=== PATIENT | male | born 1940 | race Caucasian/White ===

== ENCOUNTER → 2017-06-21 | Outpatient (CLI) | payer OTHER ==
[~2017-06-21] MED LIST: ACET50TAOT PO; ALBU17IN INH; ALBUTEROL NEB; ALBUTEROL NEBS INH; ALDA25TA2 PO; ASPI1TAB PO; ATOR1TAB21 PO; AZIT500T2 PO; BISO5TAB5 PO; BREO1INH3 INH; CRES10TA32 PO; DELTASONE PO; DEMA20TA6 PO; DIGO0.12 PO; DIPHENHYDRAMINE PO; FURO40TA2 PO; GABA-282 PO; GLIP5TAB8 PO; INVO100T PO; IPRASOL4 INH; JANU100T PO; KLOR1TAB69 PO; LANO250T15 PO; LEVA1TAB2 PO; MAALSUS8 PO; METO5TA PO; OMEP20TA PO; OXYGEN; PERC5TAB12 PO; PRED10TA PO; PRED10TA2 PO; PROT1TAB2 PO; PROVENTIL NEB NEB; RAMI25CA PO; SERT50TA PO; TOPR50TA PO; TORS20TA2 PO; TYLE167L PO; VENTOLIN INHALER INH; XARE10TA PO; XARE20TA PO; ZEBE5TAB PO; ZOLO50TA PO
== END ==
LOC: M LAB 14:18
PROVIDERS: ATTEND Ophthalmology
DX: Z11.2 Encounter for screening for other bacterial diseases (principal)

== ENCOUNTER → 2017-06-24 | Day surgery (SDC) | payer OTHER ==
--- NOTE | 2017-06-23 07:45 | HPE ---
DATE OF ADMISSION: 06/24/2017 HISTORY OF CHIEF COMPLAINT: Mr. Peña is a 77-year-old gentleman who has had a several-year history of progressive drooping of his upper eyelids, which is interfering with his vision and visual field. Mr. Peña is been admitted to the operating room to have a levator aponeurosis resection, advancement and reattachment with a blepharoplasty of both upper eyelids. This will be performed under local anesthetic with monitored sedation. PAST OCULAR HISTORY: Please see history of present illness. Cataract surgery both eyes 2013. PREOPERATIVE MEDICAL EVALUATION DONE AND ASSESSMENT AND PAST MEDICAL HISTORY: Please see the report by Dr. Bernardino Garcia. Diabetes mellitus type 2, coronary artery disease, metabolic syndrome, obstructive sleep apnea, asthma, atrial fibrillation, neuropathy, gastroesophageal reflux disease (GERD), high cholesterol, congestive heart failure, chronic obstructive pulmonary disease (COPD). MEDICATIONS: Please refer to the report by Dr. Bernardino Garcia. Benadryl allergy, dexamethasone, Xarelto, Lanoxin, gabapentin, Breo, prednisone, torsemide, aspirin 81 mg, sertraline, metoprolol, Percocet, glipizide, atorvastatin, omeprazole, MiraLAX, Ventolin, Januvia, Tylenol arthritis. ALLERGIES: BETA-BLOCKERS. FAMILY HISTORY: Please see the report by Dr. Bernardino Garcia. Cataract and glaucoma with respect to eye disease. SOCIAL HISTORY: Nonsmoker. On examination, vision with current glasses: Right eye: 20/25 -1, left eye: 20/20 -1. Intraocular pressure by Goldmann tonometry: Right eye: 17 mmHg, left eye: 17 mmHg. Pupils: Both eyes: Equal, round, regular and reactive to light. Extraocular movements: Both eyes: Full. External examination: Right eye: Involutional dermatochalasis upper eyelid, orbital fat herniation. Margin to brow skin measurement: 30mm. Myogenic ptosis upper eyelid, marginal reflex distance: 1 mm. Levator function: 11 mm. No lid lagophthalmos present. Left eye: Involutional dermatochalasis upper eyelid, orbital fat herniation. Margin to brow skin measurement: Left eye: 30 mm. Myogenic ptosis upper eyelid, marginal reflex distance: 1 mm, levator function: 11 mm. No lid lagophthalmos present. Both eyes: papillary conjunctivitis. Slit lamp examination: Cornea: Both eyes: 1+ superficial punctate keratitis. Anterior chamber: Both eyes: Normal. Iris: Both eyes: Normal. Lens: Both eyes: PCIOL. Fundal examination: Both eyes: Normal for age, no evidence of diabetic retinopathy present. Ptosis Visual aldridge: untaped bilateral shows 40 degrees superior visual field loss. Taped upper eyelid: bilateral shows full superior visual field. IMPRESSION: 1. Myogenic ptosis upper eyelids both eyes, affecting vision and visual field. 2. Involutional dermatochalasis upper eyelid both eyes. PLAN: I discussed the findings with Mr. Peña. I recommended a levator aponeurosis resection, advancement and reattachment with a blepharoplasty of both upper eyelids to reposition the upper eyelid to improve his vision and visual field and remove the excess skin and herniated orbital fat. I discussed the procedure above, benefit, expected outcomes, risks and alternatives to surgery. I mentioned that the risk of surgery includes but is not limited to surgery is not guaranteed, bleeding, infection, inflammation, scarring, recurrence, over correction, under correction, injury to the globe or the orbit causing loss of vision and impaired function. Mr. Peña elected to have the said surgery performed. I obtained an informed consent. I advised him to stop any aspirin type products and nonsteroidal anti-inflammatory medications [address] Garcia and Rosalva James will recommend his other preoperative and postoperative medications. Bharathi the RN from the operating room preoperative division indicated on Saturday that Mr. Peña had positive cultures from his nasal cavity of methicillin resistant Staphylococcus aureus (MRSA) in 2013. The documentation was received. There was no written evidence that cultures were repeated after the infection was treated. My surgical appliances salesperson, Karla Peterson, contacted [facility]vin and the patient. The patient was informed that cultures should be repeated to determine if there are any evidence of MRSA present. If MRSA is present, this would have to be treated prior to the surgery and surgery would be cancelled. The patient went to [facility] and had some swabs for the nostrils taken for culture and sensitivity to determine if MRSA was still present in the nasal cavity. The results will be obtained at 4:30 on SaturdayJune 24. Depending on the results, the decision to proceed with surgery will be determined. JOHN
[~2017-06-24] VITALS: Ht 177.8 cm; Wt 109.3 kg
[~2017-06-24] MED LIST changes: +BUPIVACAINE 0.75% 10 ML VIAL As Ordered ONE; +CIPROFLOXACIN 0.3% OPHTH OINTMENT As Ordered ONE; +HYALURONIDASE 200 UNITS/ML VIAL (J3470) As Ordered ONE; +LIDOCAINE 1% SDV 5 ML VIAL SQ ONE; +LIDOCAINE W/EPINEPHRINE 1% 20ML VIAL As Ordered ONE; +LR 1,000 ML IV ONE; +MIDAZOLAM INJ 2 MG/2 ML VIAL (J2250) As Ordered ONE; +POVIDONE-IODINE 5% OPHTH PREP SOL 30ML As Ordered ONE; +PROPOFOL 200 MG/20 ML VIAL As Ordered ONE; +TETRACAINE 0.5% OPHTH SOLN 4ML As Ordered ONE; +TOBRADEX OPHTH OINT 3.5 GM As Ordered ONE; +dexameTHASONE 4 MG/ML 1ML VIAL (J1100) As Ordered ONE; +dexameTHASONE 4 MG/ML 1ML VIAL (J1100) IV ONE; +fentaNYL 100 MCG/2 ML INJECTION (J3010) As Ordered ONE
--- NOTE | 2017-06-24 11:01 | RO ---
DATE OF SURGERY: 06/24/2017 ROOM: Operating room. SURGEON: Eric Chapman MD SUPERVISOR SOLDERING: PREOPERATIVE DIAGNOSES: 1. Involutional ptosis upper eyelid both eyes, affecting vision and visual field. 2. Involutional dermatochalasis upper eyelid both eyes. POSTOPERATIVE DIAGNOSES: 1. Involutional ptosis upper eyelid both eyes, affecting vision and visual field. 2. Involutional dermatochalasis upper eyelid both eyes 3. Marked fatty infiltration of levator muscle, Herings phenomenon positive, thinning of aponeurosis. ANESTHESIA: Local with monitored sedation. OPERATIVE PROCEDURE: 1. Levator aponeurosis resection, advancement and reattachment of upper eyelid both eyes. 2. Blepharoplasty upper eyelid both eyes. DESCRIPTION OF OPERATION: The patient was brought into the operating room and positioned appropriately. A surgical marking pen was used to charlie the upper lid crease height at 7 mm using a pair of calipers and then the upper incision line was marked leaving 20 mm of skin from the eyebrow to the lash line. After adequate sedation, local anesthetic consisting of Xylocaine 1% mixed 50/50 with Marcaine 0.75% and epinephrine 1:200,000 with 0.5 mL of 8.4% sodium bicarbonate and 200 units of Vitrase per 10 mL of local anesthetic, 1.5 mL was injected subcutaneously along the incision lines and superior border of the tarsus of the both upper eyelids. The full face was prepped with Betadine and draped in the usual sterile manner. Topical tetracaine 0.5% eye drops were instilled into the both eyes. A 6-0 silk traction suture was placed at the lid margin just nasal to the pupil and both upper eyelids were retracted inferiorly. The skin incision was made with a #15 blade for both upper eyelids. Good hemostasis was ensured throughout the procedure using bipolar cautery. The orbicularis muscle was identified and incised at the temporal margin and then dissected down to the suborbicularis plane. The myocutaneous flap was then excised from temporal to medial. The orbital septum was identified and incised just inferior to the superior orbital rim and the incision was extended medially and laterally. The medial and central orbital fat pads were identified and retracted to reveal the levator muscle and aponeurosis which was detached from its normal position on the superior tarsus. The levator muscle had fatty infiltration. The superior surface of the tarsus was exposed. A double-armed 5-0 nylon suture was used to reattach the levator aponeurosis to the tarsus for both upper eyelids. The suture was tied temporarily. The patient was sat up and the lid margin contour and marginal reflex distance was checked for both upper eyelids. The 5-0 nylon suture was adjusted until the marginal reflex distance was 3 mm for both upper eyelids . The patient was then placed supine and the 5-0 nylon suture was tied and cut. Hemostasis was checked. The skin and orbicularis layer was then closed with interrupted and continuous 6-0 plain suture for both upper eyelids. There were no complications during the surgery. At the end of the procedure, a combination of Ciloxan ophthalmic ointment mixed with TobraDex ophthalmic ointment was applied to the incision and the sutures. A cold saline compress was placed over the closed both upper eyelids. The patient left for the recovery room in good condition. Specimens were sent to pathology. JOHN
[2017-06-24 12:00] VITALS: BP 148/67
== END | disposition home or self-care (01) ==
LOC: M SDC 07:11
PROVIDERS: ATTEND Ophthalmology
DX: H02.423 Myogenic ptosis of bilateral eyelids (principal); H02.834 Dermatochalasis of left upper eyelid; H02.831 Dermatochalasis of right upper eyelid; Z86.14 Personal history of Methicillin resistant Staphylococcus aureus infection; H35.039 Hypertensive retinopathy, unspecified eye; E11.22 Type 2 diabetes mellitus with diabetic chronic kidney disease; I25.10 Atherosclerotic heart disease of native coronary artery without angina pectoris; G47.33 Obstructive sleep apnea (adult) (pediatric); E88.81 Metabolic syndrome and other insulin resistance; J45.909 Unspecified asthma, uncomplicated; I48.91 Unspecified atrial fibrillation; E11.40 Type 2 diabetes mellitus with diabetic neuropathy, unspecified; K21.9 Gastro-esophageal reflux disease without esophagitis; E78.00 Pure hypercholesterolemia, unspecified; I50.30 Unspecified diastolic (congestive) heart failure; I13.0 Hypertensive heart and chronic kidney disease with heart failure and stage 1 through stage 4 chronic kidney disease, or unspecified chronic kidney disease; J44.9 Chronic obstructive pulmonary disease, unspecified; M54.9 Dorsalgia, unspecified; M19.90 Unspecified osteoarthritis, unspecified site; N18.4 Chronic kidney disease, stage 4 (severe); E04.9 Nontoxic goiter, unspecified; Z88.8 Allergy status to other drugs, medicaments and biological substances; Z79.899 Other long term (current) drug therapy; Z79.01 Long term (current) use of anticoagulants; Z79.82 Long term (current) use of aspirin; Z79.51 Long term (current) use of inhaled steroids; Z95.1 Presence of aortocoronary bypass graft
CPT/HCPCS: 15823; 67904; 88302; J1100; J2250; J3010; J3470

== ENCOUNTER 2017-11-01 20:59 | Inpatient (IN) | payer OTHER ==
[~2017-11-01] VITALS: Ht 170.2 cm; Wt 103.5 kg
[~2017-11-01 20:59] MED LIST changes: -BUPIVACAINE 0.75% 10 ML VIAL As Ordered ONE; -CIPROFLOXACIN 0.3% OPHTH OINTMENT As Ordered ONE; -HYALURONIDASE 200 UNITS/ML VIAL (J3470) As Ordered ONE; -LIDOCAINE 1% SDV 5 ML VIAL SQ ONE; -LIDOCAINE W/EPINEPHRINE 1% 20ML VIAL As Ordered ONE; -LR 1,000 ML IV ONE; -MIDAZOLAM INJ 2 MG/2 ML VIAL (J2250) As Ordered ONE; -POVIDONE-IODINE 5% OPHTH PREP SOL 30ML As Ordered ONE; -PROPOFOL 200 MG/20 ML VIAL As Ordered ONE; -TETRACAINE 0.5% OPHTH SOLN 4ML As Ordered ONE; -TOBRADEX OPHTH OINT 3.5 GM As Ordered ONE; -dexameTHASONE 4 MG/ML 1ML VIAL (J1100) As Ordered ONE; -dexameTHASONE 4 MG/ML 1ML VIAL (J1100) IV ONE; -fentaNYL 100 MCG/2 ML INJECTION (J3010) As Ordered ONE
[2017-11-01] MEDS ORDERED: METOPROLOL 5 MG/5 ML VIAL IV STA ×4 (21:17→23:12)
[2017-11-01] MEDS ORDERED: TOUJ1.2I SC (21:26)
[2017-11-01] MEDS ORDERED: XARE15TA PO (21:26)
[2017-11-01 21:40] LABS: BASO # 0.1 10^3/uL (0.0-0.2); BASO % 0.4 % (0.0-1.0); EOS # 0.2 10^3/uL (0.0-0.50); EOS % 0.7 % (0.0-3.0); IMMATURE GRANULOCYTE % 0.9 % (0-0); LYMPH # 1.7 10^3/uL (1.5-4.5); LYMPH % 7.4 % (24.0-44.0); MEAN CORPUSCULAR HEMOGLOBIN 28.9 pg (27.0-33.0); MEAN CORPUSCULAR HGB CONC 32.1 g/dl (32.0-36.5); MONO % 8.5 % (0.0-5.0); NEUTROPHILS # 18.9 10^3/uL (1.8-7.7); NEUTROPHILS % 82.1 % (36.0-66.0); PLATELET COUNT, AUTOMATED 226 10^3/uL (150-450); RED CELL DISTRIBUTION WIDTH 14.6 % (11.5-14.5)
[2017-11-01 22:07] LABS: ALBUMIN 3.1 GM/DL (3.2-5.2); ALBUMIN/GLOBULIN RATIO 0.97 (1.00-1.93); BILIRUBIN,DIRECT 0.1 MG/DL (0.0-0.2); BILIRUBIN,TOTAL 0.6 MG/DL (0.2-1.0); CALCIUM LEVEL 8.3 MG/DL (8.8-10.2); CREATININE FOR GFR 1.52 MG/DL (0.70-1.30); GLOMERULAR FILTRATION RATE 47.8 (>42); POTASSIUM SERUM 3.3 MEQ/L (3.5-5.1); TOTAL PROTEIN 6.3 GM/DL (6.4-8.2)
[2017-11-01 22:17] LABS: DIGOXIN LEVEL 0.9 NG/ML (0.5-2.0)
[2017-11-01] MEDS ORDERED: METOPROLOL TART 25 MG TABLET As Ordered ONE (22:23)
[2017-11-01] MEDS ORDERED: METOPROLOL TART 25 MG TABLET PO ONE ×2 (22:30→23:15)
[2017-11-01] MEDS ORDERED: DIGOXIN INJ 0.5 MG/2 ML AMP (J1160) IV STA (22:38)
[2017-11-01] MEDS ORDERED: ESMOLOL INJ 100MG/10ML VIAL IV ONE (23:15)
[2017-11-02] VITALS (34 sets, daily range): BP systolic 90–164; BP diastolic 44–86
[2017-11-02] MEDS ORDERED: SITA50TAB PO (00:27)
[2017-11-02] MEDS ORDERED: SERT50TA PO (00:27)
[2017-11-02] MEDS ORDERED: TORS20TA2 PO (00:28)
[2017-11-02] MEDS ORDERED: ISOVUE-370 76% 100ML VIAL (Q9967) As Ordered ONE (00:41)
[2017-11-02] MEDS ORDERED: DEXTROSE 50% 50 ML SYRINGE IV PRN (01:00)
[2017-11-02] MEDS ORDERED: GLUCAGON FOR INJ 1 MG VIAL (J1610) SC PRN (01:00)
[2017-11-02] MEDS ORDERED: GLUCOSE 4 GM CHEW TABLET PO PRN (01:00)
[2017-11-02] MEDS ORDERED: VANCOMYCIN HCL 1,000 MG, VIAL MATE ADAPTER 1 EACH in D5W 250 ML IV ONE ×2 (01:45→05:00)
--- NOTE | 2017-11-02 01:50 | REPUSA ---
CLINICAL HISTORY: Chest pain. TECHNIQUE: Multiple axial CT images were obtained through the thorax without IV contrast material. COMMENTS: Enlarged main pulmonary artery. Unremarkable median sternotomy wires. Bilateral multifocal groundglass densities of the lungs more prominent in the right middle lobe and b ilateral lower lobes. Bilateral lower lobe subsegmental air space consolidations. There is no evidence of pleural or parenchymal-based mass. There are no pleural effusions. There is n o evidence of hilar or mediastinal lymphadenopathy. The heart and great vessels are within normal penaloza its. The visualized portions of the liver are of uniform attenuation without mass or defect. There is no i ntra or extrahepatic biliary ductal dilatation. The spleen is unremarkable. The visualized pancreas i s of normal contour and attenuation characteristics. There is no evidence of adrenal mass. The visual ized portions of the kidneys present no abnormalities. The bony structures are free of lytic or blastic lesions. Fluid-filled distended stomach suggestive of gastroparesis. IMPRESSION: Bilateral multifocal bronchopneumonia. Mild congestive heart failure. Thank you for your kind referral of this patient.
--- NOTE | 2017-11-02 02:20 | PHACANCOPD ---
PHARMACY VANCOMYCIN DOSING Pt Demographics Demographics Patient Age:77 , Weight:109.090 , Gender: male Adjusted Body Weight Date: 11/02/17, Adjusted Body Weight: [83] Kg Events Past 24 Hours Events Past 24 Hours: NO: Dialysis, Diuretic Therapy, Change in CrCl, Fever, Elevation in WBC, Pending Diagnostics, Pending Procedures, Other Vancomycin Vancomycin Target Ranges: 15-20 mcg/ml Vancomycin Load Y/N: Yes Load Dose Date Time Vancomycin Load Dose: 2000mg Date: 11-02 Time: 0400 Vancomycin Dose Date: 11/02/17. Current Vancomycin Dose: [1000mg q12h] Intermittent Dosing?: No Labs Labs Item Value Date Time White Blood Count 23.0 10^3/uL H 11/01/172123 Creatinine 1.52 MG/DL H 11/01/172123 Blood Urea Nitrogen 24 MG/DL H 11/01/172123 Vital Signs Label Value Date Time Patient Temperature 99.3 degrees F 11/01/172112 Temperature Source Temporal 11/01/172112 Micro Microbiology 11/02/17 Blood Culture, Received Pending 11/02/17 Blood Culture, Received Pending Creatinine Clearance Date:11/02/17. Creatinine Clearance: [39]. Pending Labs Trough 12-10 @1500 Assessment and Plan Maintaining Current Dose?: Yes Reason for dose change: No Dose Change Pharmacist Note Pharmacist Note Date: 11/02/17. Pharmacist note:Dosed at 1000mg q12h with a trough ordered for 12 -10 @1500. Will continue to monitor and make adjustments as needed. [facility] Nov 02, 2017 02:20
[2017-11-02] MEDS: KCL 10MEQ IN 100ML SWI (KRUN) 10 MEQ in APPROPRIATE DILUENT 1 EA IV SCH ×4 (02:41→04:52)
[2017-11-02] MEDS ORDERED: ALBUTEROL SULFATE 2.5 MG/0.5 ML INH NEB SOLN NEB PRN (03:15)
[2017-11-02] MEDS ORDERED: NS 1,000 ML IV SCH (03:15)
[2017-11-02] MEDS ORDERED: METOPROLOL 5 MG/5 ML VIAL IV STA (03:39)
[2017-11-02] MEDS: VANCOMYCIN HCL 1,000 MG, VIAL MATE ADAPTER 1 EACH in D5W 250 ML IV SCH ×2 (03:51→16:26)
[2017-11-02] MEDS ORDERED: DIGOXIN INJ 0.5 MG/2 ML AMP (J1160) IV STA (04:06)
[2017-11-02 05:28] LABS: MEAN CORPUSCULAR HEMOGLOBIN 28.5 pg (27.0-33.0); MEAN CORPUSCULAR VOLUME 89.2 fl (80.0-96.0); PLATELET COUNT, AUTOMATED 198 10^3/uL (150-450); RED CELL DISTRIBUTION WIDTH 14.9 % (11.5-14.5); WHITE BLOOD COUNT 25.1 10^3/uL (4.0-10.0)
[2017-11-02 05:58] LABS: CALCIUM LEVEL 8.4 MG/DL (8.8-10.2); CREATININE FOR GFR 1.72 MG/DL (0.70-1.30); GLOMERULAR FILTRATION RATE 41.5 (>42); POTASSIUM SERUM 3.5 MEQ/L (3.5-5.1)
[2017-11-02] MEDS ORDERED: HEPARIN SOD (PORCINE) 5000 UNITS/ML VIAL SC SCH (06:00)
[2017-11-02] MEDS ORDERED: PIPERACILLIN/TAZOBACTAM SOD 3.375 GM in APPROPRIATE DILUENT 1 EA IV SCH (06:00)
[2017-11-02 06:41] LABS: DIGOXIN LEVEL 3.4 NG/ML (0.5-2.0)
[2017-11-02] MEDS: HumaLOG INSULIN (NovoLOG) PER UNIT SC SCH ×4 (07:30→20:28)
[2017-11-02] MEDS ORDERED: HEPARIN DRIP 25,000 UNITS in APPROPRIATE DILUENT 1 EA IV SCH ×2 (07:33→17:58)
[2017-11-02] MEDS ORDERED: HEPARIN SOD (PORCINE) 5000 UNITS/ML VIAL IV PRN (07:45)
[2017-11-02 08:14] LABS: INR 1.3
[2017-11-02] MEDS ORDERED: FUROSEMIDE 100 MG/10 ML VIAL (J1940) As Ordered ONE (08:15)
[2017-11-02 08:25] LABS: ABG BASE EXCESS 8.2 (-2.0-2.0); ABG HCO3 33.8 MEQ/L (22.0-26.0); ABG PARTIAL PRESSURE CO2 50.6 mmHg (35.0-45.0); ABG PARTIAL PRESSURE O2 69.7 mmHg (75.0-100.0); ABG STANDARD HCO3 31.9 MEQ/L (22.0-26.0); ABG TOTAL CO2 35.4 MEQ/L (23.0-31.0); ABG pH (ARTERIAL) 7.443 UNITS (7.350-7.450)
[2017-11-02] MEDS ORDERED: METOPROLOL SUCC (TopROL XL) 50MG **XL** TAB PO SCH (09:00)
[2017-11-02] MEDS ORDERED: FUROSEMIDE 100 MG/10 ML VIAL (J1940) IV ONE (09:00)
[2017-11-02] MEDS ORDERED: RIVAROXABAN 15 MG TAB (XARELTO) PO SCH (09:00)
[2017-11-02] MEDS ORDERED: TORSEMIDE 20 MG TAB PO SCH ×2 (09:00)
[2017-11-02] MEDS ORDERED: DIGOXIN 0.125 MG TAB PO SCH (09:00)
[2017-11-02 09:33] LABS: MIXED HCO3 35.6 MEQ/L; MIXED O2 SATURATION 64.3 %; MIXED PARTIAL PRESSURE CO2 62.5 mmHg; MIXED PARTIAL PRESSURE O2 34.2 mmHg; MIXED PH 7.373 UNITS; MIXED STANDARD HCO3 30.9 MEQ/L; MIXED TOTAL CO2 37.5 MEQ/L
[2017-11-02] MEDS: MEROPENEM INJ 500 MG in APPROPRIATE DILUENT 1 EA IV SCH ×2 (10:29→20:14)
[2017-11-02] MEDS: ATORVASTATIN 20 MG TAB PO SCH (10:29)
[2017-11-02] MEDS: predniSONE 10 MG TAB PO SCH (10:29)
[2017-11-02] MEDS: NYSTATIN 100,000 UNITS/GM TOPICAL PWD 15 GM TOP SCH ×2 (10:29→21:04)
[2017-11-02] MEDS: GABAPENTIN 300 MG CAP PO SCH ×3 (10:29→20:14)
[2017-11-02] MEDS: SERTRALINE HCL 50 MG TAB PO SCH ×2 (10:29→20:14)
--- NOTE | 2017-11-02 12:05 | REP ---
REASON: Dyspnea. COMPARISON: 09/07/2016. The technique utilized in obtaining the radiograph has magnified the cardiac silhouette and accentuated the interstitial markings. Subtle bibasilar opacities seem to have developed on this limited portable exam compared to the prior exam using PA and lateral technique. There is cardiomegaly accentuated by technique. No significant change is seen in the osseous structures. IMPRESSION: Bibasilar opacities seem to have developed as described above. Basilar pneumonia cannot be ruled out. Signed by Jarrett Crowder DO 11/02/2017 08:54 A
--- NOTE | 2017-11-02 12:06 | REP ---
REASON FOR EXAM: Assess post central line placement. COMPARISON: 11/01/2017. Since the last examination, a left sided subclavian central venous catheter has been placed, the tip of which is in the superior vena cava. There is no pneumothorax. There is no evidence of a significant change from the prior exam. Patchy bibasilar opacities persist. IMPRESSION: Central venous catheter as described above. Signed by Jarrett Crowder DO 11/02/2017 09:46 A
--- NOTE | 2017-11-02 12:06 | HPE ---
DATE OF ADMISSION: 11/02/2017 PRIMARY CARE PROVIDER: Rosalva Thakur. 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 At the time of encounter, patient had a difficult time maintaining alertness and awakeness and limited information was obtained from the patient. Most of the information obtained from the patient's daughter and . Per family member and the patient, patient stated having chest pain in the past week. It does not occur on a daily basis. It occurs intermittently, improved with the aspirin. Two days ago, patient had chest pain occurring twice and this morning, the patient had chest pain in the morning and then be became more incoherent, noncohesive per family member, therefore they brought the patient to the emergency room for evaluation. Later when the patient answered some of the questions, patient stated pain is located epigastric region, "gas type of pain," with no radiation. Patient has a baseline of chronic obstructive pulmonary disease (COPD) with 2.5 liter nasal cannula at night and used during daytime intermittently. In the last few days, patient was noted to have increased cough frequency and sputum is yellowish and green. Patient is also noted to have a chill today 2 hours prior to arriving in the emergency room. Patient was noted to have vomiting. PAST MEDICAL HISTORY: Diastolic heart failure. Cor pulmonale. Atrial fibrillation. Right bundle branch block. Obstructive sleep apnea (REDD) on BiPAP. Chronic obstructive pulmonary disease (COPD). Hypertension. Hypercholesterolemia. Diabetes. Gastroesophageal reflux disease. Diabetic neuropathy. Coronary artery disease status post coronary artery bypass graft (CABG). History of rheumatoid fever. Panic attacks. 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 PAST SURGICAL HISTORY: Coronary artery bypass graft in 2010. Hiatal hernia. Melanoma removal on back. HOME MEDICATIONS: - Tylenol 500 mg by mouth every 4 hours as needed - aspirin 81 mg by mouth daily at bedtime - atorvastatin 20 mg by mouth daily - digoxin 0.125 mg by mouth daily - gabapentin 300 mg by mouth three times daily - glipizide 5 mg by mouth twice daily - metoprolol succinate 50 mg by mouth twice daily - omeprazole 20 mg by mouth daily at bedtime - Percocet one tablet by mouth every 8 hours as needed - prednisone 10 mg by mouth daily - Xarelto 15 mg by mouth daily - sertraline 50 mg by mouth twice daily - Januvia 50 mg by mouth daily - torsemide 60 mg by mouth daily SOCIAL HISTORY: Denies smoking. Denies alcohol use. Denies recreational drug use. Patient is FULL CODE. REVIEW OF SYSTEMS: Limited information obtained from the patient. General: Positive for chills in the last 24 hours. Cardiovascular: Patient complained about chest pain, pressure like and gas like discomfort in the epigastric region without radiation occurring in the last week , it has become more frequent in the last 1-2 days. History of coronary artery disease status post coronary artery bypass graft. Patient also has diastolic congestive heart failure, also history of atrial fibrillation. On chronic anticoagulation. Pulmonary: The patient has COPD, noticed to have increased cough. Patient has sputum color changes. Gastrointestinal: No abdominal pain, no diarrhea. Patient did have one episode of vomiting. No abdominal pain. No diarrhea. Musculoskeletal: Denies any joint pain or muscle pain. Neurological: Chronic neuropathy from diabetes. OBJECTIVE: Vital signs: Temperature 99.3, pulse 55, respiration 22, blood pressure 120/62, pulse oximetry 94% with 3 liter nasal cannula. General: Patient lethargic, unable to maintain prolonged alertness and awakeness but patient is oriented. HEENT: Normocephalic, atraumatic. Extraocular motor grossly intact. Cardiovascular: Irregularly irregular, tachycardic. Abdomen: Soft, nontender, nondistended. Extremities: No edema. No cyanosis. Neurological: Decreased sensation of the right lower extremities from chronic peripheral neuropathy. Otherwise sensation to fine touch grossly intact. Muscle strength 5/5. LABORATORY DATA: WBC 23, hemoglobin 14.3, hematocrit 44.2, platelet count is 226. Sodium 140, potassium 3.3, chloride 96, carbon dioxide 33, BUN 24, creatinine 1.52, glomerular filtration rate is 47.8, fasting glucose 152, calcium 8.3, total bilirubin 0.6, direct bilirubin 0.1, AST 18, ALT 21, alkaline phos 90 , total CK is 42, troponin I is 0.38, total protein 6.3, albumin 3.1, lipase 98. Digoxin level is 0.9. ASSESSMENT AND PLAN: 1. Sepsis. Patient has tachycardia tachypnea and also has a low grade temperature. Patient had elevated white count. Patient admitted to progressive care unit (PCU). Will followup with a CT of the chest. Will followup with blood cultures and sputum cultures and respiratory panels. 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 Will start patient on broad spectrum antibiotics. Currently patient is not hypertensive. 2. Elevated troponin. First set troponin 0.38. EKG showed atrial fibrillation with rapid ventricular rate with heart rate around 150s. Will continue to trend troponin. The emergency physician has contacted [facility]. They believe patient has demand ischemia. Currently will treat patient for his sepsis. 3. Atrial fibrillation with rapid ventricular rate. Patient is taking metoprolol succinate and Xarelto. When patient arrived in the emergency room, heart rate is persisting around 150s. Patient received three dose metoprolol IV times four. and patient on metoprolol tartrate by mouth. Patient also will get IV digoxin. At the time of encounter, patient's heart rate is 119. 4. Atrial fibrillation with rapid ventricular rate on Xarelto, currently heart rate is not controlled due to patient's acute illness_. 5. Acute renal injury. The most recent renal function in [facility] is from 09/19/2016. Patient had a glomerular filtration rate greater than 60 with creatinine 1.09. Clinically, patient looks dry. Will hold the torsemide for now. 6. Diastolic dysfunction. Currently patient has acute kidney injury, torsemide will be on hold. No sign of overload. 7. Coronary artery disease, status post coronary artery bypass graft (CABG) in 2010. Patient is on aspirin and metoprolol. 8. Obstructive sleep apnea (REDD), patient using BiPAP at this moment. While he is in the hospital, patient will be on REDD protocol. 9. Elevated troponin with chest pain, suspect demand ischemia. Continue to trend troponin. 10. Metabolic encephalopathy, suspect due to patient's acute illness. 11. Gastroesophageal reflux disease, on omeprazole. 12. Diabetic neuropathy on gabapentin. 13. 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 14. History of panic attack. Continue home medications. 15. Deep venous thrombosis (DVT) prophylaxis on Xarelto. MTDD
--- NOTE | 2017-11-02 12:07 | CCN ---
DATE OF SERVICE: 11/02/2017 Critical care time was one hour and fifteen minutes. This excludes all procedures. I was called for this 77-year-old gentleman who presented with chest pain and shortness of breath who was found to be in atrial fibrillation with rapid ventricular response (RVR) and with some hypotension. He was treated for possible sepsis overnight. However, this morning, it was felt that he had more of a congestive heart failure (CHF) picture with the rounding hospitalist saw the patient. For better management, he was transferred to the intensive care unit because of tachycardia, hypotension and respiratory distress. The hospitalist had already started CPAP to assist with breathing as the patient was having some difficulty. After some investigation, it does appear the patient has obstructive sleep apnea, followed by Dr. Weiss. Normally, he is on bilevel noninvasive therapy 11/01. As part of his treatment, the hospitalist had already placed a subclavian line. Central venous pressure was measured at 8 and the patient was given Lasix. With the Lasix administration, his heart rate actually decreased and his blood pressure improved. I was consulted to help with differentiation of sepsis due to his lack of lactic acidosis and heart failure. The patient is quite complicated with multiple medical issues. PAST MEDICAL HISTORY (Significant for): 1. Coronary artery disease status post coronary artery bypass graft (CABG). 2. Diastolic dysfunction. 3. Chronic obstructive pulmonary disease (COPD) with chronic hypoxic respiratory failure. 4. Obstructive sleep apnea on bilevel noninvasive therapy 11/01 with 2 liters bled in at baseline. 5. History of atrial fibrillation. 7. Chronic prednisone use thought to be secondary to COPD. At this point in time, this is the only medical information I can obtain. There are no family members with him and he is quite short of breath. Therefore, family history, review of systems and social history cannot be obtained at this point in time because of the severity of his shortness of breath and critical illness. CURRENT MEDICATIONS (Include): - Tylenol - Percocet - Ecotrin - Lipitor - Neurontin - Prilosec - prednisone 10 mg by mouth daily - Zoloft 50 mg by mouth twice a day - sliding scale insulin - vancomycin - meropenem - Nystatin PHYSICAL EXAMINATION: Temperature is 99.1, pulse is 111 now down to 100, respiratory rate is 26, blood pressure has improved from 92/50 with a mean arterial pressure of 64 to 116/51 with a mean arterial pressure of 74. Currently, the patient's oxygen saturation is 91% on 30% FiO2 with a CPAP of 5. General: The patient is dyspneic, but states his breathing is better. Sitting in bed not moving much due to the severity of his dyspnea. HEENT: Sclerae clear and anicteric. Pupils are equal, react to light. Mucous membranes are moist without lesions. Tongue is midline. Neck: Jugular venous pulse (JVP) difficult to assess due to body habitus. No thyromegaly. Lymphs: No cervical, supraclavicular or axillary adenopathy. Cardiac: Irregularly irregular. S1, S2. Without audible murmur or gallop. Difficult to palpate PMI due to body habitus. Pulmonary: Breath sounds are decreased bilaterally, much more so in the bilateral bases. At this point in time, I do not hear any rales, rhonchi or wheezes. However, prior to initiation of CPAP, there was upper airway rhonchi according to the hospitalist. Abdomen is obese, soft, nondistended, nontender. Hypoactive bowel sounds are present. No discernible mass or discernible hepatosplenomegaly. Extremities: Minimal lower extremity edema to the mid calf. No rashes, jaundice or bruising. Some chronic venous stasis changes in the lower extremities. Skin is pale without rash, jaundice or bruising. LABORATORY EVALUATION: Shows a white blood cell count of 21.5, hemoglobin of 14.0 and platelet count of 198. Sodium is 139, potassium 3.5, chloride 96, bicarb is 32, BUN of 28, creatinine 1.72 with a glucose of 200. Arterial blood gas currently is 7.44, pCO2 of 51 and pAO2 of 70. Chest CT shows dependent infiltrates, bilateral small bilateral pleural effusions and vascular engorgement with cardiomegaly and prior surgery. No upper lobe infiltrates. Some motion artifact. Electrocardiogram (EKG) shows a right bundle branch block. Troponin has been elevated and is now up to 0.55. IMPRESSIONS: 1. Hypoxia likely with volume overload. Therefore, fluid should not be administered. Would recommend vasopressor therapy if the patient becomes hypotensive. Recommend checking SvO2 to see that if inotropic agents are needed. Will switch over to bilevel as this is his home setting in order to support his respirations during his acute illness. The patient at high risk for needing intubation. 2. Hypotension. May be secondary to sepsis versus decreased cardiac output. Would check SvO2. There is some convincing evidence after he was diuresed that his blood pressure got better along with his pulse. However, the patient does have an elevated white count and bilateral lower lobe infiltrates. The dependent infiltrates could either be infection versus pulmonary edema. 3. Abnormal chest CT. As mentioned above, infection versus pulmonary edema. Would cover for both. 4. Atrial fibrillation, currently on heparin drip for stroke prophylaxis. Better rate controlled with the recent diuretic administration. 5. Hypercholesterolemia. 6. Hypercholesterolemia, on statin therapy. As this may be cardiac in nature, will continue statin therapy and monitor liver enzymes. If there is any liver enzyme elevation, would recommend discontinuing this medication. 7. GI prophylaxis, on Prilosec. 8. Chronic prednisone use and chronic obstructive pulmonary disease (COPD). No evidence of adrenal insufficiency as his blood pressure has improved. The patient will have a cortisol level checked in the morning. 9. Hyperglycemia. Goal blood sugar to be less than 180. The patient has chronic diabetes. He remains nothing by mouth (n.p.o.) for now as he is full code. 10. Lactic acidosis. Differential includes sepsis versus increased work of breathing. 11. Elevated troponin, likely secondary to congestive heart failure. Will continue to monitor. At this point in time, the patient will be supported to a mean arterial pressure of 65. His volume status will be constantly reassessed. He is in a difficult balance between infection and volume overload. Case and plan of care discussed with primary hospitalist Dr. Caraballo. JOHN
[2017-11-02 13:44] LABS: ABG BASE EXCESS 6.8 (-2.0-2.0); ABG HCO3 33.4 MEQ/L (22.0-26.0); ABG PARTIAL PRESSURE CO2 55.5 mmHg (35.0-45.0); ABG PARTIAL PRESSURE O2 73.2 mmHg (75.0-100.0); ABG STANDARD HCO3 30.6 MEQ/L (22.0-26.0); ABG TOTAL CO2 35.1 MEQ/L (23.0-31.0); ABG pH (ARTERIAL) 7.397 UNITS (7.350-7.450)
[2017-11-02 14:32] LABS: CALCIUM LEVEL 8.3 MG/DL (8.8-10.2); CREATININE FOR GFR 1.92 MG/DL (0.70-1.30); GLOMERULAR FILTRATION RATE 36.5 (>42); MAGNESIUM LEVEL 2.1 MG/DL (1.8-2.4); POTASSIUM SERUM 3.5 MEQ/L (3.5-5.1)
[2017-11-02] MEDS: ACETAMINOPHEN TAB 650MG DOSE (2X325MG) PO PRN ×2 (16:26→20:14)
--- NOTE | 2017-11-02 17:17 | IPNPDOC ---
Text Note Date of Service The patient was seen on 11/02/17. NOTE Patient was admitted overnight. Tachycardiac, tachypnea rr 25+ with hypoxia, hypotension. with gurgle respiratory sound and crackles on exam. reported intermittent chest pain and sob. further history limited 2/2 to severe respiratory distress General severe respiratory distress, dyspnea, tachynea into 25+, aaox3 HEENT: Normocephalic, atraumatic. Extraocular motor grossly intact. Cardiovascular: Irregularly irregular, tachycardic. Pul: tachypnea, coarse respiratory sound, upper airway gurgles Abdomen: Soft, nontender, nondistended. Extremities: No edema. No cyanosis. 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 found to be in a fib with RVR, acute hypoxic respiratory failure, hypotensive with suspected pna. 1. acute on chronic hypoxic respiratory failure and chronic hypercarbia likely 2/2 to acute CHF, with fluid overload. possible 2/2 pna, symptoms improved with bipap and lasix.. Bipap for now. abg, Pulmonary consulted trial off of bipap during the day tomorrow patient use bipap 14/6 at night at home with 2 L o2 at day tte given lasix 60mg IVx1. avoid further diuresis given underlying infection likely I and O, daily weght 2. Hypotension cardiogenic shock vs septic shock bp and tachycardiac improved with bipap and lasix but SV O2 suggestive of septic component f/u lactic acid improved TLC placed emergently f/u CVP maintain 8-12 avoid fluid if CVP in range with pressor support if needed TTE f/u lactic acid improved f/u culture herminio gomez chronic on steroid- am cortisol 3. Possible PNA, CT finding suggestive of PNA vs edema with wbc (but patient on steroid at home) f/u cultures, respiratory panel merro, vanco given patient critically ill with h/o MRSA f/u crp 4. a fib with RVR, given bb and dig dig level elevated f/u dig level tele HR improved after bipap and lasix possible componet of underlying infection consider restart dig if patient's dig level improved hold xarelto given worsening renal function heparin drip Cardiology consult 5 trop elevation with elevated pro BNP serial enzymes Tele cardio consult likely demand ischemia vs 2/2 CHF vs infection vs acute on chronic renal; tte CK MD index neg 6. acute on chronic renal 2/2 hypoperfusion and hypotension f/u urine studies I and O , fay, daily weight f/u urine output consult nephrology in worsen 7. COPD c/w inhaler and neb, no wheeze on examin 8 CAD h/o CABG 2010 tele cardiology consulte enzymes asa, statin GI ppx ppi DVT ppx heparin drip for a fib redd bipap metabolic encephalopathy treat underlying disease Dm insulin via protocol hold basal given acute on chronic venu f/u fingerstic Dispo pending clinical improvement. patient remained critical VS,William, I+O VS, William, I+O Laboratory Tests 11/01/17 21:24 Red Blood Count 4.91, Mean Corpuscular Volume 90.0, Mean Corpuscular Hemoglobin 28.9, Mean Corpuscular Hemoglobin Concent 32.1, Red Cell Distribution Width 14.6 H, Neutrophils (%) (Auto) 82.1 H, Lymphocytes (%) (Auto) 7.4 L, Monocytes ( %) (Auto) 8.5 H, Eosinophils (%) (Auto) 0.7, Basophils (%) (Auto) 0.4, Neutrophils # (Auto) 18.9 H, Lymphocytes # (Auto) 1.7, Monocytes # (Auto) 2.0 H , Eosinophils # (Auto) 0.2, Basophils # (Auto) 0.1 11/02/17 05:12 Red Blood Count 4.91, Mean Corpuscular Volume 89.2, Mean Corpuscular Hemoglobin 28.5, Mean Corpuscular Hemoglobin Concent 32.0, Red Cell Distribution Width 14.9 H, Calcium Level 8.4 L, Total Creatine Kinase 91 # 11/02/17 13:55 Calcium Level 8.3 L Vital Signs Date Time Temp Pulse Resp B/P (MAP) Pulse Ox O2 Delivery O2 Flow Rate FiO2 11/02/17 15:23 35 11/02/17 12:00 BIPAP/CPAP 11/02/17 12:00 98.8 85 8 109/55 (73) 92 11/02/17 07:59 3.0 I&O- Last 24 Hours up to 6 AM 11/03/17 06:00 Intake Total 710 ml Output Total 650 ml Balance 60 ml GERSON GILL MD Nov 02, 2017 17:17
--- NOTE | 2017-11-02 17:48 | CR ---
DATE OF CONSULTATION: 11/02/2017 REFERRING PROVIDER: Dr. Caraballo. PRIMARY RETANNER: Dr. Eric Sutton. PRIMARY PROVIDER: Rosalva Thakur, nurse practitioner. REASON FOR CONSULTATION: Heart failure, atrial fibrillation. HISTORY OF PRESENT ILLNESS: A 77-year-old male with a history of coronary artery disease and paroxysmal atrial fibrillation has been doing well, but in the last two days prior to coming to the hospital, he was having increasing shortness of breath, cough with yellowish sputum. Upon the recommendation of his , he was brought into the emergency room for further evaluation and he was found to have findings consistent with congestive heart failure, and he was in atrial fibrillation with rapid ventricular rate. He also was found to have some deterioration of his mental status. Further workup revealed bilateral pneumonia. He was treated in the emergency room (ER) with both intravenous (IV) and oral metoprolol tartrate, then admitted for further management and monitoring. At one point, he also was hypotensive and serum lactic acid was elevated. At one point, he was in respiratory distress and was placed on continuous positive airway pressure (CPAP). A central venous pressure (CVP) line was inserted, and it revealed a pressure of eight. The patient had received IV Lasix/furosemide. Because of the underlying paroxysmal atrial fibrillation and his congestive heart failure, cardiology consult was called. When I saw Mr. Hla Peña this afternoon in his room, he was sleeping with the CPAP on. He has been resting according to his at bedside. According to the , he appears to be better today since in the hospital and after initial treatment. He is on IV antibiotics for pneumonia and both his AV blocking agents, the Lopressor and the digoxin, he also had received a total of 0.5 mg IV , had been on hold. He has developed some deterioration in his kidney function after the IV diuretics, and this is also on hold. When I saw him, there was no orthopnea and he was in sinus rhythm. According to the , his pedal edema has improved. It seems also he was having some atypical chest pain at home on-and- off at rest. He does not walk much. He uses a motorized wheelchair. He was not having any fever at home, but in the ER, he was found to have low-grade fevers. There is no report of bleeding. There is no vomiting or diarrhea. He has a past medical history positive for coronary artery disease with coronary artery bypass graft, but no history of myocardial infarction. According to the , the patient at that time was having chest pain with activities. He also has a history of hypertension, hyperlipidemia, diabetes mellitus, obesity and sleep apnea for which he has been using a bilevel positive airway pressure (BiPAP) machine, chronic obstructive pulmonary disease (COPD) for which he has been on nightly oxygen and as needed during the day, arthritis with rheumatoid arthritis , paroxysmal atrial fibrillation, diastolic heart failure, gastroesophageal reflux disease (GERD). There is no history of cerebrovascular accident (CVA). He does have underlying degenerative disc disease, severe, from prior trauma at work. PAST SURGICAL HISTORY: Positive for coronary artery bypass graft in 2010, and he had skin melanoma removed in his back in the past. MEDICATIONS AT HOME: - aspirin 81 mg by mouth daily - Xarelto 15 mg by mouth daily - Januvia 50 mg by mouth daily - torsemide 60 mg by mouth daily - prednisone 10 mg by mouth daily for COPD - omeprazole 20 mg by mouth daily for heartburn at bedtime - metoprolol succinate 50 mg by mouth twice a day - glipizide 5 mg by mouth twice a day - gabapentin 300 mg by mouth three times a day - digoxin 0.125 mg by mouth daily - atorvastatin 20 mg by mouth daily - Tylenol 500 mg every four hours as needed CURRENT MEDICATIONS: - aspirin 81 mg by mouth daily - omeprazole 20 mg by mouth at hour of sleep - regular insulin coverage - atorvastatin 20 mg by mouth daily - gabapentin 300 mg by mouth three times a day - prednisone 10 mg by mouth daily - sertraline 50 mg by mouth twice a day - Nystatin powder apply to the groin bilaterally as needed twice a day - meropenem 500 mg every 12 hours IV - heparin IV - vancomycin 1 gram IV every 12 hours - Tylenol 650 mg every four hours as needed for mild pain or fever - glucagon 1 mg subcutaneous as needed for hypoglycemia - glucose tablets 16 grams as needed for hypoglycemia - D50 25 mL as directed for hypoglycemia and as needed FAMILY HISTORY: Noncontributory. SOCIAL HISTORY: The patient lives with his , and there is no report of smoking or ethyl alcohol (EtOH) abuse. He uses a motorized wheelchair at home. According to his chart, he has some adverse reaction in the past to beta suellen, but I see that he has been on beta suellen even at home. ADVANCE DIRECTIVES: The patient is a FULL CODE. PHYSICAL EXAMINATION: The patient currently is sleeping. His last vital signs revealed a blood pressure of 102/59 with a pulse when I was at bedside to be 70, respirations 16-18, and his maximum temperature is 99.6 degrees Fahrenheit with oxygen saturation of 91%-93% on three liters nasal cannula breathing in the CPAP. Examination of the head atraumatic. Jugular venous distention (JVD) could not be well appreciated. No carotid bruits. The heart examination revealed regular heart sounds without gallops. I could not appreciate any murmurs. The lungs did not reveal any wheezing and no crackles heart anteriorly and laterally. Abdomen is soft and nontender. Bowel sounds are active. Extremities reveal trace bilateral ankle edema. Neurological examination was not done. LABORATORY DATA: CBC revealed a WBC of 25.1, hemoglobin 14.0, hematocrit 43.8, and platelets 189,000. ESR is 25. On admission 11/01/2017, CBC revealed a WBC of 23.0, hemoglobin 14.2, hematocrit 42.2, and platelets 226,000. BMP today revealed a sodium of 138, potassium 3.5, chloride 94, CO2 36, BUN 34, creatinine 1.92, GFR 36.5,fasting glucose 183. Serum lactic acid is 3.1 on admission. Serum magnesium is 2.1. Serum troponin is 0.38, 0.48, 0.55, and 0.48, respectively number one up to number four. Pro-BNP is 7037. On admission, BMP revealed a sodium of 140, potassium 3.3, chloride 96, CO2 33, BUN 24, creatinine 1.52, GFR 47.8, and fasting glucose 152 with a calcium if 8.3. Liver enzymes revealed a total bilirubin of 0.6, direct bilirubin 0.1, AST 18, ALT 21, alkaline phosphatase 90. Total protein 6.3, albumin 3.1. Serum TSH is 1.3. Serum digoxin today is 3.4, and on admission serum digoxin was 0.9. MICROBIOLOGY: Urinalysis revealed +2 glucose and +1 blood. Blood cultures are pending, as well as MRSA screening. Respiratory panel is negative. Electrocardiogram on admission 11/01/2017, revealed atrial flutter and a ventricular rate of 154 beats per minute, right bundle branch block, nonspecific ST-T abnormalities. IMPRESSION: 1. Congestive heart failure secondary to left ventricular diastolic dysfunction in the setting of atrial fibrillation. The patient seems to be stable at this present time, of diuretics today because of deterioration of his kidney functions. He can been monitored. He does not seem to be that symptomatic at this present time when I saw him. He was more symptomatic yesterday probably because of his underlying pneumonia. The Lasix can be given as needed, and in the meantime, we will monitor closely his intake and output. We will continue to monitor his underlying kidney function. He is not on any angiotension-converting enzyme (ENRIQUE) inhibitor or angiotensin receptor suellen (ARB), and also at this present time, he is not on beta suellen because he was hypotensive. If his blood pressure remains stable, he should be restarted tomorrow. Based on his intake and output and also on his kidney function, we will decide how much diuretic to give. 2. Atrial fibrillation/flutter, paroxysmal in nature, and currently on IV heparin for prevention of thromboembolic events. He has received IV beta suellen and oral beta suellen yesterday on top of what he was taking at home. His heart rate seems to be currently in normal sinus rhythm and he can be monitored. We will stay away from any AV-blocking agent at this present time, particularly in the setting of elevated serum digoxin. I will repeat the serum digoxin tomorrow, then further recommendation will be given. At this present time, there is no need for Digibind. 3. History of coronary artery disease, and appears to be stable, and we will continue the aspirin for now and the statin. He does have elevated troponin, but this seems to be related to his underlying congestive heart failure versus demand ischemia. He was having chest pain at home, but it seems to be atypical, not related to angina. 4. Bilateral pneumonia, and this is being addressed. 5. Acute on chronic kidney disease, and he will be monitored. There is some deterioration in his kidney function due to the history of diuretics he has received. 6. Hyperlipidemia, on statin. 7. Hypertension, and his blood pressure is under control and he can be monitored. 8. History of chronic obstructive pulmonary disease (COPD). 9. History of obstructive sleep apnea, on BiPAP and nightly oxygen. 10. History of arthritis with degenerative joint disease and degenerative disc disease. Rheumatoid arthritis according to his chart. 11. Status post impending respiratory failure, on CPAP. It was a pleasure to participate in the care of . Hal Peña for his underlying cardiac condition. I will continue to monitor him along with you over the weekend. Dr. Eric Sutton will be seeing him on Saturday. Case was discussed with the patient's and also will be discussed with hospitalist coveringIvette LOPEZ
[2017-11-02 18:23] LABS: OSMOLALITY URINE 419 MOSM/KG (500-800)
[2017-11-02] MEDS: OMEPRAZOLE 20 MG CAP PO SCH (20:14)
[2017-11-02] MEDS: ASPIRIN 81 MG ENTERIC TAB PO SCH (20:14)
[2017-11-03] VITALS (17 sets, daily range): BP systolic 89–157; BP diastolic 37–79; O2SAT 97
[2017-11-03] MEDS: VANCOMYCIN HCL 1,000 MG, VIAL MATE ADAPTER 1 EACH in D5W 250 ML IV SCH ×2 (03:27→16:47)
[2017-11-03 05:38] LABS: MEAN CORPUSCULAR HEMOGLOBIN 28.8 pg (27.0-33.0); MEAN CORPUSCULAR HGB CONC 31.8 g/dl (32.0-36.5); MEAN CORPUSCULAR VOLUME 90.5 fl (80.0-96.0); PLATELET COUNT, AUTOMATED 158 10^3/uL (150-450); RED CELL DISTRIBUTION WIDTH 14.9 % (11.5-14.5); WHITE BLOOD COUNT 16.9 10^3/uL (4.0-10.0)
[2017-11-03 05:48] LABS: INR 1.77
[2017-11-03] MEDS ORDERED: ISOSORBIDE DIN. (ISORDIL) 5 MG TAB PO SCH ×2 (07:00→17:00)
--- NOTE | 2017-11-03 07:07 | ECHO ---
DATE OF PROCEDURE: 11/02/2017 DATE OF : 1940 AGE: 77 REFERRING PROVIDER: Dr. Hiro Cotton PATIENT LOCATION: Room 3203 REASON FOR THE ECHOCARDIOGRAM: Chest pain, shortness of breath. 2D MEASUREMENTS: IVS: 1.4 cm LV: 5.0 cm LVPW: 1.2 cm LA: 5.8 cm Aorta: 3.6 cm RV: 4.1 IVC: 2.3 cm DOPPLER MEASUREMENTS: Peak velocity across the aortic valve: 1.9 m/s Peak velocity across the LVOT: 0.84 m/s Mitral E: 1.3 Mitral A: 0.65 Ratio: Greater than 1.0 Maximum tricuspid valve velocity: 2.8 m/s 2D COMMENTS: 1. Mildly increased left ventricular wall thickness with normal left ventricular size and a normal global left ventricular systolic function. Left ventricular systolic ejection fraction is estimated at 60-65%. 2. Mildly enlarged left atrium. The right atrium appeared to be mildly enlarged. The right ventricle seems to be normal in limited views. 3. The atrial septum appeared to be normal without evidence of defect or shunt. 4. Normal aortic root. 5. Trace pericardial effusion noted. No evidence of cardiac tamponade. 6. Mildly calcified aortic valve with minimally restricted leaflet motion. Mildly calcified mitral annulus with normal mitral valve leaflet motion. Normal tricuspid valve. The pulmonic valve was not well visualized as well as the proximal pulmonary artery branches. 7. The inferior vena cava was mildly enlarged, central venous pressure might be elevated. DOPPLER: Only mild tricuspid regurgitation detected. The calculated pulmonary artery systolic pressure varied between 30-40 mmHg. Assessment of the left ventricular diastolic function seems to be normal. IMPRESSION: 1. Normal global left ventricular systolic function with mild concentric left ventricular hypertrophy. 2. Aortic valve sclerosis with trivial aortic stenosis, but no aortic regurgitation. 3. Mitral annulus calcification. Moderately enlarged left atrium at 5.8 cm. 4. Mild tricuspid regurgitation with mild pulmonary hypertension. The right atrium was noted to be mildly enlarged. 5. Trace pericardial effusion noted, no evidence of cardiac tamponade. 6. There were findings of elevated central venous pressure. MTDD
[2017-11-03 07:18] LABS: CALCIUM LEVEL 8.2 MG/DL (8.8-10.2); CREATININE FOR GFR 1.39 MG/DL (0.70-1.30); DIGOXIN LEVEL 1.5 NG/ML (0.5-2.0); MAGNESIUM LEVEL 2.3 MG/DL (1.8-2.4); POTASSIUM SERUM 3.1 MEQ/L (3.5-5.1)
--- NOTE | 2017-11-03 07:59 | ECGEPIP ---
Stationary ECG Study [facility] - ED Test Date: 2017-11-01 Pat Name: LUANA RYDER Department: Room: [place] [address] Gender: M End Lathe Operator: YingB: 1940 Requested By: DESMOND GOVEA Order Number: [id number] Reading MD: Darrel Carrera Measurements Intervals [place] Rate: 154 P: MT: 0 QRS: 15 QRSD: 148 T: -4 QT: 309 QTc: 496 Interpretive Statements SINUS TACHYCARDIA RIGHT BUNDLE BRANCH BLOCK Electronically Signed On 11-03-2017 7:59:37 EST by Darrel Carrera
--- NOTE | 2017-11-03 07:59 | RO ---
DATE OF PROCEDURE: 11/02/2017 PHYSICIAN PERFORMING THE PROCEDURE: Dr. Mackenzie Caraballo PHYSICIAN ASSISTING THE PROCEDURE: Lennox Damon DO PREPROCEDURE DIAGNOSIS: Tachycardia hypotension. POSTPROCEDURE DIAGNOSES: Tachycardia hypotension. PROCEDURE PERFORMED: Left subclavian triple-lumen central line. SEDATION: None. VENTILATION: The patient on continuous positive airway pressure (CPAP) with pressure support of 4. ANESTHETIC: 1% local lidocaine. ESTIMATED BLOOD LOSS: 10 mL. Consent was obtained from the patient. Risk and benefit explained. Given the patient is having significant respiratory distress, tachypneic into 28s with suspicion of congestive heart failure, given the patient's respiration seems rhonchorous, the patient was placed on CPAP. Risk and benefit was evaluated. The patient was made to make lie flat. Most likely, the patient will go into respiratory failure. Subsequently, decision was made to do subclavian with the patient at about 10 degrees and to do the procedure on CPAP. Risk and benefit has been explained to the patient, including the increased risk of a pneumothorax. DESCRIPTION OF PROCEDURE: The patient's left shoulder was cleaned with ChloraPrep and covered in the sterile fashion. V[place], the patient's clavicular angle was located. Subcutaneous lidocaine 1% was injected. Subsequently, 18 gauge needle was inserted at the patient's clavicular angle horizontal to the patient's chest, aiming for the sternal notch with negative pressure. Subsequently, a flash of blood was obtained. Wire was inserted through the needle. The needle was removed. The blood is dark red, and site is dilated. A triple-lumen central line was inserted over guidewire via Seldinger technique. The guidewire was removed. All three ports of the central line were capped and flushed and clamped. The triple-lumen central line was secured with clamps and stitches, and dressing was placed. X-ray was ordered for confirmation. The patient tolerated the procedure with no complications. X-ray shows no evidence of pneumothorax. Furthermore, x-ray has confirmed the position of the triple-lumen central line.
[2017-11-03] MEDS ORDERED: POTASSIUM CHLORIDE 10 MEQ SR TABLET PO ONE (08:00)
[2017-11-03] MEDS: GABAPENTIN 300 MG CAP PO SCH ×3 (08:02→20:03)
[2017-11-03] MEDS: ATORVASTATIN 20 MG TAB PO SCH (08:02)
[2017-11-03] MEDS: NYSTATIN 100,000 UNITS/GM TOPICAL PWD 15 GM TOP SCH ×2 (08:03→20:04)
[2017-11-03] MEDS: predniSONE 10 MG TAB PO SCH (08:03)
[2017-11-03] MEDS: MEROPENEM INJ 500 MG in APPROPRIATE DILUENT 1 EA IV SCH ×2 (08:03→20:03)
[2017-11-03] MEDS: SERTRALINE HCL 50 MG TAB PO SCH ×2 (08:03→20:03)
[2017-11-03] MEDS: HumaLOG INSULIN (NovoLOG) PER UNIT SC SCH ×4 (08:20→21:00)
[2017-11-03 10:25] LABS: ABG BASE EXCESS 8.9 (-2.0-2.0); ABG HCO3 34.3 MEQ/L (22.0-26.0); ABG PARTIAL PRESSURE O2 79.8 mmHg (75.0-100.0); ABG STANDARD HCO3 32.7 MEQ/L (22.0-26.0); ABG TOTAL CO2 35.8 MEQ/L (23.0-31.0); ABG pH (ARTERIAL) 7.454 UNITS (7.350-7.450)
--- NOTE | 2017-11-03 10:26 | IPNPDOC ---
Text Note Date of Service The patient was seen on 11/03/17. NOTE No bipap overnight. patient bp improved. making good urine, pink urine. Denied cp, abd pain, n,v. General aaox3, more comfortable than yesterday HEENT: Normocephalic, atraumatic. Extraocular motor grossly intact. Cardiovascular: regular s1s2 Pul: tachypnea, coarse respiratory soundb/l with mild expiratory wheeze Abdomen: Soft, nontender, nondistended. Extremities: No edema. No cyanosis. 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 found to be in a fib with RVR, acute hypoxic respiratory failure, hypotensive with suspected pna. 1. acute on chronic hypoxic respiratory failure and chronic hypercarbia likely 2/2 to acute CHF, with fluid overload. possible 2/2 pna, symptoms improved with bipap and lasix.. Bipap for now. abg, Pulmonary consulted trial off bipap patient use bipap 14/6 at night at home with 2 L o2 at day tte given lasix 60mg IVx1. avoid further diuresis given underlying infection likely I and O, daily weght 2. Hypotension-resolved cardiogenic shock vs septic shock bp and tachycardiac improved with bipap and lasix but SV O2 suggestive of septic component f/u lactic acid improved TLC placed emergently f/u CVP maintain 8-12 avoid fluid if CVP in range with pressor support if needed TTE f/u lactic acid improved f/u culture herminio gomez chronic on steroid- am cortisol 3. Possible PNA, CT finding suggestive of PNA vs edema with wbc (but patient on steroid at home) f/u cultures, respiratory panel jason durham given patient critically ill with h/o MRSA f/u crp 4. a fib with RVR, in sinus given bb and dig dig level elevated f/u dig level tele HR improved after bipap and lasix possible componet of underlying infection hold xarelto given worsening renal function heparin drip Cardiology consult lopressor restarted at lower dose consider starting xarelto if kidney function continues to improve 5 trop elevation with elevated pro BNP serial enzymes Tele cardio consult likely demand ischemia vs 2/2 CHF vs infection vs acute on chronic renal; tte CK MD index neg 6. acute on chronic renal 2/2 hypoperfusion and hypotension f/u urine studies I and O , fay, daily weight f/u urine output improved 7. COPD c/w inhaler and neb, no wheeze on examin 8 CAD h/o CABG 2010 tele cardiology consulted enzymes asa, statin redd bipap metabolic encephalopathy treat underlying disease Dm insulin via protocol hold basal given acute on chronic venu f/u fingerstic GI ppx ppi DVT ppx heparin drip for a fib Dispo pending clinical improvement. patient remained critical, possible transfer to PCU if patient continues to improve VS,Natalyae, I+O VS, Natalyae, I+O Laboratory Tests 11/02/17 13:55 Calcium Level 8.3 L 11/03/17 05:21 Calcium Level 8.2 L, Red Blood Count 4.20 L, Mean Corpuscular Volume 90.5, Mean Corpuscular Hemoglobin 28.8, Mean Corpuscular Hemoglobin Concent 31.8 L, Red Cell Distribution Width 14.9 H Vital Signs Date Time Temp Pulse Resp B/P (MAP) Pulse Ox O2 Delivery O2 Flow Rate FiO2 11/03/17 08:42 139/60 11/03/17 08:31 35 11/03/17 08:00 98.1 70 24 96 Nasal Cannula 2.0 I&O- Last 24 Hours up to 6 AM 11/04/17 06:00 Intake Total 50 ml Output Total 250 ml Balance -200 ml GERSON GILL MD Nov 03, 2017 10:26
[2017-11-03] MEDS: METOPROLOL TART 25 MG TABLET PO SCH ×2 (11:06→20:04)
[2017-11-03] MEDS: IPRATROPIUM 0.5MG/ALBUTEROL 2.5MG INH SOL UD 3ML (DUONEB)(J7620) NEB SCH ×3 (11:20→20:36)
[2017-11-03] MEDS ORDERED: FUROSEMIDE 20 MG/2 ML VIAL (J1940) IV ONE ×2 (13:00→23:00)
--- NOTE | 2017-11-03 14:11 | IPN ---
DATE OF SERVICE: 11/03/2017 Mr. Hal Peña was seen earlier today. He was supine in bed, in no acute distress, now on nasal cannula. Yesterday, when he was seen, he was on the bilateral positive airway pressure (BiPAP) machine. He was initially admitted with congestive heart failure and paroxysmal atrial fibrillation. He also was found to have pneumonia. Today, he is doing much better. He was alert and awake, in no acute distress at rest, in supine in bed. Earlier today, he was in normal sinus rhythm, but at this present time when I was at bedside, he was in atrial fibrillation. He denies any chest pain, dizziness. There is no report of bleeding. There is no nausea or vomiting or diarrhea. On physical examination, the patient is alert and oriented, in no acute distress at rest with a blood pressure of 119/79, pulse 109, respiration 18-20, and his maximum temperature is 99.1 degrees Fahrenheit earlier this morning around 5 a.m. His oxygen saturation is 97% on 2 liters nasal cannula. He has a positive 186 mL fluid balance for 11/02/2017. His diuretics were on hold because of the deterioration in his kidney function. So far today, he is fluid balanced. He is about negative 633 mL. Examination of the head, ears, eyes, nose and throat: Atraumatic. Neck is supple, no bruits appreciated, and no jugular venous distention (JVD) appreciated. The lungs reveal minimal crackles at the bases but no wheezing. The heart examination reveals irregularly irregular heart sounds without gallops. The point of maximal impulse (PMI) is slightly displaced inferiorly. There is no rub. I could not appreciate any murmurs. Abdomen is soft and nontender. Extremities only revealed trace ankle edema. Neurological examination was limited, but the patient was able to move his upper extremities. LABORATORIES: CBC done today revealed a WBC of 16.9, hemoglobin 12.1, hematocrit 38.0, and platelets 158,000. BMP done today revealed a sodium of 138, potassium 3.1, chloride 96, CO2 31, BUN 29, creatinine 1.39, GFR 53.0, fasting glucose 190, calcium 8.2, serum magnesium is 2.3. Serum digoxin today is 1.5. PTT today is 68.3. A 77-year-old male with paroxysmal atrial fibrillation, congestive heart failure in the setting of pneumonia, admitted on 11/02/2017. He has underlying coronary artery disease with coronary artery bypass graft (CABG) done in the past, but left ventricular function (LVF) is normal. He does have a history of paroxysmal atrial fibrillation. When he came, he was initially hypotensive, but blood pressure has been stable. After intravenous (IV) diuretics, he had developed some deterioration in his kidney function, but this has improved. Regarding his atrial fibrillation, I will recommend to restart today his beta suellen but at the lower dose and short-acting. The digoxin can be restarted tomorrow. I will continue to monitor him along with you today for his atrial fibrillation. In the past, he was on the higher dose of beta suellen, but because of recent episode where he dropped his blood pressure, we have started at the lower dose. As outpatient, he was on Xarelto for prevention of thromboembolic events, currently on IV heparin. Congestive heart failure, diastolic in nature, and stable. IV D6 can be given as needed, and I will give him a small dose of furosemide today, 20 mg. I do not see any indication for the long-acting nitrate at this present time, and instead of three times a day, I will decrease it to twice a day, and Dr. Sutton will decide about continuing it when he sees him tomorrow, 11/04/2017. Bilateral pneumonia, stable, and being addressed, on IV antibiotics. Status post impending respiratory failure, currently tolerating nasal cannula very well. History of coronary artery disease, and this has been stable. He did have some abnormal serum troponin, and that was thought to be related to demand ischemia versus his underlying heart failure. Hypertension. Currently under control. Hyperlipidemia. On a statin. History of diabetes mellitus, and this is being addressed. History of arthritis with degenerative disc disease and degenerative joint disease, using a motorized wheelchair at home. It was a pleasure to participate in the care of Mr. Hal Peña for his underlying cardiac condition. I will continue to monitor him along with you over the weekend; and tomorrow, he will be seen by Dr. Sutton. Please do not hesitate to call if any questions. The case was discussed earlier today with his hospitalist. JOHN
[2017-11-03] MEDS: ACETAMINOPHEN TAB 650MG DOSE (2X325MG) PO PRN (16:47)
[2017-11-03] MEDS ORDERED: AMIODARONE HCL 150 MG in APPROPRIATE DILUENT 1 EA IV STA (17:07)
[2017-11-03] MEDS ORDERED: SODIUM CHLORIDE 0.9% 1000 ML IV ONE (17:15)
[2017-11-03 18:05] LABS: ANION GAP 6 MEQ/L (8-16); BLOOD UREA NITROGEN 25 MG/DL (7-18); CALCIUM LEVEL 8.6 MG/DL (8.8-10.2); CARBON DIOXIDE LEVEL 35 MEQ/L (21-32); CHLORIDE LEVEL 97 MEQ/L (98-107); CREATININE FOR GFR 1.19 MG/DL (0.70-1.30); GLOMERULAR FILTRATION RATE > 60.0 (>42); GLUCOSE, FASTING 215 MG/DL (83-110); MAGNESIUM LEVEL 2.1 MG/DL (1.8-2.4); POTASSIUM SERUM 3.6 MEQ/L (3.5-5.1); SODIUM LEVEL 138 MEQ/L (136-145)
[2017-11-03] MEDS: OMEPRAZOLE 20 MG CAP PO SCH (20:03)
[2017-11-03] MEDS: ASPIRIN 81 MG ENTERIC TAB PO SCH (20:03)
[2017-11-03] MEDS ORDERED: AMIODARONE 150MG/3ML INJ (J0282) IVP STA ×2 (22:50→22:56)
[2017-11-03] MEDS ORDERED: AMIODARONE HCL 150 MG/100 ML PREMIXED BAG (NEXTERONE) IV STA (22:59)
[2017-11-04] VITALS (14 sets, daily range): BP systolic 107–167; BP diastolic 51–92; O2SAT 94–98
[2017-11-04] MEDS: IPRATROPIUM 0.5MG/ALBUTEROL 2.5MG INH SOL UD 3ML (DUONEB)(J7620) NEB SCH ×7 (00:12→23:54)
[2017-11-04] MEDS ORDERED: METOPROLOL 5 MG/5 ML VIAL IV STA ×2 (02:02→08:44)
[2017-11-04] MEDS: VANCOMYCIN HCL 1,000 MG, VIAL MATE ADAPTER 1 EACH in D5W 250 ML IV SCH ×2 (04:24→16:07)
[2017-11-04 05:26] LABS: MEAN CORPUSCULAR HEMOGLOBIN 28.9 pg (27.0-33.0); MEAN CORPUSCULAR HGB CONC 31.7 g/dl (32.0-36.5); MEAN CORPUSCULAR VOLUME 91.1 fl (80.0-96.0); PLATELET COUNT, AUTOMATED 133 10^3/uL (150-450); WHITE BLOOD COUNT 13.1 10^3/uL (4.0-10.0)
[2017-11-04 05:47] LABS: INR 1.05
[2017-11-04 05:52] LABS: ANION GAP 10 MEQ/L (8-16); BLOOD UREA NITROGEN 21 MG/DL (7-18); CALCIUM LEVEL 8.1 MG/DL (8.8-10.2); CARBON DIOXIDE LEVEL 31 MEQ/L (21-32); CHLORIDE LEVEL 99 MEQ/L (98-107); CREATININE FOR GFR 1.19 MG/DL (0.70-1.30); GLOMERULAR FILTRATION RATE > 60.0 (>42); GLUCOSE, FASTING 219 MG/DL (83-110); MAGNESIUM LEVEL 2.2 MG/DL (1.8-2.4); POTASSIUM SERUM 3.7 MEQ/L (3.5-5.1); SODIUM LEVEL 140 MEQ/L (136-145)
[2017-11-04] MEDS: ATORVASTATIN 20 MG TAB PO SCH (08:17)
[2017-11-04] MEDS: SERTRALINE HCL 50 MG TAB PO SCH ×2 (08:17→20:12)
[2017-11-04] MEDS: HumaLOG INSULIN (NovoLOG) PER UNIT SC SCH ×4 (08:17→20:28)
[2017-11-04] MEDS: GABAPENTIN 300 MG CAP PO SCH ×3 (08:17→20:11)
[2017-11-04] MEDS: MEROPENEM INJ 500 MG in APPROPRIATE DILUENT 1 EA IV SCH ×2 (08:18→20:13)
[2017-11-04] MEDS: NYSTATIN 100,000 UNITS/GM TOPICAL PWD 15 GM TOP SCH ×2 (08:18→20:13)
[2017-11-04] MEDS: predniSONE 10 MG TAB PO SCH (08:18)
[2017-11-04] MEDS: METOPROLOL TART 25 MG TABLET PO SCH (08:18)
[2017-11-04 08:32] LABS: CORTISOL AM 20.2 UG/DL (4.3-22.4)
[2017-11-04] MEDS ORDERED: METOPROLOL TART 25 MG TABLET PO ONE ×2 (08:45→09:00)
--- NOTE | 2017-11-04 14:15 | IPNPDOC ---
Text Note Date of Service The patient was seen on 11/04/17. NOTE on bipap overnight. with episodes of A fib with RVR overnight given lopressor IV and Amiodarone. intermittent hematuria and blood tinged sputum. Denied cp, abd pain, n,v. General aaox3, more comfortable than yesterday HEENT: Normocephalic, atraumatic. Extraocular motor grossly intact. Cardiovascular: regular s1s2 Pul: tachypnea, coarse respiratory soundb/l with mild expiratory wheeze Abdomen: Soft, nontender, nondistended. Extremities: No edema. No cyanosis. 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 found to be in a fib with RVR, acute hypoxic respiratory failure, hypotensive with suspected pna. 1. acute on chronic hypoxic respiratory failure and chronic hypercarbia likely 2/2 to acute CHF, with fluid overload. possible 2/2 pna, symptoms improved with bipap and lasix.. Bipap at night with home setting. abg, Pulmonary consulted patient use bipap 14/6 at night at home with 2 L o2 at day tte diuresis as per cardiology. I and O, daily weght 2. Hypotension-resolved cardiogenic shock vs septic shock bp and tachycardiac improved with bipap and lasix but SV O2 suggestive of septic component f/u lactic acid TLC placed emergently switched to picc today f/u CVP maintain 8-12 Euvolemic currently TTE f/u culture herminio gomez chronic on steroid- am cortisol 3. Possible PNA, CT finding suggestive of PNA vs edema with wbc (but patient on steroid at home) f/u cultures, respiratory panel jason durham given patient critically ill with h/o MRSA f/u crp 4. a fib with RVR, given bb and dig in ER dig level elevated f/u dig level tele possible componet of underlying infection initally Xarelto on hold 2/2 to ARF, on heparin drip, now Heparin drip on hold 2 /2 to intermittent hematuria and blood tinged sputum, restart xarelto tomorrow if bleeding resolved Cardiology consult lopressor 50mg PO BID amiodarone given 5 trop elevation with elevated pro BNP serial enzymes Tele cardio consult likely demand ischemia vs 2/2 CHF vs infection vs acute on chronic renal; tte CK MD index neg 6. acute on chronic renal 2/2 hypoperfusion and hypotension f/u urine studies I and O , fay, daily weight f/u urine output improved 7. COPD c/w inhaler and neb, no wheeze on exam 8 CAD h/o CABG 2010 tele cardiology consulted enzymes asa, statin redd bipap metabolic encephalopathy treat underlying disease, resolved Dm basal bolus insulin f/u fingerstick GI ppx ppi DVT ppx hold AC given intermittent hematuria and blood tinged sputum , restart Xarelto for A fib if bleeding resolved, TEDS SCD Dispo pending clinical improvement. patient remained critical, possible transfer to PCU if patient continues to improve VSWilliam, I+O VSWilliam I+O Laboratory Tests 11/03/17 17:29 Calcium Level 8.6 L 11/04/17 05:05 Calcium Level 8.1 L, Red Blood Count 3.81 L, Mean Corpuscular Volume 91.1, Mean Corpuscular Hemoglobin 28.9, Mean Corpuscular Hemoglobin Concent 31.7 L, Red Cell Distribution Width 15.0 H Vital Signs Date Time Temp Pulse Resp B/P (MAP) Pulse Ox O2 Delivery O2 Flow Rate FiO2 11/04/17 12:16 98.3 128 20 122/90 (101) 95 Nasal Cannula 2.0 11/04/17 04:05 35 I&O- Last 24 Hours up to 6 AM 11/05/17 06:00 Intake Total 770 ml Output Total 635 ml Balance 135 ml GERSON GILL MD Nov 04, 2017 14:15
[2017-11-04] MEDS: METOPROLOL 5 MG/5 ML VIAL IV SCH ×3 (17:05→17:26)
[2017-11-04] MEDS: SODIUM CHLORIDE 0.9% INJ 10 ML SYR IV SCH (17:14)
[2017-11-04] MEDS ORDERED: RIVAROXABAN 15 MG TAB (XARELTO) PO SCH (18:00)
[2017-11-04] MEDS: ASPIRIN 81 MG ENTERIC TAB PO SCH (20:11)
[2017-11-04] MEDS: OMEPRAZOLE 20 MG CAP PO SCH (20:11)
[2017-11-04] MEDS: METOPROLOL TART 50 MG TAB PO SCH (20:12)
[2017-11-04] MEDS: LEVEMIR (INSULIN DETEMIR) 1 UNITS/0.01ML SC SCH (20:34)
[2017-11-05] VITALS (11 sets, daily range): BP systolic 98–152; BP diastolic 56–86; O2SAT 94–95
[2017-11-05] MEDS: IPRATROPIUM 0.5MG/ALBUTEROL 2.5MG INH SOL UD 3ML (DUONEB)(J7620) NEB SCH ×6 (02:57→23:30)
[2017-11-05] MEDS: VANCOMYCIN HCL 1,000 MG, VIAL MATE ADAPTER 1 EACH in D5W 250 ML IV SCH ×2 (04:14→04:28)
[2017-11-05] MEDS: PERCOCET 5MG/325MG TAB PO PRN ×2 (04:52→20:17)
[2017-11-05 06:18] LABS: MEAN CORPUSCULAR HEMOGLOBIN 28.8 pg (27.0-33.0); MEAN CORPUSCULAR HGB CONC 31.6 g/dl (32.0-36.5); PLATELET COUNT, AUTOMATED 138 10^3/uL (150-450); RED CELL DISTRIBUTION WIDTH 15.2 % (11.5-14.5); WHITE BLOOD COUNT 12.2 10^3/uL (4.0-10.0)
[2017-11-05] MEDS: SODIUM CHLORIDE 0.9% INJ 10 ML SYR IV SCH ×2 (06:24→17:05)
[2017-11-05 06:29] LABS: INR 0.98
[2017-11-05 06:32] LABS: ANION GAP 8 MEQ/L (8-16); BLOOD UREA NITROGEN 19 MG/DL (7-18); CALCIUM LEVEL 8.6 MG/DL (8.8-10.2); CARBON DIOXIDE LEVEL 31 MEQ/L (21-32); CHLORIDE LEVEL 102 MEQ/L (98-107); CREATININE FOR GFR 0.91 MG/DL (0.70-1.30); GLOMERULAR FILTRATION RATE > 60.0 (>42); GLUCOSE, FASTING 187 MG/DL (83-110); MAGNESIUM LEVEL 2.2 MG/DL (1.8-2.4); POTASSIUM SERUM 3.4 MEQ/L (3.5-5.1); SODIUM LEVEL 141 MEQ/L (136-145)
[2017-11-05] MEDS: HumaLOG INSULIN (NovoLOG) PER UNIT SC SCH ×4 (07:55→21:00)
[2017-11-05] MEDS: GABAPENTIN 300 MG CAP PO SCH ×3 (08:05→20:14)
[2017-11-05] MEDS: ATORVASTATIN 20 MG TAB PO SCH (08:05)
[2017-11-05] MEDS: SERTRALINE HCL 50 MG TAB PO SCH ×2 (08:05→20:15)
[2017-11-05] MEDS: predniSONE 10 MG TAB PO SCH (08:05)
[2017-11-05] MEDS: NYSTATIN 100,000 UNITS/GM TOPICAL PWD 15 GM TOP SCH ×2 (08:06→20:17)
[2017-11-05] MEDS: METOPROLOL TART 50 MG TAB PO SCH (08:06)
[2017-11-05] MEDS: MEROPENEM INJ 500 MG in APPROPRIATE DILUENT 1 EA IV SCH (08:06)
[2017-11-05] MEDS ORDERED: DIGOXIN 0.125 MG TAB PO SCH (09:00)
[2017-11-05] MEDS ORDERED: DIGOXIN 0.25 MG TAB PO ONE (13:00)
--- NOTE | 2017-11-05 13:23 | IPN ---
DATE: 11/05/2017 TIME: 1:04 p.m. SUBJECTIVE: The patient is not having any dyspnea at rest in the intensive care unit (ICU) room with low levels of activity. No orthopnea or paroxysmal nocturnal dyspnea (PND). He is not aware of any leg or ankle swelling. No pain, pressure, tightness, or squeezing in the chest, neck, jowl, or upper extremities. No palpitations. No lightheadedness or dizziness. Overall, he is feeling well and has no voiced complaints. He is not aware of any leg edema. PHYSICAL EXAMINATION: Pleasant, obese man not in any respiratory or psychologic distress. Weight 104 kg, body mass index (BMI) 35.9, temperature 97.9, pulse 121 (irregularly irregular), respiratory rate 18, blood pressure 98/68, oxygen saturation 94% on oxygen two liters by nasal cannula. Jugular venous pulsations were at 3 cm. First heart sound variable intensity. Second heart sound normal. No S3 or S4 or murmurs appreciated. Respiratory expansion effort was fair. No crackles or wheezes. No lower extremity edema. Abdomen was obese, soft, and nontender with normal bowel sounds. Mood and affect was normal. Speech was normal. LABORATORY INVESTIGATION: 11/05/2017 was reviewed: Sodium 141, potassium 3.4, chloride 102, CO2 31, estimated GFR greater than 60, glucose 187, magnesium 2.2. ASSESSMENT AND PLAN: 1. Chronic atrial fibrillation. The patient has a mild to moderately rapid rate occurring intermittently at rest. For reasons that are not clear to me, the digoxin that he was on prior to admission was not continued. I will place him back on digoxin 125 mcg daily and he will receive 250 mcg by mouth today. I will switch him back from metoprolol tartrate to metoprolol succinate 50 mg twice a day which is what he was taking at home. Continue Xarelto which is dose adjusted for chronic kidney disease and continue aspirin 81 mg daily. 2. Chronic diastolic heart failure. Compensated on examination. Associated right heart failure. Compensated. To improve heart rate control, I have added digoxin. He has been switched back from metoprolol tartrate to metoprolol succinate as noted above. His current blood pressure will not withstand angiotensin-converting enzyme (ENRIQUE) inhibitor or angiotensin-receptor suellen (ARB) at this time. He appears to be at his functional dry weight. At present, he is not on any diuretic. Prior to admission, he was taking torsemide 40 mg twice a day. We will need to observe carefully for development of peripheral edema. At some point, he will likely require going back on some diuretic. 3. Chronic bilateral lower extremity edema. No lower extremity edema on examination today. Jugular venous pulsations not elevated. Diuretics on hold. At some point, he will need to be restarted back on torsemide but agree with holding torsemide for now. 4. Coronary artery disease (CAD), [place] vessel. No angina. Continue aspirin. Restart metoprolol succinate to replace metoprolol tartrate. Blood pressure too low for ENRIQUE inhibitor or ARB. 5. Status post coronary artery bypass graft (CABG). Stable. 6. Chronic right bundle branch block. Stable. No presyncope or syncope.
[2017-11-05] MEDS ORDERED: POTASSIUM CHLORIDE 10 MEQ SR TABLET PO ONE (14:15)
--- NOTE | 2017-11-05 14:43 | IPN ---
DATE: 11/05/2017 SUBJECTIVE: The patient tells me that he is actually feeling much better today. He tells me that his shortness of breath has much improved. He has no specific complaints at this time. He denies palpitations, lightheadedness, dizziness, shortness of breath, nausea, vomiting, or diarrhea. OBJECTIVE: VITAL SIGNS: Temperature 98.4, pulse 147, respiratory rate 18, blood pressure 115/86, oxygen saturation 95% on two liters. GENERAL: He is a pleasant, elderly, man sitting up in bed. He does not appear to be in any acute distress. NEUROLOGIC: Cranial nerves II-XII are grossly intact. HEENT: No elevation in central venous pressure (CVP). CARDIOVASCULAR EXAMINATION: S1, S2, irregularly irregular and tachycardic. RESPIRATORY EXAMINATION: Actually quite clear. ABDOMINAL EXAMINATION: Benign, obese. EXTREMITIES: No clubbing, cyanosis, or appreciable edema. LABORATORY STUDIES: WBC 12.2 down from 13.1, hemoglobin 10.9, platelet count 138. Chemistry panel: Sodium 141, potassium 3.4 repleted, chloride 102, bicarbonate 31, BUN 19, creatinine 0.9, CRP is 12.2 down from 27 yesterday, and INR is 0.9. MICROBIOLOGY: Respiratory PCR panel is negative from 11/02/2017. MRSA screen from 11/02/2017 is negative. Blood cultures from 11/02/2017 are also negative. IMAGING STUDIES: The patient had a chest x-ray on 11/02/2017 that did reveal placed central venous catheter. He also had a chest CT scan on 11/02/2017 that revealed bilateral multifocal bronchopneumonia, mild congestive heart failure. ASSESSMENT AND PLAN: This is a 77-year-old man who presented with shortness of breath. PROBLEM LIST: 1. Shortness of breath/acute on chronic hypoxic respiratory failure. Pulmonary and cardiology's help has been greatly appreciated. This is felt to be related to decompensated congestive heart failure and possible pneumonia. At this time, in regards to his heart failure, he appears to be euvolemic. Dr. Sutton's help and Dr. Otto's help has been appreciated. He does not have any appreciable edema and he does not feel that the patient is ready for an angiotensin-converting enzyme (ENRIQUE) inhibitor with his current blood pressure. He will likely require some diuretics. For the time being, we will monitor his daily weights, intake and output, and he is not on any diuretic. 2. Pneumonia. The patient's cultures have been negative and a methicillin-resistant Staphylococcus aureus (MRSA) screen has been negative. As such, I will discontinue his vancomycin and meropenem and switch him to levofloxacin by mouth to complete five more days for a total of a nine-day course of antibiotics. 3. Hypotension, cardiogenic versus septic shock, resolved. He is hemodynamically stable. He is a peripherally inserted central catheter (PICC) line in place. He did improve with diuresis and antibiotics. 4. Elevated lactic acid, likely from increased work of breathing. He is hemodynamically stable. 5. Chronic hypoxic respiratory failure. At the present time, he is requiring two liters of oxygen. He tells me that he usually uses 2.5 liters at night and does not use continuous positive airway pressure (CPAP) or bilevel positive airway pressure (BiPAP) at home very often. I suspect that he is approaching his baseline respiratory status. 6. Obstructive sleep apnea. As outlined above, not compliant with BiPAP or CPAP and he uses 2.5 liters of oxygen at night only. 7. Atrial fibrillation. His rate is uncontrolled. Dr. Sutton's help is appreciated. He started the patient on digoxin today. We will continue to check levels as his levels did become quite elevated quickly when this was last initiated. He is on aspirin 81 and no further anticoagulation. 8. Elevated troponin, likely related to demand ischemia in the setting of coronary artery disease. Cardiology's help is appreciated. He is continued on aspirin and beta suellen. He is on a statin. He is also status post coronary artery bypass graft (CABG). 9. Acute kidney injury. Appears to have resolved. His creatinine is 0.9 down from a peak of 1.9 earlier during his stay. 10. Chronic obstructive pulmonary disease (COPD). He does not appear to be in acute decompensation. He is on low-dose prednisone and continue with his nebulizers and inhalers. He continues to improve. 11. Metabolic encephalopathy, resolving. He is completely oriented at this time. 12. Diabetes. He is on sliding scale insulin and his fingersticks are controlled. 13. Gastrointestinal (GI) prophylaxis. He is on omeprazole. 14. Mood disorder. He is on Zoloft. 15. Chronic pain. He is on gabapentin and Percocet. 16. Deep vein thrombosis (DVT) prophylaxis. He has been restarted on Xarelto today. This was held due to recent hematuria. We can probably discontinue his Patricio catheter tomorrow should he have no further hematuria. DISPOSITION: Provided he is able to tolerate his home bilevel positive airway pressure (BiPAP)/continuous positive airway pressure (CPAP) setting with his home machine, I suspect he could be transitioned out of the medical intensive care unit and down to the progressive care unit while we are still attempting to rate control him.
[2017-11-05] MEDS: LevoFLOXacin 500 MG TABLET PO SCH (15:20)
[2017-11-05] MEDS: RIVAROXABAN 15 MG TAB (XARELTO) PO SCH (17:05)
[2017-11-05] MEDS: SODIUM CHLORIDE 0.9% INJ 10 ML SYR IV PRN (17:05)
[2017-11-05] MEDS: ASPIRIN 81 MG ENTERIC TAB PO SCH (20:14)
[2017-11-05] MEDS: OMEPRAZOLE 20 MG CAP PO SCH (20:14)
[2017-11-05] MEDS: METOPROLOL SUCC (TopROL XL) 50MG **XL** TAB PO SCH (20:15)
[2017-11-05] MEDS: LEVEMIR (INSULIN DETEMIR) 1 UNITS/0.01ML SC SCH (22:38)
[2017-11-06] VITALS (9 sets, daily range): BP systolic 110–145; BP diastolic 55–93; O2SAT 94
[2017-11-06] MEDS: IPRATROPIUM 0.5MG/ALBUTEROL 2.5MG INH SOL UD 3ML (DUONEB)(J7620) NEB SCH ×5 (03:50→19:42)
[2017-11-06] MEDS: SODIUM CHLORIDE 0.9% INJ 10 ML SYR IV SCH ×2 (05:02→17:15)
[2017-11-06] MEDS: LevoFLOXacin 500 MG TABLET PO SCH (05:02)
[2017-11-06 05:30] LABS: MEAN CORPUSCULAR HEMOGLOBIN 28.1 pg (27.0-33.0); MEAN CORPUSCULAR HGB CONC 31.1 g/dl (32.0-36.5); MEAN CORPUSCULAR VOLUME 90.1 fl (80.0-96.0); PLATELET COUNT, AUTOMATED 152 10^3/uL (150-450); WHITE BLOOD COUNT 11.2 10^3/uL (4.0-10.0)
[2017-11-06 05:48] LABS: INR 1.36
[2017-11-06 05:50] LABS: ANION GAP 7 MEQ/L (8-16); BLOOD UREA NITROGEN 18 MG/DL (7-18); CALCIUM LEVEL 8.1 MG/DL (8.8-10.2); CARBON DIOXIDE LEVEL 30 MEQ/L (21-32); CHLORIDE LEVEL 104 MEQ/L (98-107); CREATININE FOR GFR 0.83 MG/DL (0.70-1.30); GLOMERULAR FILTRATION RATE > 60.0 (>42); GLUCOSE, FASTING 152 MG/DL (83-110); MAGNESIUM LEVEL 2.2 MG/DL (1.8-2.4); SODIUM LEVEL 141 MEQ/L (136-145)
[2017-11-06] MEDS: HumaLOG INSULIN (NovoLOG) PER UNIT SC SCH ×4 (07:30→20:53)
[2017-11-06] MEDS: DIGOXIN 0.125 MG TAB PO SCH (08:08)
[2017-11-06] MEDS: SERTRALINE HCL 50 MG TAB PO SCH ×2 (08:08→20:51)
[2017-11-06] MEDS: METOPROLOL SUCC (TopROL XL) 50MG **XL** TAB PO SCH (08:09)
[2017-11-06] MEDS: GABAPENTIN 300 MG CAP PO SCH ×3 (08:09→20:51)
[2017-11-06] MEDS: predniSONE 10 MG TAB PO SCH (08:09)
[2017-11-06] MEDS: ATORVASTATIN 20 MG TAB PO SCH (08:09)
--- NOTE | 2017-11-06 08:58 | REP ---
Procedure: PICC line insertion with Gagan-Aarti The procedure was performed under the direct supervision of Dr. Mccabe. The risks and benefits of the procedure were explained to the patient and informed consent was obtained. The right basilic vein was localized using ultrasound guidance. The skin was prepped and draped in a sterile fashion. 2% lidocaine was used as a local anesthetic. Using ultrasound guidance the basilic vein was cannulated and a 0.018 guidewire was inserted and advanced to the SVC using fluoroscopic guidance. The needle was removed and a 5.5 [place] dilator and peel-away sheath was inserted over the guide wire. A 5.5 [place] dual lumen catheter was cut to length of 43 cm. The dilator was removed and the catheter was inserted over the guide wire with the tip ending in the SVC. The peel-away sheath was removed and the catheter was flushed with heparinized saline as per Hospital protocol. The catheter was affixed to the skin and a sterile dressing was applied. The the patient tolerated the procedure well and there were no immediate complications. 0.3 minutes of fluoro time was utilized for this procedure. Reviewed by ALVIN Phillips 11/04/2017 03:59 PSigned by Travis Mccabe MD 11/06/2017 08:50 A
[2017-11-06] MEDS: NYSTATIN 100,000 UNITS/GM TOPICAL PWD 15 GM TOP SCH ×2 (09:00→20:53)
[2017-11-06] MEDS: PERCOCET 5MG/325MG TAB PO PRN ×2 (09:01→14:38)
[2017-11-06] MEDS ORDERED: DIGOXIN INJ 0.5 MG/2 ML AMP (J1160) IV STA (09:36)
[2017-11-06] MEDS ORDERED: METOPROLOL SUCC (TopROL XL) 50MG **XL** TAB PO ONE (10:00)
--- NOTE | 2017-11-06 14:25 | IPNPDOC ---
Subjective Date Seen The patient was seen on 11/06/17. Subjective Chief Complaint/HPI The patient is a 77-year-old male admitted with a reason for visit of Chest Pain. Events since last encounter Hal Peña had just moved from his bed to his chair and was experiencing chest pain which did not radiate anywhere and resolved within a few minutes after sitting down. He experienced something similar 2 days previously when he worked with PT. Other than that, he has not been experiencing any other chest pain. He also had experienced some nausea but did not vomit. He says that he has felt nauseas about once every other day. Overall, he claims he is feeling much better, with his breathing improved. He denies fever, chills, sweats, or dizziness. General: Reports: Normal Appetite, Denies: Chills, Fatigue, Malaise Constitutional: Denies: Chills, Fever, Malaise, Night Sweats Pulmonary: Reports: Dyspnea Cardiovascular: Reports: Chest Pain, Denies: Lt Headedness Gastrointestinal: Reports: Nausea, Denies: Vomiting, Abdominal Pain Musculoskeletal: Denies: Neck Pain, Back Pain, Shoulder Pain, Arm Pain, Hand Pain Objective Physical Examination General Exam: Positive: Alert, Cooperative ENT Exam: Positive: Atraumatic, Mucous membr. moist/pink Chest Exam: Positive: Diminished Heart Exam: Positive: Tachycardic, Regular Rhythm Extremity Exam: Positive: Normal pulses Psych Exam: Positive: Mental status NL, Mood NL, Oriented x 3 Assessment /Plan Problems (1) Atrial fibrillation with RVR Status: Chronic Problem Text: -Per cardiology patient has been started on digoxin, and his beta suellen has been switched over to metoprolol succinate, and they have also adjusted the dose of this as well earlier today. Cardiology's input and the matters greatly appreciated. -will continue to monitor digoxin levels -will continue ASA 81 mg qd po for anticoagulation (2) Acute and chronic respiratory failure with hypoxia Status: Chronic Response to Treatment: Improving Problem Text: -possibly due to decompensated CHF and pneumonia. -Cardiology has been consulted, their input is greatly appreciated. -continue to monitor daily weights, I/O (3) Pneumonia Status: Acute Response to Treatment: Improving Problem Text: -WBC currently at 11.2 and continuing to trend downward. There have not been any fevers for the past 2 days. -patient had negative respiratory panel, MRSA screen, and blood cultures. -continue 4 more days of levaquin 500mg po q6hr for total of 9 days of antibiotics (4) Shortness of breath Status: Chronic Response to Treatment: Improving Problem Text: -Due to combination of CHF and pneumonia -will continue levaquin 500mg q6hr po for possible pneumonia -continue to monitor daily weights, I/O (5) Hypotension Status: Resolved Problem Text: -latest BP is 110/93, has been hemodynamically stable (6) REDD (obstructive sleep apnea) Status: Chronic Problem Text: -patient is noncompliant with CPAP machine at home -continue with CPAP machine while in hospital -discuss importance of using CPAP machine while at home (7) COPD (chronic obstructive pulmonary disease) Status: Chronic Problem Text: -lungs are diminished but are improving -continue albuterol/ipratropium nebulizer treatments rq4hrs -continue prednisone 10 mg qd po (8) Elevated troponin Problem Text: -patient likely has demand ischemia due to CAD -troponin peaked at 0.51 on 11/02/17, -continue ASA 81 mg qd po, metoprolol 50mg bid po, and atorvastatin 20mg qd po -pmh of coronary artery bypass graft (9) SIMONE (acute kidney injury) Status: Resolved Problem Text: -latest creatinine is 0.83, creatinine peaked at 1.92 on 11/02/17 (10) Metabolic encephalopathy Status: Resolved Problem Text: -Alert and oriented (11) Diabetes Problem Text: -continue humalog insulin on sliding scale -continue levemir insulin 10 units qhs -continue to monitor glucose levels, patient has glucose, dextrose, and glucagon ordered. (12) Mood disorder Problem Text: -continue zoloft 50mg bid po (13) Chronic pain Problem Text: -continue percocet 5mg/325mg q4hr prn po -continue gabepentin 300mg tid po -patient has acetaminophen 650mg prn po (14) Elevated lactic acid level Status: Resolved Plan/VTE VTE Prophylaxis Ordered?: Yes (Xarelto) VS, I&O, 24H, Fishbone Vital Signs/I&O Vital Signs Date Time Temp Pulse Resp B/P (MAP) Pulse Ox O2 Delivery O2 Flow Rate FiO2 11/06/17 08:09 156 110/93 11/06/17 04:00 Nasal Cannula 2.0 11/06/17 04:00 98.4 16 93 11/04/17 04:05 35 Laboratory Data 24H LABS Laboratory Tests 2 11/05/17 11:53: Bedside Glucose (Misc Panel) 202H 11/05/17 16:58: Bedside Glucose (Misc Panel) 190H 11/05/17 20:20: Bedside Glucose (Misc Panel) 156H 11/06/17 04:57: Nucleated Red Blood Cells % (auto) 0.0, Prothrombin Time 17.1H, Prothromb Time International Ratio 1.36, Anion Gap 7L, Glomerular Filtration Rate > 60.0, Blood Urea Nitrogen 18, Creatinine 0.83, Sodium Level 141, Potassium Level 4.0, Chloride Level 104, Carbon Dioxide Level 30, Calcium Level 8.1L, Magnesium Level 2.2, C-Reactive Protein, Quantitative 7.09H, Digoxin Level 1.0 CBC/BMP Laboratory Tests 11/06/17 04:57 Red Blood Count 3.85 L, Mean Corpuscular Volume 90.1, Mean Corpuscular Hemoglobin 28.1, Mean Corpuscular Hemoglobin Concent 31.1 L, Red Cell Distribution Width 15.0 H, Calcium Level 8.1 L Microbiology Microbiology 11/02/17 Blood Culture - Preliminary, Resulted No Growth after 72 hours. All specime... 11/02/17 Blood Culture - Preliminary, Resulted No Growth after 72 hours. All specime... 11/02/17 Respiratory Virus Panel (PCR) ([facility]) - Final, Complete 11/02/17 MRSA Screen - Final, Complete CECILIO BABCOCK DO Nov 06, 2017 09:06
[2017-11-06] MEDS: RIVAROXABAN 15 MG TAB (XARELTO) PO SCH (17:14)
[2017-11-06] MEDS: SODIUM CHLORIDE 0.9% INJ 10 ML SYR IV PRN (17:16)
[2017-11-06] MEDS: ASPIRIN 81 MG ENTERIC TAB PO SCH (20:51)
[2017-11-06] MEDS: OMEPRAZOLE 20 MG CAP PO SCH (20:51)
[2017-11-06] MEDS: LEVEMIR (INSULIN DETEMIR) 1 UNITS/0.01ML SC SCH (20:53)
[2017-11-07] VITALS (7 sets, daily range): BP systolic 118–148; BP diastolic 56–81
[2017-11-07] MEDS: IPRATROPIUM 0.5MG/ALBUTEROL 2.5MG INH SOL UD 3ML (DUONEB)(J7620) NEB SCH ×7 (00:11→23:42)
[2017-11-07] MEDS: LevoFLOXacin 500 MG TABLET PO SCH (05:12)
[2017-11-07] MEDS: SODIUM CHLORIDE 0.9% INJ 10 ML SYR IV SCH ×2 (05:12→17:13)
[2017-11-07 05:36] LABS: MEAN CORPUSCULAR HEMOGLOBIN 29.3 pg (27.0-33.0); MEAN CORPUSCULAR HGB CONC 32.3 g/dl (32.0-36.5); MEAN CORPUSCULAR VOLUME 90.7 fl (80.0-96.0); PLATELET COUNT, AUTOMATED 186 10^3/uL (150-450); RED CELL DISTRIBUTION WIDTH 15.1 % (11.5-14.5); WHITE BLOOD COUNT 13.5 10^3/uL (4.0-10.0)
[2017-11-07 06:00] LABS: INR 1.34
[2017-11-07 07:09] LABS: ANION GAP 9 MEQ/L (8-16); BLOOD UREA NITROGEN 19 MG/DL (7-18); CALCIUM LEVEL 8.4 MG/DL (8.8-10.2); CARBON DIOXIDE LEVEL 29 MEQ/L (21-32); CHLORIDE LEVEL 102 MEQ/L (98-107); CREATININE FOR GFR 0.89 MG/DL (0.70-1.30); DIGOXIN LEVEL 1.1 NG/ML (0.5-2.0); GLOMERULAR FILTRATION RATE > 60.0 (>42); GLUCOSE, FASTING 123 MG/DL (83-110); MAGNESIUM LEVEL 1.9 MG/DL (1.8-2.4); POTASSIUM SERUM 4.2 MEQ/L (3.5-5.1); SODIUM LEVEL 140 MEQ/L (136-145)
[2017-11-07] MEDS: GABAPENTIN 300 MG CAP PO SCH ×3 (07:47→21:04)
[2017-11-07] MEDS: DIGOXIN 0.125 MG TAB PO SCH (07:47)
[2017-11-07] MEDS: predniSONE 10 MG TAB PO SCH (07:47)
[2017-11-07] MEDS: ATORVASTATIN 20 MG TAB PO SCH (07:47)
[2017-11-07] MEDS: SERTRALINE HCL 50 MG TAB PO SCH ×2 (07:47→21:00)
[2017-11-07] MEDS: HumaLOG INSULIN (NovoLOG) PER UNIT SC SCH ×4 (07:48→21:00)
[2017-11-07] MEDS: METOPROLOL 5 MG/5 ML VIAL IV SCH ×3 (07:59→08:12)
[2017-11-07] MEDS ORDERED: METOPROLOL SUCC (TopROL XL) 100MG *XL* TAB PO SCH (09:00)
[2017-11-07] MEDS: NYSTATIN 100,000 UNITS/GM TOPICAL PWD 15 GM TOP SCH ×2 (09:00→21:00)
[2017-11-07] MEDS: PERCOCET 5MG/325MG TAB PO PRN (12:00)
[2017-11-07] MEDS: RIVAROXABAN 15 MG TAB (XARELTO) PO SCH (17:13)
--- NOTE | 2017-11-07 20:58 | IPNPDOC ---
Subjective Date Seen The patient was seen on 11/07/17. Subjective Chief Complaint/HPI The patient is a 77-year-old male admitted with a reason for visit of Chest Pain. Events since last encounter Hal Peña continues to improve. He denies any more episodes of chest pain. His SOB is improving and he is able to do more activity. He says he will probably get short of breath if he walks to his bathroom with his walker. His most recent concern is a perioral numbness that started yesterday. He denies numbness anywhere else. He denies change in vision, change in speech, weakness, paralysis, fevers, nausea, vomiting, or headaches. General: Denies: Chills, Fatigue Constitutional: Denies: Chills, Fever, Weakness, Fatigue Eyes: Denies: Vision change ENT: Denies: Head Aches Pulmonary: Reports: Dyspnea Cardiovascular: Denies: Chest Pain, Palpitations Gastrointestinal: Denies: Nausea, Vomiting, Abdominal Pain Neurological: Reports: Numbness (perioral), Denies: Weakness, Incoordination, Change in speech, Confusion Objective Physical Examination General Exam: Positive: Alert, Cooperative Eye Exam: Positive: PERRLA, EOMI ENT Exam: Positive: Atraumatic, Mucous membr. moist/pink, Pharynx Normal, Tongue Midline Chest Exam: Positive: Diminished Heart Exam: Positive: Rate Normal, Regular Rhythm, Negative: Gallops, Murmurs, Rubs Abdomen Exam: Positive: Normal bowel sounds, Soft, Negative: Tenderness Neuro Exam: Positive: Normal Speech, Strength at 5/5 X4 ext, Cranial Nerves 3- 12 NL Psych Exam: Positive: Mood NL, Oriented x 3 Assessment /Plan Problems (1) Atrial fibrillation with RVR Status: Chronic Problem Text: -Started on digoxin and his beta suellen has been switched over to metoprolol succinate. He did have an episode of atrial fibrillation with RVR this morning into the 150-160s requiring 3 doses of 5 mg of Lopressor. Cardiology was informed and they will continue to adjust his medications as they see fit. Their input in the matter is greatly appreciated. -continue to monitor digoxin levels -continue ASA 81 mg qd po for anticoagulation (2) Acute and chronic respiratory failure with hypoxia Status: Chronic Response to Treatment: Improving Problem Text: -possibly due to decompensated CHF and pneumonia. -Cardiology has been consulted, their input is greatly appreciated. -monitor daily weights, I/O (3) Pneumonia Status: Acute Response to Treatment: Improving Problem Text: -WBC currently at 13.5 up from 11.2 yesterday. There have not been any fevers for the past 3 days. -patient had negative respiratory panel, MRSA screen, and blood cultures. -continue 4 more days of levaquin 500mg po q6hr for total of 9 days of antibiotics (4) Shortness of breath Status: Chronic Response to Treatment: Improving Problem Text: -Due to combination of CHF and pneumonia -will continue levaquin 500mg q6hr po for possible pneumonia -continue to monitor daily weights, I/O (5) Hypotension Status: Resolved Problem Text: -latest BP is 138/74, has been hemodynamically stable (6) REDD (obstructive sleep apnea) Status: Chronic Problem Text: -patient is noncompliant with CPAP machine at home -continue with CPAP machine while in hospital -discuss importance of using CPAP machine while at home (7) COPD (chronic obstructive pulmonary disease) Status: Chronic Problem Text: -auscultation of lungs is diminished but improving -continue albuterol/ipratropium nebulizer treatments rq4hrs -continue prednisone 10 mg qd po (8) Elevated troponin Status: Resolved Problem Text: -patient likely has demand ischemia due to CAD -troponin peaked at 0.51 on 11/02/17, -continue ASA 81 mg qd po, metoprolol 50mg bid po, and atorvastatin 20mg qd po -pmh of coronary artery bypass graft (9) SIMONE (acute kidney injury) Status: Resolved Problem Text: -latest creatinine is 0.89, creatinine peaked at 1.92 on 11/02/17 (10) Metabolic encephalopathy Status: Resolved Problem Text: -Alert and oriented (11) Diabetes Problem Text: -continue humalog insulin on sliding scale -continue levemir insulin 10 units qhs -continue to monitor glucose levels, patient has glucose, dextrose, and glucagon ordered. (12) Mood disorder Problem Text: -continue zoloft 50mg bid po (13) Chronic pain Problem Text: -continue percocet 5mg/325mg q4hr prn po -continue gabepentin 300mg tid po -patient has acetaminophen 650mg prn po (14) Elevated lactic acid level Status: Resolved Plan/VTE VTE Prophylaxis Ordered?: Yes (Xarelto) Plan He continues to have episodes of atrial fibrillation with rapid ventricular response or supraventricular tachycardia and is therefore unable to participate with physical therapy. Therefore he has not been cleared by physical therapy at this time, and he does require additional changes in his medications which is being pursued by cardiology. Their input is greatly appreciated. VS, I&O, 24H, Fishbone Vital Signs/I&O Vital Signs Date Time Temp Pulse Resp B/P (MAP) Pulse Ox O2 Delivery O2 Flow Rate FiO2 11/07/17 08:18 120/60 (80) 11/07/17 08:12 107 11/07/17 07:30 Room Air 11/07/17 07:08 16 11/07/17 04:45 99.9 91 11/06/17 12:14 11/04/17 04:05 35 Laboratory Data 24H LABS Laboratory Tests 2 11/06/17 12:12: Bedside Glucose (Misc Panel) 197H 11/06/17 16:18: Bedside Glucose (Misc Panel) 187H 11/06/17 20:52: Bedside Glucose (Misc Panel) 180H 11/07/17 05:18: Nucleated Red Blood Cells % (auto) 0.0, Prothrombin Time 16.9H, Prothromb Time International Ratio 1.34, Anion Gap 9, Glomerular Filtration Rate > 60.0, Blood Urea Nitrogen 19H, Creatinine 0.89, Sodium Level 140, Potassium Level 4.2, Chloride Level 102, Carbon Dioxide Level 29, Calcium Level 8.4L, Magnesium Level 1.9, C-Reactive Protein, Quantitative 8.31H, Digoxin Level 1.1 CBC/BMP Laboratory Tests 11/07/17 05:18 Red Blood Count 3.76 L, Mean Corpuscular Volume 90.7, Mean Corpuscular Hemoglobin 29.3, Mean Corpuscular Hemoglobin Concent 32.3, Red Cell Distribution Width 15.1 H, Calcium Level 8.4 L Microbiology Microbiology 11/02/17 Blood Culture - Final, Complete NO GROWTH AFTER 5 DAYS 11/02/17 Blood Culture - Final, Complete NO GROWTH AFTER 5 DAYS 11/02/17 Respiratory Virus Panel (PCR) (JOSE RAFAEL) - Final, Complete 11/02/17 MRSA Screen - Final, Complete CECILIO BABCOCK DO Nov 07, 2017 09:03
[2017-11-07] MEDS: LEVEMIR (INSULIN DETEMIR) 1 UNITS/0.01ML SC SCH (21:03)
[2017-11-07] MEDS: ASPIRIN 81 MG ENTERIC TAB PO SCH (21:04)
[2017-11-07] MEDS: OMEPRAZOLE 20 MG CAP PO SCH (21:04)
[2017-11-08] MEDS: IPRATROPIUM 0.5MG/ALBUTEROL 2.5MG INH SOL UD 3ML (DUONEB)(J7620) NEB SCH ×5 (03:58→19:28)
[2017-11-08 04:45] VITALS: BP 136/64
[2017-11-08] MEDS: LevoFLOXacin 500 MG TABLET PO SCH (05:26)
[2017-11-08] MEDS: SODIUM CHLORIDE 0.9% INJ 10 ML SYR IV SCH ×2 (05:27→16:56)
[2017-11-08 05:48] LABS: MEAN CORPUSCULAR HGB CONC 31.9 g/dl (32.0-36.5); MEAN CORPUSCULAR VOLUME 90.9 fl (80.0-96.0); PLATELET COUNT, AUTOMATED 237 10^3/uL (150-450); RED CELL DISTRIBUTION WIDTH 15.3 % (11.5-14.5); WHITE BLOOD COUNT 13.2 10^3/uL (4.0-10.0)
[2017-11-08 06:08] LABS: INR 1.45
[2017-11-08 06:20] LABS: ANION GAP 7 MEQ/L (8-16); BLOOD UREA NITROGEN 19 MG/DL (7-18); CALCIUM LEVEL 8.3 MG/DL (8.8-10.2); CARBON DIOXIDE LEVEL 28 MEQ/L (21-32); CHLORIDE LEVEL 107 MEQ/L (98-107); CREATININE FOR GFR 0.81 MG/DL (0.70-1.30); GLOMERULAR FILTRATION RATE > 60.0 (>42); GLUCOSE, FASTING 128 MG/DL (83-110); MAGNESIUM LEVEL 2.1 MG/DL (1.8-2.4); POTASSIUM SERUM 4.3 MEQ/L (3.5-5.1); SODIUM LEVEL 142 MEQ/L (136-145)
[2017-11-08 08:00] VITALS: BP 117/70
[2017-11-08] MEDS: SERTRALINE HCL 50 MG TAB PO SCH ×2 (08:37→21:25)
[2017-11-08] MEDS: HumaLOG INSULIN (NovoLOG) PER UNIT SC SCH ×4 (08:37→21:00)
[2017-11-08] MEDS: ATORVASTATIN 20 MG TAB PO SCH (08:37)
[2017-11-08] MEDS: GABAPENTIN 300 MG CAP PO SCH ×3 (08:37→21:25)
[2017-11-08] MEDS: METOPROLOL SUCC (TopROL XL) 100MG *XL* TAB PO SCH (08:39)
[2017-11-08] MEDS: DIGOXIN 0.125 MG TAB PO SCH (08:39)
[2017-11-08] MEDS: NYSTATIN 100,000 UNITS/GM TOPICAL PWD 15 GM TOP SCH ×2 (08:39→23:06)
[2017-11-08] MEDS: predniSONE 10 MG TAB PO SCH (08:39)
[2017-11-08] MEDS: METOPROLOL 5 MG/5 ML VIAL IV SCH ×3 (10:05→10:24)
[2017-11-08 12:00] VITALS: BP 131/60
[2017-11-08 16:00] VITALS: BP 153/69
[2017-11-08] MEDS: RIVAROXABAN 15 MG TAB (XARELTO) PO SCH (16:55)
--- NOTE | 2017-11-08 19:23 | IPNPDOC ---
Subjective Date Seen The patient was seen on 11/08/17. Subjective Chief Complaint/HPI The patient is a 77-year-old male admitted with a reason for visit of Chest Pain. Events since last encounter Mr. Peña continues to be his usual pleasant self. He did have another episode of atrial fibrillation with rapid ventricular response this morning, and he remained completely asymptomatic during the episode. Otherwise, he keeps asking when he will be able to go home. I explained to him that we are still trying to get his heart rate under control and that he will continue to need to work with physical therapy until he is sufficiently strong enough to take care of himself at home. Otherwise, he has no additional complaints and the remainder of his review of systems is negative. Objective Physical Examination General Exam: Positive: Alert, Cooperative, No Acute Distress Eye Exam: Positive: PERRLA, EOMI Neck Exam: Negative: JVD Chest Exam: Positive: Clear to auscultation, Diminished, Negative: Rales, Rhonchi, Wheezing Heart Exam: Positive: Tachycardic, Irregular Rhythm, Negative: Gallops, Murmurs, Rubs Telemetry: Positive: Atrial fibrillation, Tachycardia Abdomen Exam: Positive: Normal bowel sounds, Soft, Negative: Tenderness Neuro Exam: Positive: Normal Speech, Strength at 5/5 X4 ext, Cranial Nerves 3- 12 NL Psych Exam: Positive: Mood NL, Oriented x 3 Assessment /Plan Problems (1) Atrial fibrillation with RVR Status: Chronic Problem Text: -Cardiology continues to massage his rate controlling drugs, he is now maxed out on beta suellen, their input and the matters greatly appreciated. -I have requested that he have a digoxin level drawn tomorrow morning just prior to the administration of his morning dose, such that we can have an accurate trough level -continue ASA 81 mg qd po for anticoagulation (2) Acute and chronic respiratory failure with hypoxia Status: Chronic Response to Treatment: Improving Problem Text: -Now resolved, he does appear to be euvolemic. -possibly due to decompensated CHF and pneumonia. -Cardiology has been consulted, their input is greatly appreciated. -monitor daily weights, I/O (3) Pneumonia Status: Acute Response to Treatment: Improving Problem Text: -He continues to have persistent leukocytosis, although he also continues to be afebrile -patient had negative respiratory panel, MRSA screen, and blood cultures. -Levaquin was started on 11/05/2017, our plan is to continue for a total of 7 days (4) Shortness of breath Status: Chronic Response to Treatment: Improving Problem Text: -Due to combination of CHF and pneumonia -will continue levaquin 500mg q6hr po for possible pneumonia -continue to monitor daily weights, I/O (5) Hypotension Status: Resolved (6) REDD (obstructive sleep apnea) Status: Chronic Problem Text: -patient is noncompliant with CPAP machine at home -continue with CPAP machine while in hospital -discuss importance of using CPAP machine while at home (7) COPD (chronic obstructive pulmonary disease) Status: Chronic Problem Text: -continue albuterol/ipratropium nebulizer treatments rq4hrs -continue prednisone 10 mg qd po (8) Elevated troponin Status: Resolved Problem Text: -patient likely has demand ischemia due to CAD -troponin peaked at 0.51 on 11/02/17, -continue ASA 81 mg qd po, metoprolol 50mg bid po, and atorvastatin 20mg qd po -pmh of coronary artery bypass graft (9) SIMONE (acute kidney injury) Status: Resolved Problem Text: -latest creatinine is 0.89, creatinine peaked at 1.92 on 11/02/17 (10) Metabolic encephalopathy Status: Resolved Problem Text: -Alert and oriented (11) Diabetes Problem Text: -continue humalog insulin on sliding scale -continue levemir insulin 10 units qhs -continue to monitor glucose levels, patient has glucose, dextrose, and glucagon ordered. (12) Mood disorder Problem Text: -continue zoloft 50mg bid po (13) Chronic pain Problem Text: -continue percocet 5mg/325mg q4hr prn po -continue gabepentin 300mg tid po -patient has acetaminophen 650mg prn po (14) Elevated lactic acid level Status: Resolved Plan/VTE VTE Prophylaxis Ordered?: Yes (Xarelto) Plan Our goal prior to discharge is to get his heart rate under control and he needs to be cleared by physical therapy. VS, I&O, 24H, Fishbone Vital Signs/I&O Vital Signs Date Time Temp Pulse Resp B/P (MAP) Pulse Ox O2 Delivery O2 Flow Rate FiO2 11/08/17 16:00 97.9 79 17 153/69 (97) 95 Room Air 11/06/17 12:14 11/04/17 04:05 35 I&O- Last 24 Hours up to 6 AM 11/09/17 06:00 Intake Total 580 ml Output Total 0 ml Balance 580 ml Laboratory Data 24H LABS Laboratory Tests 2 11/07/17 20:55: Bedside Glucose (Misc Panel) 177H 11/08/17 05:28: Nucleated Red Blood Cells % (auto) 0.0, Prothrombin Time 17.9H, Prothromb Time International Ratio 1.45, Anion Gap 7L, Glomerular Filtration Rate > 60.0, Blood Urea Nitrogen 19H, Creatinine 0.81, Sodium Level 142, Potassium Level 4.3 , Chloride Level 107, Carbon Dioxide Level 28, Calcium Level 8.3L, Magnesium Level 2.1, C-Reactive Protein, Quantitative 9.29H, Digoxin Level 1.0 11/08/17 11:52: Bedside Glucose (Misc Panel) 194H 11/08/17 16:51: Bedside Glucose (Misc Panel) 220H CBC/BMP Laboratory Tests 11/08/17 05:28 Red Blood Count 3.86 L, Mean Corpuscular Volume 90.9, Mean Corpuscular Hemoglobin 29.0, Mean Corpuscular Hemoglobin Concent 31.9 L, Red Cell Distribution Width 15.3 H, Calcium Level 8.3 L Microbiology Microbiology 11/02/17 Blood Culture - Final, Complete NO GROWTH AFTER 5 DAYS 11/02/17 Blood Culture - Final, Complete NO GROWTH AFTER 5 DAYS 11/02/17 Respiratory Virus Panel (PCR) ([facility]) - Final, Complete 11/02/17 MRSA Screen - Final, Complete CECILIO BABCOCK DO Nov 08, 2017 19:23
[2017-11-08 20:00] VITALS: BP 131/85
[2017-11-08] MEDS: ASPIRIN 81 MG ENTERIC TAB PO SCH (21:25)
[2017-11-08] MEDS: OMEPRAZOLE 20 MG CAP PO SCH (21:25)
[2017-11-08] MEDS: LEVEMIR (INSULIN DETEMIR) 1 UNITS/0.01ML SC SCH (21:26)
[2017-11-08 23:59] VITALS: BP 159/72
[2017-11-09 04:00] VITALS: BP 127/60
[2017-11-09] MEDS: IPRATROPIUM 0.5MG/ALBUTEROL 2.5MG INH SOL UD 3ML (DUONEB)(J7620) NEB SCH ×7 (04:47→23:31)
[2017-11-09] MEDS: LevoFLOXacin 500 MG TABLET PO SCH (05:34)
[2017-11-09] MEDS: SODIUM CHLORIDE 0.9% INJ 10 ML SYR IV SCH ×2 (05:35→17:29)
[2017-11-09] MEDS: HumaLOG INSULIN (NovoLOG) PER UNIT SC SCH ×4 (07:30→20:41)
[2017-11-09] MEDS: ATORVASTATIN 20 MG TAB PO SCH (08:15)
[2017-11-09] MEDS: GABAPENTIN 300 MG CAP PO SCH ×3 (08:15→20:46)
[2017-11-09] MEDS: SERTRALINE HCL 50 MG TAB PO SCH ×2 (08:15→20:46)
[2017-11-09 08:20] VITALS: BP 147/78
[2017-11-09] MEDS: METOPROLOL SUCC (TopROL XL) 100MG *XL* TAB PO SCH (08:20)
[2017-11-09] MEDS: predniSONE 10 MG TAB PO SCH (08:21)
[2017-11-09] MEDS: NYSTATIN 100,000 UNITS/GM TOPICAL PWD 15 GM TOP SCH ×2 (08:21→20:47)
[2017-11-09 09:05] LABS: INR 1.15
[2017-11-09] MEDS: DIGOXIN 0.125 MG TAB PO SCH (10:35)
[2017-11-09] MEDS: PERCOCET 5MG/325MG TAB PO PRN ×2 (10:37→20:46)
[2017-11-09 12:39] VITALS: BP 125/60
--- NOTE | 2017-11-09 13:39 | IPNPDOC ---
Subjective Date Seen The patient was seen on 11/09/17. Subjective Chief Complaint/HPI The patient is a 77-year-old male admitted with a reason for visit of Chest Pain. Events since last encounter He does complain of shortness of breath with movement, however he is unaware of his fast heart rate. He does say that he feels palpitations every once in a while, but this seems to be intermittent, and I cannot confirm whether it is related to his tachycardic events are not. Otherwise, he is anxious to go home. He does not have any additional complaints, and the remainder of his review of systems is negative. Objective Physical Examination General Exam: Positive: Alert, No Acute Distress Neck Exam: Negative: JVD Chest Exam: Positive: Clear to auscultation, Diminished, Negative: Rales, Rhonchi, Wheezing Heart Exam: Positive: Tachycardic, Irregular Rhythm Telemetry: Positive: Atrial fibrillation, Tachycardia Abdomen Exam: Positive: Normal bowel sounds, Soft, Negative: Tenderness Psych Exam: Positive: Mood NL, Oriented x 3 Assessment /Plan Problems (1) Atrial fibrillation with RVR Status: Chronic Problem Text: -Cardiology adjusting rate controlling drugs, their input is greatly appreciated. -Is in digoxin level was drawn this morning at 0830, just prior to the administration of his daily dose, and was found to be within therapeutic limits. (2) Pneumonia Status: Acute Response to Treatment: Improving Problem Text: -He continues to have persistent leukocytosis, although he also continues to be afebrile, I suspect that this is from the administration of steroids -patient had negative respiratory panel, MRSA screen, and blood cultures. -Levaquin was started on 11/05/2017, our plan is to continue for a total of 7 days (3) Acute and chronic respiratory failure with hypoxia Status: Resolved Problem Text: -Resolved. -possibly due to decompensated CHF and pneumonia. -monitor daily weights, I/O (4) Hypotension Status: Resolved (5) REDD (obstructive sleep apnea) Status: Chronic Problem Text: -patient is noncompliant with CPAP machine at home -continue with CPAP machine while in hospital -discuss importance of using CPAP machine while at home (6) COPD (chronic obstructive pulmonary disease) Status: Chronic Problem Text: -continue albuterol/ipratropium nebulizer treatments rq4hrs -continue prednisone 10 mg qd po (7) Elevated troponin Status: Resolved Problem Text: -patient likely has demand ischemia due to CAD -troponin peaked at 0.51 on 11/02/17, -continue ASA 81 mg qd po, metoprolol 50mg bid po, and atorvastatin 20mg qd po -pmh of coronary artery bypass graft (8) SIMONE (acute kidney injury) Status: Resolved Problem Text: -latest creatinine is 0.89, creatinine peaked at 1.92 on 11/02/17 (9) Metabolic encephalopathy Status: Resolved Problem Text: -Alert and oriented (10) Diabetes Status: Chronic Problem Text: -continue humalog insulin on sliding scale -continue levemir insulin 10 units qhs -continue to monitor glucose levels, patient has glucose, dextrose, and glucagon ordered. (11) Mood disorder Status: Chronic Problem Text: -continue zoloft 50mg bid po (12) Chronic pain Status: Chronic Problem Text: -continue percocet 5mg/325mg q4hr prn po -continue gabepentin 300mg tid po -patient has acetaminophen 650mg prn po (13) Elevated lactic acid level Status: Resolved Plan/VTE VTE Prophylaxis Ordered?: Yes (Xarelto) Plan He continues to work with physical therapy, however he is still having issues with his heart rate was spiking in the 150s and 160s. Cardiology's input regarding options for heart rate control is greatly appreciated. He is not safe for discharge at this time VS, I&O, 24H, [facility] Vital Signs/I&O Vital Signs Date Time Temp Pulse Resp B/P (MAP) Pulse Ox O2 Delivery O2 Flow Rate FiO2 11/09/17 12:39 98.2 80 18 125/60 (81) 95 Room Air 11/06/17 12:14 11/04/17 04:05 35 I&O- Last 24 Hours up to 6 AM 11/10/17 06:00 Intake Total 360 ml Output Total 1025 ml Balance -665 ml Laboratory Data 24H LABS Laboratory Tests 2 11/08/17 16:51: Bedside Glucose (Misc Panel) 220H 11/08/17 20:49: Bedside Glucose (Misc Panel) 178H 11/09/17 07:39: Bedside Glucose (Misc Panel) 122H 11/09/17 08:26: Prothrombin Time 14.9H, Prothromb Time International Ratio 1.15, Digoxin Level 1.0 11/09/17 11:40: Bedside Glucose (Misc Panel) 177H Microbiology Microbiology 11/02/17 Blood Culture - Final, Complete NO GROWTH AFTER 5 DAYS 11/02/17 Blood Culture - Final, Complete NO GROWTH AFTER 5 DAYS 11/02/17 Respiratory Virus Panel (PCR) ([facility]FA[facility]) - Final, Complete 11/02/17 MRSA Screen - Final, Complete CECILIO BABCOCK DO Nov 09, 2017 13:32
[2017-11-09 16:00] VITALS: BP 151/65
[2017-11-09 16:57] LABS: MEAN CORPUSCULAR HEMOGLOBIN 29.2 pg (27.0-33.0); MEAN CORPUSCULAR VOLUME 94.3 fl (80.0-96.0); PLATELET COUNT, AUTOMATED 359 10^3/uL (150-450); RED CELL DISTRIBUTION WIDTH 15.4 % (11.5-14.5); WHITE BLOOD COUNT 12.5 10^3/uL (4.0-10.0)
[2017-11-09 17:08] LABS: ANION GAP 6 MEQ/L (8-16); BLOOD UREA NITROGEN 19 MG/DL (7-18); CALCIUM LEVEL 8.6 MG/DL (8.8-10.2); CARBON DIOXIDE LEVEL 30 MEQ/L (21-32); CHLORIDE LEVEL 104 MEQ/L (98-107); CREATININE FOR GFR 0.96 MG/DL (0.70-1.30); GLOMERULAR FILTRATION RATE > 60.0 (>42); GLUCOSE, FASTING 146 MG/DL (83-110); POTASSIUM SERUM 4.4 MEQ/L (3.5-5.1); SODIUM LEVEL 140 MEQ/L (136-145)
[2017-11-09] MEDS: RIVAROXABAN 15 MG TAB (XARELTO) PO SCH (17:29)
[2017-11-09 20:00] VITALS: BP 141/65
[2017-11-09] MEDS: OMEPRAZOLE 20 MG CAP PO SCH (20:46)
[2017-11-09] MEDS: ASPIRIN 81 MG ENTERIC TAB PO SCH (20:46)
[2017-11-09] MEDS: LEVEMIR (INSULIN DETEMIR) 1 UNITS/0.01ML SC SCH (20:47)
[2017-11-09 23:59] VITALS: BP 159/73
[2017-11-10 04:00] VITALS: BP 129/84
[2017-11-10] MEDS: IPRATROPIUM 0.5MG/ALBUTEROL 2.5MG INH SOL UD 3ML (DUONEB)(J7620) NEB SCH ×6 (04:50→23:47)
[2017-11-10] MEDS: LevoFLOXacin 500 MG TABLET PO SCH (05:11)
[2017-11-10] MEDS: SODIUM CHLORIDE 0.9% INJ 10 ML SYR IV SCH ×2 (05:12→17:37)
[2017-11-10] MEDS: PERCOCET 5MG/325MG TAB PO PRN ×3 (05:12→20:45)
[2017-11-10 05:36] LABS: MEAN CORPUSCULAR HEMOGLOBIN 27.8 pg (27.0-33.0); MEAN CORPUSCULAR HGB CONC 31.2 g/dl (32.0-36.5); MEAN CORPUSCULAR VOLUME 88.9 fl (80.0-96.0); PLATELET COUNT, AUTOMATED 323 10^3/uL (150-450); RED CELL DISTRIBUTION WIDTH 15.1 % (11.5-14.5); WHITE BLOOD COUNT 10.9 10^3/uL (4.0-10.0)
[2017-11-10 05:57] LABS: ANION GAP 8 MEQ/L (8-16); BLOOD UREA NITROGEN 16 MG/DL (7-18); CALCIUM LEVEL 8.1 MG/DL (8.8-10.2); CARBON DIOXIDE LEVEL 29 MEQ/L (21-32); CHLORIDE LEVEL 104 MEQ/L (98-107); CREATININE FOR GFR 0.88 MG/DL (0.70-1.30); GLOMERULAR FILTRATION RATE > 60.0 (>42); GLUCOSE, FASTING 102 MG/DL (83-110); POTASSIUM SERUM 4.2 MEQ/L (3.5-5.1); SODIUM LEVEL 141 MEQ/L (136-145)
[2017-11-10 08:00] VITALS: BP 151/64
[2017-11-10] MEDS: SERTRALINE HCL 50 MG TAB PO SCH ×2 (09:33→20:44)
[2017-11-10] MEDS: ATORVASTATIN 20 MG TAB PO SCH (09:33)
[2017-11-10] MEDS: GABAPENTIN 300 MG CAP PO SCH ×3 (09:34→20:45)
[2017-11-10] MEDS: predniSONE 10 MG TAB PO SCH (09:34)
[2017-11-10] MEDS: NYSTATIN 100,000 UNITS/GM TOPICAL PWD 15 GM TOP SCH ×2 (09:35→20:46)
[2017-11-10] MEDS: HumaLOG INSULIN (NovoLOG) PER UNIT SC SCH ×4 (09:35→20:46)
[2017-11-10] MEDS: METOPROLOL SUCC (TopROL XL) 100MG *XL* TAB PO SCH (09:35)
[2017-11-10] MEDS: DIGOXIN 0.125 MG TAB PO SCH (09:35)
[2017-11-10 12:00] VITALS: BP 154/60
--- NOTE | 2017-11-10 14:46 | IPN ---
DATE: 11/10/2017 SUBJECTIVE: The patient tells me he is feeling well. He denies any palpitations or shortness of breath, fevers, chills, nausea, vomiting or diarrhea. OBJECTIVE: VITAL SIGNS: Temperature 98.1, pulse 80. Review of telemetry reveals no significant tachycardic periods. Respiratory rate 19, blood pressure 151/64, oxygen saturations 91% on room air. GENERAL: He is a pleasant elderly male laying in a recliner. He does not appear to be in any acute distress. He is mildly tremulous. HEENT: Cranial nerves II through XII are grossly intact. He has moist mucous membranes. No elevation of his jugular venous pulse. CARDIOVASCULAR: S1, S2, irregularly irregular. No distant heart sounds are appreciated. RESPIRATORY: Exam is actually quite clear. ABDOMEN: Exam is obese. EXTREMITIES: No clubbing, cyanosis or edema. LABORATORY STUDIES: WBC count 10.9 down from 12.5 yesterday. Hemoglobin 10.8, platelet [id number]. Chemistry panel: Sodium 141, potassium 4.2, chloride 104, bicarbonate 29, BUN 16, creatinine 0.8. No new microbiology or imaging. ASSESSMENT/PLAN: This is a 77-year-old man who presented with shortness of breath. PROBLEMS: 1. Shortness of breath: [place] to be related to pneumonia versus decompensated congestive heart failure. Pulmonary and cardiology's help is greatly appreciated. At the present time, the patient's respiratory status has returned to his baseline. He is comfortable on room air. He appears to be euvolemic. He is completing a course of antibiotics. 2. Hypotension: He initially presented in cardiogenic versus septic shock. He did improve with diuresis and antibiotics. 3. Lactic acidosis related to increased work of breathing. His work of breathing has decreased now. 4. Chronic hypoxic respiratory failure: He tells me that he uses 2.5 liters at night. He appears to be back at his baseline and his not requiring any oxygen during the day. 5. Obstructive sleep apnea: He is noncompliant with BiPAP, CPAP and uses nasal cannula at night only. The risks and benefits have been discussed at length. He understands the implications of this. 6. Atrial fibrillation: Dr. Sutton's help has been appreciated. His rate is improved control with a titrated dose of metoprolol and digoxin. It appears to be the first 24 hour period without significant rapid ventricular response. 7. Elevated troponin likely related to demand ischemia in the setting of known coronary artery disease and atrial fibrillation with rapid ventricular response. His rate is improved. Will defer to cardiology for further outpatient stress testing or ischemic evaluation. 8. Acute kidney injury: Resolved. 9. Chronic obstructive pulmonary disease (COPD): He is steroid dependent and he is at his baseline respiratory status with10 mg of prednisone daily which is his outpatient regimen. 10. Metabolic encephalopathy: Resolved. 12. Diabetes on sliding scale insulin. 13. Gastroesophageal reflux disease: He is on omeprazole. 14. Mood disorder: He is on Zoloft. 15. Chronic pain: He is on gabapentin and Percocet. 16. Deep venous thrombosis prophylaxis: He is on Xarelto. DISPOSITION: Pending physical therapy (PT) clearance. I suspect within the next 24-48 hours, he will be transitioned off telemetry and potentially even to alternate level of care (ALC) status should he fail or progress with his physical therapy. However, at the present time, he does appear to be improving. Will continue to monitor him closely.
[2017-11-10 16:00] VITALS: BP 144/64
[2017-11-10] MEDS: RIVAROXABAN 15 MG TAB (XARELTO) PO SCH (17:37)
[2017-11-10 20:00] VITALS: BP 113/56
[2017-11-10] MEDS: OMEPRAZOLE 20 MG CAP PO SCH (20:44)
[2017-11-10] MEDS: ASPIRIN 81 MG ENTERIC TAB PO SCH (20:45)
[2017-11-10] MEDS: LEVEMIR (INSULIN DETEMIR) 1 UNITS/0.01ML SC SCH (20:46)
[2017-11-10 23:59] VITALS: BP 154/68
[2017-11-11] VITALS (7 sets, daily range): BP systolic 123–146; BP diastolic 56–67
[2017-11-11] MEDS: IPRATROPIUM 0.5MG/ALBUTEROL 2.5MG INH SOL UD 3ML (DUONEB)(J7620) NEB SCH ×6 (04:37→23:38)
[2017-11-11] MEDS: LevoFLOXacin 500 MG TABLET PO SCH (05:34)
[2017-11-11] MEDS: SODIUM CHLORIDE 0.9% INJ 10 ML SYR IV SCH ×2 (05:34→18:37)
[2017-11-11 05:51] LABS: MEAN CORPUSCULAR HEMOGLOBIN 28.9 pg (27.0-33.0); MEAN CORPUSCULAR HGB CONC 32.2 g/dl (32.0-36.5); MEAN CORPUSCULAR VOLUME 89.7 fl (80.0-96.0); PLATELET COUNT, AUTOMATED 322 10^3/uL (150-450); RED CELL DISTRIBUTION WIDTH 14.6 % (11.5-14.5); WHITE BLOOD COUNT 10.1 10^3/uL (4.0-10.0)
[2017-11-11 06:16] LABS: ANION GAP 8 MEQ/L (8-16); BLOOD UREA NITROGEN 17 MG/DL (7-18); CARBON DIOXIDE LEVEL 29 MEQ/L (21-32); CHLORIDE LEVEL 103 MEQ/L (98-107); CREATININE FOR GFR 0.93 MG/DL (0.70-1.30); GLOMERULAR FILTRATION RATE > 60.0 (>42); GLUCOSE, FASTING 124 MG/DL (83-110); POTASSIUM SERUM 4.2 MEQ/L (3.5-5.1); SODIUM LEVEL 140 MEQ/L (136-145)
[2017-11-11] MEDS: HumaLOG INSULIN (NovoLOG) PER UNIT SC SCH ×4 (08:52→21:00)
[2017-11-11] MEDS: predniSONE 10 MG TAB PO SCH (08:53)
[2017-11-11] MEDS: GABAPENTIN 300 MG CAP PO SCH ×3 (08:53→21:31)
[2017-11-11] MEDS: METOPROLOL SUCC (TopROL XL) 100MG *XL* TAB PO SCH (08:53)
[2017-11-11] MEDS: SERTRALINE HCL 50 MG TAB PO SCH ×2 (08:53→21:31)
[2017-11-11] MEDS: ATORVASTATIN 20 MG TAB PO SCH (08:53)
[2017-11-11] MEDS: DIGOXIN 0.125 MG TAB PO SCH (08:54)
[2017-11-11] MEDS: NYSTATIN 100,000 UNITS/GM TOPICAL PWD 15 GM TOP SCH ×2 (08:54→21:31)
[2017-11-11] MEDS ORDERED: METOPROLOL TARTRATE 100 MG TAB PO ONE (11:30)
--- NOTE | 2017-11-11 16:55 | IPNPDOC ---
Subjective Date Seen The patient was seen on 11/11/17. Subjective Chief Complaint/HPI The patient is a 77-year-old male admitted with a reason for visit of Chest Pain. Events since last encounter The patient continues to be asymptomatic during events of tachycardia. He does become dyspneic upon exertion, and is continuing to work with physical therapy. Otherwise, he has no acute complaints today and the remainder of his review of systems is negative. Objective Physical Examination General Exam: Positive: Alert, No Acute Distress Neck Exam: Negative: JVD Chest Exam: Positive: Clear to auscultation, Diminished, Negative: Rales, Rhonchi, Wheezing Heart Exam: Positive: Tachycardic, Irregular Rhythm Telemetry: Positive: Atrial fibrillation, Tachycardia Abdomen Exam: Positive: Normal bowel sounds, Soft, Negative: Tenderness Psych Exam: Positive: Mood NL, Oriented x 3 Assessment /Plan Problems (1) Atrial fibrillation with RVR Status: Chronic Problem Text: Per recommendations from cardiology we have switched his metoprolol succinate to metoprolol tartrate 100 mg twice a day and we have increased his dose of digoxin to 0.25 daily. He does continue to go into the 150s with exertion, and he will calm down to anywhere from 90-110 at rest. (2) Pneumonia Status: Acute Response to Treatment: Improving Problem Text: Leukocytosis continues to trend down, it is almost within normal limits today. -Levaquin was started on 11/05/2017, our plan is to continue for a total of 7 days. Today will be his final dose. (3) Acute and chronic respiratory failure with hypoxia Status: Resolved Problem Text: -Resolved. -possibly due to decompensated CHF and pneumonia. -monitor daily weights, I/O (4) Hypotension Status: Resolved (5) REDD (obstructive sleep apnea) Status: Chronic Problem Text: -patient is noncompliant with CPAP machine at home, he does wear 2.5 L nasal cannula at night. He does appear to be at baseline -continue with CPAP machine while in hospital (6) COPD (chronic obstructive pulmonary disease) Status: Chronic Problem Text: -continue albuterol/ipratropium nebulizer treatments [id number] -continue prednisone 10 mg qd po (7) Elevated troponin Status: Resolved Problem Text: -patient likely has demand ischemia due to CAD -Now resolved -continue ASA 81 mg qd po, metoprolol 50mg bid po, and atorvastatin 20mg qd po -pmh of coronary artery bypass graft (8) SIMONE (acute kidney injury) Status: Resolved (9) Metabolic encephalopathy Status: Resolved (10) Diabetes Status: Chronic Problem Text: Continue with insulin long-acting and before meals and at bedtime sliding scale while inpatient (11) Mood disorder Status: Chronic Problem Text: -continue zoloft 50mg bid po (12) Chronic pain Status: Chronic Problem Text: -continue percocet 5mg/325mg q4hr prn po -continue gabepentin 300mg tid po -patient has acetaminophen 650mg prn po (13) Elevated lactic acid level Status: Resolved Plan/VTE VTE Prophylaxis Ordered?: Yes (Xarelto) Disposition Cardiology's input regarding his rate controlling drugs is greatly appreciated. He still is not safe for discharge per recommendations from physical therapy. These 2 things need to be improved prior to discharge. VS, I&O, 24H, Fishbone Vital Signs/I&O Vital Signs Date Time Temp Pulse Resp B/P (MAP) Pulse Ox O2 Delivery O2 Flow Rate FiO2 11/11/17 15:40 Room Air 11/11/17 12:00 98.4 80 18 123/57 (79) 94 11/10/17 23:40 3.0 I&O- Last 24 Hours up to 6 AM 11/12/17 06:00 Intake Total 720 ml Output Total 550 ml Balance 170 ml Laboratory Data 24H LABS Laboratory Tests 2 11/10/17 16:52: Bedside Glucose (Misc Panel) 228H 11/10/17 20:39: Bedside Glucose (Misc Panel) 119H 11/11/17 05:36: Nucleated Red Blood Cells % (auto) 0.0, Anion Gap 8, Glomerular Filtration Rate > 60.0, Blood Urea Nitrogen 17, Creatinine 0.93, Sodium Level 140, Potassium Level 4.2, Chloride Level 103, Carbon Dioxide Level 29, Calcium Level 8.0L 11/11/17 12:04: 11/11/17 16:14: Bedside Glucose (Misc Panel) 180H CBC/BMP Laboratory Tests 11/11/17 05:36 Red Blood Count 3.88 L, Mean Corpuscular Volume 89.7, Mean Corpuscular Hemoglobin 28.9, Mean Corpuscular Hemoglobin Concent 32.2, Red Cell Distribution Width 14.6 H, Calcium Level 8.0 L Microbiology Microbiology 12/9/17 Blood Culture - Final, Complete NO GROWTH AFTER 5 DAYS 11/02/17 Blood Culture - Final, Complete NO GROWTH AFTER 5 DAYS 11/02/17 Respiratory Virus Panel (PCR) (JOSE RAFAEL) - Final, Complete 11/02/17 MRSA Screen - Final, Complete CECILIO BABCOCK DO Nov 11, 2017 16:55
[2017-11-11] MEDS: RIVAROXABAN 15 MG TAB (XARELTO) PO SCH (18:36)
[2017-11-11] MEDS: LEVEMIR (INSULIN DETEMIR) 1 UNITS/0.01ML SC SCH (21:30)
[2017-11-11] MEDS: ASPIRIN 81 MG ENTERIC TAB PO SCH (21:31)
[2017-11-11] MEDS: OMEPRAZOLE 20 MG CAP PO SCH (21:31)
[2017-11-11] MEDS: METOPROLOL TARTRATE 100 MG TAB PO SCH (21:32)
[2017-11-12 04:00] VITALS: BP 130/63
[2017-11-12] MEDS: IPRATROPIUM 0.5MG/ALBUTEROL 2.5MG INH SOL UD 3ML (DUONEB)(J7620) NEB SCH ×3 (04:03→11:28)
[2017-11-12] MEDS: SODIUM CHLORIDE 0.9% INJ 10 ML SYR IV SCH (05:42)
[2017-11-12 05:55] LABS: MEAN CORPUSCULAR HEMOGLOBIN 28.6 pg (27.0-33.0); MEAN CORPUSCULAR HGB CONC 31.8 g/dl (32.0-36.5); PLATELET COUNT, AUTOMATED 345 10^3/uL (150-450); RED CELL DISTRIBUTION WIDTH 14.6 % (11.5-14.5); WHITE BLOOD COUNT 10.7 10^3/uL (4.0-10.0)
[2017-11-12 06:35] LABS: ANION GAP 7 MEQ/L (8-16); BLOOD UREA NITROGEN 16 MG/DL (7-18); CALCIUM LEVEL 8.1 MG/DL (8.8-10.2); CARBON DIOXIDE LEVEL 29 MEQ/L (21-32); CHLORIDE LEVEL 105 MEQ/L (98-107); CREATININE FOR GFR 0.84 MG/DL (0.70-1.30); GLOMERULAR FILTRATION RATE > 60.0 (>42); GLUCOSE, FASTING 123 MG/DL (83-110); POTASSIUM SERUM 4.3 MEQ/L (3.5-5.1); SODIUM LEVEL 141 MEQ/L (136-145)
[2017-11-12 08:00] VITALS: BP 129/65
[2017-11-12] MEDS ORDERED: DIGOXIN 0.25 MG TAB PO SCH (09:00)
[2017-11-12] MEDS ORDERED: DIGO0.25 PO (09:38)
[2017-11-12] MEDS ORDERED: METO100T5 PO (09:38)
--- NOTE | 2017-11-12 09:57 | DS.PDOC ---
Discharge Summary General Date of Admission 11/02/2017 Date of Discharge 11/12/2017 Discharge Summary PRIMARY CARE PHYSICIAN: Rosalva Thakur ATTENDING AT TIME OF DISCHARGE: Dr. Fraser DISCHARGE DIAGNOS(E)S: 1. Acute on chronic respiratory failure with hypoxia 2. Pneumonia 3. Atrial fibrillation with rapid ventricular response 4. Hypertension 5. Obstructive sleep apnea 6. Chronic obstructive pulmonary disease 7. Elevated troponins 8. Acute kidney injury 9. Metabolic encephalopathy 10. Diabetes mellitus type 2, on insulin 11. Mood disorder 12. Chronic pain 13. Sepsis 14. Lactic acidosis HPI & HOSPITAL COURSE: Mr. Peña is a 77-year-old male who presented to the hospital with recurrent chest pains, cough, sputum production, and upon arrival he was found to be in atrial fibrillation with rapid ventricular response, sepsis, and volume overloaded. A central line was placed, critical care was consulted, he was gently diuresed even in the setting of low blood pressures. He was also on BiPAP for only a few nights. He is aware that he has obstructive sleep apnea however he only wears oxygen at night, the risks of this were discussed with him multiple times during his hospitalization. CT findings were suggestive of pneumonia and he was initially treated with vancomycin and Zosyn, however he was switched over to Levaquin and completed a 7 day course. He does continue to be on 10 mg of prednisone daily which is his home dose, despite this his leukocytosis has essentially resolved. A few different variations of rate controlling drugs were attempted, finally we have been able to achieve rate control with metoprolol titrate 100 mg twice a day and digoxin 0.25 mg daily. He did participate well with physical therapy this morning and is felt to be safe for discharge at this time. PHYSICAL EXAMINATION ON DISCHARGE: GENERAL: Awake, alert, oriented. He is in no acute distress at this time. CARDIOVASCULAR EXAMINATION: Regular rate and rhythm, with no rubs, gallops, he does have a soft 2/6 systolic murmur. RESPIRATORY EXAMINATION: Clear to auscultation bilaterally with no wheezes, rales, or rhonchi. ABDOMINAL EXAMINATION: Soft, nontender, nondistended. Bowel sounds present. EXTREMITIES: No clubbing or edema noted. 2+ pulses in the radial bilaterally. DISPOSITION: Home with physical therapy services DISCHARGE INSTRUCTIONS: Recommend following up with primary care provider Rosalva Thakur within 7-10 days, and he should also be seen by his glove printer Stephan/Herman within the next 2 weeks. If symptoms return, or if you experience worsening of your symptoms, please call your doctor or return to the emergency department. DISCHARGE MEDICATIONS: Continue taking from home: Acetaminophen 500 mg by mouth every 4 hours when necessary pain or discomfort Aspirin 81 mg by mouth daily at bedtime Atorvastatin 20 mg by mouth daily Interval, 100 mg by mouth daily Pre-Op elliptic one inhalation daily Gabapentin 300 mg by mouth 3 times a day Glipizide 5 mg by mouth twice a day Omeprazole 20 mg by mouth daily at bedtime Percocet 1 tablet by mouth every 8 hours when necessary severe pain Prednisone 10 mg daily Xarelto 15 mg by mouth daily Sertraline 50 mg by mouth twice a day Januvia 50 mg by mouth daily Torsemide 40 mg by mouth daily Toujeo 14 units subcutaneously daily New Medications: Digoxin 0.25 mg by mouth daily Metoprolol tartrate 100 mg by mouth twice a day Stop Taking: We will hold his 20 mg torsemide by mouth daily at noon, and only continue with the 40 mg daily at this time (as listed above) Digoxin 0.125 mg by mouth daily Metoprolol succinate 50 mg by mouth twice a day ITEMS THAT NEED OUTPATIENT FOLLOWUP: Early on in his hospitalization he was aggressively diuresed, therefore his torsemide was held. His blood pressure and fluid status has been fine in the past few days, however we will reinitiate him on 40 mg of torsemide daily upon discharge. Close follow-up and reevaluation of his fluid status is recommended, and adjustment of his diuretics if necessary. My preceptor for this patient encounter was physically present in the building during the encounter and was fully available. As needed, all aspects of the patient interview, examination, medical decision making process, and medical care plan development were reviewed and approved by the preceptor. Preceptor is aware and concurs with the plan as stated in the body of this note and will attest to such by his/her cosignature. Attending Note: I have independently examined this patient and all aspects of the exam and treatment decisions have been discussed with the resident. A member of the hospitalist staff will continue to follow this patient through discharge. Vital Signs/I&Os Vital Signs Date Time Temp Pulse Resp B/P (MAP) Pulse Ox O2 Delivery O2 Flow Rate FiO2 11/12/17 08:26 Room Air 11/12/17 08:00 97.8 80 20 129/65 (86) 92 11/10/17 23:40 3.0 I&O- Last 24 Hours up to 6 AM 11/13/17 06:00 Output Total 1100 ml Balance -1100 ml Laboratory Data Labs 24H Laboratory Tests 2 11/11/17 12:04: 11/11/17 16:14: Bedside Glucose (Misc Panel) 180H 11/11/17 21:25: Bedside Glucose (Misc Panel) 153H 11/12/17 05:40: Nucleated Red Blood Cells % (auto) 0.0, Anion Gap 7L, Glomerular Filtration Rate > 60.0, Blood Urea Nitrogen 16, Creatinine 0.84, Sodium Level 141, Potassium Level 4.3, Chloride Level 105, Carbon Dioxide Level 29, Calcium Level 8.1L CBC/BMP Laboratory Tests 11/12/17 05:40 Red Blood Count 3.81 L, Mean Corpuscular Volume 90.0, Mean Corpuscular Hemoglobin 28.6, Mean Corpuscular Hemoglobin Concent 31.8 L, Red Cell Distribution Width 14.6 H, Calcium Level 8.1 L FSBS Laboratory Tests Test 11/11/17 12:04 11/11/17 16:14 11/11/17 21:25 Range/Units Bedside Glucose (Misc Panel) 180 153 83-110 MG/DL Microbiology Microbiology 11/02/17 Blood Culture - Final, Complete NO GROWTH AFTER 5 DAYS 11/02/17 Blood Culture - Final, Complete NO GROWTH AFTER 5 DAYS 11/02/17 Respiratory Virus Panel (PCR) (JOSE RAFAEL) - Final, Complete 11/02/17 MRSA Screen - Final, Complete Discharge Medications Scheduled (Nuria Jimenez) 300 Unit/Ml Inj, 14 UNITS SC DAILY, (Reported) Aspirin (Aspirin 81) 81 Mg Tab, 81 MG PO QHS, (Reported) Atorvastatin Calcium (Atorvastatin Calcium) 20 Mg Tab, 20 MG PO DAILY, (Reported ) Canagliflozin (Invokana) 100 Mg Tab, 100 MG PO DAILY, (Reported) Digoxin (Digoxin) 250 Mcg Tab, 0.25 MG PO DAILY Fluticasone/Vilanterol (Breo Ellipta 200-25 Mcg/INH) 1 Inh Inh, 1 INH INH DAILY, (Reported) Gabapentin (Gabapentin) 300 Mg Cap, 300 MG PO TID, (Reported) Glipizide (Glipizide) 5 Mg Tab, 5 MG PO BID, (Reported) Metoprolol Tartrate (Metoprolol Tartrate) 100 Mg Tab, 100 MG PO BID Omeprazole (Omeprazole) 20 Mg Tab, 20 MG PO QHS, (Reported) Prednisone (Prednisone) 10 Mg Tab, 10 MG PO DAILY, (Reported) Rivaroxaban (Xarelto) 15 Mg Tab, 15 MG PO DAILY, (Reported) Sertraline Hcl (Sertraline HCl) 50 Mg Tab, 50 MG PO BID, (Reported) Sitagliptin (Januvia) 50 Mg Tab, 50 MG PO DAILY, (Reported) Torsemide (Torsemide) 20 Mg Tab, 40 MG PO DAILY, (Reported) Scheduled PRN Acetaminophen (Acetaminophen) 500 Mg Tab, 500 MG PO Q4H PRN for PAIN OR DISCOMFORT, (Reported) Oxycodone/Acetaminophen (Percocet 5-325 mg) 1 Tab Tab, 1 TAB PO Q8H PRN for SEVERE PAIN (PS 8-10), (Reported) Allergies Coded Allergies: Beta Adrenergic Blockers (Verified Adverse Reaction, Intermediate, SEVERE ASTHMA ATTACKS (Not all beta blockers), 11/03/17) CECILIO BABCOCK DO Nov 12, 2017 09:57 GLORIA FRASER DO Nov 12, 2017 18:01
[2017-11-12] MEDS: HumaLOG INSULIN (NovoLOG) PER UNIT SC SCH (10:34)
[2017-11-12] MEDS: SERTRALINE HCL 50 MG TAB PO SCH (10:35)
[2017-11-12] MEDS: predniSONE 10 MG TAB PO SCH (10:35)
[2017-11-12] MEDS: METOPROLOL TARTRATE 100 MG TAB PO SCH (10:35)
[2017-11-12] MEDS: ATORVASTATIN 20 MG TAB PO SCH (10:35)
[2017-11-12] MEDS: GABAPENTIN 300 MG CAP PO SCH (10:36)
[2017-11-12] MEDS: NYSTATIN 100,000 UNITS/GM TOPICAL PWD 15 GM TOP SCH (10:38)
[2017-11-16] MEDS ORDERED: DIGO0.12 PO (14:20)
[2017-11-16] MEDS ORDERED: DIGO0.25 PO (14:20)
[2017-11-16] MEDS ORDERED: OMEP20TA PO (14:23)
[2017-11-16] MEDS ORDERED: OMEP20CA3 PO (14:23)
[2017-11-16] MEDS ORDERED: METO100T5 PO (14:23)
[2017-11-16] MEDS ORDERED: SILV1CRE60 TOP (14:30)
== END 2017-11-12 11:36 | disposition home health service (06) | DRG 871 ==
LOC: M ED 20:59 → EDBD 20:59 → M ED INP 11-02 00:38 → M PCU 11-02 01:53 → M ICU 11-02 07:55 → M PCU 11-06 20:11
PROVIDERS: ADMIT Internal Medicine; ATTEND Internal Medicine
PROC: 02HV33Z Insertion of Infusion Device into Superior Vena Cava, Percutaneous Approach (ICD-10-PCS; principal; 2017-11-02)
PROC: 02HV33Z Insertion of Infusion Device into Superior Vena Cava, Percutaneous Approach (ICD-10-PCS; 2017-11-04)
DX: A41.9 Sepsis, unspecified organism (principal); J18.9 Pneumonia, unspecified organism; J96.21 Acute and chronic respiratory failure with hypoxia; R57.0 Cardiogenic shock; I50.33 Acute on chronic diastolic (congestive) heart failure; G93.41 Metabolic encephalopathy; E87.2 Acidosis; N17.9 Acute kidney failure, unspecified; J96.12 Chronic respiratory failure with hypercapnia; I48.0 Paroxysmal atrial fibrillation; G47.33 Obstructive sleep apnea (adult) (pediatric); J44.9 Chronic obstructive pulmonary disease, unspecified; E11.65 Type 2 diabetes mellitus with hyperglycemia; I11.0 Hypertensive heart disease with heart failure; E78.00 Pure hypercholesterolemia, unspecified; K21.9 Gastro-esophageal reflux disease without esophagitis; E11.40 Type 2 diabetes mellitus with diabetic neuropathy, unspecified; I25.10 Atherosclerotic heart disease of native coronary artery without angina pectoris; Z95.5 Presence of coronary angioplasty implant and graft; Z99.81 Dependence on supplemental oxygen; Z79.82 Long term (current) use of aspirin; Z79.84 Long term (current) use of oral hypoglycemic drugs; Z79.52 Long term (current) use of systemic steroids; Z79.01 Long term (current) use of anticoagulants; Z79.899 Other long term (current) drug therapy; Z99.89 Dependence on other enabling machines and devices; Z88.8 Allergy status to other drugs, medicaments and biological substances

== ENCOUNTER 2017-11-16 10:49 | Inpatient (IN) | payer OTHER ==
[2017-11-16 11:46] LABS: BASO # 0.1 10^3/uL (0.0-0.2); EOS # 0.3 10^3/uL (0.0-0.50); EOS % 2.6 % (0.0-3.0); IMMATURE GRANULOCYTE # 0.1 10^3/uL (0-0); LYMPH # 0.8 10^3/uL (1.5-4.5); LYMPH % 7.5 % (24.0-44.0); MEAN CORPUSCULAR HEMOGLOBIN 28.5 pg (27.0-33.0); MEAN CORPUSCULAR HGB CONC 31.4 g/dl (32.0-36.5); MEAN CORPUSCULAR VOLUME 90.7 fl (80.0-96.0); MONO # 1.4 10^3/uL (0.0-0.8); MONO % 13.1 % (0.0-5.0); NEUTROPHILS # 7.7 10^3/uL (1.8-7.7); NEUTROPHILS % 74.8 % (36.0-66.0); PLATELET COUNT, AUTOMATED 337 10^3/uL (150-450); RED CELL DISTRIBUTION WIDTH 14.6 % (11.5-14.5); WHITE BLOOD COUNT 10.3 10^3/uL (4.0-10.0)
[2017-11-16 11:57] LABS: ALBUMIN 2.8 GM/DL (3.2-5.2); ALKALINE PHOSPHATASE 97 U/L (45-117); ALT/SGPT 19 U/L (12-78); AST/SGOT 18 U/L (7-37); BILIRUBIN,DIRECT 0.1 MG/DL (0.0-0.2); BILIRUBIN,TOTAL 0.3 MG/DL (0.2-1.0); TOTAL PROTEIN 5.9 GM/DL (6.4-8.2)
[2017-11-16 11:58] LABS: ANION GAP 6 MEQ/L (8-16); BLOOD UREA NITROGEN 15 MG/DL (7-18); CALCIUM LEVEL 8.5 MG/DL (8.8-10.2); CARBON DIOXIDE LEVEL 35 MEQ/L (21-32); CHLORIDE LEVEL 100 MEQ/L (98-107); GLOMERULAR FILTRATION RATE > 60.0 (>42); GLUCOSE, FASTING 121 MG/DL (83-110); POTASSIUM SERUM 4.1 MEQ/L (3.5-5.1); SODIUM LEVEL 141 MEQ/L (136-145)
[2017-11-16] MEDS: NS 500 ML IV (12:00)
[2017-11-16] MEDS: IPRATROPIUM 0.5MG/ALBUTEROL 2.5MG INH SOL UD 3ML (DUONEB)(J7620) NEB ×4 (12:23→20:00)
[2017-11-16 12:26] LABS: ABG HCO3 32.3 MEQ/L (22.0-26.0); ABG PARTIAL PRESSURE CO2 54.5 mmHg (35.0-45.0); ABG PARTIAL PRESSURE O2 92.9 mmHg (75.0-100.0); ABG STANDARD HCO3 29.9 MEQ/L (22.0-26.0); ABG pH (ARTERIAL) 7.391 UNITS (7.350-7.450)
[2017-11-16] MEDS ORDERED: ONDANSETRON 4MG/2ML VIAL (J2405) IV (14:00)
[2017-11-16] MEDS ORDERED: BISACODYL 5 MG TAB PO (14:00)
[2017-11-16] MEDS ORDERED: GLUCAGON FOR INJ 1 MG VIAL (J1610) SC (15:45)
[2017-11-16] MEDS ORDERED: SILVER SULFADIAZINE 1% CR 50 GM JAR TOP (15:45)
[2017-11-16] MEDS ORDERED: PERCOCET 5MG/325MG TAB PO (15:45)
[2017-11-16] MEDS ORDERED: DEXTROSE 50% 50 ML SYRINGE IV (15:45)
[2017-11-16] MEDS ORDERED: GLUCOSE 4 GM CHEW TABLET PO (15:45)
[2017-11-16] MEDS: GABAPENTIN 300 MG CAP PO ×2 (16:58→21:45)
[2017-11-16] MEDS: LEVEMIR (INSULIN DETEMIR) 1 UNITS/0.01ML SC (17:23)
[2017-11-16] MEDS: RIVAROXABAN 15 MG TAB (XARELTO) PO (17:23)
[2017-11-16] MEDS: glipiZIDE (GLUCOTROL) 5 MG TAB PO (17:23)
[2017-11-16] MEDS: HumaLOG INSULIN (NovoLOG) PER UNIT SC ×2 (17:24→21:00)
[2017-11-16] MEDS: BUDESONIDE 0.5 MG/2 ML INHALATION SUSPENSION INH (20:55)
[2017-11-16] MEDS: FORMOTEROL FUMARATE 20 MCG/2 ML INHALATION SOLUTION (PERFOROMIST) INH (20:55)
[2017-11-16] MEDS ORDERED: ADVAIR HFA 230/21MCG INHALER INH (21:00)
[2017-11-16] MEDS: OMEPRAZOLE 20 MG CAP PO (21:45)
[2017-11-16] MEDS: ASPIRIN 81 MG ENTERIC TAB PO (21:46)
[2017-11-16] MEDS: SENOKOT S TAB PO (21:46)
[2017-11-16] MEDS: SERTRALINE HCL 50 MG TAB PO (21:46)
[2017-11-16] MEDS: METOPROLOL TARTRATE 100 MG TAB PO (21:46)
[2017-11-17] MEDS: IPRATROPIUM 0.5MG/ALBUTEROL 2.5MG INH SOL UD 3ML (DUONEB)(J7620) NEB ×4 (02:00→20:00)
[2017-11-17] MEDS: ALBUTEROL SULFATE 2.5 MG/0.5 ML INH NEB SOLN NEB (04:49)
[2017-11-17 06:05] LABS: MEAN CORPUSCULAR HEMOGLOBIN 27.9 pg (27.0-33.0); MEAN CORPUSCULAR HGB CONC 31.4 g/dl (32.0-36.5); MEAN CORPUSCULAR VOLUME 88.8 fl (80.0-96.0); PLATELET COUNT, AUTOMATED 326 10^3/uL (150-450); RED CELL DISTRIBUTION WIDTH 14.6 % (11.5-14.5); WHITE BLOOD COUNT 10.1 10^3/uL (4.0-10.0)
[2017-11-17 06:18] LABS: ANION GAP 7 MEQ/L (8-16); BLOOD UREA NITROGEN 18 MG/DL (7-18); CALCIUM LEVEL 8.8 MG/DL (8.8-10.2); CARBON DIOXIDE LEVEL 32 MEQ/L (21-32); CHLORIDE LEVEL 103 MEQ/L (98-107); CREATININE FOR GFR 0.81 MG/DL (0.70-1.30); GLOMERULAR FILTRATION RATE > 60.0 (>42); GLUCOSE, FASTING 96 MG/DL (83-110); POTASSIUM SERUM 4.2 MEQ/L (3.5-5.1); SODIUM LEVEL 142 MEQ/L (136-145)
[2017-11-17] MEDS: HumaLOG INSULIN (NovoLOG) PER UNIT SC ×4 (07:30→21:00)
[2017-11-17] MEDS: BUDESONIDE 0.5 MG/2 ML INHALATION SUSPENSION INH ×2 (08:02→19:36)
[2017-11-17] MEDS: FORMOTEROL FUMARATE 20 MCG/2 ML INHALATION SOLUTION (PERFOROMIST) INH ×2 (08:02→19:36)
[2017-11-17] MEDS ORDERED: TORSEMIDE 20 MG TAB PO (09:00)
[2017-11-17] MEDS: SENOKOT S TAB PO ×2 (09:20→21:18)
[2017-11-17] MEDS: GABAPENTIN 300 MG CAP PO ×3 (09:20→21:18)
[2017-11-17] MEDS: predniSONE 10 MG TAB PO ×2 (09:20→10:13)
[2017-11-17] MEDS: ATORVASTATIN 20 MG TAB PO (09:20)
[2017-11-17] MEDS: LEVEMIR (INSULIN DETEMIR) 1 UNITS/0.01ML SC (09:20)
[2017-11-17] MEDS: SERTRALINE HCL 50 MG TAB PO ×2 (09:20→21:18)
[2017-11-17] MEDS: TORSEMIDE 20 MG TAB PO (09:21)
[2017-11-17] MEDS: METOPROLOL TARTRATE 100 MG TAB PO ×2 (09:21→21:19)
[2017-11-17] MEDS: glipiZIDE (GLUCOTROL) 5 MG TAB PO ×2 (09:21→18:08)
[2017-11-17] MEDS: DIGOXIN 0.25 MG TAB PO (09:21)
[2017-11-17] MEDS: RIVAROXABAN 15 MG TAB (XARELTO) PO (18:08)
[2017-11-17] MEDS: OMEPRAZOLE 20 MG CAP PO (21:18)
[2017-11-18] MEDS: IPRATROPIUM 0.5MG/ALBUTEROL 2.5MG INH SOL UD 3ML (DUONEB)(J7620) NEB ×4 (01:06→20:00)
[2017-11-18 06:07] LABS: MEAN CORPUSCULAR HEMOGLOBIN 28.4 pg (27.0-33.0); MEAN CORPUSCULAR VOLUME 88.9 fl (80.0-96.0); PLATELET COUNT, AUTOMATED 314 10^3/uL (150-450); RED CELL DISTRIBUTION WIDTH 14.6 % (11.5-14.5); WHITE BLOOD COUNT 11.3 10^3/uL (4.0-10.0)
[2017-11-18 06:31] LABS: ANION GAP 6 MEQ/L (8-16); BLOOD UREA NITROGEN 22 MG/DL (7-18); CALCIUM LEVEL 8.3 MG/DL (8.8-10.2); CARBON DIOXIDE LEVEL 36 MEQ/L (21-32); CHLORIDE LEVEL 100 MEQ/L (98-107); CREATININE FOR GFR 0.94 MG/DL (0.70-1.30); GLOMERULAR FILTRATION RATE > 60.0 (>42); GLUCOSE, FASTING 92 MG/DL (83-110); POTASSIUM SERUM 3.9 MEQ/L (3.5-5.1); SODIUM LEVEL 142 MEQ/L (136-145)
[2017-11-18] MEDS: BUDESONIDE 0.5 MG/2 ML INHALATION SUSPENSION INH ×2 (07:26→19:51)
[2017-11-18] MEDS: FORMOTEROL FUMARATE 20 MCG/2 ML INHALATION SOLUTION (PERFOROMIST) INH ×2 (07:26→19:51)
[2017-11-18] MEDS: HumaLOG INSULIN (NovoLOG) PER UNIT SC ×4 (07:30→21:00)
[2017-11-18] MEDS: LEVEMIR (INSULIN DETEMIR) 1 UNITS/0.01ML SC (07:51)
[2017-11-18] MEDS: DIGOXIN 0.25 MG TAB PO (07:52)
[2017-11-18] MEDS: TORSEMIDE 20 MG TAB PO (07:52)
[2017-11-18] MEDS: ATORVASTATIN 20 MG TAB PO (07:52)
[2017-11-18] MEDS: GABAPENTIN 300 MG CAP PO ×3 (07:52→21:21)
[2017-11-18] MEDS: predniSONE 20 MG TAB PO (07:53)
[2017-11-18] MEDS: glipiZIDE (GLUCOTROL) 5 MG TAB PO ×2 (07:53→16:56)
[2017-11-18] MEDS: SENOKOT S TAB PO ×2 (07:53→21:21)
[2017-11-18] MEDS: SERTRALINE HCL 50 MG TAB PO ×2 (07:53→21:22)
[2017-11-18] MEDS: METOPROLOL TARTRATE 100 MG TAB PO ×2 (07:54→21:22)
[2017-11-18] MEDS: RIVAROXABAN 15 MG TAB (XARELTO) PO (16:57)
[2017-11-18] MEDS: OMEPRAZOLE 20 MG CAP PO (21:21)
[2017-11-19] MEDS: IPRATROPIUM 0.5MG/ALBUTEROL 2.5MG INH SOL UD 3ML (DUONEB)(J7620) NEB ×5 (00:07→20:00)
[2017-11-19 05:44] LABS: MEAN CORPUSCULAR HEMOGLOBIN 27.9 pg (27.0-33.0); MEAN CORPUSCULAR HGB CONC 32.1 g/dl (32.0-36.5); PLATELET COUNT, AUTOMATED 262 10^3/uL (150-450); RED CELL DISTRIBUTION WIDTH 14.4 % (11.5-14.5); WHITE BLOOD COUNT 10.9 10^3/uL (4.0-10.0)
[2017-11-19 06:14] LABS: ANION GAP 5 MEQ/L (8-16); BLOOD UREA NITROGEN 23 MG/DL (7-18); CALCIUM LEVEL 8.6 MG/DL (8.8-10.2); CARBON DIOXIDE LEVEL 36 MEQ/L (21-32); CHLORIDE LEVEL 101 MEQ/L (98-107); CREATININE FOR GFR 0.82 MG/DL (0.70-1.30); GLOMERULAR FILTRATION RATE > 60.0 (>42); GLUCOSE, FASTING 86 MG/DL (83-110); POTASSIUM SERUM 3.5 MEQ/L (3.5-5.1); SODIUM LEVEL 142 MEQ/L (136-145)
[2017-11-19] MEDS: FORMOTEROL FUMARATE 20 MCG/2 ML INHALATION SOLUTION (PERFOROMIST) INH ×2 (07:08→20:06)
[2017-11-19] MEDS: BUDESONIDE 0.5 MG/2 ML INHALATION SUSPENSION INH ×2 (07:08→20:06)
[2017-11-19] MEDS: HumaLOG INSULIN (NovoLOG) PER UNIT SC ×4 (07:17→20:49)
[2017-11-19] MEDS: GABAPENTIN 300 MG CAP PO ×3 (08:33→20:58)
[2017-11-19] MEDS: TORSEMIDE 20 MG TAB PO (08:33)
[2017-11-19] MEDS: METOPROLOL TARTRATE 100 MG TAB PO ×2 (08:33→20:59)
[2017-11-19] MEDS: ATORVASTATIN 20 MG TAB PO (08:33)
[2017-11-19] MEDS: predniSONE 20 MG TAB PO (08:33)
[2017-11-19] MEDS: DIGOXIN 0.25 MG TAB PO (08:34)
[2017-11-19] MEDS: glipiZIDE (GLUCOTROL) 5 MG TAB PO ×2 (08:34→17:19)
[2017-11-19] MEDS: SERTRALINE HCL 50 MG TAB PO ×2 (08:34→20:58)
[2017-11-19] MEDS: LEVEMIR (INSULIN DETEMIR) 1 UNITS/0.01ML SC (08:35)
[2017-11-19] MEDS: SENOKOT S TAB PO ×2 (08:42→20:58)
[2017-11-19] MEDS: RIVAROXABAN 15 MG TAB (XARELTO) PO (17:20)
[2017-11-19] MEDS: OMEPRAZOLE 20 MG CAP PO (20:58)
[2017-11-20] MEDS: IPRATROPIUM 0.5MG/ALBUTEROL 2.5MG INH SOL UD 3ML (DUONEB)(J7620) NEB ×4 (02:00→19:24)
[2017-11-20 06:25] LABS: MEAN CORPUSCULAR HEMOGLOBIN 27.6 pg (27.0-33.0); MEAN CORPUSCULAR HGB CONC 31.4 g/dl (32.0-36.5); MEAN CORPUSCULAR VOLUME 87.7 fl (80.0-96.0); PLATELET COUNT, AUTOMATED 272 10^3/uL (150-450); RED CELL DISTRIBUTION WIDTH 14.2 % (11.5-14.5); WHITE BLOOD COUNT 10.8 10^3/uL (4.0-10.0)
[2017-11-20 06:37] LABS: ANION GAP 6 MEQ/L (8-16); BLOOD UREA NITROGEN 27 MG/DL (7-18); CALCIUM LEVEL 8.4 MG/DL (8.8-10.2); CARBON DIOXIDE LEVEL 34 MEQ/L (21-32); CHLORIDE LEVEL 101 MEQ/L (98-107); CREATININE FOR GFR 0.98 MG/DL (0.70-1.30); GLOMERULAR FILTRATION RATE > 60.0 (>42); GLUCOSE, FASTING 97 MG/DL (83-110); POTASSIUM SERUM 3.7 MEQ/L (3.5-5.1); SODIUM LEVEL 141 MEQ/L (136-145)
[2017-11-20] MEDS: HumaLOG INSULIN (NovoLOG) PER UNIT SC ×4 (07:30→21:06)
[2017-11-20] MEDS: BUDESONIDE 0.5 MG/2 ML INHALATION SUSPENSION INH ×2 (07:54→19:24)
[2017-11-20] MEDS: FORMOTEROL FUMARATE 20 MCG/2 ML INHALATION SOLUTION (PERFOROMIST) INH ×2 (07:55→19:24)
[2017-11-20] MEDS: GABAPENTIN 300 MG CAP PO ×3 (08:08→21:05)
[2017-11-20] MEDS: glipiZIDE (GLUCOTROL) 5 MG TAB PO ×2 (08:08→16:36)
[2017-11-20] MEDS: METOPROLOL TARTRATE 100 MG TAB PO ×2 (08:08→21:05)
[2017-11-20] MEDS: ATORVASTATIN 20 MG TAB PO (08:08)
[2017-11-20] MEDS: predniSONE 20 MG TAB PO (08:10)
[2017-11-20] MEDS: SERTRALINE HCL 50 MG TAB PO ×2 (08:10→21:05)
[2017-11-20] MEDS: TORSEMIDE 20 MG TAB PO (08:10)
[2017-11-20] MEDS: DIGOXIN 0.25 MG TAB PO (08:10)
[2017-11-20] MEDS: LEVEMIR (INSULIN DETEMIR) 1 UNITS/0.01ML SC (08:10)
[2017-11-20] MEDS: SENOKOT S TAB PO ×2 (08:14→21:06)
[2017-11-20] MEDS: RIVAROXABAN 15 MG TAB (XARELTO) PO (17:32)
[2017-11-20] MEDS: ACETAMINOPHEN 500 MG TAB PO (21:05)
[2017-11-20] MEDS: OMEPRAZOLE 20 MG CAP PO (21:06)
[2017-11-21] MEDS: IPRATROPIUM 0.5MG/ALBUTEROL 2.5MG INH SOL UD 3ML (DUONEB)(J7620) NEB ×3 (01:27→13:47)
[2017-11-21 07:25] LABS: MEAN CORPUSCULAR HEMOGLOBIN 27.8 pg (27.0-33.0); PLATELET COUNT, AUTOMATED 268 10^3/uL (150-450); RED CELL DISTRIBUTION WIDTH 14.1 % (11.5-14.5); WHITE BLOOD COUNT 11.4 10^3/uL (4.0-10.0)
[2017-11-21] MEDS: HumaLOG INSULIN (NovoLOG) PER UNIT SC ×2 (07:30→12:32)
[2017-11-21] MEDS: FORMOTEROL FUMARATE 20 MCG/2 ML INHALATION SOLUTION (PERFOROMIST) INH (07:40)
[2017-11-21] MEDS: BUDESONIDE 0.5 MG/2 ML INHALATION SUSPENSION INH (07:40)
[2017-11-21 07:43] LABS: ANION GAP 7 MEQ/L (8-16); BLOOD UREA NITROGEN 28 MG/DL (7-18); CALCIUM LEVEL 8.6 MG/DL (8.8-10.2); CARBON DIOXIDE LEVEL 34 MEQ/L (21-32); CHLORIDE LEVEL 100 MEQ/L (98-107); CREATININE FOR GFR 0.88 MG/DL (0.70-1.30); GLOMERULAR FILTRATION RATE > 60.0 (>42); GLUCOSE, FASTING 92 MG/DL (83-110); POTASSIUM SERUM 3.2 MEQ/L (3.5-5.1); SODIUM LEVEL 141 MEQ/L (136-145)
[2017-11-21] MEDS: TORSEMIDE 20 MG TAB PO (08:43)
[2017-11-21] MEDS: SERTRALINE HCL 50 MG TAB PO (08:43)
[2017-11-21] MEDS: SENOKOT S TAB PO (08:43)
[2017-11-21] MEDS: ATORVASTATIN 20 MG TAB PO (08:43)
[2017-11-21] MEDS: DIGOXIN 0.25 MG TAB PO (08:43)
[2017-11-21] MEDS: glipiZIDE (GLUCOTROL) 5 MG TAB PO (08:43)
[2017-11-21] MEDS: METOPROLOL TARTRATE 100 MG TAB PO (08:44)
[2017-11-21] MEDS: GABAPENTIN 300 MG CAP PO (08:44)
[2017-11-21] MEDS: predniSONE 20 MG TAB PO (08:44)
[2017-11-21] MEDS: POTASSIUM CHLORIDE 10 MEQ SR TABLET PO (08:44)
[2017-11-21] MEDS: LEVEMIR (INSULIN DETEMIR) 1 UNITS/0.01ML SC (08:45)
== END 2017-11-21 15:56 | disposition home health service (06) | DRG 191 ==
LOC: M ED 10:49 → M ED INP 13:58 → M MSPAV 15:08
DX: J44.1 Chronic obstructive pulmonary disease with (acute) exacerbation (principal); I50.32 Chronic diastolic (congestive) heart failure; I48.91 Unspecified atrial fibrillation; I11.0 Hypertensive heart disease with heart failure; G47.33 Obstructive sleep apnea (adult) (pediatric); E11.40 Type 2 diabetes mellitus with diabetic neuropathy, unspecified; E78.00 Pure hypercholesterolemia, unspecified; K21.9 Gastro-esophageal reflux disease without esophagitis; I25.10 Atherosclerotic heart disease of native coronary artery without angina pectoris; I27.81 Cor pulmonale (chronic); I45.10 Unspecified right bundle-branch block; E66.9 Obesity, unspecified; F41.0 Panic disorder [episodic paroxysmal anxiety]; Z95.1 Presence of aortocoronary bypass graft; Z85.820 Personal history of malignant melanoma of skin; Z79.82 Long term (current) use of aspirin; Z79.52 Long term (current) use of systemic steroids; Z79.4 Long term (current) use of insulin; Z79.899 Other long term (current) drug therapy; Z88.8 Allergy status to other drugs, medicaments and biological substances; Z91.19 Patient's noncompliance with other medical treatment and regimen; Z79.01 Long term (current) use of anticoagulants

== ENCOUNTER 2017-11-27 11:04 | Inpatient (IN) | payer MEDICARE, OTHER ==
[2017-11-27 11:26] LABS: ABG BASE EXCESS 7.2 (-2.0-2.0); ABG HCO3 32.4 MEQ/L (22.0-26.0); ABG O2 SATURATION 98.8 % (95.0-99.0); ABG PARTIAL PRESSURE CO2 47.3 mmHg (35.0-45.0); ABG PARTIAL PRESSURE O2 130.1 mmHg (75.0-100.0); ABG TOTAL CO2 33.8 MEQ/L (23.0-31.0); ABG pH (ARTERIAL) 7.453 UNITS (7.350-7.450)
[2017-11-27 11:44] LABS: HEMATOCRIT 49.2 % (42.0-52.0); HEMOGLOBIN 15.4 g/dl (14.0-18.0); MEAN CORPUSCULAR HEMOGLOBIN 27.9 pg (27.0-33.0); MEAN CORPUSCULAR HGB CONC 31.3 g/dl (32.0-36.5); MEAN CORPUSCULAR VOLUME 89.3 fl (80.0-96.0); PLATELET COUNT, AUTOMATED 241 10^3/uL (150-450); RED BLOOD COUNT 5.51 10^6/uL (4.30-6.10); RED CELL DISTRIBUTION WIDTH 14.7 % (11.5-14.5)
[2017-11-27 11:47] LABS: POS COUNT POS FLAG; POSITIVE DIFF POS FLAG; POSITIVE MORPH POS FLAG
[2017-11-27 11:49] LABS: WHITE BLOOD COUNT 30.9 10^3/uL (4.0-10.0)
[2017-11-27 11:50] LABS: ADD MANUAL DIFFER YES; DIFF SLIDE NUMBER 206
[2017-11-27 11:52] LABS: ALBUMIN/GLOBULIN RATIO 0.68 (1.00-1.93); ALKALINE PHOSPHATASE 94 U/L (45-117); ALT/SGPT 36 U/L (12-78); ANION GAP 6 MEQ/L (8-16); AST/SGOT 26 U/L (7-37); BILIRUBIN,DIRECT 0.1 MG/DL (0.0-0.2); BILIRUBIN,TOTAL 0.7 MG/DL (0.2-1.0); BLOOD UREA NITROGEN 30 MG/DL (7-18); CALCIUM LEVEL 8.7 MG/DL (8.8-10.2); CARBON DIOXIDE LEVEL 38 MEQ/L (21-32); CHLORIDE LEVEL 96 MEQ/L (98-107); CPK CREATINE PHOSPHOKINASE 26 U/L (39-308); CREATININE FOR GFR 1.36 MG/DL (0.70-1.30); GLOMERULAR FILTRATION RATE 54.4 (>42); GLUCOSE, FASTING 160 MG/DL (83-110); POTASSIUM SERUM 3.7 MEQ/L (3.5-5.1); SODIUM LEVEL 140 MEQ/L (136-145); TOTAL PROTEIN 7.4 GM/DL (6.4-8.2); TROPONIN I 0.08 NG/ML (< 0.10)
[2017-11-27 11:58] LABS: LACTIC ACID SEPSIS PROTOCOL 3.4 MMOL/L (0.4-2.0)
[2017-11-27 12:04] LABS: DIGOXIN LEVEL 1.5 NG/ML (0.5-2.0); MB/CK RELATIVE INDEX 3.84 (< OR =4); NT-PRO BNP 2902 PG/ML (<450); THYROID STIMULATING HORMONE 0.652 uIU/ML (0.358-3.740)
[2017-11-27] MEDS: METOPROLOL 5 MG/5 ML VIAL IV ×3 (12:05→12:55)
[2017-11-27 12:24] LABS: BANDS 1 % (< 11); BASOPHILS 1 % (0-4); LYMPHOCYTES 7 % (16-52); METAMYELOCYTES 1 % (0-0); MONOCYTES 9 % (0-8); NEUTROPHILS 81 % (35-75)
[2017-11-27 12:25] LABS: ANISOCYTOSIS 1+; PLATELET ESTIMATE NORMAL (NORMAL)
[2017-11-27] MEDS: FUROSEMIDE 40 MG/4 ML VIAL (J1940) IV ×2 (12:25→21:18)
[2017-11-27] MEDS: METOPROLOL TART 50 MG TAB PO (12:36)
[2017-11-27] MEDS: IPRATROPIUM 0.5MG/ALBUTEROL 2.5MG INH SOL UD 3ML (DUONEB)(J7620) NEB ×2 (13:27→20:34)
[2017-11-27 14:04] LABS: C REACTIVE PROTEIN QUANTITATIV 8.49 MG/DL (0.00-0.30)
[2017-11-27] MEDS: LevoFLOXacin IV 750 MG in APPROPRIATE DILUENT 1 EA IV (14:24)
[2017-11-27] MEDS ORDERED: PERCOCET 5MG/325MG TAB PO (14:30)
[2017-11-27 14:43] LABS: SLIDE REVIEW Report; SOURCE PERIPHERAL SMEAR
[2017-11-27 14:44] LABS: REASON FOR REVIEW COMPREHENSIVE REVIEW
[2017-11-27] MEDS ORDERED: GLUCAGON FOR INJ 1 MG VIAL (J1610) SC (14:45)
[2017-11-27] MEDS ORDERED: DEXTROSE 50% 50 ML SYRINGE IV (14:45)
[2017-11-27] MEDS ORDERED: GLUCOSE 4 GM CHEW TABLET PO (14:45)
[2017-11-27] MEDS ORDERED: ACETAMINOPHEN TAB 650MG DOSE (2X325MG) PO (15:00)
[2017-11-27] MEDS ORDERED: ONDANSETRON 4MG/2ML VIAL (J2405) IV (15:00)
[2017-11-27] MEDS: CEFTRIAXONE SOD 2 GM in APPROPRIATE DILUENT 1 EA IV (15:56)
[2017-11-27 17:46] LABS: BEDSIDE GLUCOSE 218 MG/DL (83-110)
[2017-11-27] MEDS: GABAPENTIN 300 MG CAP PO ×2 (18:05→21:15)
[2017-11-27] MEDS: LACTOBACILLUS ACIDOPHILUS CAP (BACID) PO ×2 (18:05→21:16)
[2017-11-27] MEDS: LEVEMIR (INSULIN DETEMIR) 1 UNITS/0.01ML SC (18:05)
[2017-11-27] MEDS: predniSONE 20 MG TAB PO (18:05)
[2017-11-27] MEDS: HumaLOG INSULIN (NovoLOG) PER UNIT SC ×2 (18:06→21:00)
[2017-11-27] MEDS: SILVER SULFADIAZINE 1% CR 50 GM JAR TOP ×2 (18:07→21:17)
[2017-11-27] MEDS ORDERED: SLF 3 ML SYR IV (18:15)
[2017-11-27 18:29] LABS: CK-MB VALUE MASS 2.4 NG/ML (0.0-3.6); CPK CREATINE PHOSPHOKINASE 30 U/L (39-308)
[2017-11-27] MEDS: VANCOMYCIN ORAL SOL 250MG/5ML ORAL SYRINGE PO (19:56)
[2017-11-27 20:47] LABS: BEDSIDE GLUCOSE 151 MG/DL (83-110)
[2017-11-27] MEDS: ATORVASTATIN 20 MG TAB PO (21:15)
[2017-11-27] MEDS: OMEPRAZOLE 20 MG CAP PO (21:15)
[2017-11-27] MEDS: ASPIRIN 81 MG ENTERIC TAB PO (21:16)
[2017-11-27] MEDS: SERTRALINE HCL 50 MG TAB PO (21:16)
[2017-11-27] MEDS: METOPROLOL TARTRATE 100 MG TAB PO (21:16)
[2017-11-27] MEDS: RIVAROXABAN 15 MG TAB (XARELTO) PO (21:16)
[2017-11-27] MEDS: SLF 3 ML SYR IV (21:18)
[2017-11-28] MEDS: VANCOMYCIN ORAL SOL 250MG/5ML ORAL SYRINGE PO (00:06)
[2017-11-28 00:22] LABS: CK-MB VALUE MASS 2.7 NG/ML (0.0-3.6); CPK CREATINE PHOSPHOKINASE 31 U/L (39-308)
[2017-11-28 00:57] LABS: ABG BASE EXCESS 4.8 (-2.0-2.0); ABG HCO3 28.5 MEQ/L (22.0-26.0); ABG O2 SATURATION 91.3 % (95.0-99.0); ABG PARTIAL PRESSURE CO2 38.9 mmHg (35.0-45.0); ABG PARTIAL PRESSURE O2 59.2 mmHg (75.0-100.0); ABG STANDARD HCO3 28.6 MEQ/L (22.0-26.0); ABG TOTAL CO2 29.6 MEQ/L (23.0-31.0); ABG pH (ARTERIAL) 7.482 UNITS (7.350-7.450)
[2017-11-28] MEDS: FUROSEMIDE 40 MG/4 ML VIAL (J1940) IV (01:14)
[2017-11-28] MEDS: methylPREDNISolone INJ 125 MG/2 ML VIAL (J2930) IV ×4 (01:53→20:08)
[2017-11-28] MEDS: IPRATROPIUM 0.5MG/ALBUTEROL 2.5MG INH SOL UD 3ML (DUONEB)(J7620) NEB ×5 (01:58→19:43)
[2017-11-28] MEDS: NS 1,000 ML IV ×2 (03:45→10:00)
[2017-11-28] MEDS ORDERED: ETOMIDATE INJ 20MG/10ML VIAL As Ordered (04:09)
[2017-11-28] MEDS ORDERED: SUCCINYLCHOLINE INJ 200 MG/10 ML VIAL (J0330) As Ordered (04:10)
[2017-11-28] MEDS ORDERED: MIDAZOLAM INJ 2 MG/2 ML VIAL (J2250) As Ordered ×3 (04:40→04:49)
[2017-11-28] MEDS: MIDAZOLAM HCL 100 MG in D5W 80 ML IV ×2 (05:00→21:06)
[2017-11-28] MEDS ORDERED: REFRIGERATOR IV KEYS XX ×2 (05:00)
[2017-11-28 06:38] LABS: ABG BASE EXCESS 6.2 (-2.0-2.0); ABG HCO3 30.5 MEQ/L (22.0-26.0); ABG O2 SATURATION 94.5 % (95.0-99.0); ABG PARTIAL PRESSURE CO2 42.8 mmHg (35.0-45.0); ABG PARTIAL PRESSURE O2 71.8 mmHg (75.0-100.0); ABG TOTAL CO2 31.8 MEQ/L (23.0-31.0); ABG pH (ARTERIAL) 7.471 UNITS (7.350-7.450)
[2017-11-28] MEDS: ETOMIDATE INJ 20MG/10ML VIAL IV (06:44)
[2017-11-28] MEDS: SUCCINYLCHOLINE INJ 200 MG/10 ML VIAL (J0330) IV (06:44)
[2017-11-28] MEDS: MIDAZOLAM INJ 2 MG/2 ML VIAL (J2250) IV (06:44)
[2017-11-28] MEDS: MORPHINE 2 MG/ML 1ML SYRINGE IV ×2 (06:45→12:30)
[2017-11-28] MEDS: metroNIDAZOLE 500 MG in APPROPRIATE DILUENT 1 EA IV ×3 (06:46→22:28)
[2017-11-28] MEDS: HumaLOG INSULIN (NovoLOG) PER UNIT SC ×4 (06:46→23:58)
[2017-11-28] MEDS: SLF 3 ML SYR IV ×3 (06:47→22:00)
[2017-11-28 07:14] LABS: BEDSIDE GLUCOSE 188 MG/DL (83-110)
[2017-11-28 07:54] LABS: HEMATOCRIT 38.1 % (42.0-52.0); MEAN CORPUSCULAR HEMOGLOBIN 27.9 pg (27.0-33.0); PLATELET COUNT, AUTOMATED 183 10^3/uL (150-450); RED BLOOD COUNT 4.38 10^6/uL (4.30-6.10); RED CELL DISTRIBUTION WIDTH 14.8 % (11.5-14.5); WHITE BLOOD COUNT 19.6 10^3/uL (4.0-10.0)
[2017-11-28] MEDS: CHLORHEXIDINE ORAL RINSE 0.12%/15ML 120ML BOTTLE MT ×2 (07:56→20:09)
[2017-11-28] MEDS: DIGOXIN INJ 0.5 MG/2 ML AMP (J1160) IV ×2 (07:56→20:59)
[2017-11-28 07:58] LABS: HEMOGLOBIN 12.2 g/dl (14.0-18.0)
[2017-11-28] MEDS: ENOXAPARIN 40 MG/0.4 ML SYRINGE (J1650) SC (08:05)
[2017-11-28] MEDS: PANTOPRAZOLE 40MG INJ (PROTONIX) (C9113) IV (08:05)
[2017-11-28] MEDS: LEVEMIR (INSULIN DETEMIR) 1 UNITS/0.01ML SC (08:05)
[2017-11-28] MEDS: METOPROLOL TART 50 MG TAB PO ×2 (08:06→20:09)
[2017-11-28] MEDS: LACTOBACILLUS ACIDOPHILUS CAP (BACID) PO ×3 (08:06→20:08)
[2017-11-28 08:39] LABS: ALBUMIN 2.5 GM/DL (3.2-5.2); ALBUMIN/GLOBULIN RATIO 0.89 (1.00-1.93); ALKALINE PHOSPHATASE 68 U/L (45-117); ALT/SGPT 24 U/L (12-78); ANION GAP 9 MEQ/L (8-16); AST/SGOT 22 U/L (7-37); BILIRUBIN,TOTAL 0.8 MG/DL (0.2-1.0); BLOOD UREA NITROGEN 40 MG/DL (7-18); CALCIUM LEVEL 7.5 MG/DL (8.8-10.2); CARBON DIOXIDE LEVEL 33 MEQ/L (21-32); CHLORIDE LEVEL 99 MEQ/L (98-107); CREATININE FOR GFR 1.27 MG/DL (0.70-1.30); GLOMERULAR FILTRATION RATE 58.9 (>42); GLUCOSE, FASTING 214 MG/DL (83-110); MAGNESIUM LEVEL 2.3 MG/DL (1.8-2.4); POTASSIUM SERUM 3.4 MEQ/L (3.5-5.1); SODIUM LEVEL 141 MEQ/L (136-145); TOTAL PROTEIN 5.3 GM/DL (6.4-8.2)
[2017-11-28] MEDS ORDERED: DIGOXIN 0.125 MG TAB PO (09:00)
[2017-11-28] MEDS: AMIODARONE HCL 150 MG in APPROPRIATE DILUENT 1 EA IV ×2 (09:24→14:36)
[2017-11-28] MEDS: SILVER SULFADIAZINE 1% CR 50 GM JAR TOP ×4 (09:42→20:09)
[2017-11-28] MEDS ORDERED: KCL 10MEQ IN 100ML SWI (KRUN) 10 MEQ in APPROPRIATE DILUENT 1 EA IV (11:00)
[2017-11-28 12:37] LABS: BEDSIDE GLUCOSE 188 MG/DL (83-110)
[2017-11-28] MEDS: AZITHROMYCIN INJ 500 MG, VIAL MATE ADAPTER 1 EACH in D5W 250 ML IV (14:37)
[2017-11-28] MEDS: SODIUM CHLORIDE 0.9% 1000 ML IV (14:37)
[2017-11-28] MEDS: CEFTRIAXONE SOD 2 GM in APPROPRIATE DILUENT 1 EA IV (16:11)
[2017-11-28 18:24] LABS: BEDSIDE GLUCOSE 248 MG/DL (83-110)
[2017-11-28] MEDS: ASPIRIN 81 MG ENTERIC TAB PO ×2 (20:08→20:10)
[2017-11-28] MEDS ORDERED: DIGOXIN INJ 0.5 MG/2 ML AMP (J1160) As Ordered (20:52)
[2017-11-28] MEDS: KCL 20MEQ IN 100ML SWI (KRUN) 20 MEQ in APPROPRIATE DILUENT 1 EA IV (21:07)
[2017-11-28] MEDS: SODIUM CHLORIDE 0.9% INJ 10 ML SYR IV (22:28)
[2017-11-28 23:00] LABS: ALBUMIN 2.4 GM/DL (3.2-5.2); ANION GAP 7 MEQ/L (8-16); BLOOD UREA NITROGEN 40 MG/DL (7-18); CARBON DIOXIDE LEVEL 31 MEQ/L (21-32); CHLORIDE LEVEL 101 MEQ/L (98-107); CREATININE FOR GFR 1.38 MG/DL (0.70-1.30); GLOMERULAR FILTRATION RATE 53.5 (>42); GLUCOSE, FASTING 275 MG/DL (83-110); MAGNESIUM LEVEL 2.3 MG/DL (1.8-2.4); PHOSPHORUS LEVEL 2.4 MG/DL (2.5-4.9); POTASSIUM SERUM 4.1 MEQ/L (3.5-5.1); SODIUM LEVEL 139 MEQ/L (136-145)
[2017-11-29 00:09] LABS: BEDSIDE GLUCOSE 240 MG/DL (83-110)
[2017-11-29 00:42] LABS: DIGOXIN LEVEL 2.4 NG/ML (0.5-2.0)
[2017-11-29] MEDS: IPRATROPIUM 0.5MG/ALBUTEROL 2.5MG INH SOL UD 3ML (DUONEB)(J7620) NEB ×5 (01:39→20:30)
[2017-11-29] MEDS: methylPREDNISolone INJ 125 MG/2 ML VIAL (J2930) IV ×4 (02:12→20:27)
[2017-11-29] MEDS: DIGOXIN INJ 0.5 MG/2 ML AMP (J1160) IV ×2 (02:33→08:39)
[2017-11-29 05:56] LABS: ABG BASE EXCESS 2.9 (-2.0-2.0); ABG HCO3 26.3 MEQ/L (22.0-26.0); ABG O2 SATURATION 97.9 % (95.0-99.0); ABG PARTIAL PRESSURE CO2 36.5 mmHg (35.0-45.0); ABG PARTIAL PRESSURE O2 103.6 mmHg (75.0-100.0); ABG TOTAL CO2 27.4 MEQ/L (23.0-31.0); ABG pH (ARTERIAL) 7.476 UNITS (7.350-7.450)
[2017-11-29 06:17] LABS: HEMATOCRIT 36.1 % (42.0-52.0); HEMOGLOBIN 11.6 g/dl (14.0-18.0); MEAN CORPUSCULAR HEMOGLOBIN 27.8 pg (27.0-33.0); MEAN CORPUSCULAR HGB CONC 32.1 g/dl (32.0-36.5); MEAN CORPUSCULAR VOLUME 86.4 fl (80.0-96.0); PLATELET COUNT, AUTOMATED 175 10^3/uL (150-450); RED BLOOD COUNT 4.18 10^6/uL (4.30-6.10); RED CELL DISTRIBUTION WIDTH 15.3 % (11.5-14.5); WHITE BLOOD COUNT 19.1 10^3/uL (4.0-10.0)
[2017-11-29] MEDS: metroNIDAZOLE 500 MG in APPROPRIATE DILUENT 1 EA IV ×3 (06:19→21:36)
[2017-11-29] MEDS: HumaLOG INSULIN (NovoLOG) PER UNIT SC ×3 (06:19→17:12)
[2017-11-29] MEDS: SLF 3 ML SYR IV ×3 (06:21→21:37)
[2017-11-29] MEDS: SODIUM CHLORIDE 0.9% INJ 10 ML SYR IV ×3 (06:21→21:37)
[2017-11-29 06:23] LABS: BEDSIDE GLUCOSE 258 MG/DL (83-110)
[2017-11-29 06:48] LABS: ALBUMIN 2.5 GM/DL (3.2-5.2); ALBUMIN/GLOBULIN RATIO 0.83 (1.00-1.93); ALKALINE PHOSPHATASE 71 U/L (45-117); ALT/SGPT 27 U/L (12-78); ANION GAP 7 MEQ/L (8-16); AST/SGOT 20 U/L (7-37); BILIRUBIN,TOTAL 0.4 MG/DL (0.2-1.0); BLOOD UREA NITROGEN 39 MG/DL (7-18); CALCIUM LEVEL 7.1 MG/DL (8.8-10.2); CARBON DIOXIDE LEVEL 30 MEQ/L (21-32); CHLORIDE LEVEL 103 MEQ/L (98-107); CREATININE FOR GFR 1.31 MG/DL (0.70-1.30); GLOMERULAR FILTRATION RATE 56.8 (>42); GLUCOSE, FASTING 316 MG/DL (83-110); MAGNESIUM LEVEL 2.5 MG/DL (1.8-2.4); POTASSIUM SERUM 3.8 MEQ/L (3.5-5.1); SODIUM LEVEL 140 MEQ/L (136-145); TOTAL PROTEIN 5.5 GM/DL (6.4-8.2)
[2017-11-29] MEDS: MORPHINE 2 MG/ML 1ML SYRINGE IV (07:12)
[2017-11-29] MEDS: LEVEMIR (INSULIN DETEMIR) 1 UNITS/0.01ML SC (08:37)
[2017-11-29] MEDS: ENOXAPARIN 40 MG/0.4 ML SYRINGE (J1650) SC (08:38)
[2017-11-29] MEDS: METOPROLOL TART 50 MG TAB PO ×2 (08:38→21:36)
[2017-11-29] MEDS: CHLORHEXIDINE ORAL RINSE 0.12%/15ML 120ML BOTTLE MT ×2 (08:39→21:00)
[2017-11-29] MEDS: LACTOBACILLUS ACIDOPHILUS CAP (BACID) PO ×3 (08:39→21:37)
[2017-11-29] MEDS: PANTOPRAZOLE 40MG INJ (PROTONIX) (C9113) IV (08:39)
[2017-11-29] MEDS: SILVER SULFADIAZINE 1% CR 50 GM JAR TOP ×4 (08:40→21:37)
[2017-11-29 12:34] LABS: BEDSIDE GLUCOSE 234 MG/DL (83-110)
[2017-11-29] MEDS: AZITHROMYCIN INJ 500 MG, VIAL MATE ADAPTER 1 EACH in D5W 250 ML IV (13:52)
[2017-11-29] MEDS: CEFTRIAXONE SOD 2 GM in APPROPRIATE DILUENT 1 EA IV (16:25)
[2017-11-29 17:06] LABS: BEDSIDE GLUCOSE 242 MG/DL (83-110)
[2017-11-29] MEDS: ASPIRIN 81 MG ENTERIC TAB PO (21:37)
[2017-11-30] MEDS: HumaLOG INSULIN (NovoLOG) PER UNIT SC ×4 (00:07→17:03)
[2017-11-30 00:11] LABS: BEDSIDE GLUCOSE 209 MG/DL (83-110)
[2017-11-30] MEDS: methylPREDNISolone INJ 125 MG/2 ML VIAL (J2930) IV (02:27)
[2017-11-30] MEDS: IPRATROPIUM 0.5MG/ALBUTEROL 2.5MG INH SOL UD 3ML (DUONEB)(J7620) NEB ×5 (02:58→20:59)
[2017-11-30] MEDS: SLF 3 ML SYR IV ×3 (06:00→20:28)
[2017-11-30] MEDS: SODIUM CHLORIDE 0.9% INJ 10 ML SYR IV ×5 (06:00→20:28)
[2017-11-30] MEDS: metroNIDAZOLE 500 MG in APPROPRIATE DILUENT 1 EA IV (06:27)
[2017-11-30 06:29] LABS: BEDSIDE GLUCOSE 189 MG/DL (83-110)
[2017-11-30 06:31] LABS: HEMATOCRIT 35.7 % (42.0-52.0); HEMOGLOBIN 11.5 g/dl (14.0-18.0); MEAN CORPUSCULAR HGB CONC 32.2 g/dl (32.0-36.5); MEAN CORPUSCULAR VOLUME 86.9 fl (80.0-96.0); PLATELET COUNT, AUTOMATED 179 10^3/uL (150-450); RED BLOOD COUNT 4.11 10^6/uL (4.30-6.10); RED CELL DISTRIBUTION WIDTH 15.1 % (11.5-14.5)
[2017-11-30 06:37] LABS: ABG HCO3 27.7 MEQ/L (22.0-26.0); ABG O2 SATURATION 96.2 % (95.0-99.0); ABG PARTIAL PRESSURE CO2 38.4 mmHg (35.0-45.0); ABG PARTIAL PRESSURE O2 78.5 mmHg (75.0-100.0); ABG TOTAL CO2 28.9 MEQ/L (23.0-31.0); ABG pH (ARTERIAL) 7.476 UNITS (7.350-7.450)
[2017-11-30 07:01] LABS: ALBUMIN 2.4 GM/DL (3.2-5.2); ALKALINE PHOSPHATASE 69 U/L (45-117); ALT/SGPT 23 U/L (12-78); ANION GAP 5 MEQ/L (8-16); AST/SGOT 18 U/L (7-37); BILIRUBIN,TOTAL 0.5 MG/DL (0.2-1.0); BLOOD UREA NITROGEN 31 MG/DL (7-18); C REACTIVE PROTEIN QUANTITATIV 6.53 MG/DL (0.00-0.30); CALCIUM LEVEL 7.7 MG/DL (8.8-10.2); CARBON DIOXIDE LEVEL 34 MEQ/L (21-32); CHLORIDE LEVEL 104 MEQ/L (98-107); CREATININE FOR GFR 0.83 MG/DL (0.70-1.30); GLOMERULAR FILTRATION RATE > 60.0 (>42); GLUCOSE, FASTING 195 MG/DL (83-110); MAGNESIUM LEVEL 2.8 MG/DL (1.8-2.4); POTASSIUM SERUM 3.7 MEQ/L (3.5-5.1); SODIUM LEVEL 143 MEQ/L (136-145); TOTAL PROTEIN 5.4 GM/DL (6.4-8.2)
[2017-11-30] MEDS ORDERED: BREO ELLIPTA 200/25 (PATIENT'S OWN MED) INH (09:00)
[2017-11-30] MEDS: LACTOBACILLUS ACIDOPHILUS CAP (BACID) PO ×3 (09:29→20:27)
[2017-11-30] MEDS: METOPROLOL TART 50 MG TAB PO ×2 (09:30→20:27)
[2017-11-30] MEDS: PANTOPRAZOLE 40MG TAB (PROTONIX) PO (09:31)
[2017-11-30] MEDS: ATORVASTATIN 20 MG TAB PO (09:31)
[2017-11-30] MEDS: LEVEMIR (INSULIN DETEMIR) 1 UNITS/0.01ML SC (09:32)
[2017-11-30] MEDS: ENOXAPARIN 40 MG/0.4 ML SYRINGE (J1650) SC (09:32)
[2017-11-30] MEDS: DIGOXIN INJ 0.5 MG/2 ML AMP (J1160) IV (09:33)
[2017-11-30] MEDS: SILVER SULFADIAZINE 1% CR 50 GM JAR TOP ×4 (09:34→20:28)
[2017-11-30] MEDS: methylPREDNISolone INJ 40 MG/1 ML VIAL (J2920) IV ×2 (09:34→17:03)
[2017-11-30] MEDS: VANCOMYCIN ORAL SOL 250MG/5ML ORAL SYRINGE PO ×3 (11:51→23:43)
[2017-11-30 11:53] LABS: BEDSIDE GLUCOSE 244 MG/DL (83-110)
[2017-11-30] MEDS: CEFTAROLINE FOSAMIL 600 MG in APPROPRIATE DILUENT 1 EA IV ×2 (12:29→23:43)
[2017-11-30 16:58] LABS: BEDSIDE GLUCOSE 149 MG/DL (83-110)
[2017-11-30] MEDS: ASPIRIN 81 MG ENTERIC TAB PO (20:27)
[2017-11-30 20:46] LABS: BEDSIDE GLUCOSE 195 MG/DL (83-110)
[2017-12-01] MEDS: IPRATROPIUM 0.5MG/ALBUTEROL 2.5MG INH SOL UD 3ML (DUONEB)(J7620) NEB ×4 (01:25→21:10)
[2017-12-01] MEDS: methylPREDNISolone INJ 40 MG/1 ML VIAL (J2920) IV ×2 (01:58→10:00)
[2017-12-01] MEDS: SLF 3 ML SYR IV ×3 (05:17→20:57)
[2017-12-01] MEDS: VANCOMYCIN ORAL SOL 250MG/5ML ORAL SYRINGE PO ×3 (05:17→17:13)
[2017-12-01] MEDS: SODIUM CHLORIDE 0.9% INJ 10 ML SYR IV ×3 (05:17→21:00)
[2017-12-01 05:38] LABS: HEMATOCRIT 36.8 % (42.0-52.0); HEMOGLOBIN 11.8 g/dl (14.0-18.0); MEAN CORPUSCULAR HEMOGLOBIN 27.6 pg (27.0-33.0); MEAN CORPUSCULAR HGB CONC 32.1 g/dl (32.0-36.5); MEAN CORPUSCULAR VOLUME 86.2 fl (80.0-96.0); PLATELET COUNT, AUTOMATED 175 10^3/uL (150-450); RED BLOOD COUNT 4.27 10^6/uL (4.30-6.10); RED CELL DISTRIBUTION WIDTH 14.9 % (11.5-14.5); WHITE BLOOD COUNT 15.7 10^3/uL (4.0-10.0)
[2017-12-01 05:57] LABS: ALBUMIN 2.5 GM/DL (3.2-5.2); ALBUMIN/GLOBULIN RATIO 0.93 (1.00-1.93); ALKALINE PHOSPHATASE 71 U/L (45-117); ALT/SGPT 30 U/L (12-78); ANION GAP 8 MEQ/L (8-16); AST/SGOT 22 U/L (7-37); BILIRUBIN,TOTAL 0.6 MG/DL (0.2-1.0); BLOOD UREA NITROGEN 31 MG/DL (7-18); CALCIUM LEVEL 7.6 MG/DL (8.8-10.2); CARBON DIOXIDE LEVEL 32 MEQ/L (21-32); CHLORIDE LEVEL 104 MEQ/L (98-107); CREATININE FOR GFR 0.83 MG/DL (0.70-1.30); GLOMERULAR FILTRATION RATE > 60.0 (>42); GLUCOSE, FASTING 218 MG/DL (83-110); MAGNESIUM LEVEL 3.2 MG/DL (1.8-2.4); SODIUM LEVEL 144 MEQ/L (136-145); TOTAL PROTEIN 5.2 GM/DL (6.4-8.2)
[2017-12-01] MEDS: HumaLOG INSULIN (NovoLOG) PER UNIT SC ×4 (08:02→20:56)
[2017-12-01] MEDS: DIGOXIN INJ 0.5 MG/2 ML AMP (J1160) IV (08:56)
[2017-12-01] MEDS: METOPROLOL TART 50 MG TAB PO (08:58)
[2017-12-01] MEDS: LEVEMIR (INSULIN DETEMIR) 1 UNITS/0.01ML SC (08:59)
[2017-12-01] MEDS: LACTOBACILLUS ACIDOPHILUS CAP (BACID) PO ×3 (08:59→20:55)
[2017-12-01] MEDS: ENOXAPARIN 40 MG/0.4 ML SYRINGE (J1650) SC (08:59)
[2017-12-01] MEDS: PANTOPRAZOLE 40MG TAB (PROTONIX) PO (08:59)
[2017-12-01] MEDS: ATORVASTATIN 20 MG TAB PO (08:59)
[2017-12-01] MEDS: SILVER SULFADIAZINE 1% CR 50 GM JAR TOP ×4 (09:00→20:59)
[2017-12-01 11:42] LABS: BEDSIDE GLUCOSE 190 MG/DL (83-110)
[2017-12-01] MEDS: predniSONE 20 MG TAB PO (12:12)
[2017-12-01] MEDS: CEFTAROLINE FOSAMIL 600 MG in APPROPRIATE DILUENT 1 EA IV (12:13)
[2017-12-01 17:16] LABS: BEDSIDE GLUCOSE 216 MG/DL (83-110)
[2017-12-01] MEDS: METOPROLOL TARTRATE 100 MG TAB PO (20:56)
[2017-12-01] MEDS: ASPIRIN 81 MG ENTERIC TAB PO (20:56)
[2017-12-01 20:57] LABS: BEDSIDE GLUCOSE 169 MG/DL (83-110)
[2017-12-02] MEDS: VANCOMYCIN ORAL SOL 250MG/5ML ORAL SYRINGE PO ×5 (00:04→23:57)
[2017-12-02] MEDS: CEFTAROLINE FOSAMIL 600 MG in APPROPRIATE DILUENT 1 EA IV ×3 (00:04→23:57)
[2017-12-02] MEDS: IPRATROPIUM 0.5MG/ALBUTEROL 2.5MG INH SOL UD 3ML (DUONEB)(J7620) NEB ×4 (01:46→20:13)
[2017-12-02] MEDS: SLF 3 ML SYR IV ×3 (02:58→20:53)
[2017-12-02 05:01] LABS: HEMATOCRIT 35.3 % (42.0-52.0); HEMOGLOBIN 11.4 g/dl (14.0-18.0); MEAN CORPUSCULAR HEMOGLOBIN 27.9 pg (27.0-33.0); MEAN CORPUSCULAR HGB CONC 32.3 g/dl (32.0-36.5); MEAN CORPUSCULAR VOLUME 86.5 fl (80.0-96.0); PLATELET COUNT, AUTOMATED 152 10^3/uL (150-450); RED BLOOD COUNT 4.08 10^6/uL (4.30-6.10); RED CELL DISTRIBUTION WIDTH 14.6 % (11.5-14.5); WHITE BLOOD COUNT 14.7 10^3/uL (4.0-10.0)
[2017-12-02 05:31] LABS: ALBUMIN 2.3 GM/DL (3.2-5.2); ALBUMIN/GLOBULIN RATIO 0.88 (1.00-1.93); ALKALINE PHOSPHATASE 64 U/L (45-117); ALT/SGPT 29 U/L (12-78); ANION GAP 5 MEQ/L (8-16); AST/SGOT 22 U/L (7-37); BILIRUBIN,TOTAL 0.7 MG/DL (0.2-1.0); BLOOD UREA NITROGEN 26 MG/DL (7-18); CALCIUM LEVEL 7.4 MG/DL (8.8-10.2); CARBON DIOXIDE LEVEL 34 MEQ/L (21-32); CHLORIDE LEVEL 104 MEQ/L (98-107); CREATININE FOR GFR 0.67 MG/DL (0.70-1.30); DIGOXIN LEVEL 1.7 NG/ML (0.5-2.0); GLOMERULAR FILTRATION RATE > 60.0 (>42); GLUCOSE, FASTING 147 MG/DL (83-110); MAGNESIUM LEVEL 2.8 MG/DL (1.8-2.4); POTASSIUM SERUM 4.1 MEQ/L (3.5-5.1); SODIUM LEVEL 143 MEQ/L (136-145); TOTAL PROTEIN 4.9 GM/DL (6.4-8.2)
[2017-12-02] MEDS: SODIUM CHLORIDE 0.9% INJ 10 ML SYR IV ×3 (05:32→20:53)
[2017-12-02] MEDS: LEVEMIR (INSULIN DETEMIR) 1 UNITS/0.01ML SC (08:42)
[2017-12-02] MEDS: DIGOXIN 0.25 MG TAB PO (08:43)
[2017-12-02] MEDS: HumaLOG INSULIN (NovoLOG) PER UNIT SC ×4 (08:43→20:52)
[2017-12-02] MEDS: ATORVASTATIN 20 MG TAB PO (08:44)
[2017-12-02] MEDS: predniSONE 20 MG TAB PO (08:44)
[2017-12-02] MEDS: PANTOPRAZOLE 40MG TAB (PROTONIX) PO (08:44)
[2017-12-02] MEDS: LACTOBACILLUS ACIDOPHILUS CAP (BACID) PO ×3 (08:44→20:51)
[2017-12-02] MEDS: ENOXAPARIN 40 MG/0.4 ML SYRINGE (J1650) SC (08:44)
[2017-12-02] MEDS: METOPROLOL TARTRATE 100 MG TAB PO ×2 (08:44→20:52)
[2017-12-02 12:01] LABS: BEDSIDE GLUCOSE 210 MG/DL (83-110)
[2017-12-02] MEDS: SILVER SULFADIAZINE 1% CR 50 GM JAR TOP ×4 (13:12→23:57)
[2017-12-02 17:03] LABS: BEDSIDE GLUCOSE 124 MG/DL (83-110)
[2017-12-02 20:49] LABS: BEDSIDE GLUCOSE 232 MG/DL (83-110)
[2017-12-02] MEDS: ASPIRIN 81 MG ENTERIC TAB PO (20:51)
[2017-12-03] MEDS: IPRATROPIUM 0.5MG/ALBUTEROL 2.5MG INH SOL UD 3ML (DUONEB)(J7620) NEB ×4 (01:33→20:36)
[2017-12-03 05:29] LABS: HEMATOCRIT 36.3 % (42.0-52.0); HEMOGLOBIN 11.7 g/dl (14.0-18.0); MEAN CORPUSCULAR HEMOGLOBIN 28.1 pg (27.0-33.0); MEAN CORPUSCULAR HGB CONC 32.2 g/dl (32.0-36.5); MEAN CORPUSCULAR VOLUME 87.3 fl (80.0-96.0); PLATELET COUNT, AUTOMATED 147 10^3/uL (150-450); RED BLOOD COUNT 4.16 10^6/uL (4.30-6.10); RED CELL DISTRIBUTION WIDTH 14.7 % (11.5-14.5); WHITE BLOOD COUNT 15.7 10^3/uL (4.0-10.0)
[2017-12-03 05:51] LABS: ALBUMIN 2.2 GM/DL (3.2-5.2); ALBUMIN/GLOBULIN RATIO 0.81 (1.00-1.93); ALKALINE PHOSPHATASE 72 U/L (45-117); ALT/SGPT 30 U/L (12-78); ANION GAP 5 MEQ/L (8-16); AST/SGOT 20 U/L (7-37); BILIRUBIN,TOTAL 0.6 MG/DL (0.2-1.0); BLOOD UREA NITROGEN 22 MG/DL (7-18); CALCIUM LEVEL 7.7 MG/DL (8.8-10.2); CARBON DIOXIDE LEVEL 33 MEQ/L (21-32); CHLORIDE LEVEL 104 MEQ/L (98-107); CREATININE FOR GFR 0.67 MG/DL (0.70-1.30); GLOMERULAR FILTRATION RATE > 60.0 (>42); GLUCOSE, FASTING 114 MG/DL (83-110); MAGNESIUM LEVEL 2.3 MG/DL (1.8-2.4); POTASSIUM SERUM 4.1 MEQ/L (3.5-5.1); SODIUM LEVEL 142 MEQ/L (136-145); TOTAL PROTEIN 4.9 GM/DL (6.4-8.2)
[2017-12-03] MEDS: SLF 3 ML SYR IV ×3 (06:00→21:20)
[2017-12-03] MEDS: VANCOMYCIN ORAL SOL 250MG/5ML ORAL SYRINGE PO ×4 (06:00→23:59)
[2017-12-03] MEDS: SODIUM CHLORIDE 0.9% INJ 10 ML SYR IV ×3 (06:00→21:27)
[2017-12-03] MEDS: LACTOBACILLUS ACIDOPHILUS CAP (BACID) PO ×3 (08:17→21:26)
[2017-12-03] MEDS: PANTOPRAZOLE 40MG TAB (PROTONIX) PO (08:17)
[2017-12-03] MEDS: predniSONE 20 MG TAB PO (08:17)
[2017-12-03] MEDS: ATORVASTATIN 20 MG TAB PO (08:17)
[2017-12-03] MEDS: METOPROLOL TARTRATE 100 MG TAB PO ×2 (08:17→21:26)
[2017-12-03] MEDS: HumaLOG INSULIN (NovoLOG) PER UNIT SC ×4 (08:19→21:00)
[2017-12-03] MEDS: DIGOXIN 0.25 MG TAB PO (08:19)
[2017-12-03] MEDS: LEVEMIR (INSULIN DETEMIR) 1 UNITS/0.01ML SC (08:20)
[2017-12-03] MEDS: SILVER SULFADIAZINE 1% CR 50 GM JAR TOP ×4 (08:20→21:27)
[2017-12-03] MEDS: ADVAIR HFA 230/21MCG INHALER INH ×2 (09:00→21:00)
[2017-12-03] MEDS: CEFTAROLINE FOSAMIL 600 MG in APPROPRIATE DILUENT 1 EA IV ×2 (12:50→23:59)
[2017-12-03 13:08] LABS: BEDSIDE GLUCOSE 137 MG/DL (83-110)
[2017-12-03] MEDS: RIVAROXABAN 20 MG TAB (XARELTO) PO (17:04)
[2017-12-03 17:05] LABS: BEDSIDE GLUCOSE 138 MG/DL (83-110)
[2017-12-03] MEDS ORDERED: RIVAROXABAN 15 MG TAB (XARELTO) PO (18:00)
[2017-12-03 21:24] LABS: BEDSIDE GLUCOSE 130 MG/DL (83-110)
[2017-12-03] MEDS: ASPIRIN 81 MG ENTERIC TAB PO (21:26)
[2017-12-04] MEDS: IPRATROPIUM 0.5MG/ALBUTEROL 2.5MG INH SOL UD 3ML (DUONEB)(J7620) NEB ×4 (00:41→20:47)
[2017-12-04] MEDS: SLF 3 ML SYR IV ×4 (05:44→22:00)
[2017-12-04] MEDS: SODIUM CHLORIDE 0.9% INJ 10 ML SYR IV ×4 (05:51→22:00)
[2017-12-04] MEDS: VANCOMYCIN ORAL SOL 250MG/5ML ORAL SYRINGE PO ×4 (05:51→23:06)
[2017-12-04 06:10] LABS: HEMATOCRIT 38.1 % (42.0-52.0); HEMOGLOBIN 12.2 g/dl (14.0-18.0); MEAN CORPUSCULAR HEMOGLOBIN 27.9 pg (27.0-33.0); PLATELET COUNT, AUTOMATED 153 10^3/uL (150-450); RED BLOOD COUNT 4.38 10^6/uL (4.30-6.10); RED CELL DISTRIBUTION WIDTH 14.8 % (11.5-14.5); WHITE BLOOD COUNT 13.9 10^3/uL (4.0-10.0)
[2017-12-04 06:30] LABS: ALBUMIN 2.3 GM/DL (3.2-5.2); ALBUMIN/GLOBULIN RATIO 0.85 (1.00-1.93); ALKALINE PHOSPHATASE 68 U/L (45-117); ALT/SGPT 29 U/L (12-78); ANION GAP 4 MEQ/L (8-16); AST/SGOT 15 U/L (7-37); BILIRUBIN,TOTAL 0.7 MG/DL (0.2-1.0); BLOOD UREA NITROGEN 16 MG/DL (7-18); CALCIUM LEVEL 8.1 MG/DL (8.8-10.2); CARBON DIOXIDE LEVEL 35 MEQ/L (21-32); CHLORIDE LEVEL 104 MEQ/L (98-107); CREATININE FOR GFR 0.66 MG/DL (0.70-1.30); GLOMERULAR FILTRATION RATE > 60.0 (>42); GLUCOSE, FASTING 114 MG/DL (83-110); MAGNESIUM LEVEL 2.2 MG/DL (1.8-2.4); POTASSIUM SERUM 4.3 MEQ/L (3.5-5.1); SODIUM LEVEL 143 MEQ/L (136-145)
[2017-12-04] MEDS: ADVAIR HFA 230/21MCG INHALER INH ×2 (07:09→20:47)
[2017-12-04] MEDS: HumaLOG INSULIN (NovoLOG) PER UNIT SC ×4 (08:21→20:39)
[2017-12-04] MEDS: LEVEMIR (INSULIN DETEMIR) 1 UNITS/0.01ML SC (08:21)
[2017-12-04] MEDS: METOPROLOL TARTRATE 100 MG TAB PO ×2 (08:22→21:38)
[2017-12-04] MEDS: DIGOXIN 0.25 MG TAB PO (08:22)
[2017-12-04] MEDS: ATORVASTATIN 20 MG TAB PO (08:22)
[2017-12-04] MEDS: predniSONE 10 MG TAB PO (08:22)
[2017-12-04] MEDS: PANTOPRAZOLE 40MG TAB (PROTONIX) PO (08:22)
[2017-12-04] MEDS: LACTOBACILLUS ACIDOPHILUS CAP (BACID) PO ×3 (08:22→21:38)
[2017-12-04] MEDS: SILVER SULFADIAZINE 1% CR 50 GM JAR TOP ×4 (09:38→21:38)
[2017-12-04] MEDS: CEFTAROLINE FOSAMIL 600 MG in APPROPRIATE DILUENT 1 EA IV ×2 (12:03→23:06)
[2017-12-04 12:27] LABS: BEDSIDE GLUCOSE 168 MG/DL (83-110)
[2017-12-04] MEDS: PERCOCET 5MG/325MG TAB PO ×2 (15:15→21:39)
[2017-12-04] MEDS ORDERED: SODIUM CHLORIDE 0.9% INJ 10 ML SYR IV (16:15)
[2017-12-04 17:10] LABS: BEDSIDE GLUCOSE 183 MG/DL (83-110)
[2017-12-04] MEDS: RIVAROXABAN 20 MG TAB (XARELTO) PO (17:10)
[2017-12-04 20:46] LABS: BEDSIDE GLUCOSE 163 MG/DL (83-110)
[2017-12-04] MEDS: ASPIRIN 81 MG ENTERIC TAB PO (21:38)
[2017-12-05] MEDS: IPRATROPIUM 0.5MG/ALBUTEROL 2.5MG INH SOL UD 3ML (DUONEB)(J7620) NEB ×4 (01:25→20:33)
[2017-12-05] MEDS: SLF 3 ML SYR IV (06:00)
[2017-12-05] MEDS: VANCOMYCIN ORAL SOL 250MG/5ML ORAL SYRINGE PO ×3 (06:06→17:07)
[2017-12-05] MEDS: SODIUM CHLORIDE 0.9% INJ 10 ML SYR IV ×5 (06:06→21:24)
[2017-12-05 06:26] LABS: BASO % 0.2 % (0.0-1.0); EOS # 0.4 10^3/uL (0.0-0.50); EOS % 2.7 % (0.0-3.0); HEMATOCRIT 37.2 % (42.0-52.0); IMMATURE GRANULOCYTE # 0.4 10^3/uL (0-0); LYMPH # 1.7 10^3/uL (1.5-4.5); LYMPH % 12.3 % (24.0-44.0); MEAN CORPUSCULAR HEMOGLOBIN 27.8 pg (27.0-33.0); MEAN CORPUSCULAR HGB CONC 32.3 g/dl (32.0-36.5); MEAN CORPUSCULAR VOLUME 86.3 fl (80.0-96.0); MONO # 1.4 10^3/uL (0.0-0.8); MONO % 10.1 % (0.0-5.0); NEUTROPHILS # 10.2 10^3/uL (1.8-7.7); NEUTROPHILS % 71.7 % (36.0-66.0); PLATELET COUNT, AUTOMATED 165 10^3/uL (150-450); RED BLOOD COUNT 4.31 10^6/uL (4.30-6.10); WHITE BLOOD COUNT 14.2 10^3/uL (4.0-10.0)
[2017-12-05 06:44] LABS: ANION GAP 5 MEQ/L (8-16); BLOOD UREA NITROGEN 16 MG/DL (7-18); CALCIUM LEVEL 8.3 MG/DL (8.8-10.2); CARBON DIOXIDE LEVEL 34 MEQ/L (21-32); CHLORIDE LEVEL 103 MEQ/L (98-107); CREATININE FOR GFR 0.76 MG/DL (0.70-1.30); GLOMERULAR FILTRATION RATE > 60.0 (>42); GLUCOSE, FASTING 119 MG/DL (83-110); MAGNESIUM LEVEL 2.1 MG/DL (1.8-2.4); POTASSIUM SERUM 4.3 MEQ/L (3.5-5.1); SODIUM LEVEL 142 MEQ/L (136-145)
[2017-12-05] MEDS: ADVAIR HFA 230/21MCG INHALER INH ×2 (07:21→20:33)
[2017-12-05] MEDS: LEVEMIR (INSULIN DETEMIR) 1 UNITS/0.01ML SC (08:57)
[2017-12-05] MEDS: HumaLOG INSULIN (NovoLOG) PER UNIT SC ×4 (08:57→21:00)
[2017-12-05] MEDS: ATORVASTATIN 20 MG TAB PO (08:58)
[2017-12-05] MEDS: DIGOXIN 0.25 MG TAB PO (08:58)
[2017-12-05] MEDS: LACTOBACILLUS ACIDOPHILUS CAP (BACID) PO ×3 (08:58→21:22)
[2017-12-05] MEDS: predniSONE 10 MG TAB PO (08:58)
[2017-12-05] MEDS: METOPROLOL TARTRATE 100 MG TAB PO ×2 (08:59→21:22)
[2017-12-05] MEDS: SILVER SULFADIAZINE 1% CR 50 GM JAR TOP ×4 (09:00→21:23)
[2017-12-05 11:41] LABS: BEDSIDE GLUCOSE 240 MG/DL (83-110)
[2017-12-05] MEDS: CEFTAROLINE FOSAMIL 600 MG in APPROPRIATE DILUENT 1 EA IV (12:02)
[2017-12-05 16:38] LABS: BEDSIDE GLUCOSE 106 MG/DL (83-110)
[2017-12-05] MEDS: RIVAROXABAN 20 MG TAB (XARELTO) PO (17:07)
[2017-12-05 21:16] LABS: BEDSIDE GLUCOSE 181 MG/DL (83-110)
[2017-12-05] MEDS: DOXYCYCLINE HYCLATE 100 MG TAB PO (21:21)
[2017-12-05] MEDS: ASPIRIN 81 MG ENTERIC TAB PO (21:22)
[2017-12-06] MEDS: VANCOMYCIN ORAL SOL 250MG/5ML ORAL SYRINGE PO ×5 (01:23→23:16)
[2017-12-06] MEDS: IPRATROPIUM 0.5MG/ALBUTEROL 2.5MG INH SOL UD 3ML (DUONEB)(J7620) NEB ×4 (01:44→21:44)
[2017-12-06] MEDS: SODIUM CHLORIDE 0.9% INJ 10 ML SYR IV (05:03)
[2017-12-06 05:21] LABS: HEMOGLOBIN 11.9 g/dl (14.0-18.0); MEAN CORPUSCULAR HEMOGLOBIN 27.6 pg (27.0-33.0); MEAN CORPUSCULAR HGB CONC 32.2 g/dl (32.0-36.5); MEAN CORPUSCULAR VOLUME 85.8 fl (80.0-96.0); PLATELET COUNT, AUTOMATED 183 10^3/uL (150-450); RED BLOOD COUNT 4.31 10^6/uL (4.30-6.10); RED CELL DISTRIBUTION WIDTH 14.9 % (11.5-14.5); WHITE BLOOD COUNT 11.8 10^3/uL (4.0-10.0)
[2017-12-06 05:42] LABS: ANION GAP 5 MEQ/L (8-16); BLOOD UREA NITROGEN 16 MG/DL (7-18); CALCIUM LEVEL 8.1 MG/DL (8.8-10.2); CARBON DIOXIDE LEVEL 34 MEQ/L (21-32); CHLORIDE LEVEL 103 MEQ/L (98-107); GLOMERULAR FILTRATION RATE > 60.0 (>42); GLUCOSE, FASTING 125 MG/DL (83-110); POTASSIUM SERUM 4.1 MEQ/L (3.5-5.1); SODIUM LEVEL 142 MEQ/L (136-145)
[2017-12-06] MEDS: ADVAIR HFA 230/21MCG INHALER INH ×2 (07:23→21:44)
[2017-12-06] MEDS: HumaLOG INSULIN (NovoLOG) PER UNIT SC ×4 (07:30→21:00)
[2017-12-06] MEDS: predniSONE 10 MG TAB PO (08:19)
[2017-12-06] MEDS: DIGOXIN 0.25 MG TAB PO (08:19)
[2017-12-06] MEDS: ATORVASTATIN 20 MG TAB PO (08:20)
[2017-12-06] MEDS: METOPROLOL TARTRATE 100 MG TAB PO ×2 (08:20→21:35)
[2017-12-06] MEDS: LACTOBACILLUS ACIDOPHILUS CAP (BACID) PO ×3 (08:20→21:35)
[2017-12-06] MEDS: LEVEMIR (INSULIN DETEMIR) 1 UNITS/0.01ML SC (08:21)
[2017-12-06] MEDS: PERCOCET 5MG/325MG TAB PO ×3 (08:21→21:36)
[2017-12-06] MEDS: SILVER SULFADIAZINE 1% CR 50 GM JAR TOP ×4 (08:23→21:00)
[2017-12-06] MEDS: DOXYCYCLINE HYCLATE 100 MG TAB PO ×2 (10:00→21:35)
[2017-12-06 16:02] LABS: BEDSIDE GLUCOSE 127 MG/DL (83-110)
[2017-12-06] MEDS: RIVAROXABAN 20 MG TAB (XARELTO) PO (17:23)
[2017-12-06 20:55] LABS: BEDSIDE GLUCOSE 178 MG/DL (83-110)
[2017-12-06 21:26] LABS: BEDSIDE GLUCOSE 199 MG/DL (83-110)
[2017-12-06] MEDS: ASPIRIN 81 MG ENTERIC TAB PO (21:35)
[2017-12-07] MEDS: IPRATROPIUM 0.5MG/ALBUTEROL 2.5MG INH SOL UD 3ML (DUONEB)(J7620) NEB ×4 (01:37→19:39)
[2017-12-07] MEDS: VANCOMYCIN ORAL SOL 250MG/5ML ORAL SYRINGE PO (05:18)
[2017-12-07] MEDS: PERCOCET 5MG/325MG TAB PO ×3 (05:18→17:27)
[2017-12-07 05:58] LABS: HEMATOCRIT 38.5 % (42.0-52.0); HEMOGLOBIN 12.2 g/dl (14.0-18.0); MEAN CORPUSCULAR HEMOGLOBIN 27.4 pg (27.0-33.0); MEAN CORPUSCULAR HGB CONC 31.7 g/dl (32.0-36.5); MEAN CORPUSCULAR VOLUME 86.3 fl (80.0-96.0); PLATELET COUNT, AUTOMATED 193 10^3/uL (150-450); RED BLOOD COUNT 4.46 10^6/uL (4.30-6.10); WHITE BLOOD COUNT 14.8 10^3/uL (4.0-10.0)
[2017-12-07 06:11] LABS: ANION GAP 4 MEQ/L (8-16); BLOOD UREA NITROGEN 14 MG/DL (7-18); CALCIUM LEVEL 8.3 MG/DL (8.8-10.2); CARBON DIOXIDE LEVEL 35 MEQ/L (21-32); CHLORIDE LEVEL 102 MEQ/L (98-107); CREATININE FOR GFR 0.72 MG/DL (0.70-1.30); GLOMERULAR FILTRATION RATE > 60.0 (>42); GLUCOSE, FASTING 129 MG/DL (83-110); POTASSIUM SERUM 4.4 MEQ/L (3.5-5.1); SODIUM LEVEL 141 MEQ/L (136-145)
[2017-12-07] MEDS: ADVAIR HFA 230/21MCG INHALER INH ×2 (08:16→19:39)
[2017-12-07] MEDS: LEVEMIR (INSULIN DETEMIR) 1 UNITS/0.01ML SC (08:44)
[2017-12-07] MEDS: HumaLOG INSULIN (NovoLOG) PER UNIT SC ×4 (08:44→20:43)
[2017-12-07] MEDS: predniSONE 10 MG TAB PO (08:45)
[2017-12-07] MEDS: DIGOXIN 0.25 MG TAB PO (08:45)
[2017-12-07] MEDS: LACTOBACILLUS ACIDOPHILUS CAP (BACID) PO ×3 (08:45→20:27)
[2017-12-07] MEDS: ATORVASTATIN 20 MG TAB PO (08:45)
[2017-12-07] MEDS: METOPROLOL TARTRATE 100 MG TAB PO ×2 (08:45→20:27)
[2017-12-07] MEDS: SILVER SULFADIAZINE 1% CR 50 GM JAR TOP ×4 (08:46→20:28)
[2017-12-07] MEDS: guaiFENesin SYRUP 200 MG/10 ML UDC PO ×2 (08:54→17:24)
[2017-12-07] MEDS: RIVAROXABAN 20 MG TAB (XARELTO) PO (17:24)
[2017-12-07] MEDS: ASPIRIN 81 MG ENTERIC TAB PO (20:27)
[2017-12-07 20:49] LABS: BEDSIDE GLUCOSE 162 MG/DL (83-110)
[2017-12-08] MEDS: IPRATROPIUM 0.5MG/ALBUTEROL 2.5MG INH SOL UD 3ML (DUONEB)(J7620) NEB ×4 (00:09→21:57)
[2017-12-08] MEDS: PERCOCET 5MG/325MG TAB PO (06:08)
[2017-12-08 06:14] LABS: HEMATOCRIT 36.1 % (42.0-52.0); HEMOGLOBIN 11.6 g/dl (14.0-18.0); MEAN CORPUSCULAR HEMOGLOBIN 27.8 pg (27.0-33.0); MEAN CORPUSCULAR HGB CONC 32.1 g/dl (32.0-36.5); MEAN CORPUSCULAR VOLUME 86.4 fl (80.0-96.0); PLATELET COUNT, AUTOMATED 174 10^3/uL (150-450); RED BLOOD COUNT 4.18 10^6/uL (4.30-6.10); RED CELL DISTRIBUTION WIDTH 15.3 % (11.5-14.5); WHITE BLOOD COUNT 15.3 10^3/uL (4.0-10.0)
[2017-12-08 06:37] LABS: ANION GAP 4 MEQ/L (8-16); BLOOD UREA NITROGEN 14 MG/DL (7-18); CALCIUM LEVEL 8.6 MG/DL (8.8-10.2); CARBON DIOXIDE LEVEL 35 MEQ/L (21-32); CHLORIDE LEVEL 100 MEQ/L (98-107); CREATININE FOR GFR 0.75 MG/DL (0.70-1.30); GLOMERULAR FILTRATION RATE > 60.0 (>42); GLUCOSE, FASTING 135 MG/DL (83-110); POTASSIUM SERUM 4.3 MEQ/L (3.5-5.1); SODIUM LEVEL 139 MEQ/L (136-145)
[2017-12-08] MEDS: DIGOXIN 0.25 MG TAB PO (08:10)
[2017-12-08] MEDS: LACTOBACILLUS ACIDOPHILUS CAP (BACID) PO ×3 (08:10→21:08)
[2017-12-08] MEDS: METOPROLOL TARTRATE 100 MG TAB PO ×2 (08:10→21:08)
[2017-12-08] MEDS: ATORVASTATIN 20 MG TAB PO (08:11)
[2017-12-08] MEDS: HumaLOG INSULIN (NovoLOG) PER UNIT SC ×4 (08:11→20:38)
[2017-12-08] MEDS: predniSONE 10 MG TAB PO (08:11)
[2017-12-08] MEDS: LEVEMIR (INSULIN DETEMIR) 1 UNITS/0.01ML SC (08:12)
[2017-12-08] MEDS: SILVER SULFADIAZINE 1% CR 50 GM JAR TOP ×4 (08:12→21:09)
[2017-12-08] MEDS: ADVAIR HFA 230/21MCG INHALER INH ×2 (08:23→21:57)
[2017-12-08] MEDS: LIDOCAINE 5% (LIDODERM) PATCH TD (10:47)
[2017-12-08] MEDS: RIVAROXABAN 20 MG TAB (XARELTO) PO (17:08)
[2017-12-08 20:36] LABS: BEDSIDE GLUCOSE 165 MG/DL (83-110)
[2017-12-08] MEDS: **NOTE PATIENT COMMENT** MISC XX (21:00)
[2017-12-08] MEDS: ASPIRIN 81 MG ENTERIC TAB PO (21:08)
[2017-12-09] MEDS: IPRATROPIUM 0.5MG/ALBUTEROL 2.5MG INH SOL UD 3ML (DUONEB)(J7620) NEB ×4 (01:59→21:38)
[2017-12-09 06:54] LABS: HEMATOCRIT 37.7 % (42.0-52.0); HEMOGLOBIN 11.9 g/dl (14.0-18.0); MEAN CORPUSCULAR HEMOGLOBIN 27.7 pg (27.0-33.0); MEAN CORPUSCULAR HGB CONC 31.6 g/dl (32.0-36.5); MEAN CORPUSCULAR VOLUME 87.9 fl (80.0-96.0); PLATELET COUNT, AUTOMATED 187 10^3/uL (150-450); RED BLOOD COUNT 4.29 10^6/uL (4.30-6.10); RED CELL DISTRIBUTION WIDTH 15.4 % (11.5-14.5); WHITE BLOOD COUNT 15.1 10^3/uL (4.0-10.0)
[2017-12-09 07:10] LABS: ANION GAP 5 MEQ/L (8-16); BLOOD UREA NITROGEN 13 MG/DL (7-18); CALCIUM LEVEL 8.5 MG/DL (8.8-10.2); CARBON DIOXIDE LEVEL 33 MEQ/L (21-32); CHLORIDE LEVEL 102 MEQ/L (98-107); CREATININE FOR GFR 0.79 MG/DL (0.70-1.30); GLOMERULAR FILTRATION RATE > 60.0 (>42); GLUCOSE, FASTING 118 MG/DL (83-110); SODIUM LEVEL 140 MEQ/L (136-145)
[2017-12-09] MEDS: ADVAIR HFA 230/21MCG INHALER INH ×2 (07:30→21:37)
[2017-12-09] MEDS: LACTOBACILLUS ACIDOPHILUS CAP (BACID) PO ×3 (08:35→21:26)
[2017-12-09] MEDS: predniSONE 10 MG TAB PO (08:35)
[2017-12-09] MEDS: ATORVASTATIN 20 MG TAB PO (08:36)
[2017-12-09] MEDS: METOPROLOL TARTRATE 100 MG TAB PO ×2 (08:36→21:27)
[2017-12-09] MEDS: DIGOXIN 0.25 MG TAB PO (08:36)
[2017-12-09] MEDS: LIDOCAINE 5% (LIDODERM) PATCH TD (08:37)
[2017-12-09] MEDS: LEVEMIR (INSULIN DETEMIR) 1 UNITS/0.01ML SC (08:38)
[2017-12-09] MEDS: HumaLOG INSULIN (NovoLOG) PER UNIT SC ×4 (08:38→20:50)
[2017-12-09] MEDS: SILVER SULFADIAZINE 1% CR 50 GM JAR TOP ×4 (08:39→21:28)
[2017-12-09 09:15] LABS: BEDSIDE GLUCOSE 171 MG/DL (83-110)
[2017-12-09 09:15] LABS: BEDSIDE GLUCOSE 156 MG/DL (83-110)
[2017-12-09 09:15] LABS: BEDSIDE GLUCOSE 234 MG/DL (83-110)
[2017-12-09 09:15] LABS: BEDSIDE GLUCOSE 133 MG/DL (83-110)
[2017-12-09 09:15] LABS: BEDSIDE GLUCOSE 207 MG/DL (83-110)
[2017-12-09 11:26] LABS: BEDSIDE GLUCOSE 148 MG/DL (83-110)
[2017-12-09 11:47] LABS: BEDSIDE GLUCOSE 250 MG/DL (83-110)
[2017-12-09] MEDS: RIVAROXABAN 20 MG TAB (XARELTO) PO (17:09)
[2017-12-09 17:12] LABS: BEDSIDE GLUCOSE 177 MG/DL (83-110)
[2017-12-09] MEDS: **NOTE PATIENT COMMENT** MISC XX (21:00)
[2017-12-09 21:21] LABS: BEDSIDE GLUCOSE 207 MG/DL (83-110)
[2017-12-09] MEDS: ASPIRIN 81 MG ENTERIC TAB PO (21:27)
[2017-12-10] MEDS: IPRATROPIUM 0.5MG/ALBUTEROL 2.5MG INH SOL UD 3ML (DUONEB)(J7620) NEB ×4 (03:09→19:24)
[2017-12-10] MEDS: ADVAIR HFA 230/21MCG INHALER INH ×2 (07:00→20:42)
[2017-12-10 08:05] LABS: BEDSIDE GLUCOSE 125 MG/DL (83-110)
[2017-12-10] MEDS: LACTOBACILLUS ACIDOPHILUS CAP (BACID) PO ×3 (08:08→21:28)
[2017-12-10] MEDS: SILVER SULFADIAZINE 1% CR 50 GM JAR TOP ×4 (08:08→21:29)
[2017-12-10] MEDS: ATORVASTATIN 20 MG TAB PO (08:09)
[2017-12-10] MEDS: HumaLOG INSULIN (NovoLOG) PER UNIT SC ×4 (08:09→20:44)
[2017-12-10] MEDS: predniSONE 10 MG TAB PO (08:09)
[2017-12-10] MEDS: LEVEMIR (INSULIN DETEMIR) 1 UNITS/0.01ML SC (08:10)
[2017-12-10] MEDS: DIGOXIN 0.25 MG TAB PO (08:11)
[2017-12-10] MEDS: METOPROLOL TARTRATE 100 MG TAB PO ×2 (08:11→21:28)
[2017-12-10 08:12] LABS: HEMATOCRIT 35.8 % (42.0-52.0); HEMOGLOBIN 11.4 g/dl (14.0-18.0); MEAN CORPUSCULAR HEMOGLOBIN 27.9 pg (27.0-33.0); MEAN CORPUSCULAR HGB CONC 31.8 g/dl (32.0-36.5); MEAN CORPUSCULAR VOLUME 87.7 fl (80.0-96.0); PLATELET COUNT, AUTOMATED 194 10^3/uL (150-450); RED BLOOD COUNT 4.08 10^6/uL (4.30-6.10); RED CELL DISTRIBUTION WIDTH 15.4 % (11.5-14.5); WHITE BLOOD COUNT 15.7 10^3/uL (4.0-10.0)
[2017-12-10] MEDS: PERCOCET 5MG/325MG TAB PO ×3 (08:13→21:29)
[2017-12-10] MEDS: LIDOCAINE 5% (LIDODERM) PATCH TD (08:14)
[2017-12-10 08:43] LABS: ANION GAP 5 MEQ/L (8-16); BLOOD UREA NITROGEN 12 MG/DL (7-18); CALCIUM LEVEL 8.8 MG/DL (8.8-10.2); CARBON DIOXIDE LEVEL 33 MEQ/L (21-32); CHLORIDE LEVEL 103 MEQ/L (98-107); CREATININE FOR GFR 0.67 MG/DL (0.70-1.30); GLOMERULAR FILTRATION RATE > 60.0 (>42); GLUCOSE, FASTING 142 MG/DL (83-110); POTASSIUM SERUM 4.5 MEQ/L (3.5-5.1); SODIUM LEVEL 141 MEQ/L (136-145)
[2017-12-10 12:04] LABS: BEDSIDE GLUCOSE 160 MG/DL (83-110)
[2017-12-10 16:43] LABS: BEDSIDE GLUCOSE 220 MG/DL (83-110)
[2017-12-10] MEDS: RIVAROXABAN 20 MG TAB (XARELTO) PO (17:09)
[2017-12-10] MEDS: **NOTE PATIENT COMMENT** MISC XX (21:00)
[2017-12-10] MEDS: ASPIRIN 81 MG ENTERIC TAB PO (21:28)
[2017-12-11] MEDS: IPRATROPIUM 0.5MG/ALBUTEROL 2.5MG INH SOL UD 3ML (DUONEB)(J7620) NEB ×5 (01:01→21:24)
[2017-12-11] MEDS: PERCOCET 5MG/325MG TAB PO ×3 (05:09→21:24)
[2017-12-11 06:49] LABS: HEMATOCRIT 33.6 % (42.0-52.0); HEMOGLOBIN 10.5 g/dl (14.0-18.0); MEAN CORPUSCULAR HEMOGLOBIN 27.4 pg (27.0-33.0); MEAN CORPUSCULAR HGB CONC 31.3 g/dl (32.0-36.5); MEAN CORPUSCULAR VOLUME 87.7 fl (80.0-96.0); PLATELET COUNT, AUTOMATED 189 10^3/uL (150-450); RED BLOOD COUNT 3.83 10^6/uL (4.30-6.10); RED CELL DISTRIBUTION WIDTH 15.3 % (11.5-14.5); WHITE BLOOD COUNT 11.2 10^3/uL (4.0-10.0)
[2017-12-11] MEDS: ADVAIR HFA 230/21MCG INHALER INH ×2 (07:02→21:00)
[2017-12-11 07:07] LABS: ANION GAP 5 MEQ/L (8-16); BLOOD UREA NITROGEN 16 MG/DL (7-18); CALCIUM LEVEL 8.6 MG/DL (8.8-10.2); CARBON DIOXIDE LEVEL 32 MEQ/L (21-32); CHLORIDE LEVEL 103 MEQ/L (98-107); CREATININE FOR GFR 0.69 MG/DL (0.70-1.30); GLOMERULAR FILTRATION RATE > 60.0 (>42); GLUCOSE, FASTING 136 MG/DL (83-110); POTASSIUM SERUM 4.3 MEQ/L (3.5-5.1); SODIUM LEVEL 140 MEQ/L (136-145)
[2017-12-11 08:34] LABS: BEDSIDE GLUCOSE 243 MG/DL (83-110)
[2017-12-11] MEDS: predniSONE 10 MG TAB PO (08:43)
[2017-12-11] MEDS: LACTOBACILLUS ACIDOPHILUS CAP (BACID) PO ×3 (08:43→21:22)
[2017-12-11] MEDS: DIGOXIN 0.25 MG TAB PO (08:43)
[2017-12-11] MEDS: METOPROLOL TARTRATE 100 MG TAB PO ×2 (08:44→21:22)
[2017-12-11] MEDS: OMEPRAZOLE 20 MG CAP PO (08:45)
[2017-12-11] MEDS: HumaLOG INSULIN (NovoLOG) PER UNIT SC ×4 (08:45→21:00)
[2017-12-11] MEDS: LEVEMIR (INSULIN DETEMIR) 1 UNITS/0.01ML SC (08:45)
[2017-12-11] MEDS: ATORVASTATIN 20 MG TAB PO (08:46)
[2017-12-11] MEDS: LIDOCAINE 5% (LIDODERM) PATCH TD (08:47)
[2017-12-11] MEDS: SILVER SULFADIAZINE 1% CR 50 GM JAR TOP ×4 (08:47→21:00)
[2017-12-11 11:50] LABS: BEDSIDE GLUCOSE 175 MG/DL (83-110)
[2017-12-11 17:06] LABS: BEDSIDE GLUCOSE 164 MG/DL (83-110)
[2017-12-11] MEDS: RIVAROXABAN 20 MG TAB (XARELTO) PO (17:47)
[2017-12-11] MEDS: **NOTE PATIENT COMMENT** MISC XX (21:00)
[2017-12-11 21:10] LABS: BEDSIDE GLUCOSE 172 MG/DL (83-110)
[2017-12-11] MEDS: ASPIRIN 81 MG ENTERIC TAB PO (21:22)
[2017-12-12] MEDS: PERCOCET 5MG/325MG TAB PO (05:21)
[2017-12-12] MEDS: IPRATROPIUM 0.5MG/ALBUTEROL 2.5MG INH SOL UD 3ML (DUONEB)(J7620) NEB ×2 (06:05→08:00)
[2017-12-12 06:47] LABS: HEMATOCRIT 35.2 % (42.0-52.0); MEAN CORPUSCULAR HGB CONC 31.3 g/dl (32.0-36.5); MEAN CORPUSCULAR VOLUME 86.5 fl (80.0-96.0); PLATELET COUNT, AUTOMATED 201 10^3/uL (150-450); RED BLOOD COUNT 4.07 10^6/uL (4.30-6.10); RED CELL DISTRIBUTION WIDTH 15.3 % (11.5-14.5)
[2017-12-12 07:06] LABS: ANION GAP 4 MEQ/L (8-16); BLOOD UREA NITROGEN 13 MG/DL (7-18); CALCIUM LEVEL 8.2 MG/DL (8.8-10.2); CARBON DIOXIDE LEVEL 32 MEQ/L (21-32); CHLORIDE LEVEL 104 MEQ/L (98-107); CREATININE FOR GFR 0.72 MG/DL (0.70-1.30); GLOMERULAR FILTRATION RATE > 60.0 (>42); GLUCOSE, FASTING 114 MG/DL (83-110); POTASSIUM SERUM 4.2 MEQ/L (3.5-5.1); SODIUM LEVEL 140 MEQ/L (136-145)
[2017-12-12] MEDS: predniSONE 10 MG TAB PO (08:14)
[2017-12-12] MEDS: LACTOBACILLUS ACIDOPHILUS CAP (BACID) PO (08:14)
[2017-12-12] MEDS: ATORVASTATIN 20 MG TAB PO (08:14)
[2017-12-12] MEDS: OMEPRAZOLE 20 MG CAP PO (08:14)
[2017-12-12] MEDS: METOPROLOL TARTRATE 100 MG TAB PO (08:16)
[2017-12-12] MEDS: DIGOXIN 0.25 MG TAB PO (08:16)
[2017-12-12] MEDS: LEVEMIR (INSULIN DETEMIR) 1 UNITS/0.01ML SC (08:17)
[2017-12-12] MEDS: HumaLOG INSULIN (NovoLOG) PER UNIT SC (08:17)
[2017-12-12] MEDS: SILVER SULFADIAZINE 1% CR 50 GM JAR TOP (08:18)
[2017-12-12] MEDS: LIDOCAINE 5% (LIDODERM) PATCH TD (08:18)
[2017-12-12] MEDS: ADVAIR HFA 230/21MCG INHALER INH (08:35)
[2017-12-12 13:36] LABS: BEDSIDE GLUCOSE 216 MG/DL (83-110)
== END 2017-12-12 12:00 | DRG 871 ==
LOC: M ICU 11-28 03:00 → M PCU 12-01 17:21 → M MSPAV 12-06 16:13 → M ED 11:04 → M ED INP 14:49 → M PCU 16:45
PROC: 0BH17EZ Insertion of Endotracheal Airway into Trachea, Via Natural or Artificial Opening (ICD-10-PCS; principal; 2017-11-28)
PROC: 0BC58ZZ Extirpation of Matter from Right Middle Lobe Bronchus, Via Natural or Artificial Opening Endoscopic (ICD-10-PCS; 2017-11-28)
PROC: 0BC78ZZ Extirpation of Matter from Left Main Bronchus, Via Natural or Artificial Opening Endoscopic (ICD-10-PCS; 2017-11-28)
PROC: 02HV33Z Insertion of Infusion Device into Superior Vena Cava, Percutaneous Approach (ICD-10-PCS; 2017-11-28)
PROC: 5A1945Z Respiratory Ventilation, 24-96 Consecutive Hours (ICD-10-PCS; 2017-11-28)
DX: A41.9 Sepsis, unspecified organism (principal); J15.212 Pneumonia due to Methicillin resistant Staphylococcus aureus; I50.33 Acute on chronic diastolic (congestive) heart failure; J96.21 Acute and chronic respiratory failure with hypoxia; A04.72 Enterocolitis due to Clostridium difficile, not specified as recurrent; N17.9 Acute kidney failure, unspecified; R11.2 Nausea with vomiting, unspecified; I27.29 Other secondary pulmonary hypertension; I48.91 Unspecified atrial fibrillation; G47.33 Obstructive sleep apnea (adult) (pediatric); I45.10 Unspecified right bundle-branch block; J44.9 Chronic obstructive pulmonary disease, unspecified; I11.0 Hypertensive heart disease with heart failure; E78.5 Hyperlipidemia, unspecified; K21.9 Gastro-esophageal reflux disease without esophagitis; F41.0 Panic disorder [episodic paroxysmal anxiety]; J45.40 Moderate persistent asthma, uncomplicated; E11.40 Type 2 diabetes mellitus with diabetic neuropathy, unspecified; I25.10 Atherosclerotic heart disease of native coronary artery without angina pectoris; Z95.1 Presence of aortocoronary bypass graft; Z86.14 Personal history of Methicillin resistant Staphylococcus aureus infection; Z99.81 Dependence on supplemental oxygen; Z85.820 Personal history of malignant melanoma of skin; Z79.82 Long term (current) use of aspirin; Z79.4 Long term (current) use of insulin; Z79.899 Other long term (current) drug therapy; Z79.52 Long term (current) use of systemic steroids; Z88.8 Allergy status to other drugs, medicaments and biological substances; Z79.01 Long term (current) use of anticoagulants

== ENCOUNTER → 2017-12-16 | Outpatient (REF) | DX: Z86.14 Personal history of Methicillin resistant Staphylococcus aureus infection (principal) ==

== ENCOUNTER → 2017-12-20 | Outpatient (REF) ==
[2017-12-17 09:12] LABS: HEMATOCRIT 37.6 % (42.0-52.0); HEMOGLOBIN 11.8 g/dl (14.0-18.0); MEAN CORPUSCULAR HEMOGLOBIN 27.1 pg (27.0-33.0); MEAN CORPUSCULAR HGB CONC 31.4 g/dl (32.0-36.5); MEAN CORPUSCULAR VOLUME 86.4 fl (80.0-96.0); PLATELET COUNT, AUTOMATED 312 10^3/uL (150-450); RED BLOOD COUNT 4.35 10^6/uL (4.30-6.10); WHITE BLOOD COUNT 12.1 10^3/uL (4.0-10.0)
[2017-12-17 09:32] LABS: ANION GAP 8 MEQ/L (8-16); BLOOD UREA NITROGEN 32 MG/DL (7-18); CALCIUM LEVEL 8.9 MG/DL (8.8-10.2); CARBON DIOXIDE LEVEL 41 MEQ/L (21-32); CHLORIDE LEVEL 90 MEQ/L (98-107); CREATININE FOR GFR 1.28 MG/DL (0.70-1.30); GLOMERULAR FILTRATION RATE 58.3 (>42); GLUCOSE, FASTING 125 MG/DL (70-100); POTASSIUM SERUM 3.8 MEQ/L (3.5-5.1); SODIUM LEVEL 139 MEQ/L (136-145)
== END ==
DX: I48.91 Unspecified atrial fibrillation (principal)

== ENCOUNTER → 2017-12-23 | Outpatient (REF) | payer MEDICARE, OTHER | DX: Z22.322 Carrier or suspected carrier of Methicillin resistant Staphylococcus aureus (principal) | CPT/HCPCS: 87081 ==

== ENCOUNTER → 2017-12-24 | Outpatient (REF) | payer MEDICARE, OTHER ==
[2017-12-24 12:22] LABS: HEMATOCRIT 42.1 % (42.0-52.0); HEMOGLOBIN 12.9 g/dl (14.0-18.0); MEAN CORPUSCULAR HEMOGLOBIN 27.1 pg (27.0-33.0); MEAN CORPUSCULAR HGB CONC 30.6 g/dl (32.0-36.5); MEAN CORPUSCULAR VOLUME 88.4 fl (80.0-96.0); PLATELET COUNT, AUTOMATED 299 10^3/uL (150-450); RED BLOOD COUNT 4.76 10^6/uL (4.30-6.10); RED CELL DISTRIBUTION WIDTH 16.1 % (11.5-14.5); WHITE BLOOD COUNT 21.4 10^3/uL (4.0-10.0)
[2017-12-24 13:13] LABS: ANION GAP 8 MEQ/L (8-16); BLOOD UREA NITROGEN 19 MG/DL (7-18); CALCIUM LEVEL 8.3 MG/DL (8.8-10.2); CARBON DIOXIDE LEVEL 41 MEQ/L (21-32); CHLORIDE LEVEL 89 MEQ/L (98-107); CREATININE FOR GFR 1.04 MG/DL (0.70-1.30); GLOMERULAR FILTRATION RATE > 60.0 (>42); GLUCOSE, FASTING 57 MG/DL (70-100); NT-PRO BNP 2833 PG/ML (<450); POTASSIUM SERUM 3.4 MEQ/L (3.5-5.1); SODIUM LEVEL 138 MEQ/L (136-145)
[2017-12-24 14:24] LABS: INFLUENZA A AMPLIFICATION NEGATIVE (NEGATIVE); INFLUENZA B AMPLIFICATION NEGATIVE (NEGATIVE)
== END ==
DX: J44.9 Chronic obstructive pulmonary disease, unspecified (principal); I50.9 Heart failure, unspecified
CPT/HCPCS: 80048

== ENCOUNTER → 2017-12-25 | Outpatient (REF) | payer MEDICARE, OTHER ==
[2017-12-25 08:55] LABS: HEMATOCRIT 38.8 % (42.0-52.0); HEMOGLOBIN 12.1 g/dl (14.0-18.0); MEAN CORPUSCULAR HEMOGLOBIN 27.4 pg (27.0-33.0); MEAN CORPUSCULAR HGB CONC 31.2 g/dl (32.0-36.5); PLATELET COUNT, AUTOMATED 239 10^3/uL (150-450); RED BLOOD COUNT 4.41 10^6/uL (4.30-6.10); RED CELL DISTRIBUTION WIDTH 16.4 % (11.5-14.5); WHITE BLOOD COUNT 21.3 10^3/uL (4.0-10.0)
[2017-12-25 09:16] LABS: ANION GAP 8 MEQ/L (8-16); BLOOD UREA NITROGEN 24 MG/DL (7-18); CALCIUM LEVEL 8.2 MG/DL (8.8-10.2); CARBON DIOXIDE LEVEL 41 MEQ/L (21-32); CHLORIDE LEVEL 90 MEQ/L (98-107); CREATININE FOR GFR 1.37 MG/DL (0.70-1.30); GLOMERULAR FILTRATION RATE 53.9 (>42); GLUCOSE, FASTING 136 MG/DL (70-100); POTASSIUM SERUM 3.7 MEQ/L (3.5-5.1); SODIUM LEVEL 139 MEQ/L (136-145)
== END ==
DX: D72.829 Elevated white blood cell count, unspecified (principal)
CPT/HCPCS: 80048

== ENCOUNTER → 2017-12-30 | Outpatient (REF) | DX: Z00.00 Encounter for general adult medical examination without abnormal findings (principal) ==

== ENCOUNTER → 2018-01-08 | Outpatient (REF) ==
[2018-01-08 18:47] LABS: ANION GAP 12 MEQ/L (8-16); BLOOD UREA NITROGEN 19 MG/DL (7-18); CALCIUM LEVEL 7.9 MG/DL (8.8-10.2); CARBON DIOXIDE LEVEL 37 MEQ/L (21-32); CHLORIDE LEVEL 92 MEQ/L (98-107); CREATININE FOR GFR 1.12 MG/DL (0.70-1.30); GLOMERULAR FILTRATION RATE > 60.0 (>42); GLUCOSE, FASTING 224 MG/DL (70-100); POTASSIUM SERUM 3.7 MEQ/L (3.5-5.1); SODIUM LEVEL 141 MEQ/L (136-145)
[2018-01-08 18:49] LABS: HEMATOCRIT 39.3 % (42.0-52.0); HEMOGLOBIN 12.3 g/dl (14.0-18.0); MEAN CORPUSCULAR HEMOGLOBIN 27.1 pg (27.0-33.0); MEAN CORPUSCULAR HGB CONC 31.3 g/dl (32.0-36.5); MEAN CORPUSCULAR VOLUME 86.6 fl (80.0-96.0); PLATELET COUNT, AUTOMATED 247 10^3/uL (150-450); RED BLOOD COUNT 4.54 10^6/uL (4.30-6.10); RED CELL DISTRIBUTION WIDTH 17.2 % (11.5-14.5); WHITE BLOOD COUNT 13.3 10^3/uL (4.0-10.0)
== END ==
DX: R42 Dizziness and giddiness (principal)

== ENCOUNTER 2018-03-08 10:04 | Inpatient (IN) | payer MEDICARE, MEDICAID, OTHER ==
[2018-03-08 10:36] LABS: BASO # 0.1 10^3/uL (0.0-0.2); BASO % 0.4 % (0.0-1.0); EOS # 0.3 10^3/uL (0.0-0.50); EOS % 2.2 % (0.0-3.0); HEMATOCRIT 36.3 % (42.0-52.0); HEMOGLOBIN 10.8 g/dl (13.5-17.5); IMMATURE GRANULOCYTE % 0.9 % (0-3.0); LYMPH # 0.8 10^3/uL (1.5-4.5); LYMPH % 5.6 % (24.0-44.0); MEAN CORPUSCULAR HEMOGLOBIN 25.5 pg (27.0-33.0); MEAN CORPUSCULAR HGB CONC 29.8 g/dl (32.0-36.5); MEAN CORPUSCULAR VOLUME 85.8 fl (80.0-96.0); MONO # 1.6 10^3/uL (0.0-0.8); MONO % 11.5 % (0.0-5.0); NEUTROPHILS % 79.4 % (36.0-66.0); PLATELET COUNT, AUTOMATED 191 10^3/uL (150-450); RED BLOOD COUNT 4.23 10^6/uL (4.30-6.10); RED CELL DISTRIBUTION WIDTH 18.1 % (11.5-14.5); WHITE BLOOD COUNT 13.8 10^3/uL (4.0-10.0)
[2018-03-08] MEDS: METOPROLOL 5 MG/5 ML VIAL IV ×3 (10:39→10:52)
[2018-03-08 10:52] LABS: LACTIC ACID SEPSIS PROTOCOL 1.9 MMOL/L (0.4-2.0)
[2018-03-08 11:03] LABS: ALBUMIN 2.8 GM/DL (3.2-5.2); ALBUMIN/GLOBULIN RATIO 0.76 (1.00-1.93); ALKALINE PHOSPHATASE 179 U/L (45-117); ALT/SGPT 40 U/L (12-78); ANION GAP 4 MEQ/L (8-16); AST/SGOT 42 U/L (7-37); BILIRUBIN,DIRECT 0.2 MG/DL (0.0-0.2); BILIRUBIN,TOTAL 0.7 MG/DL (0.2-1.0); BLOOD UREA NITROGEN 22 MG/DL (7-18); CALCIUM LEVEL 8.7 MG/DL (8.8-10.2); CARBON DIOXIDE LEVEL 36 MEQ/L (21-32); CHLORIDE LEVEL 101 MEQ/L (98-107); CREATININE FOR GFR 1.22 MG/DL (0.70-1.30); DIGOXIN LEVEL 0.1 NG/ML (0.5-2.0); GLOMERULAR FILTRATION RATE > 60.0 (>42); GLUCOSE, FASTING 136 MG/DL (70-100); NT-PRO BNP 7320 PG/ML (<450); POTASSIUM SERUM 4.3 MEQ/L (3.5-5.1); SODIUM LEVEL 141 MEQ/L (136-145); TOTAL PROTEIN 6.5 GM/DL (6.4-8.2)
[2018-03-08] MEDS: FUROSEMIDE 40 MG/4 ML VIAL (J1940) IV (11:20)
[2018-03-08] MEDS ORDERED: ACETAMINOPHEN TAB 650MG DOSE (2X325MG) As Ordered (11:46)
[2018-03-08 11:51] LABS: INFLUENZA A AMPLIFICATION NEGATIVE (NEGATIVE); INFLUENZA B AMPLIFICATION NEGATIVE (NEGATIVE)
[2018-03-08] MEDS: DIGOXIN 0.25 MG TAB PO (11:51)
[2018-03-08] MEDS: ACETAMINOPHEN TAB 650MG DOSE (2X325MG) PO (11:51)
[2018-03-08] MEDS: METOPROLOL SUCC (TopROL XL) 100MG *XL* TAB PO (11:51)
[2018-03-08] MEDS: PIPERACILLIN/TAZOBACTAM SOD 3.375 GM in APPROPRIATE DILUENT 1 EA IV ×2 (12:04→19:51)
[2018-03-08 12:40] LABS: CPK CREATINE PHOSPHOKINASE 18 U/L (39-308); TROPONIN I 0.03 NG/ML (< 0.10)
[2018-03-08] MEDS: DIGOXIN INJ 0.5 MG/2 ML AMP (J1160) IV (12:41)
[2018-03-08] MEDS ORDERED: DEXTROSE 50% 50 ML SYRINGE IV (12:45)
[2018-03-08] MEDS ORDERED: GLUCOSE 4 GM CHEW TABLET PO (12:45)
[2018-03-08] MEDS ORDERED: GLUCAGON FOR INJ 1 MG VIAL (J1610) SC (12:45)
[2018-03-08 12:55] LABS: CK-MB VALUE MASS < 1.0 NG/ML (<3.6); MB/CK RELATIVE INDEX 5.55 (< OR =4)
[2018-03-08 14:08] LABS: APPEARANCE, URINE CLEAR (CLEAR); BACTERIA, URINE AUTO NEGATIVE (NEGATIVE); BILIRUBIN, URINE AUTO NEGATIVE (NEGATIVE); BLOOD, URINE BLOOD NEGATIVE (NEGATIVE); COLOR, URINE YELLOW (YELLOW); GLUCOSE, URINE (UA) AUTO NEGATIVE (NEGATIVE); KETONE, URINE AUTO NEGATIVE (NEGATIVE); LEUKOCYTE ESTERASE, URINE AUTO NEGATIVE (NEGATIVE); NITRITE, URINE AUTO NEGATIVE (NEGATIVE); PROTEIN, URINE AUTO NEGATIVE (NEGATIVE); RBC, URINE AUTO 2 /HPF (0-3); SQUAMOUS EPITHELIAL CELL UR AU 0 /HPF (0-6); UROBILINOGEN, URINE AUTO 0.2 mg/dL (0.0-2.0); WBC, URINE AUTO 1 /HPF (0-3)
[2018-03-08 15:49] LABS: FREE T4 1.07 NG/DL (0.76-1.46); THYROID STIMULATING HORMONE 0.853 uIU/ML (0.358-3.740)
[2018-03-08] MEDS: ATORVASTATIN 20 MG TAB PO (16:32)
[2018-03-08] MEDS: GABAPENTIN 100 MG CAP PO ×2 (16:32→21:34)
[2018-03-08] MEDS: VANCOMYCIN HCL 1,000 MG, VIAL MATE ADAPTER 1 EACH in D5W 250 ML IV (16:32)
[2018-03-08] MEDS: predniSONE 10 MG TAB PO (16:32)
[2018-03-08 17:54] LABS: CK-MB VALUE MASS < 1.0 NG/ML (<3.6); CPK CREATINE PHOSPHOKINASE 18 U/L (39-308); MB/CK RELATIVE INDEX 5.55 (< OR =4); TROPONIN I 0.06 NG/ML (< 0.10)
[2018-03-08] MEDS: FUROSEMIDE 100 MG/10 ML VIAL (J1940) IV (18:23)
[2018-03-08] MEDS: METOPROLOL TART 50 MG TAB PO (18:23)
[2018-03-08] MEDS: HumaLOG INSULIN (NovoLOG) PER UNIT SC ×2 (18:24→21:00)
[2018-03-08] MEDS: ADVAIR HFA 230/21MCG INHALER INH (19:59)
[2018-03-08] MEDS: LEVEMIR (INSULIN DETEMIR) 1 UNITS/0.01ML SC (21:00)
[2018-03-08 21:29] LABS: BEDSIDE GLUCOSE 111 MG/DL (83-110)
[2018-03-08 21:29] LABS: BEDSIDE GLUCOSE 139 MG/DL (83-110)
[2018-03-08] MEDS: SERTRALINE HCL 50 MG TAB PO (21:34)
[2018-03-08] MEDS: ASPIRIN 81 MG ENTERIC TAB PO (21:34)
[2018-03-08] MEDS: RIVAROXABAN 15 MG TAB (XARELTO) PO (21:34)
[2018-03-09] MEDS: FUROSEMIDE 100 MG/10 ML VIAL (J1940) IV ×5 (00:06→23:22)
[2018-03-09] MEDS: METOPROLOL TART 50 MG TAB PO ×5 (00:07→23:23)
[2018-03-09 00:17] LABS: CPK CREATINE PHOSPHOKINASE 19 U/L (39-308); TROPONIN I 0.08 NG/ML (< 0.10)
[2018-03-09 00:18] LABS: CK-MB VALUE MASS < 1.0 NG/ML (<3.6); MB/CK RELATIVE INDEX 5.26 (< OR =4)
[2018-03-09 04:16] LABS: BASO % 0.4 % (0.0-1.0); EOS # 0.1 10^3/uL (0.0-0.50); EOS % 0.9 % (0.0-3.0); HEMATOCRIT 33.4 % (42.0-52.0); IMMATURE GRANULOCYTE % 0.7 % (0-3.0); LYMPH # 0.6 10^3/uL (1.5-4.5); LYMPH % 6.3 % (24.0-44.0); MEAN CORPUSCULAR HEMOGLOBIN 24.8 pg (27.0-33.0); MEAN CORPUSCULAR HGB CONC 29.9 g/dl (32.0-36.5); MEAN CORPUSCULAR VOLUME 82.7 fl (80.0-96.0); MONO # 1.2 10^3/uL (0.0-0.8); MONO % 11.4 % (0.0-5.0); NEUTROPHILS # 8.1 10^3/uL (1.8-7.7); NEUTROPHILS % 80.3 % (36.0-66.0); PLATELET COUNT, AUTOMATED 188 10^3/uL (150-450); RED BLOOD COUNT 4.04 10^6/uL (4.30-6.10); RED CELL DISTRIBUTION WIDTH 17.4 % (11.5-14.5); WHITE BLOOD COUNT 10.1 10^3/uL (4.0-10.0)
[2018-03-09] MEDS: PIPERACILLIN/TAZOBACTAM SOD 3.375 GM in APPROPRIATE DILUENT 1 EA IV ×3 (04:24→20:03)
[2018-03-09] MEDS: VANCOMYCIN HCL 1,000 MG, VIAL MATE ADAPTER 1 EACH in D5W 250 ML IV ×3 (04:24→23:22)
[2018-03-09 04:51] LABS: ALBUMIN 2.6 GM/DL (3.2-5.2); ALBUMIN/GLOBULIN RATIO 0.72 (1.00-1.93); ALKALINE PHOSPHATASE 143 U/L (45-117); ALT/SGPT 36 U/L (12-78); ANION GAP 5 MEQ/L (8-16); AST/SGOT 25 U/L (7-37); BILIRUBIN,TOTAL 1.1 MG/DL (0.2-1.0); BLOOD UREA NITROGEN 21 MG/DL (7-18); CALCIUM LEVEL 8.3 MG/DL (8.8-10.2); CARBON DIOXIDE LEVEL 37 MEQ/L (21-32); CHLORIDE LEVEL 98 MEQ/L (98-107); CREATININE FOR GFR 1.12 MG/DL (0.70-1.30); DIGOXIN LEVEL 1.2 NG/ML (0.5-2.0); GLOMERULAR FILTRATION RATE > 60.0 (>42); GLUCOSE, FASTING 111 MG/DL (70-100); MAGNESIUM LEVEL 2.4 MG/DL (1.8-2.4); POTASSIUM SERUM 3.4 MEQ/L (3.5-5.1); SODIUM LEVEL 140 MEQ/L (136-145); TOTAL PROTEIN 6.2 GM/DL (6.4-8.2)
[2018-03-09] MEDS: HumaLOG INSULIN (NovoLOG) PER UNIT SC ×4 (07:30→20:58)
[2018-03-09] MEDS: ADVAIR HFA 230/21MCG INHALER INH ×2 (07:36→19:23)
[2018-03-09] MEDS: POTASSIUM CHLORIDE 10 MEQ SR TABLET PO (07:41)
[2018-03-09 07:43] LABS: BEDSIDE GLUCOSE 109 MG/DL (83-110)
[2018-03-09] MEDS: PANTOPRAZOLE 40MG INJ (PROTONIX) (C9113) IV (09:07)
[2018-03-09] MEDS: GABAPENTIN 100 MG CAP PO ×3 (09:08→20:58)
[2018-03-09] MEDS: DIGOXIN 0.25 MG TAB PO (09:08)
[2018-03-09] MEDS: SERTRALINE HCL 50 MG TAB PO ×2 (09:09→20:58)
[2018-03-09] MEDS: predniSONE 10 MG TAB PO (09:09)
[2018-03-09] MEDS: ATORVASTATIN 20 MG TAB PO (09:09)
[2018-03-09 12:57] LABS: BEDSIDE GLUCOSE 132 MG/DL (83-110)
[2018-03-09 17:51] LABS: BEDSIDE GLUCOSE 129 MG/DL (83-110)
[2018-03-09] MEDS: LEVEMIR (INSULIN DETEMIR) 1 UNITS/0.01ML SC (20:58)
[2018-03-09] MEDS: RIVAROXABAN 15 MG TAB (XARELTO) PO (20:58)
[2018-03-09] MEDS: ASPIRIN 81 MG ENTERIC TAB PO (20:58)
[2018-03-09 20:59] LABS: BEDSIDE GLUCOSE 130 MG/DL (83-110)
[2018-03-10] MEDS: PIPERACILLIN/TAZOBACTAM SOD 3.375 GM in APPROPRIATE DILUENT 1 EA IV ×3 (04:05→19:58)
[2018-03-10 04:28] LABS: BASO % 0.4 % (0.0-1.0); EOS # 0.3 10^3/uL (0.0-0.50); EOS % 3.4 % (0.0-3.0); HEMATOCRIT 35.3 % (42.0-52.0); HEMOGLOBIN 10.7 g/dl (13.5-17.5); IMMATURE GRANULOCYTE % 0.5 % (0-3.0); LYMPH # 0.9 10^3/uL (1.5-4.5); MEAN CORPUSCULAR HEMOGLOBIN 25.1 pg (27.0-33.0); MEAN CORPUSCULAR HGB CONC 30.3 g/dl (32.0-36.5); MEAN CORPUSCULAR VOLUME 82.7 fl (80.0-96.0); MONO # 1.3 10^3/uL (0.0-0.8); MONO % 13.2 % (0.0-5.0); NEUTROPHILS # 7.4 10^3/uL (1.8-7.7); NEUTROPHILS % 73.5 % (36.0-66.0); PLATELET COUNT, AUTOMATED 219 10^3/uL (150-450); RED BLOOD COUNT 4.27 10^6/uL (4.30-6.10); RED CELL DISTRIBUTION WIDTH 17.1 % (11.5-14.5); WHITE BLOOD COUNT 10.1 10^3/uL (4.0-10.0)
[2018-03-10 04:47] LABS: ALBUMIN 2.5 GM/DL (3.2-5.2); ALBUMIN/GLOBULIN RATIO 0.69 (1.00-1.93); ALKALINE PHOSPHATASE 122 U/L (45-117); ALT/SGPT 31 U/L (12-78); ANION GAP 7 MEQ/L (8-16); AST/SGOT 26 U/L (7-37); BILIRUBIN,TOTAL 0.8 MG/DL (0.2-1.0); BLOOD UREA NITROGEN 20 MG/DL (7-18); CALCIUM LEVEL 8.3 MG/DL (8.8-10.2); CARBON DIOXIDE LEVEL 36 MEQ/L (21-32); CHLORIDE LEVEL 97 MEQ/L (98-107); CREATININE FOR GFR 1.09 MG/DL (0.70-1.30); GLOMERULAR FILTRATION RATE > 60.0 (>42); GLUCOSE, FASTING 93 MG/DL (70-100); MAGNESIUM LEVEL 2.5 MG/DL (1.8-2.4); POTASSIUM SERUM 3.5 MEQ/L (3.5-5.1); SODIUM LEVEL 140 MEQ/L (136-145); TOTAL PROTEIN 6.1 GM/DL (6.4-8.2)
[2018-03-10] MEDS: FUROSEMIDE 100 MG/10 ML VIAL (J1940) IV ×2 (05:53→12:00)
[2018-03-10] MEDS: METOPROLOL TART 50 MG TAB PO ×3 (05:54→18:00)
[2018-03-10] MEDS: ADVAIR HFA 230/21MCG INHALER INH ×2 (06:59→20:29)
[2018-03-10] MEDS: HumaLOG INSULIN (NovoLOG) PER UNIT SC ×4 (07:12→20:00)
[2018-03-10] MEDS: NS 1,000 ML IV (08:45)
[2018-03-10] MEDS: PANTOPRAZOLE 40MG INJ (PROTONIX) (C9113) IV (09:18)
[2018-03-10] MEDS: DIGOXIN 0.25 MG TAB PO (09:18)
[2018-03-10] MEDS: ATORVASTATIN 20 MG TAB PO (09:18)
[2018-03-10] MEDS: predniSONE 10 MG TAB PO (09:18)
[2018-03-10] MEDS: SERTRALINE HCL 50 MG TAB PO ×2 (09:18→19:59)
[2018-03-10] MEDS: GABAPENTIN 100 MG CAP PO ×3 (09:18→20:00)
[2018-03-10 10:22] LABS: VANCOMYCIN LEVEL TROUGH 18.9 UG/ML (10.0-20.0)
[2018-03-10 10:50] LABS: TOTAL T3 83.2 NG/DL (60.0-181.0)
[2018-03-10] MEDS: VANCOMYCIN HCL 1,000 MG, VIAL MATE ADAPTER 1 EACH in D5W 250 ML IV (11:07)
[2018-03-10 11:55] LABS: APPEARANCE, URINE CLEAR (CLEAR); BACTERIA, URINE AUTO NEGATIVE (NEGATIVE); BILIRUBIN, URINE AUTO NEGATIVE (NEGATIVE); BLOOD, URINE BLOOD 2+ (NEGATIVE); COLOR, URINE YELLOW (YELLOW); GLUCOSE, URINE (UA) AUTO NEGATIVE (NEGATIVE); KETONE, URINE AUTO NEGATIVE (NEGATIVE); LEUKOCYTE ESTERASE, URINE AUTO TRACE (NEGATIVE); MUCUS, URINE SMALL (NEGATIVE); NITRITE, URINE AUTO NEGATIVE (NEGATIVE); PROTEIN, URINE AUTO NEGATIVE (NEGATIVE); RBC, URINE AUTO 73 /HPF (0-3); SPECIFIC GRAVITY URINE AUTO 1.012 (1.002-1.035); SQUAMOUS EPITHELIAL CELL UR AU 0 /HPF (0-6); WBC, URINE AUTO 12 /HPF (0-3)
[2018-03-10 11:59] LABS: BEDSIDE GLUCOSE 239 MG/DL (83-110)
[2018-03-10 16:56] LABS: BEDSIDE GLUCOSE 137 MG/DL (83-110)
[2018-03-10 19:45] LABS: BEDSIDE GLUCOSE 210 MG/DL (83-110)
[2018-03-10] MEDS: LEVEMIR (INSULIN DETEMIR) 1 UNITS/0.01ML SC (19:58)
[2018-03-10] MEDS: RIVAROXABAN 15 MG TAB (XARELTO) PO (19:59)
[2018-03-10] MEDS: OMEPRAZOLE 20 MG CAP PO (19:59)
[2018-03-10] MEDS: ASPIRIN 81 MG ENTERIC TAB PO (20:00)
[2018-03-10] MEDS: ALBUTEROL SULFATE 2.5 MG/0.5 ML INH NEB SOLN NEB (20:00)
[2018-03-11] MEDS: FUROSEMIDE 100 MG/10 ML VIAL (J1940) IV (00:10)
[2018-03-11] MEDS: METOPROLOL TART 50 MG TAB PO ×4 (01:28→17:51)
[2018-03-11] MEDS: PIPERACILLIN/TAZOBACTAM SOD 3.375 GM in APPROPRIATE DILUENT 1 EA IV ×3 (04:32→20:44)
[2018-03-11 05:06] LABS: BASO % 0.4 % (0.0-1.0); EOS # 0.4 10^3/uL (0.0-0.50); EOS % 3.6 % (0.0-3.0); HEMATOCRIT 36.6 % (42.0-52.0); HEMOGLOBIN 11.1 g/dl (13.5-17.5); IMMATURE GRANULOCYTE % 0.6 % (0-3.0); LYMPH # 1.1 10^3/uL (1.5-4.5); LYMPH % 10.1 % (24.0-44.0); MEAN CORPUSCULAR HEMOGLOBIN 24.8 pg (27.0-33.0); MEAN CORPUSCULAR HGB CONC 30.3 g/dl (32.0-36.5); MEAN CORPUSCULAR VOLUME 81.9 fl (80.0-96.0); MONO # 1.6 10^3/uL (0.0-0.8); MONO % 15.1 % (0.0-5.0); NEUTROPHILS # 7.5 10^3/uL (1.8-7.7); NEUTROPHILS % 70.2 % (36.0-66.0); PLATELET COUNT, AUTOMATED 244 10^3/uL (150-450); RED BLOOD COUNT 4.47 10^6/uL (4.30-6.10); RED CELL DISTRIBUTION WIDTH 17.1 % (11.5-14.5); WHITE BLOOD COUNT 10.6 10^3/uL (4.0-10.0)
[2018-03-11 05:25] LABS: ANION GAP 5 MEQ/L (8-16); AST/SGOT 28 U/L (7-37); BLOOD UREA NITROGEN 20 MG/DL (7-18); CALCIUM LEVEL 8.5 MG/DL (8.8-10.2); CARBON DIOXIDE LEVEL 39 MEQ/L (21-32); CHLORIDE LEVEL 97 MEQ/L (98-107); CREATININE FOR GFR 1.07 MG/DL (0.70-1.30); GLOMERULAR FILTRATION RATE > 60.0 (>42); GLUCOSE, FASTING 113 MG/DL (70-100); POTASSIUM SERUM 3.4 MEQ/L (3.5-5.1); SODIUM LEVEL 141 MEQ/L (136-145)
[2018-03-11 05:26] LABS: ALBUMIN 2.6 GM/DL (3.2-5.2); ALBUMIN/GLOBULIN RATIO 0.67 (1.00-1.93); ALKALINE PHOSPHATASE 135 U/L (45-117); ALT/SGPT 33 U/L (12-78); BILIRUBIN,TOTAL 0.7 MG/DL (0.2-1.0); C REACTIVE PROTEIN QUANTITATIV 7.97 MG/DL (0.00-0.30); MAGNESIUM LEVEL 2.4 MG/DL (1.8-2.4); TOTAL PROTEIN 6.5 GM/DL (6.4-8.2)
[2018-03-11] MEDS: ADVAIR HFA 230/21MCG INHALER INH (07:23)
[2018-03-11] MEDS: ALBUTEROL SULFATE 2.5 MG/0.5 ML INH NEB SOLN NEB ×4 (07:25→22:11)
[2018-03-11] MEDS: DIGOXIN 0.25 MG TAB PO (08:41)
[2018-03-11] MEDS: HumaLOG INSULIN (NovoLOG) PER UNIT SC ×4 (08:41→20:56)
[2018-03-11] MEDS: GABAPENTIN 100 MG CAP PO ×3 (08:42→20:45)
[2018-03-11] MEDS: SERTRALINE HCL 50 MG TAB PO ×2 (08:42→20:45)
[2018-03-11] MEDS: predniSONE 10 MG TAB PO (08:42)
[2018-03-11] MEDS: ATORVASTATIN 20 MG TAB PO (08:42)
[2018-03-11] MEDS: POTASSIUM CHLORIDE 10 MEQ SR TABLET PO (08:42)
[2018-03-11 11:49] LABS: BEDSIDE GLUCOSE 164 MG/DL (83-110)
[2018-03-11] MEDS: TORSEMIDE 20 MG TAB PO (12:51)
[2018-03-11] MEDS: ACETAMINOPHEN TAB 650MG DOSE (2X325MG) PO (12:53)
[2018-03-11 17:12] LABS: BEDSIDE GLUCOSE 228 MG/DL (83-110)
[2018-03-11] MEDS: OMEPRAZOLE 20 MG CAP PO (20:45)
[2018-03-11] MEDS: ASPIRIN 81 MG ENTERIC TAB PO (20:45)
[2018-03-11] MEDS: RIVAROXABAN 15 MG TAB (XARELTO) PO (20:45)
[2018-03-11] MEDS: LEVEMIR (INSULIN DETEMIR) 1 UNITS/0.01ML SC (20:46)
[2018-03-11 20:53] LABS: BEDSIDE GLUCOSE 212 MG/DL (83-110)
[2018-03-12] MEDS: METOPROLOL TART 50 MG TAB PO ×4 (00:59→18:51)
[2018-03-12] MEDS: ADVAIR HFA 230/21MCG INHALER INH ×3 (03:26→20:47)
[2018-03-12] MEDS: PIPERACILLIN/TAZOBACTAM SOD 3.375 GM in APPROPRIATE DILUENT 1 EA IV ×3 (04:54→21:13)
[2018-03-12 06:27] LABS: BASO # 0.1 10^3/uL (0.0-0.2); BASO % 0.7 % (0.0-1.0); EOS # 0.4 10^3/uL (0.0-0.50); EOS % 3.8 % (0.0-3.0); HEMATOCRIT 38.4 % (42.0-52.0); HEMOGLOBIN 11.4 g/dl (13.5-17.5); IMMATURE GRANULOCYTE % 0.7 % (0-3.0); LYMPH # 1.3 10^3/uL (1.5-4.5); LYMPH % 11.6 % (24.0-44.0); MEAN CORPUSCULAR HEMOGLOBIN 24.8 pg (27.0-33.0); MEAN CORPUSCULAR HGB CONC 29.7 g/dl (32.0-36.5); MEAN CORPUSCULAR VOLUME 83.5 fl (80.0-96.0); MONO # 1.8 10^3/uL (0.0-0.8); MONO % 16.1 % (0.0-5.0); NEUTROPHILS # 7.7 10^3/uL (1.8-7.7); NEUTROPHILS % 67.1 % (36.0-66.0); PLATELET COUNT, AUTOMATED 264 10^3/uL (150-450); WHITE BLOOD COUNT 11.4 10^3/uL (4.0-10.0)
[2018-03-12 06:43] LABS: ALBUMIN 2.8 GM/DL (3.2-5.2); ALBUMIN/GLOBULIN RATIO 0.68 (1.00-1.93); ALKALINE PHOSPHATASE 137 U/L (45-117); ALT/SGPT 34 U/L (12-78); ANION GAP 4 MEQ/L (8-16); AST/SGOT 25 U/L (7-37); BILIRUBIN,TOTAL 0.7 MG/DL (0.2-1.0); BLOOD UREA NITROGEN 20 MG/DL (7-18); C REACTIVE PROTEIN QUANTITATIV 6.72 MG/DL (0.00-0.30); CARBON DIOXIDE LEVEL 39 MEQ/L (21-32); CHLORIDE LEVEL 98 MEQ/L (98-107); CREATININE FOR GFR 1.18 MG/DL (0.70-1.30); GLOMERULAR FILTRATION RATE > 60.0 (>42); GLUCOSE, FASTING 116 MG/DL (70-100); MAGNESIUM LEVEL 2.4 MG/DL (1.8-2.4); POTASSIUM SERUM 3.9 MEQ/L (3.5-5.1); SODIUM LEVEL 141 MEQ/L (136-145); TOTAL PROTEIN 6.9 GM/DL (6.4-8.2)
[2018-03-12] MEDS: ALBUTEROL SULFATE 2.5 MG/0.5 ML INH NEB SOLN NEB ×4 (07:08→20:00)
[2018-03-12] MEDS: HumaLOG INSULIN (NovoLOG) PER UNIT SC ×4 (09:39→20:29)
[2018-03-12] MEDS: TORSEMIDE 20 MG TAB PO (09:39)
[2018-03-12] MEDS: ATORVASTATIN 20 MG TAB PO (09:40)
[2018-03-12] MEDS: SERTRALINE HCL 50 MG TAB PO ×2 (09:40→20:28)
[2018-03-12] MEDS: GABAPENTIN 100 MG CAP PO ×3 (09:40→20:28)
[2018-03-12] MEDS: predniSONE 10 MG TAB PO (09:40)
[2018-03-12] MEDS: DIGOXIN 0.25 MG TAB PO (09:41)
[2018-03-12 12:03] LABS: BEDSIDE GLUCOSE 142 MG/DL (83-110)
[2018-03-12 17:22] LABS: BEDSIDE GLUCOSE 173 MG/DL (83-110)
[2018-03-12] MEDS: ASPIRIN 81 MG ENTERIC TAB PO (20:28)
[2018-03-12] MEDS: RIVAROXABAN 15 MG TAB (XARELTO) PO (20:28)
[2018-03-12] MEDS: OMEPRAZOLE 20 MG CAP PO (20:28)
[2018-03-12] MEDS: LEVEMIR (INSULIN DETEMIR) 1 UNITS/0.01ML SC (20:29)
[2018-03-12 21:03] LABS: BEDSIDE GLUCOSE 244 MG/DL (83-110)
[2018-03-13] MEDS: METOPROLOL TART 50 MG TAB PO ×4 (00:08→17:19)
[2018-03-13] MEDS: PIPERACILLIN/TAZOBACTAM SOD 3.375 GM in APPROPRIATE DILUENT 1 EA IV ×3 (03:58→20:06)
[2018-03-13 06:42] LABS: BASO # 0.1 10^3/uL (0.0-0.2); BASO % 0.6 % (0.0-1.0); EOS # 0.6 10^3/uL (0.0-0.50); EOS % 5.6 % (0.0-3.0); HEMATOCRIT 37.5 % (42.0-52.0); HEMOGLOBIN 11.3 g/dl (13.5-17.5); IMMATURE GRANULOCYTE % 0.8 % (0-3.0); LYMPH # 1.4 10^3/uL (1.5-4.5); LYMPH % 12.8 % (24.0-44.0); MEAN CORPUSCULAR HEMOGLOBIN 24.6 pg (27.0-33.0); MEAN CORPUSCULAR HGB CONC 30.1 g/dl (32.0-36.5); MEAN CORPUSCULAR VOLUME 81.5 fl (80.0-96.0); MONO # 1.6 10^3/uL (0.0-0.8); NEUTROPHILS # 6.9 10^3/uL (1.8-7.7); NEUTROPHILS % 65.2 % (36.0-66.0); PLATELET COUNT, AUTOMATED 253 10^3/uL (150-450); RED CELL DISTRIBUTION WIDTH 16.6 % (11.5-14.5); WHITE BLOOD COUNT 10.6 10^3/uL (4.0-10.0)
[2018-03-13 07:12] LABS: ALBUMIN 2.6 GM/DL (3.2-5.2); ALBUMIN/GLOBULIN RATIO 0.68 (1.00-1.93); ALKALINE PHOSPHATASE 112 U/L (45-117); ALT/SGPT 32 U/L (12-78); ANION GAP 5 MEQ/L (8-16); AST/SGOT 24 U/L (7-37); BILIRUBIN,TOTAL 0.7 MG/DL (0.2-1.0); BLOOD UREA NITROGEN 19 MG/DL (7-18); C REACTIVE PROTEIN QUANTITATIV 3.91 MG/DL (0.00-0.30); CALCIUM LEVEL 8.7 MG/DL (8.8-10.2); CARBON DIOXIDE LEVEL 36 MEQ/L (21-32); CHLORIDE LEVEL 99 MEQ/L (98-107); CREATININE FOR GFR 1.08 MG/DL (0.70-1.30); GLOMERULAR FILTRATION RATE > 60.0 (>42); GLUCOSE, FASTING 89 MG/DL (70-100); MAGNESIUM LEVEL 2.3 MG/DL (1.8-2.4); POTASSIUM SERUM 3.1 MEQ/L (3.5-5.1); SODIUM LEVEL 140 MEQ/L (136-145); TOTAL PROTEIN 6.4 GM/DL (6.4-8.2)
[2018-03-13] MEDS: ADVAIR HFA 230/21MCG INHALER INH ×2 (07:23→20:40)
[2018-03-13] MEDS: ALBUTEROL SULFATE 2.5 MG/0.5 ML INH NEB SOLN NEB ×4 (07:24→20:00)
[2018-03-13] MEDS: HumaLOG INSULIN (NovoLOG) PER UNIT SC ×4 (07:30→21:00)
[2018-03-13] MEDS: POTASSIUM CHLORIDE 10 MEQ SR TABLET PO (08:47)
[2018-03-13] MEDS: GABAPENTIN 100 MG CAP PO ×3 (08:52→20:06)
[2018-03-13] MEDS: SERTRALINE HCL 50 MG TAB PO ×2 (08:52→20:06)
[2018-03-13] MEDS: TORSEMIDE 20 MG TAB PO (08:52)
[2018-03-13] MEDS: ATORVASTATIN 20 MG TAB PO (08:52)
[2018-03-13] MEDS: predniSONE 10 MG TAB PO (08:53)
[2018-03-13] MEDS: DIGOXIN 0.25 MG TAB PO (08:53)
[2018-03-13 11:35] LABS: BEDSIDE GLUCOSE 126 MG/DL (83-110)
[2018-03-13 16:55] LABS: BEDSIDE GLUCOSE 166 MG/DL (83-110)
[2018-03-13] MEDS: RIVAROXABAN 15 MG TAB (XARELTO) PO (20:06)
[2018-03-13] MEDS: OMEPRAZOLE 20 MG CAP PO (20:06)
[2018-03-13] MEDS: ASPIRIN 81 MG ENTERIC TAB PO (20:06)
[2018-03-13] MEDS: LEVEMIR (INSULIN DETEMIR) 1 UNITS/0.01ML SC (20:09)
[2018-03-13 20:59] LABS: BEDSIDE GLUCOSE 174 MG/DL (83-110)
[2018-03-14] MEDS: PIPERACILLIN/TAZOBACTAM SOD 3.375 GM in APPROPRIATE DILUENT 1 EA IV (03:33)
[2018-03-14] MEDS: METOPROLOL TART 50 MG TAB PO ×4 (05:35→18:06)
[2018-03-14 05:46] LABS: BASO # 0.1 10^3/uL (0.0-0.2); BASO % 0.7 % (0.0-1.0); EOS # 0.6 10^3/uL (0.0-0.50); EOS % 6.1 % (0.0-3.0); HEMATOCRIT 38.5 % (42.0-52.0); HEMOGLOBIN 11.7 g/dl (13.5-17.5); IMMATURE GRANULOCYTE % 1.1 % (0-3.0); LYMPH # 1.3 10^3/uL (1.5-4.5); LYMPH % 12.6 % (24.0-44.0); MEAN CORPUSCULAR HEMOGLOBIN 24.8 pg (27.0-33.0); MEAN CORPUSCULAR HGB CONC 30.4 g/dl (32.0-36.5); MEAN CORPUSCULAR VOLUME 81.7 fl (80.0-96.0); MONO # 1.5 10^3/uL (0.0-0.8); MONO % 14.3 % (0.0-5.0); NEUTROPHILS # 6.8 10^3/uL (1.8-7.7); NEUTROPHILS % 65.2 % (36.0-66.0); PLATELET COUNT, AUTOMATED 278 10^3/uL (150-450); RED BLOOD COUNT 4.71 10^6/uL (4.30-6.10); RED CELL DISTRIBUTION WIDTH 16.4 % (11.5-14.5); WHITE BLOOD COUNT 10.5 10^3/uL (4.0-10.0)
[2018-03-14 06:04] LABS: ALBUMIN 2.6 GM/DL (3.2-5.2); ALBUMIN/GLOBULIN RATIO 0.68 (1.00-1.93); ALKALINE PHOSPHATASE 114 U/L (45-117); ALT/SGPT 33 U/L (12-78); ANION GAP 4 MEQ/L (8-16); AST/SGOT 28 U/L (7-37); BILIRUBIN,TOTAL 0.6 MG/DL (0.2-1.0); BLOOD UREA NITROGEN 18 MG/DL (7-18); C REACTIVE PROTEIN QUANTITATIV 2.89 MG/DL (0.00-0.30); CALCIUM LEVEL 8.8 MG/DL (8.8-10.2); CARBON DIOXIDE LEVEL 37 MEQ/L (21-32); CHLORIDE LEVEL 102 MEQ/L (98-107); CREATININE FOR GFR 1.08 MG/DL (0.70-1.30); GLOMERULAR FILTRATION RATE > 60.0 (>42); GLUCOSE, FASTING 77 MG/DL (70-100); MAGNESIUM LEVEL 2.4 MG/DL (1.8-2.4); POTASSIUM SERUM 3.5 MEQ/L (3.5-5.1); SODIUM LEVEL 143 MEQ/L (136-145); TOTAL PROTEIN 6.4 GM/DL (6.4-8.2)
[2018-03-14 06:32] LABS: BEDSIDE GLUCOSE 81 MG/DL (83-110)
[2018-03-14] MEDS: ALBUTEROL SULFATE 2.5 MG/0.5 ML INH NEB SOLN NEB ×4 (07:34→20:00)
[2018-03-14] MEDS: ADVAIR HFA 230/21MCG INHALER INH ×2 (07:34→19:33)
[2018-03-14] MEDS: HumaLOG INSULIN (NovoLOG) PER UNIT SC ×4 (08:10→20:25)
[2018-03-14] MEDS: predniSONE 10 MG TAB PO (08:11)
[2018-03-14] MEDS: GABAPENTIN 100 MG CAP PO ×3 (08:12→20:25)
[2018-03-14] MEDS: DIGOXIN 0.25 MG TAB PO (08:12)
[2018-03-14] MEDS: SERTRALINE HCL 50 MG TAB PO ×2 (08:12→20:25)
[2018-03-14] MEDS: ATORVASTATIN 20 MG TAB PO (08:12)
[2018-03-14] MEDS: TORSEMIDE 20 MG TAB PO (09:19)
[2018-03-14 11:54] LABS: BEDSIDE GLUCOSE 168 MG/DL (83-110)
[2018-03-14] MEDS: ACETAMINOPHEN TAB 650MG DOSE (2X325MG) PO (12:09)
[2018-03-14 17:04] LABS: BEDSIDE GLUCOSE 205 MG/DL (83-110)
[2018-03-14] MEDS: RIVAROXABAN 15 MG TAB (XARELTO) PO (20:25)
[2018-03-14] MEDS: LEVEMIR (INSULIN DETEMIR) 1 UNITS/0.01ML SC (20:25)
[2018-03-14] MEDS: OMEPRAZOLE 20 MG CAP PO (20:25)
[2018-03-14] MEDS: ASPIRIN 81 MG ENTERIC TAB PO (20:25)
[2018-03-14 20:29] LABS: BEDSIDE GLUCOSE 132 MG/DL (83-110)
[2018-03-15] MEDS: METOPROLOL TART 50 MG TAB PO ×5 (00:48→23:28)
[2018-03-15 05:31] LABS: BASO # 0.1 10^3/uL (0.0-0.2); BASO % 0.8 % (0.0-1.0); EOS # 0.5 10^3/uL (0.0-0.50); EOS % 4.2 % (0.0-3.0); HEMOGLOBIN 11.7 g/dl (13.5-17.5); LYMPH # 1.4 10^3/uL (1.5-4.5); LYMPH % 12.5 % (24.0-44.0); MEAN CORPUSCULAR HEMOGLOBIN 24.7 pg (27.0-33.0); MEAN CORPUSCULAR VOLUME 82.5 fl (80.0-96.0); MONO # 1.5 10^3/uL (0.0-0.8); MONO % 12.8 % (0.0-5.0); NEUTROPHILS # 7.9 10^3/uL (1.8-7.7); NEUTROPHILS % 68.7 % (36.0-66.0); PLATELET COUNT, AUTOMATED 267 10^3/uL (150-450); RED BLOOD COUNT 4.73 10^6/uL (4.30-6.10); RED CELL DISTRIBUTION WIDTH 16.7 % (11.5-14.5); WHITE BLOOD COUNT 11.5 10^3/uL (4.0-10.0)
[2018-03-15 05:56] LABS: ALBUMIN 2.6 GM/DL (3.2-5.2); ALKALINE PHOSPHATASE 109 U/L (45-117); ALT/SGPT 35 U/L (12-78); ANION GAP 6 MEQ/L (8-16); AST/SGOT 28 U/L (7-37); BILIRUBIN,TOTAL 0.6 MG/DL (0.2-1.0); BLOOD UREA NITROGEN 17 MG/DL (7-18); CALCIUM LEVEL 8.8 MG/DL (8.8-10.2); CARBON DIOXIDE LEVEL 36 MEQ/L (21-32); CHLORIDE LEVEL 100 MEQ/L (98-107); CREATININE FOR GFR 0.96 MG/DL (0.70-1.30); GLOMERULAR FILTRATION RATE > 60.0 (>42); GLUCOSE, FASTING 89 MG/DL (70-100); MAGNESIUM LEVEL 2.1 MG/DL (1.8-2.4); POTASSIUM SERUM 3.2 MEQ/L (3.5-5.1); SODIUM LEVEL 142 MEQ/L (136-145); TOTAL PROTEIN 6.3 GM/DL (6.4-8.2)
[2018-03-15] MEDS: ALBUTEROL SULFATE 2.5 MG/0.5 ML INH NEB SOLN NEB ×4 (07:13→19:29)
[2018-03-15] MEDS: ADVAIR HFA 230/21MCG INHALER INH ×2 (07:13→19:29)
[2018-03-15] MEDS: HumaLOG INSULIN (NovoLOG) PER UNIT SC ×4 (07:30→20:29)
[2018-03-15] MEDS: TORSEMIDE 20 MG TAB PO (08:09)
[2018-03-15] MEDS: predniSONE 10 MG TAB PO (08:09)
[2018-03-15] MEDS: SERTRALINE HCL 50 MG TAB PO ×2 (08:09→20:14)
[2018-03-15] MEDS: ATORVASTATIN 20 MG TAB PO (08:09)
[2018-03-15] MEDS: GABAPENTIN 100 MG CAP PO ×3 (08:09→20:15)
[2018-03-15] MEDS: POTASSIUM CHLORIDE 10 MEQ SR TABLET PO (08:10)
[2018-03-15] MEDS: DIGOXIN 0.25 MG TAB PO (08:11)
[2018-03-15 11:48] LABS: BEDSIDE GLUCOSE 139 MG/DL (83-110)
[2018-03-15 16:44] LABS: BEDSIDE GLUCOSE 182 MG/DL (83-110)
[2018-03-15] MEDS: ASPIRIN 81 MG ENTERIC TAB PO (20:14)
[2018-03-15] MEDS: OMEPRAZOLE 20 MG CAP PO (20:14)
[2018-03-15] MEDS: RIVAROXABAN 15 MG TAB (XARELTO) PO (20:15)
[2018-03-15] MEDS: LEVEMIR (INSULIN DETEMIR) 1 UNITS/0.01ML SC (20:16)
[2018-03-15 20:32] LABS: BEDSIDE GLUCOSE 160 MG/DL (83-110)
[2018-03-16] MEDS: METOPROLOL TART 50 MG TAB PO ×4 (05:36→23:58)
[2018-03-16 06:41] LABS: BEDSIDE GLUCOSE 111 MG/DL (83-110)
[2018-03-16] MEDS: ADVAIR HFA 230/21MCG INHALER INH ×2 (07:15→21:27)
[2018-03-16] MEDS: ALBUTEROL SULFATE 2.5 MG/0.5 ML INH NEB SOLN NEB ×4 (07:15→20:00)
[2018-03-16] MEDS: SERTRALINE HCL 50 MG TAB PO ×2 (08:22→20:43)
[2018-03-16] MEDS: TORSEMIDE 20 MG TAB PO (08:22)
[2018-03-16] MEDS: DIGOXIN 0.25 MG TAB PO (08:22)
[2018-03-16] MEDS: ATORVASTATIN 20 MG TAB PO (08:22)
[2018-03-16] MEDS: predniSONE 10 MG TAB PO (08:22)
[2018-03-16] MEDS: GABAPENTIN 100 MG CAP PO ×3 (08:22→20:43)
[2018-03-16] MEDS: HumaLOG INSULIN (NovoLOG) PER UNIT SC ×4 (08:23→20:44)
[2018-03-16 11:57] LABS: BEDSIDE GLUCOSE 154 MG/DL (83-110)
[2018-03-16 16:58] LABS: BEDSIDE GLUCOSE 149 MG/DL (83-110)
[2018-03-16] MEDS: RIVAROXABAN 15 MG TAB (XARELTO) PO (20:43)
[2018-03-16] MEDS: ASPIRIN 81 MG ENTERIC TAB PO (20:43)
[2018-03-16] MEDS: OMEPRAZOLE 20 MG CAP PO (20:43)
[2018-03-16] MEDS: LEVEMIR (INSULIN DETEMIR) 1 UNITS/0.01ML SC (20:43)
[2018-03-17] MEDS: METOPROLOL TART 50 MG TAB PO ×3 (06:00→17:02)
[2018-03-17 06:35] LABS: ANION GAP 7 MEQ/L (8-16); BLOOD UREA NITROGEN 22 MG/DL (7-18); CALCIUM LEVEL 9.3 MG/DL (8.8-10.2); CARBON DIOXIDE LEVEL 36 MEQ/L (21-32); CHLORIDE LEVEL 99 MEQ/L (98-107); CREATININE FOR GFR 1.02 MG/DL (0.70-1.30); GLOMERULAR FILTRATION RATE > 60.0 (>42); GLUCOSE, FASTING 87 MG/DL (70-100); POTASSIUM SERUM 3.5 MEQ/L (3.5-5.1); SODIUM LEVEL 142 MEQ/L (136-145)
[2018-03-17] MEDS: HumaLOG INSULIN (NovoLOG) PER UNIT SC ×4 (07:24→21:00)
[2018-03-17] MEDS: ALBUTEROL SULFATE 2.5 MG/0.5 ML INH NEB SOLN NEB ×3 (08:00→20:00)
[2018-03-17] MEDS: TORSEMIDE 20 MG TAB PO (08:17)
[2018-03-17] MEDS: SERTRALINE HCL 50 MG TAB PO ×2 (08:17→21:14)
[2018-03-17] MEDS: GABAPENTIN 100 MG CAP PO ×3 (08:18→21:14)
[2018-03-17] MEDS: ATORVASTATIN 20 MG TAB PO (08:18)
[2018-03-17] MEDS: predniSONE 10 MG TAB PO (08:18)
[2018-03-17] MEDS: DIGOXIN 0.25 MG TAB PO (08:18)
[2018-03-17] MEDS: ADVAIR HFA 230/21MCG INHALER INH ×2 (09:11→20:55)
[2018-03-17] MEDS: PERCOCET 5MG/325MG TAB PO ×2 (11:29→21:16)
[2018-03-17] MEDS: IPRATROPIUM 0.5MG/ALBUTEROL 2.5MG INH SOL UD 3ML (DUONEB)(J7620) NEB ×2 (16:28→23:01)
[2018-03-17 17:02] LABS: BEDSIDE GLUCOSE 156 MG/DL (83-110)
[2018-03-17 21:09] LABS: BEDSIDE GLUCOSE 161 MG/DL (83-110)
[2018-03-17] MEDS: LEVEMIR (INSULIN DETEMIR) 1 UNITS/0.01ML SC (21:14)
[2018-03-17] MEDS: ASPIRIN 81 MG ENTERIC TAB PO (21:14)
[2018-03-17] MEDS: RIVAROXABAN 15 MG TAB (XARELTO) PO (21:14)
[2018-03-17] MEDS: OMEPRAZOLE 20 MG CAP PO (21:14)
[2018-03-18] MEDS: METOPROLOL TART 50 MG TAB PO ×5 (00:52→23:20)
[2018-03-18 06:15] LABS: ANION GAP 7 MEQ/L (8-16); BLOOD UREA NITROGEN 26 MG/DL (7-18); CARBON DIOXIDE LEVEL 36 MEQ/L (21-32); CHLORIDE LEVEL 97 MEQ/L (98-107); CREATININE FOR GFR 1.17 MG/DL (0.70-1.30); GLOMERULAR FILTRATION RATE > 60.0 (>42); GLUCOSE, FASTING 135 MG/DL (70-100); POTASSIUM SERUM 3.5 MEQ/L (3.5-5.1); SODIUM LEVEL 140 MEQ/L (136-145)
[2018-03-18] MEDS: ALBUTEROL SULFATE 2.5 MG/0.5 ML INH NEB SOLN NEB ×4 (08:00→21:07)
[2018-03-18 08:10] LABS: BASO # 0.1 10^3/uL (0.0-0.2); BASO % 0.8 % (0.0-1.0); EOS # 0.4 10^3/uL (0.0-0.50); EOS % 3.9 % (0.0-3.0); HEMATOCRIT 40.1 % (42.0-52.0); HEMOGLOBIN 12.2 g/dl (13.5-17.5); IMMATURE GRANULOCYTE % 1.5 % (0-3.0); LYMPH # 1.5 10^3/uL (1.5-4.5); LYMPH % 13.9 % (24.0-44.0); MEAN CORPUSCULAR HGB CONC 30.4 g/dl (32.0-36.5); MEAN CORPUSCULAR VOLUME 82.2 fl (80.0-96.0); MONO # 1.6 10^3/uL (0.0-0.8); MONO % 14.9 % (0.0-5.0); NEUTROPHILS # 7.1 10^3/uL (1.8-7.7); PLATELET COUNT, AUTOMATED 304 10^3/uL (150-450); RED BLOOD COUNT 4.88 10^6/uL (4.30-6.10); RED CELL DISTRIBUTION WIDTH 16.4 % (11.5-14.5)
[2018-03-18] MEDS: GABAPENTIN 100 MG CAP PO ×3 (08:14→20:35)
[2018-03-18] MEDS: DIGOXIN 0.25 MG TAB PO (08:14)
[2018-03-18] MEDS: predniSONE 10 MG TAB PO (08:14)
[2018-03-18] MEDS: HumaLOG INSULIN (NovoLOG) PER UNIT SC ×4 (08:14→21:00)
[2018-03-18] MEDS: ATORVASTATIN 20 MG TAB PO (08:15)
[2018-03-18] MEDS: PERCOCET 5MG/325MG TAB PO ×2 (08:15→20:37)
[2018-03-18] MEDS: SERTRALINE HCL 50 MG TAB PO ×2 (08:15→20:35)
[2018-03-18] MEDS: TORSEMIDE 20 MG TAB PO (08:15)
[2018-03-18] MEDS: ADVAIR HFA 230/21MCG INHALER INH ×2 (08:52→21:00)
[2018-03-18 08:56] LABS: ALBUMIN 2.8 GM/DL (3.2-5.2); ALBUMIN/GLOBULIN RATIO 0.74 (1.00-1.93); ALKALINE PHOSPHATASE 106 U/L (45-117); ALT/SGPT 34 U/L (12-78); AST/SGOT 26 U/L (7-37); BILIRUBIN,TOTAL 0.4 MG/DL (0.2-1.0); TOTAL PROTEIN 6.6 GM/DL (6.4-8.2)
[2018-03-18 08:57] LABS: MAGNESIUM LEVEL 2.1 MG/DL (1.8-2.4)
[2018-03-18 15:04] LABS: BEDSIDE GLUCOSE 182 MG/DL (83-110)
[2018-03-18] MEDS: OMEPRAZOLE 20 MG CAP PO (20:35)
[2018-03-18] MEDS: RIVAROXABAN 15 MG TAB (XARELTO) PO (20:35)
[2018-03-18] MEDS: ASPIRIN 81 MG ENTERIC TAB PO (20:35)
[2018-03-18] MEDS: LEVEMIR (INSULIN DETEMIR) 1 UNITS/0.01ML SC (20:37)
[2018-03-18 21:13] LABS: BEDSIDE GLUCOSE 167 MG/DL (83-110)
[2018-03-19] MEDS: METOPROLOL TART 50 MG TAB PO ×3 (06:00→17:39)
[2018-03-19] MEDS: IPRATROPIUM 0.5MG/ALBUTEROL 2.5MG INH SOL UD 3ML (DUONEB)(J7620) NEB (06:05)
[2018-03-19 07:29] LABS: BASO # 0.1 10^3/uL (0.0-0.2); BASO % 0.7 % (0.0-1.0); EOS # 0.4 10^3/uL (0.0-0.50); EOS % 3.5 % (0.0-3.0); HEMATOCRIT 40.6 % (42.0-52.0); HEMOGLOBIN 12.2 g/dl (13.5-17.5); IMMATURE GRANULOCYTE % 1.2 % (0-3.0); LYMPH # 1.5 10^3/uL (1.5-4.5); LYMPH % 13.2 % (24.0-44.0); MEAN CORPUSCULAR HEMOGLOBIN 24.8 pg (27.0-33.0); MEAN CORPUSCULAR VOLUME 82.5 fl (80.0-96.0); MONO # 1.6 10^3/uL (0.0-0.8); MONO % 14.9 % (0.0-5.0); NEUTROPHILS # 7.3 10^3/uL (1.8-7.7); NEUTROPHILS % 66.5 % (36.0-66.0); PLATELET COUNT, AUTOMATED 300 10^3/uL (150-450); RED BLOOD COUNT 4.92 10^6/uL (4.30-6.10); RED CELL DISTRIBUTION WIDTH 16.1 % (11.5-14.5)
[2018-03-19] MEDS: HumaLOG INSULIN (NovoLOG) PER UNIT SC ×4 (07:30→20:28)
[2018-03-19] MEDS: ADVAIR HFA 230/21MCG INHALER INH ×2 (07:37→21:24)
[2018-03-19] MEDS: ALBUTEROL SULFATE 2.5 MG/0.5 ML INH NEB SOLN NEB ×4 (07:37→20:00)
[2018-03-19 07:50] LABS: ALBUMIN 2.8 GM/DL (3.2-5.2); ALBUMIN/GLOBULIN RATIO 0.76 (1.00-1.93); ALKALINE PHOSPHATASE 104 U/L (45-117); ALT/SGPT 33 U/L (12-78); ANION GAP 4 MEQ/L (8-16); AST/SGOT 26 U/L (7-37); BILIRUBIN,TOTAL 0.4 MG/DL (0.2-1.0); BLOOD UREA NITROGEN 26 MG/DL (7-18); CALCIUM LEVEL 9.3 MG/DL (8.8-10.2); CARBON DIOXIDE LEVEL 36 MEQ/L (21-32); CHLORIDE LEVEL 98 MEQ/L (98-107); CREATININE FOR GFR 1.04 MG/DL (0.70-1.30); GLOMERULAR FILTRATION RATE > 60.0 (>42); GLUCOSE, FASTING 102 MG/DL (70-100); MAGNESIUM LEVEL 2.1 MG/DL (1.8-2.4); POTASSIUM SERUM 3.4 MEQ/L (3.5-5.1); SODIUM LEVEL 138 MEQ/L (136-145); TOTAL PROTEIN 6.5 GM/DL (6.4-8.2)
[2018-03-19 08:45] LABS: BEDSIDE GLUCOSE 142 MG/DL (83-110)
[2018-03-19 08:46] LABS: BEDSIDE GLUCOSE 198 MG/DL (83-110)
[2018-03-19 09:36] LABS: BEDSIDE GLUCOSE 238 MG/DL (83-110)
[2018-03-19] MEDS: PERCOCET 5MG/325MG TAB PO ×2 (09:39→20:10)
[2018-03-19] MEDS: SERTRALINE HCL 50 MG TAB PO ×2 (09:39→20:09)
[2018-03-19] MEDS: ATORVASTATIN 20 MG TAB PO (09:39)
[2018-03-19] MEDS: GABAPENTIN 100 MG CAP PO ×3 (09:39→20:09)
[2018-03-19] MEDS: DIGOXIN 0.25 MG TAB PO (09:39)
[2018-03-19] MEDS: predniSONE 10 MG TAB PO (09:39)
[2018-03-19] MEDS: TORSEMIDE 20 MG TAB PO (09:40)
[2018-03-19 11:41] LABS: BEDSIDE GLUCOSE 173 MG/DL (83-110)
[2018-03-19 17:01] LABS: BEDSIDE GLUCOSE 166 MG/DL (83-110)
[2018-03-19 20:07] LABS: BEDSIDE GLUCOSE 222 MG/DL (83-110)
[2018-03-19] MEDS: ASPIRIN 81 MG ENTERIC TAB PO (20:09)
[2018-03-19] MEDS: LEVEMIR (INSULIN DETEMIR) 1 UNITS/0.01ML SC (20:09)
[2018-03-19] MEDS: OMEPRAZOLE 20 MG CAP PO (20:09)
[2018-03-19] MEDS: RIVAROXABAN 15 MG TAB (XARELTO) PO (20:09)
[2018-03-20] MEDS: METOPROLOL TART 50 MG TAB PO ×4 (00:31→17:46)
[2018-03-20] MEDS: IPRATROPIUM 0.5MG/ALBUTEROL 2.5MG INH SOL UD 3ML (DUONEB)(J7620) NEB (05:07)
[2018-03-20 06:17] LABS: BASO # 0.1 10^3/uL (0.0-0.2); BASO % 0.7 % (0.0-1.0); EOS # 0.3 10^3/uL (0.0-0.50); HEMATOCRIT 39.7 % (42.0-52.0); IMMATURE GRANULOCYTE % 1.2 % (0-3.0); LYMPH # 1.3 10^3/uL (1.5-4.5); LYMPH % 11.6 % (24.0-44.0); MEAN CORPUSCULAR HEMOGLOBIN 24.4 pg (27.0-33.0); MEAN CORPUSCULAR HGB CONC 30.2 g/dl (32.0-36.5); MEAN CORPUSCULAR VOLUME 80.9 fl (80.0-96.0); MONO # 1.8 10^3/uL (0.0-0.8); MONO % 16.3 % (0.0-5.0); NEUTROPHILS # 7.5 10^3/uL (1.8-7.7); NEUTROPHILS % 67.2 % (36.0-66.0); PLATELET COUNT, AUTOMATED 316 10^3/uL (150-450); RED BLOOD COUNT 4.91 10^6/uL (4.30-6.10); RED CELL DISTRIBUTION WIDTH 15.9 % (11.5-14.5); WHITE BLOOD COUNT 11.1 10^3/uL (4.0-10.0)
[2018-03-20 06:35] LABS: BEDSIDE GLUCOSE 115 MG/DL (83-110)
[2018-03-20 06:47] LABS: ANION GAP 10 MEQ/L (8-16); BLOOD UREA NITROGEN 24 MG/DL (7-18); CALCIUM LEVEL 8.8 MG/DL (8.8-10.2); CARBON DIOXIDE LEVEL 35 MEQ/L (21-32); CHLORIDE LEVEL 98 MEQ/L (98-107); CREATININE FOR GFR 0.98 MG/DL (0.70-1.30); GLOMERULAR FILTRATION RATE > 60.0 (>42); GLUCOSE, FASTING 113 MG/DL (70-100); POTASSIUM SERUM 3.7 MEQ/L (3.5-5.1); SODIUM LEVEL 143 MEQ/L (136-145)
[2018-03-20 06:50] LABS: ALBUMIN 2.9 GM/DL (3.2-5.2); ALBUMIN/GLOBULIN RATIO 0.97 (1.00-1.93); ALKALINE PHOSPHATASE 108 U/L (45-117); ALT/SGPT 26 U/L (12-78); ANION GAP 9 MEQ/L (8-16); AST/SGOT 25 U/L (7-37); BILIRUBIN,TOTAL 0.4 MG/DL (0.2-1.0); BLOOD UREA NITROGEN 24 MG/DL (7-18); CALCIUM LEVEL 8.9 MG/DL (8.8-10.2); CARBON DIOXIDE LEVEL 35 MEQ/L (21-32); CHLORIDE LEVEL 99 MEQ/L (98-107); CREATININE FOR GFR 0.99 MG/DL (0.70-1.30); GLOMERULAR FILTRATION RATE > 60.0 (>42); GLUCOSE, FASTING 111 MG/DL (70-100); MAGNESIUM LEVEL 2.1 MG/DL (1.8-2.4); POTASSIUM SERUM 3.6 MEQ/L (3.5-5.1); SODIUM LEVEL 143 MEQ/L (136-145); TOTAL PROTEIN 5.9 GM/DL (6.4-8.2)
[2018-03-20] MEDS: ADVAIR HFA 230/21MCG INHALER INH ×2 (07:46→20:53)
[2018-03-20] MEDS: ALBUTEROL SULFATE 2.5 MG/0.5 ML INH NEB SOLN NEB ×4 (07:46→20:00)
[2018-03-20] MEDS: HumaLOG INSULIN (NovoLOG) PER UNIT SC ×4 (08:36→21:00)
[2018-03-20] MEDS: predniSONE 10 MG TAB PO (08:37)
[2018-03-20] MEDS: ATORVASTATIN 20 MG TAB PO (08:37)
[2018-03-20] MEDS: GABAPENTIN 100 MG CAP PO ×3 (08:37→22:07)
[2018-03-20] MEDS: TORSEMIDE 20 MG TAB PO (08:37)
[2018-03-20] MEDS: SERTRALINE HCL 50 MG TAB PO ×2 (08:37→22:08)
[2018-03-20] MEDS: DIGOXIN 0.25 MG TAB PO (08:37)
[2018-03-20] MEDS: PERCOCET 5MG/325MG TAB PO ×2 (08:39→22:08)
[2018-03-20 13:31] LABS: BEDSIDE GLUCOSE 159 MG/DL (83-110)
[2018-03-20 16:52] LABS: BEDSIDE GLUCOSE 190 MG/DL (83-110)
[2018-03-20 20:30] LABS: BEDSIDE GLUCOSE 138 MG/DL (83-110)
[2018-03-20] MEDS: ASPIRIN 81 MG ENTERIC TAB PO (22:07)
[2018-03-20] MEDS: RIVAROXABAN 15 MG TAB (XARELTO) PO (22:07)
[2018-03-20] MEDS: OMEPRAZOLE 20 MG CAP PO (22:08)
[2018-03-20] MEDS: LEVEMIR (INSULIN DETEMIR) 1 UNITS/0.01ML SC (22:08)
[2018-03-21] MEDS: METOPROLOL TART 50 MG TAB PO ×4 (00:03→17:29)
[2018-03-21 05:45] LABS: BASO # 0.1 10^3/uL (0.0-0.2); BASO % 0.6 % (0.0-1.0); EOS # 0.3 10^3/uL (0.0-0.50); HEMATOCRIT 41.6 % (42.0-52.0); HEMOGLOBIN 12.7 g/dl (13.5-17.5); IMMATURE GRANULOCYTE % 1.5 % (0-3.0); LYMPH # 1.6 10^3/uL (1.5-4.5); LYMPH % 14.5 % (24.0-44.0); MEAN CORPUSCULAR HEMOGLOBIN 24.9 pg (27.0-33.0); MEAN CORPUSCULAR HGB CONC 30.5 g/dl (32.0-36.5); MEAN CORPUSCULAR VOLUME 81.4 fl (80.0-96.0); MONO # 1.6 10^3/uL (0.0-0.8); MONO % 14.1 % (0.0-5.0); NEUTROPHILS # 7.3 10^3/uL (1.8-7.7); NEUTROPHILS % 66.3 % (36.0-66.0); PLATELET COUNT, AUTOMATED 298 10^3/uL (150-450); RED BLOOD COUNT 5.11 10^6/uL (4.30-6.10); RED CELL DISTRIBUTION WIDTH 15.9 % (11.5-14.5)
[2018-03-21 06:08] LABS: ALBUMIN 2.9 GM/DL (3.2-5.2); ALBUMIN/GLOBULIN RATIO 0.81 (1.00-1.93); ALKALINE PHOSPHATASE 102 U/L (45-117); ALT/SGPT 29 U/L (12-78); ANION GAP 6 MEQ/L (8-16); AST/SGOT 26 U/L (7-37); BILIRUBIN,TOTAL 0.4 MG/DL (0.2-1.0); BLOOD UREA NITROGEN 26 MG/DL (7-18); CALCIUM LEVEL 9.2 MG/DL (8.8-10.2); CARBON DIOXIDE LEVEL 38 MEQ/L (21-32); CHLORIDE LEVEL 96 MEQ/L (98-107); GLOMERULAR FILTRATION RATE > 60.0 (>42); GLUCOSE, FASTING 117 MG/DL (70-100); MAGNESIUM LEVEL 2.1 MG/DL (1.8-2.4); POTASSIUM SERUM 3.3 MEQ/L (3.5-5.1); SODIUM LEVEL 140 MEQ/L (136-145); TOTAL PROTEIN 6.5 GM/DL (6.4-8.2)
[2018-03-21] MEDS: ADVAIR HFA 230/21MCG INHALER INH ×2 (07:40→20:14)
[2018-03-21] MEDS: ALBUTEROL SULFATE 2.5 MG/0.5 ML INH NEB SOLN NEB ×4 (07:40→20:00)
[2018-03-21] MEDS: PERCOCET 5MG/325MG TAB PO ×2 (08:24→20:40)
[2018-03-21] MEDS: predniSONE 10 MG TAB PO (08:24)
[2018-03-21] MEDS: ATORVASTATIN 20 MG TAB PO (08:24)
[2018-03-21] MEDS: GABAPENTIN 100 MG CAP PO ×3 (08:24→20:39)
[2018-03-21] MEDS: SERTRALINE HCL 50 MG TAB PO ×2 (08:25→20:39)
[2018-03-21] MEDS: DIGOXIN 0.25 MG TAB PO (08:25)
[2018-03-21] MEDS: HumaLOG INSULIN (NovoLOG) PER UNIT SC ×4 (08:26→20:31)
[2018-03-21] MEDS: POTASSIUM CHLORIDE 10 MEQ SR TABLET PO (08:31)
[2018-03-21] MEDS: TORSEMIDE 20 MG TAB PO (08:31)
[2018-03-21 15:19] LABS: BEDSIDE GLUCOSE 146 MG/DL (83-110)
[2018-03-21 17:00] LABS: BEDSIDE GLUCOSE 245 MG/DL (83-110)
[2018-03-21] MEDS: OMEPRAZOLE 20 MG CAP PO (20:39)
[2018-03-21] MEDS: LEVEMIR (INSULIN DETEMIR) 1 UNITS/0.01ML SC (20:39)
[2018-03-21] MEDS: RIVAROXABAN 15 MG TAB (XARELTO) PO (20:39)
[2018-03-21] MEDS: ASPIRIN 81 MG ENTERIC TAB PO (20:39)
[2018-03-22] MEDS: METOPROLOL TART 50 MG TAB PO ×4 (05:24→17:54)
[2018-03-22 05:51] LABS: BASO # 0.1 10^3/uL (0.0-0.2); BASO % 0.9 % (0.0-1.0); EOS # 0.3 10^3/uL (0.0-0.50); HEMATOCRIT 41.1 % (42.0-52.0); HEMOGLOBIN 12.5 g/dl (13.5-17.5); IMMATURE GRANULOCYTE % 1.3 % (0-3.0); LYMPH # 1.4 10^3/uL (1.5-4.5); LYMPH % 12.1 % (24.0-44.0); MEAN CORPUSCULAR HGB CONC 30.4 g/dl (32.0-36.5); MEAN CORPUSCULAR VOLUME 82.2 fl (80.0-96.0); MONO # 1.7 10^3/uL (0.0-0.8); MONO % 15.6 % (0.0-5.0); NEUTROPHILS # 7.5 10^3/uL (1.8-7.7); NEUTROPHILS % 67.1 % (36.0-66.0); PLATELET COUNT, AUTOMATED 275 10^3/uL (150-450); RED CELL DISTRIBUTION WIDTH 15.7 % (11.5-14.5); WHITE BLOOD COUNT 11.2 10^3/uL (4.0-10.0)
[2018-03-22 06:15] LABS: ALBUMIN 2.9 GM/DL (3.2-5.2); ALBUMIN/GLOBULIN RATIO 0.76 (1.00-1.93); ALKALINE PHOSPHATASE 110 U/L (45-117); ALT/SGPT 30 U/L (12-78); ANION GAP 6 MEQ/L (8-16); AST/SGOT 27 U/L (7-37); BILIRUBIN,TOTAL 0.4 MG/DL (0.2-1.0); BLOOD UREA NITROGEN 23 MG/DL (7-18); CALCIUM LEVEL 9.2 MG/DL (8.8-10.2); CARBON DIOXIDE LEVEL 37 MEQ/L (21-32); CHLORIDE LEVEL 100 MEQ/L (98-107); GLOMERULAR FILTRATION RATE > 60.0 (>42); GLUCOSE, FASTING 121 MG/DL (70-100); MAGNESIUM LEVEL 2.1 MG/DL (1.8-2.4); POTASSIUM SERUM 3.5 MEQ/L (3.5-5.1); SODIUM LEVEL 143 MEQ/L (136-145); TOTAL PROTEIN 6.7 GM/DL (6.4-8.2)
[2018-03-22] MEDS: ALBUTEROL SULFATE 2.5 MG/0.5 ML INH NEB SOLN NEB ×4 (07:32→20:00)
[2018-03-22] MEDS: ADVAIR HFA 230/21MCG INHALER INH ×2 (07:32→20:35)
[2018-03-22] MEDS: HumaLOG INSULIN (NovoLOG) PER UNIT SC ×4 (08:13→21:22)
[2018-03-22] MEDS: GABAPENTIN 100 MG CAP PO ×3 (08:22→21:58)
[2018-03-22] MEDS: ATORVASTATIN 20 MG TAB PO (08:23)
[2018-03-22] MEDS: SERTRALINE HCL 50 MG TAB PO ×2 (08:23→21:58)
[2018-03-22] MEDS: predniSONE 10 MG TAB PO (08:23)
[2018-03-22] MEDS: PERCOCET 5MG/325MG TAB PO ×2 (08:23→21:59)
[2018-03-22] MEDS: DIGOXIN 0.25 MG TAB PO (08:24)
[2018-03-22] MEDS: TORSEMIDE 20 MG TAB PO (08:24)
[2018-03-22 11:50] LABS: BEDSIDE GLUCOSE 178 MG/DL (83-110)
[2018-03-22 16:54] LABS: BEDSIDE GLUCOSE 209 MG/DL (83-110)
[2018-03-22] MEDS: ASPIRIN 81 MG ENTERIC TAB PO (21:58)
[2018-03-22] MEDS: OMEPRAZOLE 20 MG CAP PO (21:58)
[2018-03-22] MEDS: LEVEMIR (INSULIN DETEMIR) 1 UNITS/0.01ML SC (21:59)
[2018-03-22] MEDS: RIVAROXABAN 15 MG TAB (XARELTO) PO (21:59)
[2018-03-23] MEDS: METOPROLOL TART 50 MG TAB PO ×4 (00:14→17:28)
[2018-03-23 05:54] LABS: BASO # 0.1 10^3/uL (0.0-0.2); BASO % 0.6 % (0.0-1.0); EOS # 0.4 10^3/uL (0.0-0.50); EOS % 3.7 % (0.0-3.0); HEMATOCRIT 40.9 % (42.0-52.0); HEMOGLOBIN 12.1 g/dl (13.5-17.5); IMMATURE GRANULOCYTE % 1.4 % (0-3.0); LYMPH # 1.3 10^3/uL (1.5-4.5); LYMPH % 11.6 % (24.0-44.0); MEAN CORPUSCULAR HEMOGLOBIN 24.5 pg (27.0-33.0); MEAN CORPUSCULAR HGB CONC 29.6 g/dl (32.0-36.5); MONO # 1.7 10^3/uL (0.0-0.8); MONO % 15.5 % (0.0-5.0); NEUTROPHILS # 7.5 10^3/uL (1.8-7.7); NEUTROPHILS % 67.2 % (36.0-66.0); PLATELET COUNT, AUTOMATED 271 10^3/uL (150-450); RED BLOOD COUNT 4.93 10^6/uL (4.30-6.10); RED CELL DISTRIBUTION WIDTH 15.8 % (11.5-14.5); WHITE BLOOD COUNT 11.1 10^3/uL (4.0-10.0)
[2018-03-23 06:22] LABS: ALBUMIN 2.7 GM/DL (3.2-5.2); ALBUMIN/GLOBULIN RATIO 0.77 (1.00-1.93); ALKALINE PHOSPHATASE 96 U/L (45-117); ALT/SGPT 27 U/L (12-78); ANION GAP 3 MEQ/L (8-16); AST/SGOT 25 U/L (7-37); BILIRUBIN,TOTAL 0.5 MG/DL (0.2-1.0); BLOOD UREA NITROGEN 19 MG/DL (7-18); CALCIUM LEVEL 9.1 MG/DL (8.8-10.2); CARBON DIOXIDE LEVEL 41 MEQ/L (21-32); CHLORIDE LEVEL 99 MEQ/L (98-107); CREATININE FOR GFR 0.88 MG/DL (0.70-1.30); GLOMERULAR FILTRATION RATE > 60.0 (>42); GLUCOSE, FASTING 92 MG/DL (70-100); MAGNESIUM LEVEL 2.1 MG/DL (1.8-2.4); POTASSIUM SERUM 3.6 MEQ/L (3.5-5.1); SODIUM LEVEL 143 MEQ/L (136-145); TOTAL PROTEIN 6.2 GM/DL (6.4-8.2)
[2018-03-23] MEDS: HumaLOG INSULIN (NovoLOG) PER UNIT SC ×4 (07:36→20:19)
[2018-03-23] MEDS: ALBUTEROL SULFATE 2.5 MG/0.5 ML INH NEB SOLN NEB ×4 (07:49→20:00)
[2018-03-23] MEDS: ADVAIR HFA 230/21MCG INHALER INH ×2 (07:49→20:23)
[2018-03-23] MEDS: POTASSIUM CHLORIDE 10 MEQ SR TABLET PO (08:14)
[2018-03-23] MEDS: ATORVASTATIN 20 MG TAB PO (08:14)
[2018-03-23] MEDS: PERCOCET 5MG/325MG TAB PO ×2 (08:14→21:03)
[2018-03-23] MEDS: GABAPENTIN 100 MG CAP PO ×3 (08:14→21:02)
[2018-03-23] MEDS: SERTRALINE HCL 50 MG TAB PO ×2 (08:14→21:02)
[2018-03-23] MEDS: predniSONE 10 MG TAB PO (08:15)
[2018-03-23] MEDS: TORSEMIDE 20 MG TAB PO (08:15)
[2018-03-23] MEDS: DIGOXIN 0.25 MG TAB PO (08:17)
[2018-03-23 16:51] LABS: BEDSIDE GLUCOSE 241 MG/DL (83-110)
[2018-03-23] MEDS: OMEPRAZOLE 20 MG CAP PO (21:02)
[2018-03-23] MEDS: ASPIRIN 81 MG ENTERIC TAB PO (21:02)
[2018-03-23] MEDS: RIVAROXABAN 15 MG TAB (XARELTO) PO (21:02)
[2018-03-23] MEDS: LEVEMIR (INSULIN DETEMIR) 1 UNITS/0.01ML SC (21:02)
[2018-03-24] MEDS: METOPROLOL TART 50 MG TAB PO ×5 (01:18→23:45)
[2018-03-24 05:39] LABS: BASO # 0.1 10^3/uL (0.0-0.2); BASO % 0.6 % (0.0-1.0); EOS # 0.4 10^3/uL (0.0-0.50); EOS % 3.5 % (0.0-3.0); HEMATOCRIT 41.5 % (42.0-52.0); HEMOGLOBIN 12.7 g/dl (13.5-17.5); IMMATURE GRANULOCYTE % 1.5 % (0-3.0); LYMPH # 1.3 10^3/uL (1.5-4.5); LYMPH % 11.7 % (24.0-44.0); MEAN CORPUSCULAR HEMOGLOBIN 25.2 pg (27.0-33.0); MEAN CORPUSCULAR HGB CONC 30.6 g/dl (32.0-36.5); MEAN CORPUSCULAR VOLUME 82.3 fl (80.0-96.0); MONO # 1.6 10^3/uL (0.0-0.8); NEUTROPHILS # 7.4 10^3/uL (1.8-7.7); NEUTROPHILS % 67.7 % (36.0-66.0); PLATELET COUNT, AUTOMATED 256 10^3/uL (150-450); RED BLOOD COUNT 5.04 10^6/uL (4.30-6.10); RED CELL DISTRIBUTION WIDTH 15.8 % (11.5-14.5); WHITE BLOOD COUNT 10.9 10^3/uL (4.0-10.0)
[2018-03-24 06:01] LABS: ALBUMIN 2.8 GM/DL (3.2-5.2); ALBUMIN/GLOBULIN RATIO 0.82 (1.00-1.93); ALKALINE PHOSPHATASE 99 U/L (45-117); ALT/SGPT 27 U/L (12-78); ANION GAP 2 MEQ/L (8-16); AST/SGOT 26 U/L (7-37); BILIRUBIN,TOTAL 0.4 MG/DL (0.2-1.0); BLOOD UREA NITROGEN 18 MG/DL (7-18); CALCIUM LEVEL 9.3 MG/DL (8.8-10.2); CARBON DIOXIDE LEVEL 41 MEQ/L (21-32); CHLORIDE LEVEL 100 MEQ/L (98-107); CREATININE FOR GFR 0.94 MG/DL (0.70-1.30); GLOMERULAR FILTRATION RATE > 60.0 (>42); GLUCOSE, FASTING 114 MG/DL (70-100); MAGNESIUM LEVEL 1.8 MG/DL (1.8-2.4); SODIUM LEVEL 143 MEQ/L (136-145); TOTAL PROTEIN 6.2 GM/DL (6.4-8.2)
[2018-03-24] MEDS: ADVAIR HFA 230/21MCG INHALER INH ×2 (07:08→20:34)
[2018-03-24] MEDS: ALBUTEROL SULFATE 2.5 MG/0.5 ML INH NEB SOLN NEB ×4 (07:08→20:00)
[2018-03-24] MEDS: HumaLOG INSULIN (NovoLOG) PER UNIT SC ×4 (07:30→20:21)
[2018-03-24 08:04] LABS: BEDSIDE GLUCOSE 167 MG/DL (83-110)
[2018-03-24] MEDS: PERCOCET 5MG/325MG TAB PO ×2 (09:06→20:21)
[2018-03-24] MEDS: SERTRALINE HCL 50 MG TAB PO ×2 (10:26→20:19)
[2018-03-24] MEDS: ATORVASTATIN 20 MG TAB PO (10:26)
[2018-03-24] MEDS: GABAPENTIN 100 MG CAP PO ×3 (10:26→20:19)
[2018-03-24] MEDS: TORSEMIDE 20 MG TAB PO (10:26)
[2018-03-24] MEDS: LEVEMIR (INSULIN DETEMIR) 1 UNITS/0.01ML SC (10:27)
[2018-03-24] MEDS: DIGOXIN 0.25 MG TAB PO (10:28)
[2018-03-24] MEDS: predniSONE 10 MG TAB PO (10:33)
[2018-03-24 15:10] LABS: BEDSIDE GLUCOSE 206 MG/DL (83-110)
[2018-03-24 17:17] LABS: BEDSIDE GLUCOSE 133 MG/DL (83-110)
[2018-03-24] MEDS: OMEPRAZOLE 20 MG CAP PO (20:19)
[2018-03-24] MEDS: ASPIRIN 81 MG ENTERIC TAB PO (20:19)
[2018-03-24] MEDS: RIVAROXABAN 15 MG TAB (XARELTO) PO (20:20)
[2018-03-25] MEDS: METOPROLOL TART 50 MG TAB PO ×3 (05:28→17:10)
[2018-03-25 06:17] LABS: BASO # 0.1 10^3/uL (0.0-0.2); BASO % 0.8 % (0.0-1.0); EOS # 0.4 10^3/uL (0.0-0.50); EOS % 3.4 % (0.0-3.0); HEMATOCRIT 40.4 % (42.0-52.0); HEMOGLOBIN 12.5 g/dl (13.5-17.5); IMMATURE GRANULOCYTE % 1.3 % (0-3.0); LYMPH # 1.4 10^3/uL (1.5-4.5); LYMPH % 13.1 % (24.0-44.0); MEAN CORPUSCULAR HEMOGLOBIN 25.2 pg (27.0-33.0); MEAN CORPUSCULAR HGB CONC 30.9 g/dl (32.0-36.5); MEAN CORPUSCULAR VOLUME 81.5 fl (80.0-96.0); MONO # 1.7 10^3/uL (0.0-0.8); MONO % 15.9 % (0.0-5.0); NEUTROPHILS # 7.2 10^3/uL (1.8-7.7); NEUTROPHILS % 65.5 % (36.0-66.0); PLATELET COUNT, AUTOMATED 252 10^3/uL (150-450); RED BLOOD COUNT 4.96 10^6/uL (4.30-6.10); RED CELL DISTRIBUTION WIDTH 15.8 % (11.5-14.5)
[2018-03-25 06:35] LABS: ALBUMIN 2.8 GM/DL (3.2-5.2); ALBUMIN/GLOBULIN RATIO 0.78 (1.00-1.93); ALKALINE PHOSPHATASE 105 U/L (45-117); ALT/SGPT 27 U/L (12-78); ANION GAP 4 MEQ/L (8-16); AST/SGOT 25 U/L (7-37); BILIRUBIN,TOTAL 0.5 MG/DL (0.2-1.0); BLOOD UREA NITROGEN 19 MG/DL (7-18); CALCIUM LEVEL 9.4 MG/DL (8.8-10.2); CARBON DIOXIDE LEVEL 38 MEQ/L (21-32); CHLORIDE LEVEL 98 MEQ/L (98-107); CREATININE FOR GFR 0.89 MG/DL (0.70-1.30); GLOMERULAR FILTRATION RATE > 60.0 (>42); GLUCOSE, FASTING 111 MG/DL (70-100); MAGNESIUM LEVEL 1.9 MG/DL (1.8-2.4); POTASSIUM SERUM 3.8 MEQ/L (3.5-5.1); SODIUM LEVEL 140 MEQ/L (136-145); TOTAL PROTEIN 6.4 GM/DL (6.4-8.2)
[2018-03-25] MEDS: ALBUTEROL SULFATE 2.5 MG/0.5 ML INH NEB SOLN NEB ×4 (07:10→20:00)
[2018-03-25] MEDS: ADVAIR HFA 230/21MCG INHALER INH ×2 (07:10→20:05)
[2018-03-25] MEDS: HumaLOG INSULIN (NovoLOG) PER UNIT SC ×4 (08:24→20:23)
[2018-03-25] MEDS: SERTRALINE HCL 50 MG TAB PO ×2 (08:24→20:28)
[2018-03-25] MEDS: LEVEMIR (INSULIN DETEMIR) 1 UNITS/0.01ML SC (08:24)
[2018-03-25] MEDS: GABAPENTIN 100 MG CAP PO ×3 (08:25→20:28)
[2018-03-25] MEDS: ATORVASTATIN 20 MG TAB PO (08:25)
[2018-03-25 08:26] LABS: BEDSIDE GLUCOSE 217 MG/DL (83-110)
[2018-03-25 08:26] LABS: BEDSIDE GLUCOSE 200 MG/DL (83-110)
[2018-03-25 08:26] LABS: BEDSIDE GLUCOSE 229 MG/DL (83-110)
[2018-03-25] MEDS: TORSEMIDE 20 MG TAB PO (08:26)
[2018-03-25] MEDS: predniSONE 10 MG TAB PO (08:26)
[2018-03-25] MEDS: DIGOXIN 0.25 MG TAB PO (08:26)
[2018-03-25] MEDS: PERCOCET 5MG/325MG TAB PO ×2 (08:26→20:30)
[2018-03-25 08:27] LABS: BEDSIDE GLUCOSE 226 MG/DL (83-110)
[2018-03-25 11:40] LABS: BEDSIDE GLUCOSE 183 MG/DL (83-110)
[2018-03-25 16:50] LABS: BEDSIDE GLUCOSE 233 MG/DL (83-110)
[2018-03-25] MEDS: RIVAROXABAN 15 MG TAB (XARELTO) PO (20:28)
[2018-03-25] MEDS: ASPIRIN 81 MG ENTERIC TAB PO (20:28)
[2018-03-25] MEDS: OMEPRAZOLE 20 MG CAP PO (20:30)
[2018-03-25 20:56] LABS: BEDSIDE GLUCOSE 193 MG/DL (83-110)
[2018-03-26] MEDS: METOPROLOL TART 50 MG TAB PO ×2 (05:59)
[2018-03-26] MEDS: ADVAIR HFA 230/21MCG INHALER INH (07:09)
[2018-03-26] MEDS: ALBUTEROL SULFATE 2.5 MG/0.5 ML INH NEB SOLN NEB (07:10)
[2018-03-26 07:11] LABS: BEDSIDE GLUCOSE 113 MG/DL (83-110)
[2018-03-26] MEDS: predniSONE 10 MG TAB PO (07:31)
[2018-03-26] MEDS: HumaLOG INSULIN (NovoLOG) PER UNIT SC (07:31)
[2018-03-26] MEDS: LEVEMIR (INSULIN DETEMIR) 1 UNITS/0.01ML SC (07:31)
[2018-03-26] MEDS: DIGOXIN 0.25 MG TAB PO (07:32)
[2018-03-26] MEDS: PERCOCET 5MG/325MG TAB PO (07:32)
[2018-03-26] MEDS: TORSEMIDE 20 MG TAB PO (07:32)
[2018-03-26] MEDS: SERTRALINE HCL 50 MG TAB PO (07:32)
[2018-03-26] MEDS: ATORVASTATIN 20 MG TAB PO (07:33)
[2018-03-26] MEDS: GABAPENTIN 100 MG CAP PO (07:33)
== END 2018-03-26 09:45 | DRG 291 ==
LOC: M MSPAV 03-11 15:35 → M ED 10:04 → M ED INP 13:20 → M ICU 14:39
DX: I11.0 Hypertensive heart disease with heart failure (principal); J18.9 Pneumonia, unspecified organism; I48.2 Chronic atrial fibrillation; E04.2 Nontoxic multinodular goiter; D64.9 Anemia, unspecified; I25.10 Atherosclerotic heart disease of native coronary artery without angina pectoris; G47.33 Obstructive sleep apnea (adult) (pediatric); J44.9 Chronic obstructive pulmonary disease, unspecified; I50.33 Acute on chronic diastolic (congestive) heart failure; E11.42 Type 2 diabetes mellitus with diabetic polyneuropathy; F41.0 Panic disorder [episodic paroxysmal anxiety]; K21.9 Gastro-esophageal reflux disease without esophagitis; E78.5 Hyperlipidemia, unspecified; Z86.14 Personal history of Methicillin resistant Staphylococcus aureus infection; Z79.82 Long term (current) use of aspirin; Z99.81 Dependence on supplemental oxygen; Z79.4 Long term (current) use of insulin; Z79.891 Long term (current) use of opiate analgesic; Z79.899 Other long term (current) drug therapy; Z79.52 Long term (current) use of systemic steroids; Z88.8 Allergy status to other drugs, medicaments and biological substances; Z95.1 Presence of aortocoronary bypass graft; Z79.01 Long term (current) use of anticoagulants; Z85.820 Personal history of malignant melanoma of skin; Z98.41 Cataract extraction status, right eye; Z98.42 Cataract extraction status, left eye; Z87.891 Personal history of nicotine dependence; Y95 Nosocomial condition

== ENCOUNTER → 2018-03-31 | Outpatient (REF) | DX: B95.62 Methicillin resistant Staphylococcus aureus infection as the cause of diseases classified elsewhere (principal) ==

== ENCOUNTER → 2018-04-01 | Outpatient (REF) ==
[2018-04-01 09:24] LABS: HEMATOCRIT 37.9 % (42.0-52.0); HEMOGLOBIN 11.5 g/dl (13.5-17.5); MEAN CORPUSCULAR HEMOGLOBIN 24.5 pg (27.0-33.0); MEAN CORPUSCULAR HGB CONC 30.3 g/dl (32.0-36.5); MEAN CORPUSCULAR VOLUME 80.6 fl (80.0-96.0); PLATELET COUNT, AUTOMATED 203 10^3/uL (150-450); WHITE BLOOD COUNT 13.2 10^3/uL (4.0-10.0)
[2018-04-01 09:56] LABS: ANION GAP 8 MEQ/L (8-16); BLOOD UREA NITROGEN 13 MG/DL (7-18); CALCIUM LEVEL 8.5 MG/DL (8.8-10.2); CARBON DIOXIDE LEVEL 34 MEQ/L (21-32); CHLORIDE LEVEL 100 MEQ/L (98-107); CREATININE FOR GFR 0.92 MG/DL (0.70-1.30); GLOMERULAR FILTRATION RATE > 60.0 (>42); GLUCOSE, FASTING 73 MG/DL (70-100); NT-PRO BNP 4220 PG/ML (<450); POTASSIUM SERUM 3.5 MEQ/L (3.5-5.1); SODIUM LEVEL 142 MEQ/L (136-145)
== END ==
DX: I50.9 Heart failure, unspecified (principal)

== ENCOUNTER → 2018-04-07 | Outpatient (REF) | DX: Z22.322 Carrier or suspected carrier of Methicillin resistant Staphylococcus aureus (principal) ==

== ENCOUNTER → 2018-05-15 | Outpatient (REF) | payer MEDICARE, MEDICAID, OTHER ==
[2018-05-15 18:34] LABS: BASOPHILS 1 % (0-4); EOSINOPHILS 4 % (0-5); LYMPHOCYTES 1 % (16-52); MONOCYTES 4 % (0-8); NEUTROPHILS 90 % (35-75); PLATELET ESTIMATE NORMAL (NORMAL)
[2018-05-15 18:35] LABS: OVALOCYTES 2+
== END ==
LOC: M LAB REF 17:31
DX: D72.829 Elevated white blood cell count, unspecified (principal)
CPT/HCPCS: 86140

== ENCOUNTER → 2018-05-16 | Outpatient (CLI) | payer MEDICARE, MEDICAID | LOC: M SMT 11:30 | DX: M19.072 Primary osteoarthritis, left ankle and foot (principal); M77.32 Calcaneal spur, left foot | CPT/HCPCS: 73630 ==

== ENCOUNTER → 2018-05-20 | Outpatient (REF) | payer MEDICARE, MEDICAID, OTHER ==
[2018-05-20 11:59] LABS: BASO # 0.1 10^3/uL (0.0-0.2); BASO % 0.5 % (0.0-1.0); EOS # 0.5 10^3/uL (0.0-0.50); HEMATOCRIT 32.8 % (42.0-52.0); HEMOGLOBIN 9.9 g/dl (13.5-17.5); IMMATURE GRANULOCYTE % 1.4 % (0-3.0); LYMPH # 1.5 10^3/uL (1.5-4.5); LYMPH % 9.2 % (24.0-44.0); MEAN CORPUSCULAR HEMOGLOBIN 23.6 pg (27.0-33.0); MEAN CORPUSCULAR HGB CONC 30.2 g/dl (32.0-36.5); MEAN CORPUSCULAR VOLUME 78.1 fl (80.0-96.0); MONO # 1.4 10^3/uL (0.0-0.8); MONO % 8.7 % (0.0-5.0); NEUTROPHILS # 12.8 10^3/uL (1.8-7.7); NEUTROPHILS % 77.2 % (36.0-66.0); PLATELET COUNT, AUTOMATED 306 10^3/uL (150-450); RED CELL DISTRIBUTION WIDTH 17.9 % (11.5-14.5); WHITE BLOOD COUNT 16.6 10^3/uL (4.0-10.0)
[2018-05-20 12:36] LABS: ANION GAP 10 MEQ/L (8-16); BLOOD UREA NITROGEN 22 MG/DL (7-18); CALCIUM LEVEL 8.4 MG/DL (8.8-10.2); CARBON DIOXIDE LEVEL 33 MEQ/L (21-32); CHLORIDE LEVEL 101 MEQ/L (98-107); CREATININE FOR GFR 1.08 MG/DL (0.70-1.30); GLOMERULAR FILTRATION RATE > 60.0 (>42); GLUCOSE, FASTING 83 MG/DL (70-100); POTASSIUM SERUM 3.4 MEQ/L (3.5-5.1); SODIUM LEVEL 144 MEQ/L (136-145)
== END ==
DX: E11.65 Type 2 diabetes mellitus with hyperglycemia (principal); D72.829 Elevated white blood cell count, unspecified
CPT/HCPCS: 80048

== ENCOUNTER → 2018-05-27 | Outpatient (REF) | payer MEDICARE, MEDICAID ==
[2018-05-27 11:14] LABS: ANION GAP 10 MEQ/L (8-16); BLOOD UREA NITROGEN 16 MG/DL (7-18); CALCIUM LEVEL 8.5 MG/DL (8.8-10.2); CARBON DIOXIDE LEVEL 32 MEQ/L (21-32); CHLORIDE LEVEL 104 MEQ/L (98-107); CREATININE FOR GFR 0.91 MG/DL (0.70-1.30); GLOMERULAR FILTRATION RATE > 60.0 (>42); GLUCOSE, FASTING 78 MG/DL (70-100); POTASSIUM SERUM 3.8 MEQ/L (3.5-5.1); SODIUM LEVEL 146 MEQ/L (136-145)
== END ==
DX: E87.6 Hypokalemia (principal)
CPT/HCPCS: 80048

== ENCOUNTER → 2018-05-29 | Outpatient (CLI) | payer MEDICARE, MEDICAID | LOC: M RAD 07:22 | DX: S91.102A Unspecified open wound of left great toe without damage to nail, initial encounter (principal); X58.XXXA Exposure to other specified factors, initial encounter; Y92.9 Unspecified place or not applicable | CPT/HCPCS: 78315 ==

== ENCOUNTER → 2018-06-03 | Outpatient (REF) | payer MEDICARE, MEDICAID ==
[2018-06-03 11:02] LABS: ANION GAP 8 MEQ/L (8-16); BLOOD UREA NITROGEN 20 MG/DL (7-18); CALCIUM LEVEL 8.4 MG/DL (8.8-10.2); CARBON DIOXIDE LEVEL 33 MEQ/L (21-32); CHLORIDE LEVEL 101 MEQ/L (98-107); CREATININE FOR GFR 1.35 MG/DL (0.70-1.30); GLOMERULAR FILTRATION RATE 54.8 (>42); GLUCOSE, FASTING 115 MG/DL (70-100); POTASSIUM SERUM 4.2 MEQ/L (3.5-5.1); SODIUM LEVEL 142 MEQ/L (136-145)
== END ==
DX: I50.9 Heart failure, unspecified (principal)
CPT/HCPCS: 80048

== ENCOUNTER 2018-06-04 10:56 | Inpatient (IN) | payer MEDICARE, MEDICAID ==
[2018-06-04 11:43] LABS: BASO # 0.1 10^3/uL (0.0-0.2); BASO % 0.6 % (0.0-1.0); EOS # 0.4 10^3/uL (0.0-0.50); EOS % 2.3 % (0.0-3.0); HEMATOCRIT 30.4 % (42.0-52.0); HEMOGLOBIN 9.3 g/dl (13.5-17.5); IMMATURE GRANULOCYTE % 0.9 % (0-3.0); LYMPH # 0.6 10^3/uL (1.5-4.5); LYMPH % 3.4 % (24.0-44.0); MEAN CORPUSCULAR HEMOGLOBIN 23.3 pg (27.0-33.0); MEAN CORPUSCULAR HGB CONC 30.6 g/dl (32.0-36.5); MEAN CORPUSCULAR VOLUME 76.2 fl (80.0-96.0); MONO # 1.6 10^3/uL (0.0-0.8); MONO % 8.3 % (0.0-5.0); NEUTROPHILS # 15.9 10^3/uL (1.8-7.7); NEUTROPHILS % 84.5 % (36.0-66.0); PLATELET COUNT, AUTOMATED 249 10^3/uL (150-450); RED BLOOD COUNT 3.99 10^6/uL (4.30-6.10); RED CELL DISTRIBUTION WIDTH 17.8 % (11.5-14.5); WHITE BLOOD COUNT 18.9 10^3/uL (4.0-10.0)
[2018-06-04 11:57] LABS: BEDSIDE GLUCOSE 125 MG/DL (83-110)
[2018-06-04 12:06] LABS: AMMONIA 13 uMOL/L (<32)
[2018-06-04 12:28] LABS: ALBUMIN 2.9 GM/DL (3.2-5.2); ALBUMIN/GLOBULIN RATIO 0.88 (1.00-1.93); ALKALINE PHOSPHATASE 107 U/L (45-117); ALT/SGPT 16 U/L (12-78); ANION GAP 9 MEQ/L (8-16); AST/SGOT 16 U/L (7-37); BILIRUBIN,DIRECT 0.2 MG/DL (0.0-0.2); BILIRUBIN,TOTAL 0.6 MG/DL (0.2-1.0); BLOOD UREA NITROGEN 24 MG/DL (7-18); CALCIUM LEVEL 8.6 MG/DL (8.8-10.2); CARBON DIOXIDE LEVEL 31 MEQ/L (21-32); CHLORIDE LEVEL 100 MEQ/L (98-107); CREATININE FOR GFR 1.54 MG/DL (0.70-1.30); GLOMERULAR FILTRATION RATE 47.1 (>42); GLUCOSE, FASTING 112 MG/DL (70-100); POTASSIUM SERUM 4.5 MEQ/L (3.5-5.1); SODIUM LEVEL 140 MEQ/L (136-145); THYROID STIMULATING HORMONE 0.957 uIU/ML (0.358-3.740); TOTAL PROTEIN 6.2 GM/DL (6.4-8.2)
[2018-06-04 13:54] LABS: KETONE, URINE AUTO RFX NEGATIVE (NEGATIVE); LEUKOCYTE ESTERASE UR AUTO RFX NEGATIVE (NEGATIVE); MUCUS, URINE RFX SMALL (NEGATIVE); NITRITE, URINE AUTO RFX NEGATIVE (NEGATIVE); RBC, URINE AUTO RFX 2 /HPF (0-3); SPECIFIC GRAVITY UR AUTO RFX 1.009 (1.002-1.035); SQUAM EPITHELIAL CELL UR AURFX 0 /HPF (0-6); WBC, URINE AUTO RFX 1 /HPF (0-3)
[2018-06-04 14:55] LABS: LACTIC ACID SEPSIS PROTOCOL 1.6 MMOL/L (0.4-2.0)
[2018-06-04 15:09] LABS: DIGOXIN LEVEL 1.3 NG/ML (0.5-2.0)
[2018-06-04 15:33] LABS: ABG BASE EXCESS 6.5 (-2.0-2.0); ABG HCO3 30.6 MEQ/L (22.0-26.0); ABG O2 SATURATION 94.8 % (95.0-99.0); ABG PARTIAL PRESSURE CO2 42.1 mmHg (35.0-45.0); ABG PARTIAL PRESSURE O2 73.7 mmHg (75.0-100.0); ABG STANDARD HCO3 30.3 MEQ/L (22.0-26.0); ABG TOTAL CO2 31.9 MEQ/L (23.0-31.0); ABG pH (ARTERIAL) 7.479 UNITS (7.350-7.450)
[2018-06-04] MEDS ORDERED: DEXTROSE 50% 50 ML SYRINGE IV (20:30)
[2018-06-04] MEDS ORDERED: GLUCOSE 4 GM CHEW TABLET PO (20:30)
[2018-06-04] MEDS ORDERED: GLUCAGON FOR INJ 1 MG VIAL (J1610) SC (20:30)
[2018-06-04] MEDS ORDERED: ONDANSETRON 4 MG TAB (S0181) PO (20:30)
[2018-06-04] MEDS ORDERED: BACTRIM 160MG/800MG DS TAB PO (21:00)
[2018-06-04 23:52] LABS: BEDSIDE GLUCOSE 88 MG/DL (83-110)
[2018-06-05] MEDS: OMEPRAZOLE 20 MG CAP PO ×2 (00:02→21:55)
[2018-06-05] MEDS: RIVAROXABAN 20 MG TAB (XARELTO) PO ×2 (00:02→17:48)
[2018-06-05] MEDS: ATORVASTATIN 20 MG TAB PO ×2 (00:02→21:55)
[2018-06-05] MEDS: GABAPENTIN 100 MG CAP PO ×4 (00:02→21:55)
[2018-06-05] MEDS: SERTRALINE HCL 50 MG TAB PO ×3 (00:02→21:55)
[2018-06-05] MEDS: NS 1,000 ML IV (00:02)
[2018-06-05] MEDS: PERCOCET 5MG/325MG TAB PO ×3 (00:05→21:56)
[2018-06-05] MEDS: HumaLOG INSULIN (NovoLOG) PER UNIT SC ×5 (00:05→21:00)
[2018-06-05 06:19] LABS: BASO # 0.1 10^3/uL (0.0-0.2); BASO % 0.5 % (0.0-1.0); EOS # 0.5 10^3/uL (0.0-0.50); EOS % 2.7 % (0.0-3.0); HEMATOCRIT 29.8 % (42.0-52.0); HEMOGLOBIN 9.2 g/dl (13.5-17.5); IMMATURE GRANULOCYTE % 0.6 % (0-3.0); LYMPH # 1.3 10^3/uL (1.5-4.5); LYMPH % 7.9 % (24.0-44.0); MEAN CORPUSCULAR HEMOGLOBIN 23.4 pg (27.0-33.0); MEAN CORPUSCULAR HGB CONC 30.9 g/dl (32.0-36.5); MEAN CORPUSCULAR VOLUME 75.8 fl (80.0-96.0); MONO # 1.7 10^3/uL (0.0-0.8); MONO % 10.3 % (0.0-5.0); NEUTROPHILS # 12.8 10^3/uL (1.8-7.7); PLATELET COUNT, AUTOMATED 268 10^3/uL (150-450); RED BLOOD COUNT 3.93 10^6/uL (4.30-6.10); RED CELL DISTRIBUTION WIDTH 17.8 % (11.5-14.5); WHITE BLOOD COUNT 16.4 10^3/uL (4.0-10.0)
[2018-06-05 06:55] LABS: ANION GAP 8 MEQ/L (8-16); BLOOD UREA NITROGEN 21 MG/DL (7-18); CARBON DIOXIDE LEVEL 32 MEQ/L (21-32); CHLORIDE LEVEL 100 MEQ/L (98-107); CREATININE FOR GFR 1.36 MG/DL (0.70-1.30); FERRITIN 68 NG/ML (26-388); GLOMERULAR FILTRATION RATE 54.4 (>42); GLUCOSE, FASTING 86 MG/DL (70-100); IRON (FE) 28 UG/DL (65-175); MAGNESIUM LEVEL 2.2 MG/DL (1.8-2.4); PERCENT SATURATION 7.5 % (19.7-50.0); SODIUM LEVEL 140 MEQ/L (136-145); TOTAL IRON BINDING CAPACITY 375 UG/DL (250-450)
[2018-06-05] MEDS: ONDANSETRON 4MG/2ML VIAL (J2405) IV (07:07)
[2018-06-05] MEDS: IPRATROPIUM 0.5MG/ALBUTEROL 2.5MG INH SOL UD 3ML (DUONEB)(J7620) INH ×3 (08:00→19:39)
[2018-06-05] MEDS: LORazepam 2 MG/ML VIAL (J2060) IV (08:33)
[2018-06-05] MEDS: ADVAIR HFA 230/21MCG INHALER INH ×3 (08:59→19:39)
[2018-06-05] MEDS: ASPIRIN 81 MG ENTERIC TAB PO (10:57)
[2018-06-05] MEDS: predniSONE 10 MG TAB PO (10:57)
[2018-06-05] MEDS: POTASSIUM CHLORIDE 10 MEQ SR TABLET PO (10:57)
[2018-06-05] MEDS: DIGOXIN 0.125 MG TAB PO (10:58)
[2018-06-05] MEDS: LEVEMIR (INSULIN DETEMIR) 1 UNITS/0.01ML SC (10:59)
[2018-06-05 11:29] LABS: BEDSIDE GLUCOSE 95 MG/DL (83-110)
[2018-06-05 12:58] LABS: VITAMIN B12 LEVEL 250 PG/ML (247-911)
[2018-06-05 12:59] LABS: FOLATE 9.3 NG/ML (>5.4)
[2018-06-05] MEDS ORDERED: VANCOMYCIN HCL 750 MG, VIAL MATE ADAPTER 1 EACH in D5W 250 ML IV (16:45)
[2018-06-05 17:41] LABS: BEDSIDE GLUCOSE 130 MG/DL (83-110)
[2018-06-05] MEDS: VANCOMYCIN HCL 1,000 MG, VIAL MATE ADAPTER 1 EACH in D5W 250 ML IV ×2 (17:49→21:56)
[2018-06-05 20:52] LABS: BEDSIDE GLUCOSE 183 MG/DL (83-110)
[2018-06-05 21:32] LABS: TROPONIN I 0.06 NG/ML (< 0.10)
[2018-06-06 03:03] LABS: TROPONIN I 0.08 NG/ML (< 0.10)
[2018-06-06] MEDS: ACETAMINOPHEN TAB 650MG DOSE (2X325MG) PO ×2 (04:21→18:47)
[2018-06-06] MEDS: IPRATROPIUM 0.5MG/ALBUTEROL 2.5MG INH SOL UD 3ML (DUONEB)(J7620) INH ×4 (08:00→20:00)
[2018-06-06] MEDS: ADVAIR HFA 230/21MCG INHALER INH ×2 (08:11→20:32)
[2018-06-06 08:28] LABS: BEDSIDE GLUCOSE 109 MG/DL (83-110)
[2018-06-06 08:55] LABS: BASO # 0.1 10^3/uL (0.0-0.2); BASO % 0.5 % (0.0-1.0); EOS # 0.5 10^3/uL (0.0-0.50); EOS % 3.5 % (0.0-3.0); HEMOGLOBIN 8.8 g/dl (13.5-17.5); IMMATURE GRANULOCYTE % 1.3 % (0-3.0); LYMPH # 1.6 10^3/uL (1.5-4.5); LYMPH % 11.9 % (24.0-44.0); MEAN CORPUSCULAR HEMOGLOBIN 23.3 pg (27.0-33.0); MEAN CORPUSCULAR HGB CONC 30.3 g/dl (32.0-36.5); MEAN CORPUSCULAR VOLUME 76.7 fl (80.0-96.0); MONO # 1.2 10^3/uL (0.0-0.8); MONO % 9.1 % (0.0-5.0); NEUTROPHILS # 9.9 10^3/uL (1.8-7.7); NEUTROPHILS % 73.7 % (36.0-66.0); PLATELET COUNT, AUTOMATED 236 10^3/uL (150-450); RED BLOOD COUNT 3.78 10^6/uL (4.30-6.10); RED CELL DISTRIBUTION WIDTH 17.6 % (11.5-14.5); WHITE BLOOD COUNT 13.5 10^3/uL (4.0-10.0)
[2018-06-06 08:55] LABS: TRANSFERRIN 287 mg/dL (200-370)
[2018-06-06] MEDS: DIGOXIN 0.125 MG TAB PO (09:19)
[2018-06-06] MEDS: POTASSIUM CHLORIDE 10 MEQ SR TABLET PO (09:20)
[2018-06-06] MEDS: SERTRALINE HCL 50 MG TAB PO ×2 (09:20→21:09)
[2018-06-06] MEDS: GABAPENTIN 100 MG CAP PO ×3 (09:20→21:09)
[2018-06-06] MEDS: ASPIRIN 81 MG ENTERIC TAB PO (09:20)
[2018-06-06] MEDS: predniSONE 10 MG TAB PO (09:20)
[2018-06-06 09:21] LABS: ANION GAP 6 MEQ/L (8-16); BLOOD UREA NITROGEN 15 MG/DL (7-18); CALCIUM LEVEL 8.3 MG/DL (8.8-10.2); CARBON DIOXIDE LEVEL 30 MEQ/L (21-32); CHLORIDE LEVEL 103 MEQ/L (98-107); GLOMERULAR FILTRATION RATE > 60.0 (>42); GLUCOSE, FASTING 102 MG/DL (70-100); MAGNESIUM LEVEL 2.1 MG/DL (1.8-2.4); POTASSIUM SERUM 4.2 MEQ/L (3.5-5.1); SODIUM LEVEL 139 MEQ/L (136-145); VANCOMYCIN LEVEL TROUGH 14.4 UG/ML (10.0-20.0)
[2018-06-06] MEDS: PERCOCET 5MG/325MG TAB PO ×2 (09:25→21:09)
[2018-06-06] MEDS: HumaLOG INSULIN (NovoLOG) PER UNIT SC ×4 (09:26→20:32)
[2018-06-06] MEDS: LEVEMIR (INSULIN DETEMIR) 1 UNITS/0.01ML SC (09:27)
[2018-06-06] MEDS: VANCOMYCIN HCL 1,000 MG, VIAL MATE ADAPTER 1 EACH in D5W 250 ML IV ×4 (09:32→21:09)
[2018-06-06] MEDS: NYSTATIN 100,000 UNITS/GM TOPICAL PWD 15 GM TOP ×2 (09:49→21:12)
[2018-06-06] MEDS: METOPROLOL TART 12.5 MG PER 1/2 TAB PO ×2 (10:20→14:00)
[2018-06-06 11:39] LABS: BEDSIDE GLUCOSE 174 MG/DL (83-110)
[2018-06-06 16:13] LABS: BEDSIDE GLUCOSE 172 MG/DL (83-110)
[2018-06-06] MEDS: VERAPAMIL 40 MG TAB PO ×2 (17:34→21:10)
[2018-06-06] MEDS: RIVAROXABAN 20 MG TAB (XARELTO) PO (18:36)
[2018-06-06] MEDS: DIGOXIN INJ 0.5 MG/2 ML AMP (J1160) IV (18:38)
[2018-06-06 20:32] LABS: BEDSIDE GLUCOSE 158 MG/DL (83-110)
[2018-06-06] MEDS: ATORVASTATIN 20 MG TAB PO (21:09)
[2018-06-06] MEDS: OMEPRAZOLE 20 MG CAP PO (21:09)
[2018-06-07 05:31] LABS: BASO # 0.1 10^3/uL (0.0-0.2); BASO % 0.5 % (0.0-1.0); EOS # 0.5 10^3/uL (0.0-0.50); EOS % 3.3 % (0.0-3.0); HEMATOCRIT 28.4 % (42.0-52.0); HEMOGLOBIN 8.6 g/dl (13.5-17.5); IMMATURE GRANULOCYTE % 0.8 % (0-3.0); LYMPH % 6.3 % (24.0-44.0); MEAN CORPUSCULAR HEMOGLOBIN 23.1 pg (27.0-33.0); MEAN CORPUSCULAR HGB CONC 30.3 g/dl (32.0-36.5); MEAN CORPUSCULAR VOLUME 76.3 fl (80.0-96.0); MONO # 1.8 10^3/uL (0.0-0.8); MONO % 11.1 % (0.0-5.0); NEUTROPHILS # 12.8 10^3/uL (1.8-7.7); PLATELET COUNT, AUTOMATED 234 10^3/uL (150-450); RED BLOOD COUNT 3.72 10^6/uL (4.30-6.10); RED CELL DISTRIBUTION WIDTH 17.8 % (11.5-14.5); WHITE BLOOD COUNT 16.4 10^3/uL (4.0-10.0)
[2018-06-07 05:50] LABS: ANION GAP 6 MEQ/L (8-16); BLOOD UREA NITROGEN 16 MG/DL (7-18); C REACTIVE PROTEIN QUANTITATIV 2.78 MG/DL (0.00-0.30); CALCIUM LEVEL 8.3 MG/DL (8.8-10.2); CARBON DIOXIDE LEVEL 29 MEQ/L (21-32); CHLORIDE LEVEL 103 MEQ/L (98-107); CREATININE FOR GFR 0.94 MG/DL (0.70-1.30); GLOMERULAR FILTRATION RATE > 60.0 (>42); GLUCOSE, FASTING 129 MG/DL (70-100); MAGNESIUM LEVEL 2.2 MG/DL (1.8-2.4); SODIUM LEVEL 138 MEQ/L (136-145)
[2018-06-07] MEDS: VERAPAMIL 40 MG TAB PO ×2 (06:14→14:00)
[2018-06-07 06:25] LABS: ERYTHROCYTE SEDIMENTATION RATE 32 mm/hr (0-20)
[2018-06-07] MEDS: HumaLOG INSULIN (NovoLOG) PER UNIT SC ×4 (07:30→20:20)
[2018-06-07] MEDS: IPRATROPIUM 0.5MG/ALBUTEROL 2.5MG INH SOL UD 3ML (DUONEB)(J7620) INH ×4 (08:00→20:00)
[2018-06-07] MEDS: ADVAIR HFA 230/21MCG INHALER INH ×2 (08:25→20:45)
[2018-06-07] MEDS: PERCOCET 5MG/325MG TAB PO ×2 (08:50→17:02)
[2018-06-07] MEDS: SERTRALINE HCL 50 MG TAB PO ×2 (08:51→20:20)
[2018-06-07] MEDS: predniSONE 10 MG TAB PO (08:51)
[2018-06-07] MEDS: DIGOXIN 0.125 MG TAB PO (08:51)
[2018-06-07] MEDS: POTASSIUM CHLORIDE 10 MEQ SR TABLET PO (08:51)
[2018-06-07] MEDS: GABAPENTIN 100 MG CAP PO ×3 (08:51→20:20)
[2018-06-07] MEDS: ASPIRIN 81 MG ENTERIC TAB PO (08:52)
[2018-06-07] MEDS: VANCOMYCIN HCL 1,000 MG, VIAL MATE ADAPTER 1 EACH in D5W 250 ML IV ×2 (10:56→21:06)
[2018-06-07] MEDS: NYSTATIN 100,000 UNITS/GM TOPICAL PWD 15 GM TOP ×2 (10:57→20:20)
[2018-06-07] MEDS: LEVEMIR (INSULIN DETEMIR) 1 UNITS/0.01ML SC (10:58)
[2018-06-07 12:31] LABS: BEDSIDE GLUCOSE 192 MG/DL (83-110)
[2018-06-07] MEDS: NS 1,000 ML IV (14:30)
[2018-06-07] MEDS: NS 500 ML IV (14:33)
[2018-06-07 17:00] LABS: BEDSIDE GLUCOSE 134 MG/DL (83-110)
[2018-06-07] MEDS: RIVAROXABAN 20 MG TAB (XARELTO) PO (17:01)
[2018-06-07] MEDS: ATORVASTATIN 20 MG TAB PO (20:20)
[2018-06-07] MEDS: OMEPRAZOLE 20 MG CAP PO (20:20)
[2018-06-07 20:24] LABS: BEDSIDE GLUCOSE 183 MG/DL (83-110)
[2018-06-08 04:45] LABS: BASO # 0.1 10^3/uL (0.0-0.2); BASO % 0.6 % (0.0-1.0); EOS # 0.5 10^3/uL (0.0-0.50); EOS % 3.4 % (0.0-3.0); HEMATOCRIT 27.9 % (42.0-52.0); HEMOGLOBIN 8.5 g/dl (13.5-17.5); IMMATURE GRANULOCYTE % 0.8 % (0-3.0); LYMPH # 1.1 10^3/uL (1.5-4.5); LYMPH % 7.1 % (24.0-44.0); MEAN CORPUSCULAR HEMOGLOBIN 23.3 pg (27.0-33.0); MEAN CORPUSCULAR HGB CONC 30.5 g/dl (32.0-36.5); MEAN CORPUSCULAR VOLUME 76.4 fl (80.0-96.0); MONO # 1.7 10^3/uL (0.0-0.8); NEUTROPHILS # 11.9 10^3/uL (1.8-7.7); NEUTROPHILS % 77.1 % (36.0-66.0); PLATELET COUNT, AUTOMATED 247 10^3/uL (150-450); RED BLOOD COUNT 3.65 10^6/uL (4.30-6.10); RED CELL DISTRIBUTION WIDTH 17.7 % (11.5-14.5); WHITE BLOOD COUNT 15.5 10^3/uL (4.0-10.0)
[2018-06-08 05:04] LABS: ANION GAP 6 MEQ/L (8-16); BLOOD UREA NITROGEN 14 MG/DL (7-18); C REACTIVE PROTEIN QUANTITATIV 5.51 MG/DL (0.00-0.30); CARBON DIOXIDE LEVEL 27 MEQ/L (21-32); CHLORIDE LEVEL 106 MEQ/L (98-107); CREATININE FOR GFR 0.87 MG/DL (0.70-1.30); GLOMERULAR FILTRATION RATE > 60.0 (>42); GLUCOSE, FASTING 111 MG/DL (70-100); MAGNESIUM LEVEL 1.8 MG/DL (1.8-2.4); SODIUM LEVEL 139 MEQ/L (136-145)
[2018-06-08 05:39] LABS: ERYTHROCYTE SEDIMENTATION RATE 45 mm/hr (0-20)
[2018-06-08] MEDS: IPRATROPIUM 0.5MG/ALBUTEROL 2.5MG INH SOL UD 3ML (DUONEB)(J7620) INH ×4 (07:13→20:04)
[2018-06-08] MEDS: ADVAIR HFA 230/21MCG INHALER INH ×2 (07:13→20:04)
[2018-06-08] MEDS: HumaLOG INSULIN (NovoLOG) PER UNIT SC ×4 (07:30→20:41)
[2018-06-08] MEDS: NYSTATIN 100,000 UNITS/GM TOPICAL PWD 15 GM TOP ×2 (09:00→20:44)
[2018-06-08] MEDS: GABAPENTIN 100 MG CAP PO ×3 (09:46→20:43)
[2018-06-08] MEDS: POTASSIUM CHLORIDE 10 MEQ SR TABLET PO (09:46)
[2018-06-08] MEDS: predniSONE 10 MG TAB PO (09:46)
[2018-06-08] MEDS: PIPERACILLIN/TAZOBACTAM SOD 3.375 GM in D5W MINI-BAG PLUS 50 ML IV ×3 (09:47→20:40)
[2018-06-08] MEDS: PERCOCET 5MG/325MG TAB PO ×2 (09:47→18:06)
[2018-06-08] MEDS: SERTRALINE HCL 50 MG TAB PO ×2 (09:47→20:43)
[2018-06-08] MEDS: ASPIRIN 81 MG ENTERIC TAB PO (09:47)
[2018-06-08] MEDS: LEVEMIR (INSULIN DETEMIR) 1 UNITS/0.01ML SC (09:48)
[2018-06-08] MEDS: DIGOXIN 0.125 MG TAB PO (09:51)
[2018-06-08] MEDS: VERAPAMIL 40 MG TAB PO ×2 (09:54→20:43)
[2018-06-08 10:23] LABS: VANCOMYCIN LEVEL TROUGH 17.3 UG/ML (10.0-20.0)
[2018-06-08] MEDS: VANCOMYCIN HCL 1,000 MG, VIAL MATE ADAPTER 1 EACH in D5W 250 ML IV ×2 (11:23→22:19)
[2018-06-08 11:41] LABS: BEDSIDE GLUCOSE 177 MG/DL (83-110)
[2018-06-08 16:02] LABS: KETONE, URINE AUTO RFX NEGATIVE (NEGATIVE); LEUKOCYTE ESTERASE UR AUTO RFX NEGATIVE (NEGATIVE); MUCUS, URINE RFX SMALL (NEGATIVE); NITRITE, URINE AUTO RFX NEGATIVE (NEGATIVE); RBC, URINE AUTO RFX 0 /HPF (0-3); SPECIFIC GRAVITY UR AUTO RFX 1.006 (1.002-1.035); SQUAM EPITHELIAL CELL UR AURFX 0 /HPF (0-6); WBC, URINE AUTO RFX 1 /HPF (0-3)
[2018-06-08 17:45] LABS: BEDSIDE GLUCOSE 154 MG/DL (83-110)
[2018-06-08] MEDS: RIVAROXABAN 20 MG TAB (XARELTO) PO (18:05)
[2018-06-08 20:31] LABS: BEDSIDE GLUCOSE 201 MG/DL (83-110)
[2018-06-08] MEDS: ATORVASTATIN 20 MG TAB PO (20:43)
[2018-06-08] MEDS: OMEPRAZOLE 20 MG CAP PO (20:43)
[2018-06-08] MEDS ORDERED: VERAPAMIL 40 MG TAB PO (21:00)
[2018-06-09] MEDS: PIPERACILLIN/TAZOBACTAM SOD 3.375 GM in D5W MINI-BAG PLUS 50 ML IV ×4 (03:20→20:13)
[2018-06-09] MEDS: PERCOCET 5MG/325MG TAB PO ×2 (03:55→21:08)
[2018-06-09 05:53] LABS: BASO # 0.1 10^3/uL (0.0-0.2); BASO % 0.5 % (0.0-1.0); EOS # 0.6 10^3/uL (0.0-0.50); EOS % 3.8 % (0.0-3.0); HEMATOCRIT 27.7 % (42.0-52.0); HEMOGLOBIN 8.3 g/dl (13.5-17.5); IMMATURE GRANULOCYTE % 1.2 % (0-3.0); LYMPH # 0.9 10^3/uL (1.5-4.5); LYMPH % 5.9 % (24.0-44.0); MEAN CORPUSCULAR HEMOGLOBIN 23.2 pg (27.0-33.0); MEAN CORPUSCULAR VOLUME 77.4 fl (80.0-96.0); MONO # 1.6 10^3/uL (0.0-0.8); MONO % 10.2 % (0.0-5.0); NEUTROPHILS # 11.9 10^3/uL (1.8-7.7); NEUTROPHILS % 78.4 % (36.0-66.0); PLATELET COUNT, AUTOMATED 252 10^3/uL (150-450); RED BLOOD COUNT 3.58 10^6/uL (4.30-6.10); RED CELL DISTRIBUTION WIDTH 18.1 % (11.5-14.5); WHITE BLOOD COUNT 15.2 10^3/uL (4.0-10.0)
[2018-06-09 06:22] LABS: C REACTIVE PROTEIN QUANTITATIV 6.87 MG/DL (0.00-0.30)
[2018-06-09 06:23] LABS: ANION GAP 8 MEQ/L (8-16); BLOOD UREA NITROGEN 12 MG/DL (7-18); CALCIUM LEVEL 8.2 MG/DL (8.8-10.2); CARBON DIOXIDE LEVEL 28 MEQ/L (21-32); CHLORIDE LEVEL 105 MEQ/L (98-107); GLOMERULAR FILTRATION RATE > 60.0 (>42); GLUCOSE, FASTING 116 MG/DL (70-100); MAGNESIUM LEVEL 1.8 MG/DL (1.8-2.4); POTASSIUM SERUM 3.6 MEQ/L (3.5-5.1); SODIUM LEVEL 141 MEQ/L (136-145)
[2018-06-09 06:28] LABS: ERYTHROCYTE SEDIMENTATION RATE 37 mm/hr (0-20)
[2018-06-09] MEDS: IPRATROPIUM 0.5MG/ALBUTEROL 2.5MG INH SOL UD 3ML (DUONEB)(J7620) INH ×4 (07:34→21:34)
[2018-06-09] MEDS: ADVAIR HFA 230/21MCG INHALER INH ×2 (07:34→21:34)
[2018-06-09] MEDS: HumaLOG INSULIN (NovoLOG) PER UNIT SC ×4 (08:48→20:14)
[2018-06-09] MEDS: VERAPAMIL 40 MG TAB PO ×2 (08:49→20:14)
[2018-06-09] MEDS: ASPIRIN 81 MG ENTERIC TAB PO (08:49)
[2018-06-09] MEDS: DIGOXIN 0.125 MG TAB PO (08:49)
[2018-06-09] MEDS: SERTRALINE HCL 50 MG TAB PO ×2 (08:49→20:14)
[2018-06-09] MEDS: predniSONE 10 MG TAB PO (08:49)
[2018-06-09] MEDS: GABAPENTIN 100 MG CAP PO ×3 (08:49→20:14)
[2018-06-09] MEDS: POTASSIUM CHLORIDE 10 MEQ SR TABLET PO (08:50)
[2018-06-09] MEDS: NYSTATIN 100,000 UNITS/GM TOPICAL PWD 15 GM TOP ×2 (08:50→20:15)
[2018-06-09] MEDS: LEVEMIR (INSULIN DETEMIR) 1 UNITS/0.01ML SC (10:49)
[2018-06-09] MEDS: VANCOMYCIN HCL 1,000 MG, VIAL MATE ADAPTER 1 EACH in D5W 250 ML IV ×2 (10:49→21:39)
[2018-06-09 11:49] LABS: BEDSIDE GLUCOSE 167 MG/DL (83-110)
[2018-06-09] MEDS ORDERED: SLF 3 ML SYR IV (12:00)
[2018-06-09] MEDS: SLF 3 ML SYR IV ×2 (15:11→20:15)
[2018-06-09] MEDS: RIVAROXABAN 20 MG TAB (XARELTO) PO (16:31)
[2018-06-09 17:00] LABS: BEDSIDE GLUCOSE 175 MG/DL (83-110)
[2018-06-09 20:09] LABS: BEDSIDE GLUCOSE 159 MG/DL (83-110)
[2018-06-09] MEDS: OMEPRAZOLE 20 MG CAP PO (20:14)
[2018-06-09] MEDS: ATORVASTATIN 20 MG TAB PO (20:14)
[2018-06-09] MEDS: VERAPAMIL HCL 5 MG/2 ML VIAL IV (23:50)
[2018-06-10 00:25] LABS: TROPONIN I 0.05 NG/ML (< 0.10)
[2018-06-10] MEDS: PIPERACILLIN/TAZOBACTAM SOD 3.375 GM in D5W MINI-BAG PLUS 50 ML IV ×4 (02:18→21:37)
[2018-06-10] MEDS: PERCOCET 5MG/325MG TAB PO ×2 (03:41→17:36)
[2018-06-10] MEDS: SLF 3 ML SYR IV ×3 (06:07→22:00)
[2018-06-10] MEDS: VERAPAMIL 40 MG TAB PO ×3 (06:07→21:36)
[2018-06-10 06:58] LABS: BASO # 0.1 10^3/uL (0.0-0.2); BASO % 0.8 % (0.0-1.0); EOS # 0.6 10^3/uL (0.0-0.50); EOS % 3.3 % (0.0-3.0); HEMATOCRIT 27.4 % (42.0-52.0); HEMOGLOBIN 8.2 g/dl (13.5-17.5); IMMATURE GRANULOCYTE % 0.6 % (0-3.0); LYMPH # 0.9 10^3/uL (1.5-4.5); LYMPH % 5.3 % (24.0-44.0); MEAN CORPUSCULAR HGB CONC 29.9 g/dl (32.0-36.5); MONO # 1.7 10^3/uL (0.0-0.8); MONO % 10.2 % (0.0-5.0); NEUTROPHILS # 13.6 10^3/uL (1.8-7.7); NEUTROPHILS % 79.8 % (36.0-66.0); PLATELET COUNT, AUTOMATED 270 10^3/uL (150-450); RED BLOOD COUNT 3.56 10^6/uL (4.30-6.10); RED CELL DISTRIBUTION WIDTH 18.2 % (11.5-14.5)
[2018-06-10 07:06] LABS: ANION GAP 8 MEQ/L (8-16); BLOOD UREA NITROGEN 11 MG/DL (7-18); C REACTIVE PROTEIN QUANTITATIV 5.94 MG/DL (0.00-0.30); CALCIUM LEVEL 8.4 MG/DL (8.8-10.2); CARBON DIOXIDE LEVEL 27 MEQ/L (21-32); CHLORIDE LEVEL 107 MEQ/L (98-107); CREATININE FOR GFR 0.83 MG/DL (0.70-1.30); GLOMERULAR FILTRATION RATE > 60.0 (>42); GLUCOSE, FASTING 116 MG/DL (70-100); POTASSIUM SERUM 3.8 MEQ/L (3.5-5.1); SODIUM LEVEL 142 MEQ/L (136-145); TROPONIN I 0.06 NG/ML (< 0.10)
[2018-06-10 07:17] LABS: ERYTHROCYTE SEDIMENTATION RATE 52 mm/hr (0-20)
[2018-06-10] MEDS: IPRATROPIUM 0.5MG/ALBUTEROL 2.5MG INH SOL UD 3ML (DUONEB)(J7620) INH ×5 (07:20→20:00)
[2018-06-10] MEDS: ADVAIR HFA 230/21MCG INHALER INH ×2 (07:20→20:00)
[2018-06-10] MEDS: HumaLOG INSULIN (NovoLOG) PER UNIT SC ×4 (08:41→21:00)
[2018-06-10] MEDS: ASPIRIN 81 MG ENTERIC TAB PO (08:42)
[2018-06-10] MEDS: POTASSIUM CHLORIDE 10 MEQ SR TABLET PO (08:42)
[2018-06-10] MEDS: predniSONE 10 MG TAB PO (08:42)
[2018-06-10] MEDS: GABAPENTIN 100 MG CAP PO ×3 (08:42→21:37)
[2018-06-10] MEDS: DIGOXIN 0.125 MG TAB PO (08:42)
[2018-06-10] MEDS: SERTRALINE HCL 50 MG TAB PO ×2 (08:42→21:37)
[2018-06-10] MEDS: LEVEMIR (INSULIN DETEMIR) 1 UNITS/0.01ML SC (08:42)
[2018-06-10] MEDS: NYSTATIN 100,000 UNITS/GM TOPICAL PWD 15 GM TOP ×2 (08:43→21:37)
[2018-06-10] MEDS: MOM 30ML SUSPENSION UDC PO (09:00)
[2018-06-10] MEDS: VANCOMYCIN HCL 1,000 MG, VIAL MATE ADAPTER 1 EACH in D5W 250 ML IV ×2 (10:07→23:29)
[2018-06-10 12:14] LABS: BEDSIDE GLUCOSE 153 MG/DL (83-110)
[2018-06-10 17:30] LABS: BEDSIDE GLUCOSE 207 MG/DL (83-110)
[2018-06-10] MEDS: RIVAROXABAN 20 MG TAB (XARELTO) PO (17:37)
[2018-06-10] MEDS: DIGOXIN INJ 0.5 MG/2 ML AMP (J1160) IV (18:43)
[2018-06-10 21:23] LABS: BEDSIDE GLUCOSE 171 MG/DL (83-110)
[2018-06-10] MEDS: ATORVASTATIN 20 MG TAB PO (21:37)
[2018-06-10] MEDS: OMEPRAZOLE 20 MG CAP PO (21:37)
[2018-06-10] MEDS: ACETAMINOPHEN TAB 650MG DOSE (2X325MG) PO (23:36)
[2018-06-11] MEDS: PERCOCET 5MG/325MG TAB PO (03:49)
[2018-06-11] MEDS: PIPERACILLIN/TAZOBACTAM SOD 3.375 GM in D5W MINI-BAG PLUS 50 ML IV ×4 (03:49→20:28)
[2018-06-11] MEDS: VERAPAMIL 40 MG TAB PO ×3 (05:23→22:14)
[2018-06-11] MEDS: SLF 3 ML SYR IV ×3 (05:24→22:15)
[2018-06-11] MEDS: IPRATROPIUM 0.5MG/ALBUTEROL 2.5MG INH SOL UD 3ML (DUONEB)(J7620) INH ×4 (07:22→20:00)
[2018-06-11] MEDS: ADVAIR HFA 230/21MCG INHALER INH ×3 (07:22→20:56)
[2018-06-11 07:40] LABS: BEDSIDE GLUCOSE 125 MG/DL (83-110)
[2018-06-11 07:44] LABS: BASO # 0.1 10^3/uL (0.0-0.2); BASO % 0.6 % (0.0-1.0); EOS # 0.9 10^3/uL (0.0-0.50); EOS % 5.2 % (0.0-3.0); HEMATOCRIT 28.4 % (42.0-52.0); HEMOGLOBIN 8.6 g/dl (13.5-17.5); IMMATURE GRANULOCYTE % 0.5 % (0-3.0); LYMPH % 5.9 % (24.0-44.0); MEAN CORPUSCULAR HEMOGLOBIN 23.4 pg (27.0-33.0); MEAN CORPUSCULAR HGB CONC 30.3 g/dl (32.0-36.5); MEAN CORPUSCULAR VOLUME 77.4 fl (80.0-96.0); MONO # 1.8 10^3/uL (0.0-0.8); MONO % 10.3 % (0.0-5.0); NEUTROPHILS # 13.3 10^3/uL (1.8-7.7); NEUTROPHILS % 77.5 % (36.0-66.0); PLATELET COUNT, AUTOMATED 285 10^3/uL (150-450); RED BLOOD COUNT 3.67 10^6/uL (4.30-6.10); RED CELL DISTRIBUTION WIDTH 18.2 % (11.5-14.5); WHITE BLOOD COUNT 17.1 10^3/uL (4.0-10.0)
[2018-06-11 08:18] LABS: ANION GAP 8 MEQ/L (8-16); BLOOD UREA NITROGEN 10 MG/DL (7-18); C REACTIVE PROTEIN QUANTITATIV 5.78 MG/DL (0.00-0.30); CALCIUM LEVEL 8.2 MG/DL (8.8-10.2); CARBON DIOXIDE LEVEL 28 MEQ/L (21-32); CHLORIDE LEVEL 107 MEQ/L (98-107); CREATININE FOR GFR 0.73 MG/DL (0.70-1.30); GLOMERULAR FILTRATION RATE > 60.0 (>42); GLUCOSE, FASTING 118 MG/DL (70-100); POTASSIUM SERUM 3.9 MEQ/L (3.5-5.1); SODIUM LEVEL 143 MEQ/L (136-145)
[2018-06-11 08:19] LABS: ERYTHROCYTE SEDIMENTATION RATE 45 mm/hr (0-20)
[2018-06-11] MEDS: NYSTATIN 100,000 UNITS/GM TOPICAL PWD 15 GM TOP ×2 (08:22→22:13)
[2018-06-11] MEDS: LEVEMIR (INSULIN DETEMIR) 1 UNITS/0.01ML SC (08:22)
[2018-06-11] MEDS: HumaLOG INSULIN (NovoLOG) PER UNIT SC ×4 (08:23→19:57)
[2018-06-11] MEDS: predniSONE 10 MG TAB PO (08:23)
[2018-06-11] MEDS: SERTRALINE HCL 50 MG TAB PO ×2 (08:24→20:23)
[2018-06-11] MEDS: ASPIRIN 81 MG ENTERIC TAB PO (08:24)
[2018-06-11] MEDS: DIGOXIN 0.125 MG TAB PO (08:24)
[2018-06-11] MEDS: POTASSIUM CHLORIDE 10 MEQ SR TABLET PO (08:24)
[2018-06-11] MEDS: GABAPENTIN 100 MG CAP PO ×3 (08:24→20:23)
[2018-06-11 09:29] LABS: VANCOMYCIN LEVEL TROUGH 18.1 UG/ML (10.0-20.0)
[2018-06-11] MEDS: VANCOMYCIN HCL 1,000 MG, VIAL MATE ADAPTER 1 EACH in D5W 250 ML IV ×2 (09:58→22:13)
[2018-06-11] MEDS: LORazepam 2 MG/ML VIAL (J2060) IV (10:25)
[2018-06-11] MEDS: DOCUSATE SODIUM 100 MG CAP PO ×2 (10:55→20:23)
[2018-06-11] MEDS: MOM 30ML SUSPENSION UDC PO (10:55)
[2018-06-11 11:51] LABS: BEDSIDE GLUCOSE 176 MG/DL (83-110)
[2018-06-11 16:44] LABS: BEDSIDE GLUCOSE 192 MG/DL (83-110)
[2018-06-11] MEDS: RIVAROXABAN 20 MG TAB (XARELTO) PO (16:44)
[2018-06-11] MEDS: ATORVASTATIN 20 MG TAB PO (20:23)
[2018-06-11] MEDS: OMEPRAZOLE 20 MG CAP PO (20:23)
[2018-06-11] MEDS: ACETAMINOPHEN TAB 650MG DOSE (2X325MG) PO (20:25)
[2018-06-12] MEDS: PERCOCET 5MG/325MG TAB PO ×2 (00:06→10:18)
[2018-06-12] MEDS: PIPERACILLIN/TAZOBACTAM SOD 3.375 GM in D5W MINI-BAG PLUS 50 ML IV ×2 (03:30→08:31)
[2018-06-12] MEDS: SLF 3 ML SYR IV ×3 (05:30→22:26)
[2018-06-12] MEDS: VERAPAMIL 40 MG TAB PO ×3 (05:30→22:24)
[2018-06-12 06:12] LABS: ERYTHROCYTE SEDIMENTATION RATE 40 mm/hr (0-20)
[2018-06-12 06:13] LABS: C REACTIVE PROTEIN QUANTITATIV 5.37 MG/DL (0.00-0.30)
[2018-06-12] MEDS: ADVAIR HFA 230/21MCG INHALER INH ×2 (07:35→20:00)
[2018-06-12] MEDS: IPRATROPIUM 0.5MG/ALBUTEROL 2.5MG INH SOL UD 3ML (DUONEB)(J7620) INH ×4 (07:35→20:00)
[2018-06-12] MEDS: ASPIRIN 81 MG ENTERIC TAB PO (08:31)
[2018-06-12] MEDS: HumaLOG INSULIN (NovoLOG) PER UNIT SC ×4 (08:31→22:56)
[2018-06-12] MEDS: LEVEMIR (INSULIN DETEMIR) 1 UNITS/0.01ML SC (08:31)
[2018-06-12] MEDS: POTASSIUM CHLORIDE 10 MEQ SR TABLET PO (08:31)
[2018-06-12] MEDS: GABAPENTIN 100 MG CAP PO ×3 (08:32→22:25)
[2018-06-12] MEDS: DOCUSATE SODIUM 100 MG CAP PO ×2 (08:32→22:25)
[2018-06-12] MEDS: DIGOXIN 0.125 MG TAB PO ×2 (08:32→17:19)
[2018-06-12] MEDS: SERTRALINE HCL 50 MG TAB PO ×2 (08:32→22:25)
[2018-06-12] MEDS: predniSONE 10 MG TAB PO (08:32)
[2018-06-12] MEDS: NYSTATIN 100,000 UNITS/GM TOPICAL PWD 15 GM TOP ×2 (08:32→22:26)
[2018-06-12] MEDS: VANCOMYCIN HCL 1,000 MG, VIAL MATE ADAPTER 1 EACH in D5W 250 ML IV ×2 (10:06→22:26)
[2018-06-12 10:42] LABS: HEMATOCRIT 29.4 % (42.0-52.0); HEMOGLOBIN 8.8 g/dl (13.5-17.5); MEAN CORPUSCULAR HEMOGLOBIN 23.1 pg (27.0-33.0); MEAN CORPUSCULAR HGB CONC 29.9 g/dl (32.0-36.5); MEAN CORPUSCULAR VOLUME 77.2 fl (80.0-96.0); PLATELET COUNT, AUTOMATED 276 10^3/uL (150-450); RED BLOOD COUNT 3.81 10^6/uL (4.30-6.10); RED CELL DISTRIBUTION WIDTH 18.3 % (11.5-14.5); WHITE BLOOD COUNT 14.2 10^3/uL (4.0-10.0)
[2018-06-12 11:12] LABS: ANION GAP 7 MEQ/L (8-16); BLOOD UREA NITROGEN 11 MG/DL (7-18); CALCIUM LEVEL 8.3 MG/DL (8.8-10.2); CARBON DIOXIDE LEVEL 31 MEQ/L (21-32); CHLORIDE LEVEL 104 MEQ/L (98-107); CREATININE FOR GFR 0.96 MG/DL (0.70-1.30); GLOMERULAR FILTRATION RATE > 60.0 (>42); GLUCOSE, FASTING 143 MG/DL (70-100); SODIUM LEVEL 142 MEQ/L (136-145)
[2018-06-12] MEDS: RIVAROXABAN 20 MG TAB (XARELTO) PO (17:19)
[2018-06-12] MEDS: OMEPRAZOLE 20 MG CAP PO (22:25)
[2018-06-12] MEDS: ATORVASTATIN 20 MG TAB PO (22:25)
[2018-06-13] MEDS: VERAPAMIL 40 MG TAB PO ×4 (05:18→23:40)
[2018-06-13] MEDS: ACETAMINOPHEN TAB 650MG DOSE (2X325MG) PO (05:18)
[2018-06-13] MEDS: SLF 3 ML SYR IV ×3 (06:00→20:35)
[2018-06-13 06:58] LABS: HEMATOCRIT 30.1 % (42.0-52.0); MEAN CORPUSCULAR HEMOGLOBIN 23.2 pg (27.0-33.0); MEAN CORPUSCULAR HGB CONC 29.9 g/dl (32.0-36.5); MEAN CORPUSCULAR VOLUME 77.6 fl (80.0-96.0); PLATELET COUNT, AUTOMATED 300 10^3/uL (150-450); RED BLOOD COUNT 3.88 10^6/uL (4.30-6.10); RED CELL DISTRIBUTION WIDTH 18.3 % (11.5-14.5); WHITE BLOOD COUNT 14.7 10^3/uL (4.0-10.0)
[2018-06-13 07:19] LABS: ANION GAP 6 MEQ/L (8-16); BLOOD UREA NITROGEN 13 MG/DL (7-18); C REACTIVE PROTEIN QUANTITATIV 3.89 MG/DL (0.00-0.30); CALCIUM LEVEL 8.5 MG/DL (8.8-10.2); CARBON DIOXIDE LEVEL 29 MEQ/L (21-32); CHLORIDE LEVEL 106 MEQ/L (98-107); CPK CREATINE PHOSPHOKINASE 27 U/L (39-308); CREATININE FOR GFR 0.86 MG/DL (0.70-1.30); GLOMERULAR FILTRATION RATE > 60.0 (>42); GLUCOSE, FASTING 121 MG/DL (70-100); SODIUM LEVEL 141 MEQ/L (136-145); TROPONIN I 0.05 NG/ML (< 0.10)
[2018-06-13 07:24] LABS: ERYTHROCYTE SEDIMENTATION RATE 39 mm/hr (0-20)
[2018-06-13 07:29] LABS: CK-MB VALUE MASS 1.7 NG/ML (<3.6); DIGOXIN LEVEL 1.1 NG/ML (0.5-2.0); MB/CK RELATIVE INDEX 6.29 (< OR =4)
[2018-06-13] MEDS: FUROSEMIDE 40 MG/4 ML VIAL (J1940) IV (07:29)
[2018-06-13] MEDS: ASPIRIN 81 MG ENTERIC TAB PO (07:52)
[2018-06-13] MEDS: POTASSIUM CHLORIDE 10 MEQ SR TABLET PO (07:52)
[2018-06-13] MEDS: SERTRALINE HCL 50 MG TAB PO ×2 (07:52→20:33)
[2018-06-13] MEDS: LEVEMIR (INSULIN DETEMIR) 1 UNITS/0.01ML SC (07:52)
[2018-06-13] MEDS: DOCUSATE SODIUM 100 MG CAP PO ×2 (07:52→20:33)
[2018-06-13] MEDS: predniSONE 10 MG TAB PO (07:52)
[2018-06-13] MEDS: DIGOXIN 0.125 MG TAB PO (07:53)
[2018-06-13] MEDS: HumaLOG INSULIN (NovoLOG) PER UNIT SC ×4 (07:53→21:00)
[2018-06-13] MEDS: IPRATROPIUM 0.5MG/ALBUTEROL 2.5MG INH SOL UD 3ML (DUONEB)(J7620) INH ×4 (08:00→20:00)
[2018-06-13] MEDS: ADVAIR HFA 230/21MCG INHALER INH ×2 (08:05→20:00)
[2018-06-13] MEDS: NYSTATIN 100,000 UNITS/GM TOPICAL PWD 15 GM TOP ×2 (08:14→20:36)
[2018-06-13] MEDS: GABAPENTIN 100 MG CAP PO ×3 (08:14→20:34)
[2018-06-13] MEDS: VANCOMYCIN HCL 1,000 MG, VIAL MATE ADAPTER 1 EACH in D5W 250 ML IV ×2 (09:46→22:39)
[2018-06-13 11:52] LABS: BEDSIDE GLUCOSE 172 MG/DL (83-110)
[2018-06-13] MEDS: LACTOBACILLUS ACIDOPHILUS CAP (BACID) PO ×2 (11:56→20:33)
[2018-06-13] MEDS ORDERED: SILVER SULFADIAZINE 1% CR 50 GM JAR TOP (14:15)
[2018-06-13 16:26] LABS: BEDSIDE GLUCOSE 147 MG/DL (83-110)
[2018-06-13] MEDS: RIVAROXABAN 20 MG TAB (XARELTO) PO (17:45)
[2018-06-13] MEDS: ATORVASTATIN 20 MG TAB PO (20:33)
[2018-06-13] MEDS: SILVER SULFADIAZINE 1% CR 50 GM JAR TOP (20:34)
[2018-06-13] MEDS: OMEPRAZOLE 20 MG CAP PO (20:34)
[2018-06-13 21:22] LABS: BEDSIDE GLUCOSE 141 MG/DL (83-110)
[2018-06-14 05:57] LABS: HEMATOCRIT 32.1 % (42.0-52.0); HEMOGLOBIN 9.5 g/dl (13.5-17.5); MEAN CORPUSCULAR HEMOGLOBIN 22.8 pg (27.0-33.0); MEAN CORPUSCULAR HGB CONC 29.6 g/dl (32.0-36.5); MEAN CORPUSCULAR VOLUME 77.2 fl (80.0-96.0); PLATELET COUNT, AUTOMATED 321 10^3/uL (150-450); RED BLOOD COUNT 4.16 10^6/uL (4.30-6.10); RED CELL DISTRIBUTION WIDTH 18.4 % (11.5-14.5); WHITE BLOOD COUNT 16.4 10^3/uL (4.0-10.0)
[2018-06-14 06:17] LABS: ANION GAP 4 MEQ/L (8-16); BLOOD UREA NITROGEN 16 MG/DL (7-18); CALCIUM LEVEL 8.6 MG/DL (8.8-10.2); CARBON DIOXIDE LEVEL 35 MEQ/L (21-32); CHLORIDE LEVEL 104 MEQ/L (98-107); CREATININE FOR GFR 0.86 MG/DL (0.70-1.30); GLOMERULAR FILTRATION RATE > 60.0 (>42); GLUCOSE, FASTING 114 MG/DL (70-100); POTASSIUM SERUM 3.8 MEQ/L (3.5-5.1); SODIUM LEVEL 143 MEQ/L (136-145)
[2018-06-14] MEDS: ALBUTEROL SULFATE 2.5 MG/0.5 ML INH NEB SOLN INH (06:42)
[2018-06-14] MEDS: VERAPAMIL 40 MG TAB PO ×4 (06:43→23:58)
[2018-06-14] MEDS: SLF 3 ML SYR IV ×3 (06:43→20:32)
[2018-06-14] MEDS: ADVAIR HFA 230/21MCG INHALER INH ×2 (08:00→20:26)
[2018-06-14] MEDS: IPRATROPIUM 0.5MG/ALBUTEROL 2.5MG INH SOL UD 3ML (DUONEB)(J7620) INH ×4 (08:00→20:26)
[2018-06-14] MEDS: HumaLOG INSULIN (NovoLOG) PER UNIT SC ×4 (08:40→20:30)
[2018-06-14] MEDS: ASPIRIN 81 MG ENTERIC TAB PO (08:41)
[2018-06-14] MEDS: GABAPENTIN 100 MG CAP PO ×3 (08:41→20:30)
[2018-06-14] MEDS: predniSONE 10 MG TAB PO (08:41)
[2018-06-14] MEDS: LACTOBACILLUS ACIDOPHILUS CAP (BACID) PO ×2 (08:41→20:29)
[2018-06-14] MEDS: LEVEMIR (INSULIN DETEMIR) 1 UNITS/0.01ML SC (08:41)
[2018-06-14] MEDS: DOCUSATE SODIUM 100 MG CAP PO ×2 (08:42→20:32)
[2018-06-14] MEDS: POTASSIUM CHLORIDE 10 MEQ SR TABLET PO (08:42)
[2018-06-14] MEDS: SERTRALINE HCL 50 MG TAB PO ×2 (08:42→20:30)
[2018-06-14] MEDS: DIGOXIN 0.125 MG TAB PO (08:45)
[2018-06-14] MEDS: NYSTATIN 100,000 UNITS/GM TOPICAL PWD 15 GM TOP ×2 (08:45→20:31)
[2018-06-14] MEDS: SILVER SULFADIAZINE 1% CR 50 GM JAR TOP ×2 (08:46→20:32)
[2018-06-14] MEDS: BACTRIM 160MG/800MG DS TAB PO ×2 (10:33→20:30)
[2018-06-14] MEDS: ACETAMINOPHEN TAB 650MG DOSE (2X325MG) PO ×2 (10:34→22:38)
[2018-06-14 12:03] LABS: BEDSIDE GLUCOSE 132 MG/DL (83-110)
[2018-06-14 12:11] LABS: BEDSIDE GLUCOSE 230 MG/DL (83-110)
[2018-06-14 12:11] LABS: BEDSIDE GLUCOSE 190 MG/DL (83-110)
[2018-06-14 12:11] LABS: BEDSIDE GLUCOSE 180 MG/DL (83-110)
[2018-06-14 12:11] LABS: BEDSIDE GLUCOSE 187 MG/DL (83-110)
[2018-06-14 12:11] LABS: BEDSIDE GLUCOSE 140 MG/DL (83-110)
[2018-06-14] MEDS: RIVAROXABAN 20 MG TAB (XARELTO) PO (17:22)
[2018-06-14 17:27] LABS: BEDSIDE GLUCOSE 171 MG/DL (83-110)
[2018-06-14] MEDS: TAMSULOSIN 0.4 MG CAP PO (17:30)
[2018-06-14 20:21] LABS: BEDSIDE GLUCOSE 177 MG/DL (83-110)
[2018-06-14] MEDS: risperiDONE 0.25 MG TAB PO (20:29)
[2018-06-14] MEDS: OMEPRAZOLE 20 MG CAP PO (20:30)
[2018-06-14] MEDS: ATORVASTATIN 20 MG TAB PO (20:30)
[2018-06-15] MEDS: SLF 3 ML SYR IV ×3 (05:57→22:23)
[2018-06-15] MEDS: VERAPAMIL 40 MG TAB PO ×3 (05:57→17:28)
[2018-06-15 06:13] LABS: HEMATOCRIT 30.6 % (42.0-52.0); HEMOGLOBIN 9.1 g/dl (13.5-17.5); MEAN CORPUSCULAR HEMOGLOBIN 23.1 pg (27.0-33.0); MEAN CORPUSCULAR HGB CONC 29.7 g/dl (32.0-36.5); MEAN CORPUSCULAR VOLUME 77.7 fl (80.0-96.0); PLATELET COUNT, AUTOMATED 281 10^3/uL (150-450); RED BLOOD COUNT 3.94 10^6/uL (4.30-6.10); RED CELL DISTRIBUTION WIDTH 18.2 % (11.5-14.5); WHITE BLOOD COUNT 10.9 10^3/uL (4.0-10.0)
[2018-06-15 06:34] LABS: ANION GAP 7 MEQ/L (8-16); BLOOD UREA NITROGEN 15 MG/DL (7-18); CALCIUM LEVEL 8.2 MG/DL (8.8-10.2); CARBON DIOXIDE LEVEL 30 MEQ/L (21-32); CHLORIDE LEVEL 106 MEQ/L (98-107); CREATININE FOR GFR 0.89 MG/DL (0.70-1.30); GLOMERULAR FILTRATION RATE > 60.0 (>42); GLUCOSE, FASTING 105 MG/DL (70-100); POTASSIUM SERUM 3.7 MEQ/L (3.5-5.1); SODIUM LEVEL 143 MEQ/L (136-145)
[2018-06-15] MEDS: IPRATROPIUM 0.5MG/ALBUTEROL 2.5MG INH SOL UD 3ML (DUONEB)(J7620) INH ×4 (07:26→20:00)
[2018-06-15] MEDS: ADVAIR HFA 230/21MCG INHALER INH ×2 (07:26→20:07)
[2018-06-15] MEDS: HumaLOG INSULIN (NovoLOG) PER UNIT SC ×4 (07:30→21:00)
[2018-06-15] MEDS: PERCOCET 5MG/325MG TAB PO ×3 (08:56→22:21)
[2018-06-15] MEDS: LEVEMIR (INSULIN DETEMIR) 1 UNITS/0.01ML SC (09:34)
[2018-06-15] MEDS: SERTRALINE HCL 50 MG TAB PO ×2 (09:34→22:20)
[2018-06-15] MEDS: BACTRIM 160MG/800MG DS TAB PO ×2 (09:34→22:20)
[2018-06-15] MEDS: POTASSIUM CHLORIDE 10 MEQ SR TABLET PO (09:35)
[2018-06-15] MEDS: LACTOBACILLUS ACIDOPHILUS CAP (BACID) PO ×2 (09:35→22:19)
[2018-06-15] MEDS: TAMSULOSIN 0.4 MG CAP PO (09:35)
[2018-06-15] MEDS: ASPIRIN 81 MG ENTERIC TAB PO (09:35)
[2018-06-15] MEDS: DIGOXIN 0.125 MG TAB PO (09:35)
[2018-06-15] MEDS: GABAPENTIN 100 MG CAP PO ×3 (09:36→22:20)
[2018-06-15] MEDS: DOCUSATE SODIUM 100 MG CAP PO ×2 (09:36→22:21)
[2018-06-15] MEDS: predniSONE 10 MG TAB PO (09:36)
[2018-06-15] MEDS: NYSTATIN 100,000 UNITS/GM TOPICAL PWD 15 GM TOP ×2 (09:36→22:22)
[2018-06-15] MEDS: SILVER SULFADIAZINE 1% CR 50 GM JAR TOP ×2 (09:37→22:22)
[2018-06-15 11:32] LABS: BEDSIDE GLUCOSE 156 MG/DL (83-110)
[2018-06-15] MEDS: AMIODARONE HCL 150 MG in APPROPRIATE DILUENT 1 EA IV ×2 (14:18→22:23)
[2018-06-15 17:27] LABS: BEDSIDE GLUCOSE 217 MG/DL (83-110)
[2018-06-15] MEDS: RIVAROXABAN 20 MG TAB (XARELTO) PO (17:28)
[2018-06-15 20:19] LABS: BEDSIDE GLUCOSE 173 MG/DL (83-110)
[2018-06-15] MEDS: ALBUTEROL SULFATE 2.5 MG/0.5 ML INH NEB SOLN INH (21:59)
[2018-06-15] MEDS: risperiDONE 0.5 MG TAB PO (22:20)
[2018-06-15] MEDS: OMEPRAZOLE 20 MG CAP PO (22:20)
[2018-06-15] MEDS: ATORVASTATIN 20 MG TAB PO (22:20)
[2018-06-16 02:55] LABS: APPEARANCE, URINE HAZY (CLEAR); BACTERIA, URINE AUTO NEGATIVE (NEGATIVE); BILIRUBIN, URINE AUTO NEGATIVE (NEGATIVE); BLOOD, URINE BLOOD NEGATIVE (NEGATIVE); COLOR, URINE YELLOW (YELLOW); GLUCOSE, URINE (UA) AUTO NEGATIVE (NEGATIVE); KETONE, URINE AUTO NEGATIVE (NEGATIVE); LEUKOCYTE ESTERASE, URINE AUTO NEGATIVE (NEGATIVE); MUCUS, URINE SMALL (NEGATIVE); NITRITE, URINE AUTO NEGATIVE (NEGATIVE); PROTEIN, URINE AUTO NEGATIVE (NEGATIVE); RBC, URINE AUTO 1 /HPF (0-3); SPECIFIC GRAVITY URINE AUTO 1.019 (1.002-1.035); SQUAMOUS EPITHELIAL CELL UR AU 0 /HPF (0-6); UROBILINOGEN, URINE AUTO 0.2 mg/dL (0.0-2.0); WBC, URINE AUTO 10 /HPF (0-3)
[2018-06-16] MEDS: PERCOCET 5MG/325MG TAB PO ×3 (03:43→20:31)
[2018-06-16 05:26] LABS: HEMATOCRIT 28.2 % (42.0-52.0); HEMOGLOBIN 8.5 g/dl (13.5-17.5); MEAN CORPUSCULAR HGB CONC 30.1 g/dl (32.0-36.5); MEAN CORPUSCULAR VOLUME 76.4 fl (80.0-96.0); PLATELET COUNT, AUTOMATED 258 10^3/uL (150-450); RED BLOOD COUNT 3.69 10^6/uL (4.30-6.10); RED CELL DISTRIBUTION WIDTH 18.1 % (11.5-14.5); WHITE BLOOD COUNT 8.4 10^3/uL (4.0-10.0)
[2018-06-16 05:43] LABS: ANION GAP 7 MEQ/L (8-16); BLOOD UREA NITROGEN 14 MG/DL (7-18); CALCIUM LEVEL 8.3 MG/DL (8.8-10.2); CARBON DIOXIDE LEVEL 30 MEQ/L (21-32); CHLORIDE LEVEL 105 MEQ/L (98-107); CREATININE FOR GFR 0.89 MG/DL (0.70-1.30); GLOMERULAR FILTRATION RATE > 60.0 (>42); GLUCOSE, FASTING 118 MG/DL (70-100); POTASSIUM SERUM 3.9 MEQ/L (3.5-5.1); SODIUM LEVEL 142 MEQ/L (136-145)
[2018-06-16] MEDS: SLF 3 ML SYR IV ×3 (06:00→20:32)
[2018-06-16] MEDS: ADVAIR HFA 230/21MCG INHALER INH ×2 (08:07→20:10)
[2018-06-16] MEDS: IPRATROPIUM 0.5MG/ALBUTEROL 2.5MG INH SOL UD 3ML (DUONEB)(J7620) INH ×4 (08:07→20:00)
[2018-06-16] MEDS: BACTRIM 160MG/800MG DS TAB PO ×2 (08:42→20:31)
[2018-06-16] MEDS: predniSONE 10 MG TAB PO (08:42)
[2018-06-16] MEDS: SERTRALINE HCL 50 MG TAB PO ×2 (08:42→20:30)
[2018-06-16] MEDS: LACTOBACILLUS ACIDOPHILUS CAP (BACID) PO ×2 (08:42→20:31)
[2018-06-16] MEDS: GABAPENTIN 100 MG CAP PO ×3 (08:43→20:30)
[2018-06-16] MEDS: POTASSIUM CHLORIDE 10 MEQ SR TABLET PO (08:43)
[2018-06-16] MEDS: DOCUSATE SODIUM 100 MG CAP PO ×2 (08:43→20:30)
[2018-06-16] MEDS: TAMSULOSIN 0.4 MG CAP PO (08:43)
[2018-06-16] MEDS: ASPIRIN 81 MG ENTERIC TAB PO (08:43)
[2018-06-16] MEDS: HumaLOG INSULIN (NovoLOG) PER UNIT SC ×4 (08:44→20:33)
[2018-06-16] MEDS: LEVEMIR (INSULIN DETEMIR) 1 UNITS/0.01ML SC (08:44)
[2018-06-16] MEDS: NYSTATIN 100,000 UNITS/GM TOPICAL PWD 15 GM TOP ×2 (08:45→20:32)
[2018-06-16] MEDS: SILVER SULFADIAZINE 1% CR 50 GM JAR TOP ×2 (08:47→20:32)
[2018-06-16] MEDS: DIGOXIN 0.125 MG TAB PO (08:49)
[2018-06-16 11:45] LABS: BEDSIDE GLUCOSE 138 MG/DL (83-110)
[2018-06-16 16:42] LABS: BEDSIDE GLUCOSE 192 MG/DL (83-110)
[2018-06-16] MEDS: RIVAROXABAN 20 MG TAB (XARELTO) PO (17:28)
[2018-06-16 20:26] LABS: BEDSIDE GLUCOSE 153 MG/DL (83-110)
[2018-06-16] MEDS: ATORVASTATIN 20 MG TAB PO (20:30)
[2018-06-16] MEDS: OMEPRAZOLE 20 MG CAP PO (20:31)
[2018-06-16] MEDS: risperiDONE 0.5 MG TAB PO (20:31)
[2018-06-17] MEDS: ALBUTEROL SULFATE 2.5 MG/0.5 ML INH NEB SOLN INH ×2 (04:38→22:15)
[2018-06-17 05:37] LABS: HEMATOCRIT 29.3 % (42.0-52.0); HEMOGLOBIN 8.6 g/dl (13.5-17.5); MEAN CORPUSCULAR HEMOGLOBIN 22.7 pg (27.0-33.0); MEAN CORPUSCULAR HGB CONC 29.4 g/dl (32.0-36.5); MEAN CORPUSCULAR VOLUME 77.3 fl (80.0-96.0); PLATELET COUNT, AUTOMATED 250 10^3/uL (150-450); RED BLOOD COUNT 3.79 10^6/uL (4.30-6.10); RED CELL DISTRIBUTION WIDTH 18.1 % (11.5-14.5); WHITE BLOOD COUNT 8.9 10^3/uL (4.0-10.0)
[2018-06-17 05:51] LABS: ANION GAP 6 MEQ/L (8-16); BLOOD UREA NITROGEN 14 MG/DL (7-18); C REACTIVE PROTEIN QUANTITATIV 4.03 MG/DL (0.00-0.30); CALCIUM LEVEL 8.3 MG/DL (8.8-10.2); CARBON DIOXIDE LEVEL 29 MEQ/L (21-32); CHLORIDE LEVEL 105 MEQ/L (98-107); CREATININE FOR GFR 0.93 MG/DL (0.70-1.30); GLOMERULAR FILTRATION RATE > 60.0 (>42); GLUCOSE, FASTING 119 MG/DL (70-100); POTASSIUM SERUM 4.1 MEQ/L (3.5-5.1); SODIUM LEVEL 140 MEQ/L (136-145)
[2018-06-17] MEDS: SLF 3 ML SYR IV ×3 (06:03→22:00)
[2018-06-17] MEDS: HumaLOG INSULIN (NovoLOG) PER UNIT SC ×4 (07:30→21:00)
[2018-06-17] MEDS: IPRATROPIUM 0.5MG/ALBUTEROL 2.5MG INH SOL UD 3ML (DUONEB)(J7620) INH ×4 (08:12→20:00)
[2018-06-17] MEDS: ADVAIR HFA 230/21MCG INHALER INH ×2 (08:12→20:08)
[2018-06-17] MEDS: GABAPENTIN 100 MG CAP PO ×3 (08:20→21:06)
[2018-06-17] MEDS: TAMSULOSIN 0.4 MG CAP PO (08:20)
[2018-06-17] MEDS: DOCUSATE SODIUM 100 MG CAP PO ×2 (08:20→21:10)
[2018-06-17] MEDS: predniSONE 10 MG TAB PO (08:20)
[2018-06-17] MEDS: DIGOXIN 0.125 MG TAB PO (08:20)
[2018-06-17] MEDS: BACTRIM 160MG/800MG DS TAB PO ×2 (08:21→21:00)
[2018-06-17] MEDS: ASPIRIN 81 MG ENTERIC TAB PO (08:21)
[2018-06-17] MEDS: SERTRALINE HCL 50 MG TAB PO ×2 (08:22→21:08)
[2018-06-17] MEDS: LACTOBACILLUS ACIDOPHILUS CAP (BACID) PO ×2 (08:24→21:08)
[2018-06-17] MEDS: LEVEMIR (INSULIN DETEMIR) 1 UNITS/0.01ML SC (08:24)
[2018-06-17] MEDS: POTASSIUM CHLORIDE 10 MEQ SR TABLET PO (08:24)
[2018-06-17] MEDS: PERCOCET 5MG/325MG TAB PO ×2 (08:24→21:09)
[2018-06-17] MEDS: NYSTATIN 100,000 UNITS/GM TOPICAL PWD 15 GM TOP ×2 (08:25→21:14)
[2018-06-17] MEDS: SILVER SULFADIAZINE 1% CR 50 GM JAR TOP ×2 (08:26→21:00)
[2018-06-17 11:54] LABS: BEDSIDE GLUCOSE 172 MG/DL (83-110)
[2018-06-17 17:22] LABS: BEDSIDE GLUCOSE 193 MG/DL (83-110)
[2018-06-17] MEDS: RIVAROXABAN 20 MG TAB (XARELTO) PO (17:23)
[2018-06-17] MEDS: AMIODARONE HCL 150 MG in APPROPRIATE DILUENT 1 EA IV (19:10)
[2018-06-17] MEDS: ATORVASTATIN 20 MG TAB PO (21:08)
[2018-06-17] MEDS: OMEPRAZOLE 20 MG CAP PO (21:08)
[2018-06-17] MEDS: risperiDONE 0.5 MG TAB PO (21:09)
[2018-06-17 21:18] LABS: BEDSIDE GLUCOSE 163 MG/DL (83-110)
[2018-06-18] MEDS: SLF 3 ML SYR IV ×3 (04:21→21:26)
[2018-06-18 06:15] LABS: HEMATOCRIT 29.7 % (42.0-52.0); HEMOGLOBIN 8.9 g/dl (13.5-17.5); MEAN CORPUSCULAR HEMOGLOBIN 22.9 pg (27.0-33.0); MEAN CORPUSCULAR VOLUME 76.5 fl (80.0-96.0); PLATELET COUNT, AUTOMATED 266 10^3/uL (150-450); RED BLOOD COUNT 3.88 10^6/uL (4.30-6.10); RED CELL DISTRIBUTION WIDTH 18.2 % (11.5-14.5); WHITE BLOOD COUNT 9.7 10^3/uL (4.0-10.0)
[2018-06-18 06:37] LABS: ANION GAP 7 MEQ/L (8-16); BLOOD UREA NITROGEN 14 MG/DL (7-18); CALCIUM LEVEL 8.6 MG/DL (8.8-10.2); CARBON DIOXIDE LEVEL 29 MEQ/L (21-32); CHLORIDE LEVEL 103 MEQ/L (98-107); CREATININE FOR GFR 0.97 MG/DL (0.70-1.30); GLOMERULAR FILTRATION RATE > 60.0 (>42); GLUCOSE, FASTING 129 MG/DL (70-100); POTASSIUM SERUM 4.2 MEQ/L (3.5-5.1); SODIUM LEVEL 139 MEQ/L (136-145)
[2018-06-18] MEDS: ADVAIR HFA 230/21MCG INHALER INH ×2 (07:56→20:57)
[2018-06-18] MEDS: IPRATROPIUM 0.5MG/ALBUTEROL 2.5MG INH SOL UD 3ML (DUONEB)(J7620) INH ×4 (07:58→20:57)
[2018-06-18] MEDS: SERTRALINE HCL 50 MG TAB PO ×2 (09:47→21:25)
[2018-06-18] MEDS: LEVEMIR (INSULIN DETEMIR) 1 UNITS/0.01ML SC (09:47)
[2018-06-18] MEDS: TAMSULOSIN 0.4 MG CAP PO (09:47)
[2018-06-18] MEDS: DOCUSATE SODIUM 100 MG CAP PO ×2 (09:47→21:25)
[2018-06-18] MEDS: HumaLOG INSULIN (NovoLOG) PER UNIT SC ×4 (09:47→21:31)
[2018-06-18] MEDS: GABAPENTIN 100 MG CAP PO ×3 (09:48→21:25)
[2018-06-18] MEDS: AMIODARONE 200 MG TAB (PACERONE) PO (09:49)
[2018-06-18] MEDS: BACTRIM 160MG/800MG DS TAB PO ×2 (09:49→21:28)
[2018-06-18] MEDS: ASPIRIN 81 MG ENTERIC TAB PO (09:49)
[2018-06-18] MEDS: DIGOXIN 0.125 MG TAB PO (09:49)
[2018-06-18] MEDS: POTASSIUM CHLORIDE 10 MEQ SR TABLET PO (09:49)
[2018-06-18] MEDS: PERCOCET 5MG/325MG TAB PO ×2 (09:51→21:25)
[2018-06-18] MEDS: predniSONE 10 MG TAB PO (09:51)
[2018-06-18] MEDS: LACTOBACILLUS ACIDOPHILUS CAP (BACID) PO ×2 (09:51→21:25)
[2018-06-18] MEDS: NYSTATIN 100,000 UNITS/GM TOPICAL PWD 15 GM TOP ×2 (09:52→21:28)
[2018-06-18] MEDS: SILVER SULFADIAZINE 1% CR 50 GM JAR TOP ×2 (09:53→21:27)
[2018-06-18 12:02] LABS: BEDSIDE GLUCOSE 153 MG/DL (83-110)
[2018-06-18 16:35] LABS: BEDSIDE GLUCOSE 190 MG/DL (83-110)
[2018-06-18] MEDS: RIVAROXABAN 20 MG TAB (XARELTO) PO (17:07)
[2018-06-18] MEDS: risperiDONE 0.5 MG TAB PO (21:25)
[2018-06-18] MEDS: ATORVASTATIN 20 MG TAB PO (21:25)
[2018-06-18] MEDS: OMEPRAZOLE 20 MG CAP PO (21:25)
[2018-06-18 21:45] LABS: BEDSIDE GLUCOSE 169 MG/DL (83-110)
[2018-06-19] MEDS: SLF 3 ML SYR IV ×3 (05:07→20:26)
[2018-06-19 05:56] LABS: HEMATOCRIT 27.1 % (42.0-52.0); HEMOGLOBIN 8.2 g/dl (13.5-17.5); MEAN CORPUSCULAR HEMOGLOBIN 22.7 pg (27.0-33.0); MEAN CORPUSCULAR HGB CONC 30.3 g/dl (32.0-36.5); MEAN CORPUSCULAR VOLUME 74.9 fl (80.0-96.0); PLATELET COUNT, AUTOMATED 250 10^3/uL (150-450); RED BLOOD COUNT 3.62 10^6/uL (4.30-6.10); RED CELL DISTRIBUTION WIDTH 17.9 % (11.5-14.5)
[2018-06-19 06:14] LABS: ANION GAP 9 MEQ/L (8-16); BLOOD UREA NITROGEN 14 MG/DL (7-18); CALCIUM LEVEL 8.4 MG/DL (8.8-10.2); CARBON DIOXIDE LEVEL 27 MEQ/L (21-32); CHLORIDE LEVEL 103 MEQ/L (98-107); CREATININE FOR GFR 1.01 MG/DL (0.70-1.30); GLOMERULAR FILTRATION RATE > 60.0 (>42); GLUCOSE, FASTING 126 MG/DL (70-100); POTASSIUM SERUM 4.1 MEQ/L (3.5-5.1); SODIUM LEVEL 139 MEQ/L (136-145)
[2018-06-19] MEDS: IPRATROPIUM 0.5MG/ALBUTEROL 2.5MG INH SOL UD 3ML (DUONEB)(J7620) INH ×4 (07:38→19:52)
[2018-06-19] MEDS: ADVAIR HFA 230/21MCG INHALER INH ×2 (07:38→19:52)
[2018-06-19] MEDS: BACTRIM 160MG/800MG DS TAB PO ×2 (08:14→20:25)
[2018-06-19] MEDS: ASPIRIN 81 MG ENTERIC TAB PO (08:14)
[2018-06-19] MEDS: DOCUSATE SODIUM 100 MG CAP PO ×2 (08:15→20:24)
[2018-06-19] MEDS: PERCOCET 5MG/325MG TAB PO ×2 (08:15→20:25)
[2018-06-19] MEDS: SERTRALINE HCL 50 MG TAB PO ×2 (08:15→20:24)
[2018-06-19] MEDS: LACTOBACILLUS ACIDOPHILUS CAP (BACID) PO ×2 (08:15→20:24)
[2018-06-19] MEDS: GABAPENTIN 100 MG CAP PO ×3 (08:15→20:25)
[2018-06-19] MEDS: predniSONE 10 MG TAB PO (08:16)
[2018-06-19] MEDS: AMIODARONE 200 MG TAB (PACERONE) PO (08:16)
[2018-06-19] MEDS: DIGOXIN 0.125 MG TAB PO (08:16)
[2018-06-19] MEDS: POTASSIUM CHLORIDE 10 MEQ SR TABLET PO (08:16)
[2018-06-19] MEDS: TAMSULOSIN 0.4 MG CAP PO (08:16)
[2018-06-19] MEDS: HumaLOG INSULIN (NovoLOG) PER UNIT SC ×4 (08:17→20:26)
[2018-06-19] MEDS: LEVEMIR (INSULIN DETEMIR) 1 UNITS/0.01ML SC (08:17)
[2018-06-19] MEDS: NYSTATIN 100,000 UNITS/GM TOPICAL PWD 15 GM TOP ×2 (08:18→20:26)
[2018-06-19 11:40] LABS: BEDSIDE GLUCOSE 182 MG/DL (83-110)
[2018-06-19] MEDS: SILVER SULFADIAZINE 1% CR 50 GM JAR TOP ×2 (15:18→20:26)
[2018-06-19] MEDS: AMIODARONE HCL 150 MG in APPROPRIATE DILUENT 1 EA IV (16:12)
[2018-06-19 17:11] LABS: BEDSIDE GLUCOSE 190 MG/DL (83-110)
[2018-06-19] MEDS: RIVAROXABAN 20 MG TAB (XARELTO) PO (17:22)
[2018-06-19 20:22] LABS: BEDSIDE GLUCOSE 118 MG/DL (83-110)
[2018-06-19] MEDS: OMEPRAZOLE 20 MG CAP PO (20:24)
[2018-06-19] MEDS: ATORVASTATIN 20 MG TAB PO (20:24)
[2018-06-19] MEDS: risperiDONE 0.5 MG TAB PO (20:25)
[2018-06-20] MEDS: SLF 3 ML SYR IV ×3 (05:52→20:49)
[2018-06-20 06:42] LABS: BEDSIDE GLUCOSE 143 MG/DL (83-110)
[2018-06-20] MEDS: ADVAIR HFA 230/21MCG INHALER INH ×2 (07:22→20:38)
[2018-06-20] MEDS: IPRATROPIUM 0.5MG/ALBUTEROL 2.5MG INH SOL UD 3ML (DUONEB)(J7620) INH ×4 (07:22→20:00)
[2018-06-20 08:00] LABS: HEMATOCRIT 28.4 % (42.0-52.0); HEMOGLOBIN 8.8 g/dl (13.5-17.5); MEAN CORPUSCULAR HEMOGLOBIN 23.1 pg (27.0-33.0); MEAN CORPUSCULAR VOLUME 74.5 fl (80.0-96.0); PLATELET COUNT, AUTOMATED 294 10^3/uL (150-450); RED BLOOD COUNT 3.81 10^6/uL (4.30-6.10); RED CELL DISTRIBUTION WIDTH 18.2 % (11.5-14.5); WHITE BLOOD COUNT 12.1 10^3/uL (4.0-10.0)
[2018-06-20] MEDS: HumaLOG INSULIN (NovoLOG) PER UNIT SC ×4 (08:16→20:49)
[2018-06-20] MEDS: LEVEMIR (INSULIN DETEMIR) 1 UNITS/0.01ML SC (08:17)
[2018-06-20] MEDS: POTASSIUM CHLORIDE 10 MEQ SR TABLET PO (08:19)
[2018-06-20] MEDS: predniSONE 10 MG TAB PO (08:19)
[2018-06-20] MEDS: PERCOCET 5MG/325MG TAB PO ×3 (08:19→20:48)
[2018-06-20] MEDS: DOCUSATE SODIUM 100 MG CAP PO ×2 (08:19→20:48)
[2018-06-20] MEDS: LACTOBACILLUS ACIDOPHILUS CAP (BACID) PO ×2 (08:19→20:47)
[2018-06-20] MEDS: SERTRALINE HCL 50 MG TAB PO ×2 (08:19→20:47)
[2018-06-20] MEDS: TAMSULOSIN 0.4 MG CAP PO (08:19)
[2018-06-20] MEDS: GABAPENTIN 100 MG CAP PO ×3 (08:19→20:48)
[2018-06-20] MEDS: DIGOXIN 0.125 MG TAB PO (08:20)
[2018-06-20] MEDS: ASPIRIN 81 MG ENTERIC TAB PO (08:20)
[2018-06-20] MEDS: AMIODARONE 200 MG TAB (PACERONE) PO (08:20)
[2018-06-20] MEDS: NYSTATIN 100,000 UNITS/GM TOPICAL PWD 15 GM TOP ×2 (08:21→20:52)
[2018-06-20 08:39] LABS: ANION GAP 7 MEQ/L (8-16); BLOOD UREA NITROGEN 13 MG/DL (7-18); CALCIUM LEVEL 8.4 MG/DL (8.8-10.2); CARBON DIOXIDE LEVEL 28 MEQ/L (21-32); CHLORIDE LEVEL 104 MEQ/L (98-107); CREATININE FOR GFR 1.07 MG/DL (0.70-1.30); GLOMERULAR FILTRATION RATE > 60.0 (>42); GLUCOSE, FASTING 141 MG/DL (70-100); POTASSIUM SERUM 4.2 MEQ/L (3.5-5.1); SODIUM LEVEL 139 MEQ/L (136-145)
[2018-06-20] MEDS: SILVER SULFADIAZINE 1% CR 50 GM JAR TOP ×2 (11:00→20:49)
[2018-06-20 11:44] LABS: BEDSIDE GLUCOSE 176 MG/DL (83-110)
[2018-06-20] MEDS: ALBUTEROL SULFATE 2.5 MG/0.5 ML INH NEB SOLN INH (13:58)
[2018-06-20] MEDS: BACTRIM 160MG/800MG DS TAB PO ×2 (14:39→20:49)
[2018-06-20 16:54] LABS: BEDSIDE GLUCOSE 134 MG/DL (83-110)
[2018-06-20] MEDS: RIVAROXABAN 20 MG TAB (XARELTO) PO (17:04)
[2018-06-20 20:37] LABS: BEDSIDE GLUCOSE 207 MG/DL (83-110)
[2018-06-20] MEDS: risperiDONE 0.5 MG TAB PO (20:48)
[2018-06-20] MEDS: OMEPRAZOLE 20 MG CAP PO (20:48)
[2018-06-20] MEDS: ATORVASTATIN 20 MG TAB PO (20:48)
[2018-06-21] MEDS: SLF 3 ML SYR IV ×3 (05:30→21:14)
[2018-06-21 05:47] LABS: HEMATOCRIT 29.2 % (42.0-52.0); HEMOGLOBIN 8.6 g/dl (13.5-17.5); MEAN CORPUSCULAR HEMOGLOBIN 22.6 pg (27.0-33.0); MEAN CORPUSCULAR HGB CONC 29.5 g/dl (32.0-36.5); MEAN CORPUSCULAR VOLUME 76.6 fl (80.0-96.0); PLATELET COUNT, AUTOMATED 296 10^3/uL (150-450); RED BLOOD COUNT 3.81 10^6/uL (4.30-6.10); RED CELL DISTRIBUTION WIDTH 18.1 % (11.5-14.5)
[2018-06-21] MEDS: ALBUTEROL SULFATE 2.5 MG/0.5 ML INH NEB SOLN INH (05:47)
[2018-06-21 06:01] LABS: ANION GAP 8 MEQ/L (8-16); BLOOD UREA NITROGEN 15 MG/DL (7-18); CALCIUM LEVEL 8.8 MG/DL (8.8-10.2); CARBON DIOXIDE LEVEL 29 MEQ/L (21-32); CHLORIDE LEVEL 102 MEQ/L (98-107); CREATININE FOR GFR 1.05 MG/DL (0.70-1.30); GLOMERULAR FILTRATION RATE > 60.0 (>42); GLUCOSE, FASTING 134 MG/DL (70-100); POTASSIUM SERUM 3.7 MEQ/L (3.5-5.1); SODIUM LEVEL 139 MEQ/L (136-145)
[2018-06-21] MEDS: IPRATROPIUM 0.5MG/ALBUTEROL 2.5MG INH SOL UD 3ML (DUONEB)(J7620) INH ×4 (07:27→19:47)
[2018-06-21] MEDS: ADVAIR HFA 230/21MCG INHALER INH ×2 (07:27→19:47)
[2018-06-21] MEDS: AMIODARONE 200 MG TAB (PACERONE) PO (09:39)
[2018-06-21] MEDS: POTASSIUM CHLORIDE 10 MEQ SR TABLET PO (09:40)
[2018-06-21] MEDS: GABAPENTIN 100 MG CAP PO ×3 (09:40→21:13)
[2018-06-21] MEDS: BACTRIM 160MG/800MG DS TAB PO ×2 (09:40→21:12)
[2018-06-21] MEDS: ASPIRIN 81 MG ENTERIC TAB PO (09:40)
[2018-06-21] MEDS: LACTOBACILLUS ACIDOPHILUS CAP (BACID) PO ×2 (09:40→21:12)
[2018-06-21] MEDS: DIGOXIN 0.125 MG TAB PO (09:41)
[2018-06-21] MEDS: PERCOCET 5MG/325MG TAB PO ×2 (09:41→21:13)
[2018-06-21] MEDS: HumaLOG INSULIN (NovoLOG) PER UNIT SC ×4 (09:41→20:53)
[2018-06-21] MEDS: SERTRALINE HCL 50 MG TAB PO ×2 (09:41→21:13)
[2018-06-21] MEDS: DOCUSATE SODIUM 100 MG CAP PO ×2 (09:41→21:13)
[2018-06-21] MEDS: TAMSULOSIN 0.4 MG CAP PO (09:41)
[2018-06-21] MEDS: NYSTATIN 100,000 UNITS/GM TOPICAL PWD 15 GM TOP ×2 (09:42→21:16)
[2018-06-21] MEDS: LEVEMIR (INSULIN DETEMIR) 1 UNITS/0.01ML SC (09:42)
[2018-06-21] MEDS: SILVER SULFADIAZINE 1% CR 50 GM JAR TOP ×2 (09:42→21:17)
[2018-06-21] MEDS: predniSONE 10 MG TAB PO (09:42)
[2018-06-21 11:59] LABS: BEDSIDE GLUCOSE 143 MG/DL (83-110)
[2018-06-21] MEDS: RIVAROXABAN 20 MG TAB (XARELTO) PO (16:13)
[2018-06-21 17:17] LABS: BEDSIDE GLUCOSE 202 MG/DL (83-110)
[2018-06-21 20:55] LABS: BEDSIDE GLUCOSE 130 MG/DL (83-110)
[2018-06-21] MEDS: risperiDONE 0.5 MG TAB PO (21:12)
[2018-06-21] MEDS: ATORVASTATIN 20 MG TAB PO (21:13)
[2018-06-21] MEDS: OMEPRAZOLE 20 MG CAP PO (21:13)
[2018-06-22] MEDS: ONDANSETRON 4MG/2ML VIAL (J2405) IV (00:13)
[2018-06-22] MEDS: PERCOCET 5MG/325MG TAB PO ×3 (02:49→20:00)
[2018-06-22] MEDS: SLF 3 ML SYR IV ×3 (02:50→20:02)
[2018-06-22 04:54] LABS: HEMATOCRIT 25.8 % (42.0-52.0); HEMOGLOBIN 7.9 g/dl (13.5-17.5); MEAN CORPUSCULAR HEMOGLOBIN 23.1 pg (27.0-33.0); MEAN CORPUSCULAR HGB CONC 30.6 g/dl (32.0-36.5); MEAN CORPUSCULAR VOLUME 75.4 fl (80.0-96.0); PLATELET COUNT, AUTOMATED 269 10^3/uL (150-450); RED BLOOD COUNT 3.42 10^6/uL (4.30-6.10); RED CELL DISTRIBUTION WIDTH 18.1 % (11.5-14.5)
[2018-06-22 05:15] LABS: ANION GAP 6 MEQ/L (8-16); BLOOD UREA NITROGEN 15 MG/DL (7-18); CALCIUM LEVEL 8.2 MG/DL (8.8-10.2); CARBON DIOXIDE LEVEL 29 MEQ/L (21-32); CHLORIDE LEVEL 104 MEQ/L (98-107); CREATININE FOR GFR 1.08 MG/DL (0.70-1.30); GLOMERULAR FILTRATION RATE > 60.0 (>42); GLUCOSE, FASTING 125 MG/DL (70-100); SODIUM LEVEL 139 MEQ/L (136-145)
[2018-06-22] MEDS: ADVAIR HFA 230/21MCG INHALER INH ×2 (07:13→21:10)
[2018-06-22] MEDS: IPRATROPIUM 0.5MG/ALBUTEROL 2.5MG INH SOL UD 3ML (DUONEB)(J7620) INH ×4 (07:13→20:00)
[2018-06-22] MEDS: BACTRIM 160MG/800MG DS TAB PO ×2 (09:01→20:00)
[2018-06-22] MEDS: POTASSIUM CHLORIDE 10 MEQ SR TABLET PO (09:01)
[2018-06-22] MEDS: LACTOBACILLUS ACIDOPHILUS CAP (BACID) PO ×2 (09:02→19:58)
[2018-06-22] MEDS: ASPIRIN 81 MG ENTERIC TAB PO (09:02)
[2018-06-22] MEDS: TAMSULOSIN 0.4 MG CAP PO (09:02)
[2018-06-22] MEDS: GABAPENTIN 100 MG CAP PO ×3 (09:03→20:00)
[2018-06-22] MEDS: LEVEMIR (INSULIN DETEMIR) 1 UNITS/0.01ML SC (09:03)
[2018-06-22] MEDS: NYSTATIN 100,000 UNITS/GM TOPICAL PWD 15 GM TOP ×2 (09:03→20:01)
[2018-06-22] MEDS: SERTRALINE HCL 50 MG TAB PO ×2 (09:03→19:59)
[2018-06-22] MEDS: DOCUSATE SODIUM 100 MG CAP PO ×2 (09:03→19:59)
[2018-06-22] MEDS: SILVER SULFADIAZINE 1% CR 50 GM JAR TOP ×2 (09:03→20:02)
[2018-06-22] MEDS: DIGOXIN 0.125 MG TAB PO (09:03)
[2018-06-22] MEDS: predniSONE 10 MG TAB PO (09:03)
[2018-06-22] MEDS: HumaLOG INSULIN (NovoLOG) PER UNIT SC ×4 (09:04→20:35)
[2018-06-22 11:36] LABS: BEDSIDE GLUCOSE 145 MG/DL (83-110)
[2018-06-22 16:18] LABS: BEDSIDE GLUCOSE 206 MG/DL (83-110)
[2018-06-22] MEDS: RIVAROXABAN 20 MG TAB (XARELTO) PO (16:21)
[2018-06-22] MEDS: OMEPRAZOLE 20 MG CAP PO (19:59)
[2018-06-22] MEDS: risperiDONE 0.5 MG TAB PO (19:59)
[2018-06-22] MEDS: ATORVASTATIN 20 MG TAB PO (19:59)
[2018-06-22 20:36] LABS: BEDSIDE GLUCOSE 219 MG/DL (83-110)
[2018-06-23] MEDS: ALBUTEROL SULFATE 2.5 MG/0.5 ML INH NEB SOLN INH (02:42)
[2018-06-23] MEDS: SLF 3 ML SYR IV ×3 (05:02→21:10)
[2018-06-23 05:07] LABS: HEMATOCRIT 26.9 % (42.0-52.0); HEMOGLOBIN 8.1 g/dl (13.5-17.5); MEAN CORPUSCULAR HGB CONC 30.1 g/dl (32.0-36.5); MEAN CORPUSCULAR VOLUME 76.4 fl (80.0-96.0); PLATELET COUNT, AUTOMATED 281 10^3/uL (150-450); RED BLOOD COUNT 3.52 10^6/uL (4.30-6.10); WHITE BLOOD COUNT 13.2 10^3/uL (4.0-10.0)
[2018-06-23 05:19] LABS: ANION GAP 6 MEQ/L (8-16); BLOOD UREA NITROGEN 14 MG/DL (7-18); CALCIUM LEVEL 8.3 MG/DL (8.8-10.2); CARBON DIOXIDE LEVEL 29 MEQ/L (21-32); CHLORIDE LEVEL 104 MEQ/L (98-107); CREATININE FOR GFR 1.06 MG/DL (0.70-1.30); GLOMERULAR FILTRATION RATE > 60.0 (>42); GLUCOSE, FASTING 131 MG/DL (70-100); POTASSIUM SERUM 4.2 MEQ/L (3.5-5.1); SODIUM LEVEL 139 MEQ/L (136-145)
[2018-06-23] MEDS: IPRATROPIUM 0.5MG/ALBUTEROL 2.5MG INH SOL UD 3ML (DUONEB)(J7620) INH ×4 (07:53→20:24)
[2018-06-23] MEDS: ADVAIR HFA 230/21MCG INHALER INH ×2 (07:53→20:00)
[2018-06-23] MEDS: LACTOBACILLUS ACIDOPHILUS CAP (BACID) PO ×2 (08:04→21:06)
[2018-06-23] MEDS: SERTRALINE HCL 50 MG TAB PO ×2 (08:05→21:07)
[2018-06-23] MEDS: GABAPENTIN 100 MG CAP PO ×3 (08:05→21:07)
[2018-06-23] MEDS: DIGOXIN 0.125 MG TAB PO (08:07)
[2018-06-23] MEDS: TAMSULOSIN 0.4 MG CAP PO (08:07)
[2018-06-23] MEDS: POTASSIUM CHLORIDE 10 MEQ SR TABLET PO (08:07)
[2018-06-23] MEDS: LEVEMIR (INSULIN DETEMIR) 1 UNITS/0.01ML SC (08:08)
[2018-06-23] MEDS: DOCUSATE SODIUM 100 MG CAP PO ×2 (08:08→21:07)
[2018-06-23] MEDS: predniSONE 10 MG TAB PO (08:08)
[2018-06-23] MEDS: HumaLOG INSULIN (NovoLOG) PER UNIT SC ×4 (08:09→21:00)
[2018-06-23] MEDS: PERCOCET 5MG/325MG TAB PO ×2 (08:10→21:08)
[2018-06-23] MEDS: NYSTATIN 100,000 UNITS/GM TOPICAL PWD 15 GM TOP ×2 (08:10→21:08)
[2018-06-23] MEDS: SILVER SULFADIAZINE 1% CR 50 GM JAR TOP ×2 (08:11→21:00)
[2018-06-23 10:09] LABS: IMMEDIATE SPIN CROSSMATCH 1 2
[2018-06-23] MEDS: BACTRIM 160MG/800MG DS TAB PO ×2 (10:42→21:06)
[2018-06-23 11:52] LABS: BEDSIDE GLUCOSE 170 MG/DL (83-110)
[2018-06-23] MEDS: MOM 30ML SUSPENSION UDC PO (14:58)
[2018-06-23 16:54] LABS: BEDSIDE GLUCOSE 186 MG/DL (83-110)
[2018-06-23] MEDS: RIVAROXABAN 20 MG TAB (XARELTO) PO (16:55)
[2018-06-23] MEDS: OMEPRAZOLE 20 MG CAP PO (21:07)
[2018-06-23] MEDS: risperiDONE 0.5 MG TAB PO (21:07)
[2018-06-23] MEDS: ATORVASTATIN 20 MG TAB PO (21:07)
[2018-06-23 21:15] LABS: BEDSIDE GLUCOSE 154 MG/DL (83-110)
[2018-06-24 05:37] LABS: HEMATOCRIT 31.5 % (42.0-52.0); HEMOGLOBIN 9.7 g/dl (13.5-17.5); MEAN CORPUSCULAR HEMOGLOBIN 23.6 pg (27.0-33.0); MEAN CORPUSCULAR HGB CONC 30.8 g/dl (32.0-36.5); MEAN CORPUSCULAR VOLUME 76.6 fl (80.0-96.0); PLATELET COUNT, AUTOMATED 269 10^3/uL (150-450); RED BLOOD COUNT 4.11 10^6/uL (4.30-6.10); RED CELL DISTRIBUTION WIDTH 18.2 % (11.5-14.5); WHITE BLOOD COUNT 12.7 10^3/uL (4.0-10.0)
[2018-06-24] MEDS: SLF 3 ML SYR IV ×3 (05:47→22:12)
[2018-06-24 05:57] LABS: ANION GAP 7 MEQ/L (8-16); BLOOD UREA NITROGEN 15 MG/DL (7-18); CALCIUM LEVEL 8.3 MG/DL (8.8-10.2); CARBON DIOXIDE LEVEL 29 MEQ/L (21-32); CHLORIDE LEVEL 104 MEQ/L (98-107); CREATININE FOR GFR 1.02 MG/DL (0.70-1.30); GLOMERULAR FILTRATION RATE > 60.0 (>42); GLUCOSE, FASTING 123 MG/DL (70-100); POTASSIUM SERUM 4.3 MEQ/L (3.5-5.1); SODIUM LEVEL 140 MEQ/L (136-145)
[2018-06-24] MEDS: IPRATROPIUM 0.5MG/ALBUTEROL 2.5MG INH SOL UD 3ML (DUONEB)(J7620) INH ×4 (07:23→18:04)
[2018-06-24] MEDS: ADVAIR HFA 230/21MCG INHALER INH ×2 (07:23→20:58)
[2018-06-24] MEDS: LACTOBACILLUS ACIDOPHILUS CAP (BACID) PO ×2 (09:48→22:09)
[2018-06-24] MEDS: HumaLOG INSULIN (NovoLOG) PER UNIT SC ×4 (09:48→22:11)
[2018-06-24] MEDS: LEVEMIR (INSULIN DETEMIR) 1 UNITS/0.01ML SC (09:49)
[2018-06-24] MEDS: predniSONE 10 MG TAB PO (09:50)
[2018-06-24] MEDS: DIGOXIN 0.125 MG TAB PO (09:50)
[2018-06-24] MEDS: TAMSULOSIN 0.4 MG CAP PO (09:50)
[2018-06-24] MEDS: BACTRIM 160MG/800MG DS TAB PO ×2 (09:50→22:10)
[2018-06-24] MEDS: GABAPENTIN 100 MG CAP PO ×3 (09:50→22:11)
[2018-06-24] MEDS: DOCUSATE SODIUM 100 MG CAP PO ×2 (09:50→22:10)
[2018-06-24] MEDS: SERTRALINE HCL 50 MG TAB PO ×2 (09:50→22:11)
[2018-06-24] MEDS: PERCOCET 5MG/325MG TAB PO ×2 (09:51→22:54)
[2018-06-24] MEDS: NYSTATIN 100,000 UNITS/GM TOPICAL PWD 15 GM TOP ×2 (09:51→22:12)
[2018-06-24] MEDS: SILVER SULFADIAZINE 1% CR 50 GM JAR TOP ×2 (09:51→21:00)
[2018-06-24] MEDS: POTASSIUM CHLORIDE 10 MEQ SR TABLET PO (10:20)
[2018-06-24 11:49] LABS: BEDSIDE GLUCOSE 156 MG/DL (83-110)
[2018-06-24] MEDS ORDERED: FLEET ENEMA PR (14:15)
[2018-06-24] MEDS: RIVAROXABAN 20 MG TAB (XARELTO) PO (17:00)
[2018-06-24 17:16] LABS: BEDSIDE GLUCOSE 201 MG/DL (83-110)
[2018-06-24 20:33] LABS: BEDSIDE GLUCOSE 203 MG/DL (83-110)
[2018-06-24] MEDS: ATORVASTATIN 20 MG TAB PO (22:10)
[2018-06-24] MEDS: risperiDONE 0.5 MG TAB PO (22:11)
[2018-06-24] MEDS: OMEPRAZOLE 20 MG CAP PO (22:11)
[2018-06-24] MEDS: ALBUTEROL SULFATE 2.5 MG/0.5 ML INH NEB SOLN INH (23:14)
[2018-06-25] MEDS: SLF 3 ML SYR IV ×2 (05:35→14:00)
[2018-06-25 07:31] LABS: BEDSIDE GLUCOSE 121 MG/DL (83-110)
[2018-06-25] MEDS: ADVAIR HFA 230/21MCG INHALER INH ×2 (07:56→21:09)
[2018-06-25] MEDS: IPRATROPIUM 0.5MG/ALBUTEROL 2.5MG INH SOL UD 3ML (DUONEB)(J7620) INH ×4 (07:56→21:09)
[2018-06-25] MEDS: LEVEMIR (INSULIN DETEMIR) 1 UNITS/0.01ML SC (08:32)
[2018-06-25] MEDS: SERTRALINE HCL 50 MG TAB PO ×2 (08:32→21:59)
[2018-06-25] MEDS: POTASSIUM CHLORIDE 10 MEQ SR TABLET PO (08:32)
[2018-06-25] MEDS: DOCUSATE SODIUM 100 MG CAP PO ×2 (08:32→21:59)
[2018-06-25] MEDS: HumaLOG INSULIN (NovoLOG) PER UNIT SC ×4 (08:32→22:01)
[2018-06-25] MEDS: TAMSULOSIN 0.4 MG CAP PO (08:33)
[2018-06-25] MEDS: GABAPENTIN 100 MG CAP PO ×3 (08:33→21:59)
[2018-06-25] MEDS: predniSONE 10 MG TAB PO (08:33)
[2018-06-25] MEDS: BACTRIM 160MG/800MG DS TAB PO ×2 (08:33→21:59)
[2018-06-25] MEDS: LACTOBACILLUS ACIDOPHILUS CAP (BACID) PO ×2 (08:33→21:59)
[2018-06-25] MEDS: DIGOXIN 0.125 MG TAB PO (08:40)
[2018-06-25] MEDS: NYSTATIN 100,000 UNITS/GM TOPICAL PWD 15 GM TOP ×2 (08:40→22:00)
[2018-06-25] MEDS: SILVER SULFADIAZINE 1% CR 50 GM JAR TOP ×3 (08:40→22:40)
[2018-06-25 11:42] LABS: BEDSIDE GLUCOSE 173 MG/DL (83-110)
[2018-06-25 11:47] LABS: BEDSIDE GLUCOSE 187 MG/DL (83-110)
[2018-06-25 16:54] LABS: BEDSIDE GLUCOSE 191 MG/DL (83-110)
[2018-06-25 16:58] LABS: BEDSIDE GLUCOSE 185 MG/DL (83-110)
[2018-06-25] MEDS: RIVAROXABAN 20 MG TAB (XARELTO) PO (17:05)
[2018-06-25 21:31] LABS: BEDSIDE GLUCOSE 168 MG/DL (83-110)
[2018-06-25] MEDS: OMEPRAZOLE 20 MG CAP PO (21:59)
[2018-06-25] MEDS: risperiDONE 0.5 MG TAB PO (21:59)
[2018-06-25] MEDS: ATORVASTATIN 20 MG TAB PO (21:59)
[2018-06-26 07:45] LABS: BEDSIDE GLUCOSE 122 MG/DL (83-110)
[2018-06-26] MEDS: IPRATROPIUM 0.5MG/ALBUTEROL 2.5MG INH SOL UD 3ML (DUONEB)(J7620) INH ×4 (07:57→20:00)
[2018-06-26] MEDS: ADVAIR HFA 230/21MCG INHALER INH ×2 (07:57→20:28)
[2018-06-26] MEDS: HumaLOG INSULIN (NovoLOG) PER UNIT SC ×4 (08:26→21:39)
[2018-06-26] MEDS: DOCUSATE SODIUM 100 MG CAP PO ×2 (08:26→21:37)
[2018-06-26] MEDS: BACTRIM 160MG/800MG DS TAB PO ×2 (08:26→21:37)
[2018-06-26] MEDS: GABAPENTIN 100 MG CAP PO ×3 (08:26→21:38)
[2018-06-26] MEDS: TAMSULOSIN 0.4 MG CAP PO (08:26)
[2018-06-26] MEDS: LEVEMIR (INSULIN DETEMIR) 1 UNITS/0.01ML SC (08:26)
[2018-06-26] MEDS: LACTOBACILLUS ACIDOPHILUS CAP (BACID) PO ×2 (08:26→21:38)
[2018-06-26] MEDS: SERTRALINE HCL 50 MG TAB PO ×2 (08:27→21:38)
[2018-06-26] MEDS: predniSONE 10 MG TAB PO (08:27)
[2018-06-26] MEDS: NYSTATIN 100,000 UNITS/GM TOPICAL PWD 15 GM TOP ×2 (08:32→21:40)
[2018-06-26] MEDS: DIGOXIN 0.125 MG TAB PO (08:32)
[2018-06-26] MEDS: PERCOCET 5MG/325MG TAB PO ×2 (08:46→16:25)
[2018-06-26 11:50] LABS: BEDSIDE GLUCOSE 256 MG/DL (83-110)
[2018-06-26] MEDS: ALBUTEROL SULFATE 2.5 MG/0.5 ML INH NEB SOLN INH (13:43)
[2018-06-26] MEDS: SILVER SULFADIAZINE 1% CR 50 GM JAR TOP ×2 (14:35→21:40)
[2018-06-26] MEDS: RIVAROXABAN 20 MG TAB (XARELTO) PO (16:25)
[2018-06-26 16:34] LABS: BEDSIDE GLUCOSE 138 MG/DL (83-110)
[2018-06-26 20:13] LABS: BEDSIDE GLUCOSE 209 MG/DL (83-110)
[2018-06-26] MEDS: OMEPRAZOLE 20 MG CAP PO (21:37)
[2018-06-26] MEDS: risperiDONE 0.5 MG TAB PO (21:38)
[2018-06-26] MEDS: ATORVASTATIN 20 MG TAB PO (21:38)
[2018-06-27] MEDS: ALBUTEROL SULFATE 2.5 MG/0.5 ML INH NEB SOLN INH ×2 (00:56→17:00)
[2018-06-27 06:27] LABS: BEDSIDE GLUCOSE 121 MG/DL (83-110)
[2018-06-27] MEDS: ADVAIR HFA 230/21MCG INHALER INH ×2 (07:53→20:21)
[2018-06-27] MEDS: IPRATROPIUM 0.5MG/ALBUTEROL 2.5MG INH SOL UD 3ML (DUONEB)(J7620) INH ×4 (07:55→20:00)
[2018-06-27] MEDS: LACTOBACILLUS ACIDOPHILUS CAP (BACID) PO ×2 (08:35→21:43)
[2018-06-27] MEDS: TAMSULOSIN 0.4 MG CAP PO (08:35)
[2018-06-27] MEDS: BACTRIM 160MG/800MG DS TAB PO ×2 (08:35→21:53)
[2018-06-27] MEDS: DOCUSATE SODIUM 100 MG CAP PO ×2 (08:35→21:44)
[2018-06-27] MEDS: ACETAMINOPHEN TAB 650MG DOSE (2X325MG) PO (08:36)
[2018-06-27] MEDS: predniSONE 10 MG TAB PO (08:36)
[2018-06-27] MEDS: DIGOXIN 0.125 MG TAB PO (08:37)
[2018-06-27] MEDS: LEVEMIR (INSULIN DETEMIR) 1 UNITS/0.01ML SC (08:37)
[2018-06-27] MEDS: SERTRALINE HCL 50 MG TAB PO ×2 (08:37→21:53)
[2018-06-27] MEDS: HumaLOG INSULIN (NovoLOG) PER UNIT SC ×4 (08:38→21:47)
[2018-06-27] MEDS: NYSTATIN 100,000 UNITS/GM TOPICAL PWD 15 GM TOP ×2 (08:38→21:53)
[2018-06-27] MEDS: GABAPENTIN 100 MG CAP PO ×3 (08:38→21:45)
[2018-06-27] MEDS: SILVER SULFADIAZINE 1% CR 50 GM JAR TOP ×3 (10:23→21:54)
[2018-06-27 11:23] LABS: BEDSIDE GLUCOSE 189 MG/DL (83-110)
[2018-06-27 16:34] LABS: BEDSIDE GLUCOSE 205 MG/DL (83-110)
[2018-06-27] MEDS: RIVAROXABAN 20 MG TAB (XARELTO) PO (16:53)
[2018-06-27 21:14] LABS: BEDSIDE GLUCOSE 162 MG/DL (83-110)
[2018-06-27] MEDS: ATORVASTATIN 20 MG TAB PO (21:45)
[2018-06-27] MEDS: risperiDONE 0.5 MG TAB PO (21:45)
[2018-06-27] MEDS: OMEPRAZOLE 20 MG CAP PO (21:45)
[2018-06-27] MEDS: PERCOCET 5MG/325MG TAB PO (21:46)
[2018-06-28 01:39] LABS: CK-MB VALUE MASS 1.8 NG/ML (<3.6); CPK CREATINE PHOSPHOKINASE 34 U/L (39-308); MB/CK RELATIVE INDEX 5.29 (< OR =4); TROPONIN I 0.05 NG/ML (< 0.10)
[2018-06-28] MEDS: ALBUTEROL SULFATE 2.5 MG/0.5 ML INH NEB SOLN INH (03:50)
[2018-06-28 06:48] LABS: BEDSIDE GLUCOSE 154 MG/DL (83-110)
[2018-06-28] MEDS: HumaLOG INSULIN (NovoLOG) PER UNIT SC ×4 (07:44→21:30)
[2018-06-28] MEDS: IPRATROPIUM 0.5MG/ALBUTEROL 2.5MG INH SOL UD 3ML (DUONEB)(J7620) INH ×5 (08:00→21:19)
[2018-06-28] MEDS: ADVAIR HFA 230/21MCG INHALER INH ×2 (08:09→21:19)
[2018-06-28] MEDS: LEVEMIR (INSULIN DETEMIR) 1 UNITS/0.01ML SC (09:59)
[2018-06-28] MEDS: SERTRALINE HCL 50 MG TAB PO ×2 (10:00→21:30)
[2018-06-28] MEDS: DOCUSATE SODIUM 100 MG CAP PO ×2 (10:00→21:30)
[2018-06-28] MEDS: GABAPENTIN 100 MG CAP PO ×3 (10:00→21:30)
[2018-06-28] MEDS: TAMSULOSIN 0.4 MG CAP PO (10:00)
[2018-06-28] MEDS: predniSONE 10 MG TAB PO (10:00)
[2018-06-28] MEDS: DIGOXIN 0.125 MG TAB PO (10:00)
[2018-06-28] MEDS: LACTOBACILLUS ACIDOPHILUS CAP (BACID) PO ×2 (10:01→21:28)
[2018-06-28] MEDS: SILVER SULFADIAZINE 1% CR 50 GM JAR TOP ×2 (10:02→21:31)
[2018-06-28] MEDS: NYSTATIN 100,000 UNITS/GM TOPICAL PWD 15 GM TOP ×2 (10:03→21:31)
[2018-06-28 12:02] LABS: BEDSIDE GLUCOSE 142 MG/DL (83-110)
[2018-06-28] MEDS: PERCOCET 5MG/325MG TAB PO ×2 (12:54→21:32)
[2018-06-28 16:45] LABS: BEDSIDE GLUCOSE 188 MG/DL (83-110)
[2018-06-28] MEDS: RIVAROXABAN 20 MG TAB (XARELTO) PO (17:25)
[2018-06-28 20:27] LABS: BEDSIDE GLUCOSE 138 MG/DL (83-110)
[2018-06-28] MEDS: risperiDONE 0.5 MG TAB PO (21:30)
[2018-06-28] MEDS: OMEPRAZOLE 20 MG CAP PO (21:30)
[2018-06-28] MEDS: ATORVASTATIN 20 MG TAB PO (21:30)
[2018-06-29] MEDS: ALBUTEROL SULFATE 2.5 MG/0.5 ML INH NEB SOLN INH (02:34)
[2018-06-29 06:00] LABS: BEDSIDE GLUCOSE 123 MG/DL (83-110)
[2018-06-29] MEDS: HumaLOG INSULIN (NovoLOG) PER UNIT SC ×4 (07:30→22:08)
[2018-06-29] MEDS: ADVAIR HFA 230/21MCG INHALER INH ×2 (08:50→19:25)
[2018-06-29] MEDS: IPRATROPIUM 0.5MG/ALBUTEROL 2.5MG INH SOL UD 3ML (DUONEB)(J7620) INH ×4 (08:50→19:25)
[2018-06-29] MEDS: LACTOBACILLUS ACIDOPHILUS CAP (BACID) PO ×2 (09:11→22:05)
[2018-06-29] MEDS: TAMSULOSIN 0.4 MG CAP PO (09:11)
[2018-06-29] MEDS: predniSONE 10 MG TAB PO (09:11)
[2018-06-29] MEDS: DIGOXIN 0.125 MG TAB PO (09:11)
[2018-06-29] MEDS: DOCUSATE SODIUM 100 MG CAP PO ×2 (09:12→22:07)
[2018-06-29] MEDS: SILVER SULFADIAZINE 1% CR 50 GM JAR TOP ×2 (09:12→22:08)
[2018-06-29] MEDS: NYSTATIN 100,000 UNITS/GM TOPICAL PWD 15 GM TOP ×2 (09:12→22:08)
[2018-06-29] MEDS: SERTRALINE HCL 50 MG TAB PO ×2 (09:12→22:08)
[2018-06-29] MEDS: GABAPENTIN 100 MG CAP PO ×3 (09:12→22:07)
[2018-06-29] MEDS: LEVEMIR (INSULIN DETEMIR) 1 UNITS/0.01ML SC (09:32)
[2018-06-29 11:43] LABS: BEDSIDE GLUCOSE 160 MG/DL (83-110)
[2018-06-29 16:45] LABS: BEDSIDE GLUCOSE 163 MG/DL (83-110)
[2018-06-29] MEDS: RIVAROXABAN 20 MG TAB (XARELTO) PO (17:50)
[2018-06-29 20:28] LABS: BEDSIDE GLUCOSE 148 MG/DL (83-110)
[2018-06-29] MEDS: risperiDONE 0.5 MG TAB PO (22:07)
[2018-06-29] MEDS: OMEPRAZOLE 20 MG CAP PO (22:07)
[2018-06-29] MEDS: ATORVASTATIN 20 MG TAB PO (22:07)
[2018-06-30] MEDS: ALBUTEROL SULFATE 2.5 MG/0.5 ML INH NEB SOLN INH (02:34)
[2018-06-30 07:50] LABS: BEDSIDE GLUCOSE 128 MG/DL (83-110)
[2018-06-30] MEDS: ADVAIR HFA 230/21MCG INHALER INH ×2 (07:58→21:02)
[2018-06-30] MEDS: IPRATROPIUM 0.5MG/ALBUTEROL 2.5MG INH SOL UD 3ML (DUONEB)(J7620) INH ×4 (08:00→21:02)
[2018-06-30] MEDS: SERTRALINE HCL 50 MG TAB PO ×2 (08:14→20:50)
[2018-06-30] MEDS: TAMSULOSIN 0.4 MG CAP PO (08:14)
[2018-06-30] MEDS: MOM 30ML SUSPENSION UDC PO (08:14)
[2018-06-30] MEDS: DOCUSATE SODIUM 100 MG CAP PO ×2 (08:14→20:50)
[2018-06-30] MEDS: LACTOBACILLUS ACIDOPHILUS CAP (BACID) PO ×2 (08:14→20:50)
[2018-06-30] MEDS: predniSONE 10 MG TAB PO (08:14)
[2018-06-30] MEDS: DIGOXIN 0.125 MG TAB PO (08:15)
[2018-06-30] MEDS: GABAPENTIN 100 MG CAP PO ×3 (08:15→20:51)
[2018-06-30] MEDS: HumaLOG INSULIN (NovoLOG) PER UNIT SC ×4 (08:16→20:41)
[2018-06-30] MEDS: LEVEMIR (INSULIN DETEMIR) 1 UNITS/0.01ML SC (08:16)
[2018-06-30] MEDS: SILVER SULFADIAZINE 1% CR 50 GM JAR TOP ×2 (08:17→20:52)
[2018-06-30] MEDS: NYSTATIN 100,000 UNITS/GM TOPICAL PWD 15 GM TOP ×2 (08:17→20:52)
[2018-06-30 11:35] LABS: BEDSIDE GLUCOSE 153 MG/DL (83-110)
[2018-06-30] MEDS: PERCOCET 5MG/325MG TAB PO ×2 (14:12→20:51)
[2018-06-30 14:43] LABS: HEMATOCRIT 33.8 % (42.0-52.0); HEMOGLOBIN 10.3 g/dl (13.5-17.5); MEAN CORPUSCULAR HEMOGLOBIN 24.1 pg (27.0-33.0); MEAN CORPUSCULAR HGB CONC 30.5 g/dl (32.0-36.5); PLATELET COUNT, AUTOMATED 269 10^3/uL (150-450); RED BLOOD COUNT 4.28 10^6/uL (4.30-6.10); RED CELL DISTRIBUTION WIDTH 19.2 % (11.5-14.5)
[2018-06-30 14:50] LABS: ANION GAP 6 MEQ/L (8-16); BLOOD UREA NITROGEN 17 MG/DL (7-18); CALCIUM LEVEL 8.6 MG/DL (8.8-10.2); CARBON DIOXIDE LEVEL 30 MEQ/L (21-32); CHLORIDE LEVEL 104 MEQ/L (98-107); CREATININE FOR GFR 1.02 MG/DL (0.70-1.30); GLOMERULAR FILTRATION RATE > 60.0 (>42); GLUCOSE, FASTING 166 MG/DL (70-100); POTASSIUM SERUM 4.5 MEQ/L (3.5-5.1); SODIUM LEVEL 140 MEQ/L (136-145)
[2018-06-30 16:39] LABS: BEDSIDE GLUCOSE 140 MG/DL (83-110)
[2018-06-30] MEDS: RIVAROXABAN 20 MG TAB (XARELTO) PO (16:53)
[2018-06-30 20:05] LABS: BEDSIDE GLUCOSE 174 MG/DL (83-110)
[2018-06-30] MEDS: OMEPRAZOLE 20 MG CAP PO (20:50)
[2018-06-30] MEDS: ATORVASTATIN 20 MG TAB PO (20:50)
[2018-06-30] MEDS: risperiDONE 0.5 MG TAB PO (20:51)
[2018-07-01 06:11] LABS: BEDSIDE GLUCOSE 128 MG/DL (83-110)
[2018-07-01] MEDS: ADVAIR HFA 230/21MCG INHALER INH ×2 (08:01→20:00)
[2018-07-01] MEDS: LACTOBACILLUS ACIDOPHILUS CAP (BACID) PO ×2 (08:30→20:36)
[2018-07-01] MEDS: DOCUSATE SODIUM 100 MG CAP PO ×2 (08:30→20:35)
[2018-07-01] MEDS: GABAPENTIN 100 MG CAP PO ×3 (08:30→20:35)
[2018-07-01] MEDS: LEVEMIR (INSULIN DETEMIR) 1 UNITS/0.01ML SC (08:31)
[2018-07-01] MEDS: HumaLOG INSULIN (NovoLOG) PER UNIT SC ×4 (08:31→20:18)
[2018-07-01] MEDS: DIGOXIN 0.125 MG TAB PO (08:37)
[2018-07-01] MEDS: NYSTATIN 100,000 UNITS/GM TOPICAL PWD 15 GM TOP ×2 (08:38→20:38)
[2018-07-01] MEDS: SILVER SULFADIAZINE 1% CR 50 GM JAR TOP ×2 (08:38→20:37)
[2018-07-01] MEDS: IPRATROPIUM 0.5MG/ALBUTEROL 2.5MG INH SOL UD 3ML (DUONEB)(J7620) INH ×4 (08:41→20:00)
[2018-07-01] MEDS: SERTRALINE HCL 50 MG TAB PO ×2 (08:44→20:35)
[2018-07-01] MEDS: predniSONE 10 MG TAB PO (08:44)
[2018-07-01] MEDS: TAMSULOSIN 0.4 MG CAP PO (08:44)
[2018-07-01] MEDS: RIVAROXABAN 20 MG TAB (XARELTO) PO (17:35)
[2018-07-01] MEDS: PERCOCET 5MG/325MG TAB PO (19:53)
[2018-07-01 20:12] LABS: BEDSIDE GLUCOSE 128 MG/DL (83-110)
[2018-07-01] MEDS: OMEPRAZOLE 20 MG CAP PO (20:35)
[2018-07-01] MEDS: risperiDONE 0.5 MG TAB PO (20:35)
[2018-07-01] MEDS: ATORVASTATIN 20 MG TAB PO (20:35)
[2018-07-02] MEDS: ACETAMINOPHEN TAB 650MG DOSE (2X325MG) PO (02:59)
[2018-07-02] MEDS: ALBUTEROL SULFATE 2.5 MG/0.5 ML INH NEB SOLN INH ×2 (03:09→23:15)
[2018-07-02 06:57] LABS: BEDSIDE GLUCOSE 124 MG/DL (83-110)
[2018-07-02] MEDS: IPRATROPIUM 0.5MG/ALBUTEROL 2.5MG INH SOL UD 3ML (DUONEB)(J7620) INH ×5 (07:33→20:00)
[2018-07-02] MEDS: ADVAIR HFA 230/21MCG INHALER INH ×3 (07:33→21:45)
[2018-07-02] MEDS: LACTOBACILLUS ACIDOPHILUS CAP (BACID) PO ×2 (08:28→20:58)
[2018-07-02] MEDS: TAMSULOSIN 0.4 MG CAP PO (08:28)
[2018-07-02] MEDS: SERTRALINE HCL 50 MG TAB PO ×2 (08:28→20:58)
[2018-07-02] MEDS: DIGOXIN 0.125 MG TAB PO (08:28)
[2018-07-02] MEDS: DOCUSATE SODIUM 100 MG CAP PO ×2 (08:28→20:58)
[2018-07-02] MEDS: GABAPENTIN 100 MG CAP PO ×3 (08:28→20:58)
[2018-07-02] MEDS: predniSONE 10 MG TAB PO (08:28)
[2018-07-02] MEDS: LEVEMIR (INSULIN DETEMIR) 1 UNITS/0.01ML SC (08:29)
[2018-07-02] MEDS: HumaLOG INSULIN (NovoLOG) PER UNIT SC ×4 (08:30→20:52)
[2018-07-02] MEDS: NYSTATIN 100,000 UNITS/GM TOPICAL PWD 15 GM TOP ×2 (08:30→21:00)
[2018-07-02] MEDS: SILVER SULFADIAZINE 1% CR 50 GM JAR TOP ×2 (08:31→21:00)
[2018-07-02 11:35] LABS: BEDSIDE GLUCOSE 139 MG/DL (83-110)
[2018-07-02 11:35] LABS: BEDSIDE GLUCOSE 150 MG/DL (83-110)
[2018-07-02 11:35] LABS: BEDSIDE GLUCOSE 170 MG/DL (83-110)
[2018-07-02] MEDS: RIVAROXABAN 20 MG TAB (XARELTO) PO (16:05)
[2018-07-02 20:33] LABS: BEDSIDE GLUCOSE 151 MG/DL (83-110)
[2018-07-02] MEDS: ATORVASTATIN 20 MG TAB PO (20:58)
[2018-07-02] MEDS: OMEPRAZOLE 20 MG CAP PO (20:58)
[2018-07-02] MEDS: risperiDONE 0.5 MG TAB PO (20:58)
[2018-07-03] MEDS: ADVAIR HFA 230/21MCG INHALER INH ×2 (07:22→20:00)
[2018-07-03] MEDS: IPRATROPIUM 0.5MG/ALBUTEROL 2.5MG INH SOL UD 3ML (DUONEB)(J7620) INH ×4 (07:22→20:00)
[2018-07-03 08:00] LABS: BEDSIDE GLUCOSE 187 MG/DL (83-110)
[2018-07-03] MEDS: HumaLOG INSULIN (NovoLOG) PER UNIT SC ×4 (08:05→21:00)
[2018-07-03] MEDS: DOCUSATE SODIUM 100 MG CAP PO ×2 (09:44→21:50)
[2018-07-03] MEDS: SERTRALINE HCL 50 MG TAB PO ×2 (09:44→21:57)
[2018-07-03] MEDS: GABAPENTIN 100 MG CAP PO ×3 (09:44→21:50)
[2018-07-03] MEDS: NYSTATIN 100,000 UNITS/GM TOPICAL PWD 15 GM TOP ×2 (09:44→21:57)
[2018-07-03] MEDS: LEVEMIR (INSULIN DETEMIR) 1 UNITS/0.01ML SC (09:44)
[2018-07-03] MEDS: LACTOBACILLUS ACIDOPHILUS CAP (BACID) PO ×2 (09:44→21:50)
[2018-07-03] MEDS: predniSONE 10 MG TAB PO (09:45)
[2018-07-03] MEDS: DIGOXIN 0.125 MG TAB PO (09:45)
[2018-07-03] MEDS: TAMSULOSIN 0.4 MG CAP PO (09:45)
[2018-07-03] MEDS: SILVER SULFADIAZINE 1% CR 50 GM JAR TOP ×2 (09:46→21:57)
[2018-07-03 12:16] LABS: BEDSIDE GLUCOSE 172 MG/DL (83-110)
[2018-07-03 17:28] LABS: BEDSIDE GLUCOSE 191 MG/DL (83-110)
[2018-07-03] MEDS: RIVAROXABAN 20 MG TAB (XARELTO) PO (17:36)
[2018-07-03 20:57] LABS: BEDSIDE GLUCOSE 167 MG/DL (83-110)
[2018-07-03] MEDS: ATORVASTATIN 20 MG TAB PO (21:50)
[2018-07-03] MEDS: OMEPRAZOLE 20 MG CAP PO (21:50)
[2018-07-03] MEDS: risperiDONE 0.5 MG TAB PO (21:57)
[2018-07-04] MEDS: ALBUTEROL SULFATE 2.5 MG/0.5 ML INH NEB SOLN INH (05:58)
[2018-07-04] MEDS: IPRATROPIUM 0.5MG/ALBUTEROL 2.5MG INH SOL UD 3ML (DUONEB)(J7620) INH ×4 (07:25→20:00)
[2018-07-04] MEDS: ADVAIR HFA 230/21MCG INHALER INH ×2 (07:25→20:14)
[2018-07-04] MEDS: HumaLOG INSULIN (NovoLOG) PER UNIT SC ×4 (08:29→21:54)
[2018-07-04 09:38] LABS: BEDSIDE GLUCOSE 185 MG/DL (83-110)
[2018-07-04] MEDS: predniSONE 10 MG TAB PO (10:05)
[2018-07-04] MEDS: DOCUSATE SODIUM 100 MG CAP PO ×2 (10:05→21:53)
[2018-07-04] MEDS: GABAPENTIN 100 MG CAP PO ×3 (10:05→21:53)
[2018-07-04] MEDS: TAMSULOSIN 0.4 MG CAP PO (10:05)
[2018-07-04] MEDS: LACTOBACILLUS ACIDOPHILUS CAP (BACID) PO ×2 (10:05→21:53)
[2018-07-04] MEDS: SERTRALINE HCL 50 MG TAB PO ×2 (10:06→21:53)
[2018-07-04] MEDS: DIGOXIN 0.125 MG TAB PO (10:09)
[2018-07-04] MEDS: PERCOCET 5MG/325MG TAB PO (10:10)
[2018-07-04] MEDS: NYSTATIN 100,000 UNITS/GM TOPICAL PWD 15 GM TOP ×2 (10:11→21:53)
[2018-07-04] MEDS: LEVEMIR (INSULIN DETEMIR) 1 UNITS/0.01ML SC (10:12)
[2018-07-04 11:39] LABS: BEDSIDE GLUCOSE 151 MG/DL (83-110)
[2018-07-04] MEDS: SILVER SULFADIAZINE 1% CR 50 GM JAR TOP ×2 (11:59→21:53)
[2018-07-04] MEDS: RIVAROXABAN 20 MG TAB (XARELTO) PO (17:39)
[2018-07-04 20:45] LABS: BEDSIDE GLUCOSE 145 MG/DL (83-110)
[2018-07-04 20:47] LABS: BEDSIDE GLUCOSE 116 MG/DL (83-110)
[2018-07-04 20:47] LABS: BEDSIDE GLUCOSE 160 MG/DL (83-110)
[2018-07-04] MEDS: OMEPRAZOLE 20 MG CAP PO (21:53)
[2018-07-04] MEDS: risperiDONE 0.5 MG TAB PO (21:53)
[2018-07-04] MEDS: ATORVASTATIN 20 MG TAB PO (21:53)
[2018-07-05] MEDS: ALBUTEROL SULFATE 2.5 MG/0.5 ML INH NEB SOLN INH (05:55)
[2018-07-05 06:29] LABS: BEDSIDE GLUCOSE 112 MG/DL (83-110)
[2018-07-05] MEDS: HumaLOG INSULIN (NovoLOG) PER UNIT SC ×4 (07:42→21:43)
[2018-07-05] MEDS: IPRATROPIUM 0.5MG/ALBUTEROL 2.5MG INH SOL UD 3ML (DUONEB)(J7620) INH ×4 (07:43→22:09)
[2018-07-05] MEDS: ADVAIR HFA 230/21MCG INHALER INH ×2 (07:43→19:54)
[2018-07-05] MEDS: PERCOCET 5MG/325MG TAB PO (07:49)
[2018-07-05] MEDS: LACTOBACILLUS ACIDOPHILUS CAP (BACID) PO ×2 (08:47→21:42)
[2018-07-05] MEDS: DOCUSATE SODIUM 100 MG CAP PO ×2 (08:47→21:42)
[2018-07-05] MEDS: GABAPENTIN 100 MG CAP PO ×3 (08:47→21:42)
[2018-07-05] MEDS: DIGOXIN 0.125 MG TAB PO (08:47)
[2018-07-05] MEDS: SERTRALINE HCL 50 MG TAB PO ×2 (08:47→21:42)
[2018-07-05] MEDS: TAMSULOSIN 0.4 MG CAP PO (08:48)
[2018-07-05] MEDS: predniSONE 10 MG TAB PO (08:48)
[2018-07-05] MEDS: LEVEMIR (INSULIN DETEMIR) 1 UNITS/0.01ML SC (08:53)
[2018-07-05] MEDS: NYSTATIN 100,000 UNITS/GM TOPICAL PWD 15 GM TOP ×2 (08:54→21:44)
[2018-07-05] MEDS: SILVER SULFADIAZINE 1% CR 50 GM JAR TOP ×2 (08:55→21:44)
[2018-07-05 09:55] LABS: HEMATOCRIT 31.3 % (42.0-52.0); HEMOGLOBIN 9.6 g/dl (13.5-17.5); MEAN CORPUSCULAR HEMOGLOBIN 23.8 pg (27.0-33.0); MEAN CORPUSCULAR HGB CONC 30.7 g/dl (32.0-36.5); MEAN CORPUSCULAR VOLUME 77.5 fl (80.0-96.0); PLATELET COUNT, AUTOMATED 235 10^3/uL (150-450); RED BLOOD COUNT 4.04 10^6/uL (4.30-6.10); WHITE BLOOD COUNT 11.8 10^3/uL (4.0-10.0)
[2018-07-05 10:10] LABS: ALBUMIN 2.4 GM/DL (3.2-5.2); ALBUMIN/GLOBULIN RATIO 0.75 (1.00-1.93); ALKALINE PHOSPHATASE 97 U/L (45-117); ALT/SGPT 22 U/L (12-78); ANION GAP 5 MEQ/L (8-16); AST/SGOT 14 U/L (7-37); BILIRUBIN,TOTAL 0.4 MG/DL (0.2-1.0); BLOOD UREA NITROGEN 13 MG/DL (7-18); CALCIUM LEVEL 8.3 MG/DL (8.8-10.2); CARBON DIOXIDE LEVEL 30 MEQ/L (21-32); CHLORIDE LEVEL 108 MEQ/L (98-107); CPK CREATINE PHOSPHOKINASE 38 U/L (39-308); CREATININE FOR GFR 0.87 MG/DL (0.70-1.30); GLOMERULAR FILTRATION RATE > 60.0 (>42); GLUCOSE, FASTING 108 MG/DL (70-100); POTASSIUM SERUM 3.9 MEQ/L (3.5-5.1); SODIUM LEVEL 143 MEQ/L (136-145); TOTAL PROTEIN 5.6 GM/DL (6.4-8.2); TROPONIN I 0.06 NG/ML (< 0.10)
[2018-07-05 10:11] LABS: CK-MB VALUE MASS 2.2 NG/ML (<3.6); MB/CK RELATIVE INDEX 5.78 (< OR =4)
[2018-07-05 12:00] LABS: BEDSIDE GLUCOSE 198 MG/DL (83-110)
[2018-07-05 17:04] LABS: BEDSIDE GLUCOSE 340 MG/DL (83-110)
[2018-07-05] MEDS: RIVAROXABAN 20 MG TAB (XARELTO) PO (17:22)
[2018-07-05 17:31] LABS: CK-MB VALUE MASS 2.1 NG/ML (<3.6); CPK CREATINE PHOSPHOKINASE 37 U/L (39-308); MB/CK RELATIVE INDEX 5.67 (< OR =4); TROPONIN I 0.04 NG/ML (< 0.10)
[2018-07-05 20:14] LABS: BEDSIDE GLUCOSE 172 MG/DL (83-110)
[2018-07-05] MEDS: ATORVASTATIN 20 MG TAB PO (21:42)
[2018-07-05] MEDS: risperiDONE 0.5 MG TAB PO (21:42)
[2018-07-05] MEDS: OMEPRAZOLE 20 MG CAP PO (21:42)
[2018-07-06] MEDS: PERCOCET 5MG/325MG TAB PO (05:28)
[2018-07-06 05:43] LABS: BEDSIDE GLUCOSE 121 MG/DL (83-110)
[2018-07-06] MEDS: ADVAIR HFA 230/21MCG INHALER INH ×2 (07:16→19:58)
[2018-07-06] MEDS: IPRATROPIUM 0.5MG/ALBUTEROL 2.5MG INH SOL UD 3ML (DUONEB)(J7620) INH ×4 (07:16→19:57)
[2018-07-06] MEDS: HumaLOG INSULIN (NovoLOG) PER UNIT SC ×4 (07:32→21:47)
[2018-07-06] MEDS: TAMSULOSIN 0.4 MG CAP PO (09:36)
[2018-07-06] MEDS: SERTRALINE HCL 50 MG TAB PO ×2 (09:41→21:46)
[2018-07-06] MEDS: DIGOXIN 0.125 MG TAB PO (09:41)
[2018-07-06] MEDS: DOCUSATE SODIUM 100 MG CAP PO ×2 (09:41→21:47)
[2018-07-06] MEDS: LACTOBACILLUS ACIDOPHILUS CAP (BACID) PO ×2 (09:41→21:46)
[2018-07-06] MEDS: predniSONE 10 MG TAB PO (09:42)
[2018-07-06] MEDS: GABAPENTIN 100 MG CAP PO ×3 (09:42→21:46)
[2018-07-06] MEDS: LEVEMIR (INSULIN DETEMIR) 1 UNITS/0.01ML SC (09:42)
[2018-07-06] MEDS: NYSTATIN 100,000 UNITS/GM TOPICAL PWD 15 GM TOP ×2 (09:43→21:48)
[2018-07-06] MEDS: SILVER SULFADIAZINE 1% CR 50 GM JAR TOP ×2 (09:43→21:48)
[2018-07-06] MEDS: ALBUTEROL SULFATE 2.5 MG/0.5 ML INH NEB SOLN INH (09:47)
[2018-07-06] MEDS: RIVAROXABAN 20 MG TAB (XARELTO) PO (16:03)
[2018-07-06 16:34] LABS: BEDSIDE GLUCOSE 265 MG/DL (83-110)
[2018-07-06] MEDS: OMEPRAZOLE 20 MG CAP PO (21:46)
[2018-07-06] MEDS: risperiDONE 0.5 MG TAB PO (21:46)
[2018-07-06] MEDS: ATORVASTATIN 20 MG TAB PO (21:46)
[2018-07-07] MEDS: PERCOCET 5MG/325MG TAB PO (03:08)
[2018-07-07 06:53] LABS: BEDSIDE GLUCOSE 121 MG/DL (83-110)
[2018-07-07] MEDS: HumaLOG INSULIN (NovoLOG) PER UNIT SC ×2 (07:36→12:23)
[2018-07-07] MEDS: IPRATROPIUM 0.5MG/ALBUTEROL 2.5MG INH SOL UD 3ML (DUONEB)(J7620) INH ×2 (07:51→11:35)
[2018-07-07] MEDS: ADVAIR HFA 230/21MCG INHALER INH (07:51)
[2018-07-07] MEDS: NYSTATIN 100,000 UNITS/GM TOPICAL PWD 15 GM TOP (09:00)
[2018-07-07] MEDS: TAMSULOSIN 0.4 MG CAP PO (10:20)
[2018-07-07] MEDS: LEVEMIR (INSULIN DETEMIR) 1 UNITS/0.01ML SC (10:20)
[2018-07-07] MEDS: GABAPENTIN 100 MG CAP PO (10:21)
[2018-07-07] MEDS: SERTRALINE HCL 50 MG TAB PO (10:21)
[2018-07-07] MEDS: predniSONE 10 MG TAB PO (10:21)
[2018-07-07] MEDS: LACTOBACILLUS ACIDOPHILUS CAP (BACID) PO (10:21)
[2018-07-07] MEDS: DIGOXIN 0.125 MG TAB PO (10:21)
[2018-07-07] MEDS: DOCUSATE SODIUM 100 MG CAP PO (10:21)
[2018-07-07] MEDS: SILVER SULFADIAZINE 1% CR 50 GM JAR TOP (10:26)
[2018-07-07 11:49] LABS: BEDSIDE GLUCOSE 147 MG/DL (83-110)
[2018-07-09 05:55] LABS: BEDSIDE GLUCOSE 189 MG/DL (83-110)
[2018-07-09 05:55] LABS: BEDSIDE GLUCOSE 208 MG/DL (83-110)
== END 2018-07-07 12:59 | DRG 871 ==
LOC: M MSPAV 06-05 02:35 → M PCU 06-10 12:57 → M ICU 06-13 06:53 → M MS5PR 06-21 00:34 → M MSPAV 06-11 16:57 → M PCU 06-21 04:00 → M ED 10:56 → M ED INP 20:18 → M MS5PR 23:22
PROC: 30233N1 Transfusion of Nonautologous Red Blood Cells into Peripheral Vein, Percutaneous Approach (ICD-10-PCS; principal; 2018-06-23)
DX: A41.9 Sepsis, unspecified organism (principal); G93.41 Metabolic encephalopathy; I63.411 Cerebral infarction due to embolism of right middle cerebral artery; N17.9 Acute kidney failure, unspecified; I50.32 Chronic diastolic (congestive) heart failure; L97.528 Non-pressure chronic ulcer of other part of left foot with other specified severity; I48.1 Persistent atrial fibrillation; I13.0 Hypertensive heart and chronic kidney disease with heart failure and stage 1 through stage 4 chronic kidney disease, or unspecified chronic kidney disease; I65.21 Occlusion and stenosis of right carotid artery; I25.10 Atherosclerotic heart disease of native coronary artery without angina pectoris; I48.2 Chronic atrial fibrillation; G47.33 Obstructive sleep apnea (adult) (pediatric); J44.9 Chronic obstructive pulmonary disease, unspecified; Z66 Do not resuscitate; E78.5 Hyperlipidemia, unspecified; E11.42 Type 2 diabetes mellitus with diabetic polyneuropathy; F41.9 Anxiety disorder, unspecified; D72.829 Elevated white blood cell count, unspecified; D64.9 Anemia, unspecified; B95.62 Methicillin resistant Staphylococcus aureus infection as the cause of diseases classified elsewhere; K21.9 Gastro-esophageal reflux disease without esophagitis; E11.621 Type 2 diabetes mellitus with foot ulcer; I45.10 Unspecified right bundle-branch block; N18.9 Chronic kidney disease, unspecified; Z99.81 Dependence on supplemental oxygen; Z95.1 Presence of aortocoronary bypass graft; F03.90 Unspecified dementia, unspecified severity, without behavioral disturbance, psychotic disturbance, mood disturbance, and anxiety; Z85.820 Personal history of malignant melanoma of skin; Z98.41 Cataract extraction status, right eye; Z98.42 Cataract extraction status, left eye; Z79.82 Long term (current) use of aspirin; Z79.4 Long term (current) use of insulin; Z79.52 Long term (current) use of systemic steroids; Z88.8 Allergy status to other drugs, medicaments and biological substances

== ENCOUNTER → 2018-07-09 | Outpatient (REF) ==
[2018-07-09 10:04] LABS: HEMATOCRIT 34.7 % (42.0-52.0); HEMOGLOBIN 10.5 g/dl (13.5-17.5); MEAN CORPUSCULAR HEMOGLOBIN 24.1 pg (27.0-33.0); MEAN CORPUSCULAR HGB CONC 30.3 g/dl (32.0-36.5); MEAN CORPUSCULAR VOLUME 79.6 fl (80.0-96.0); PLATELET COUNT, AUTOMATED 275 10^3/uL (150-450); RED BLOOD COUNT 4.36 10^6/uL (4.30-6.10); RED CELL DISTRIBUTION WIDTH 18.8 % (11.5-14.5); WHITE BLOOD COUNT 12.8 10^3/uL (4.0-10.0)
[2018-07-09 10:09] LABS: HEMATOCRIT 34.7 % (42.0-52.0)
[2018-07-09 10:36] LABS: ANION GAP 9 MEQ/L (8-16); BLOOD UREA NITROGEN 14 MG/DL (7-18); C REACTIVE PROTEIN QUANTITATIV 3.66 MG/DL (0.00-0.30); CALCIUM LEVEL 8.4 MG/DL (8.8-10.2); CARBON DIOXIDE LEVEL 30 MEQ/L (21-32); CHLORIDE LEVEL 105 MEQ/L (98-107); CREATININE FOR GFR 1.14 MG/DL (0.70-1.30); GLOMERULAR FILTRATION RATE > 60.0 (>42); GLUCOSE, FASTING 54 MG/DL (70-100); POTASSIUM SERUM 3.9 MEQ/L (3.5-5.1); SODIUM LEVEL 144 MEQ/L (136-145)
[2018-07-09 10:43] LABS: ERYTHROCYTE SEDIMENTATION RATE 25 mm/hr (0-20)
[2018-07-09 10:45] LABS: VITAMIN B12 LEVEL 321 PG/ML (247-911)
[2018-07-09 11:29] LABS: FOLATE 6.9 NG/ML (>5.4)
[2018-07-11 10:38] LABS: PRETREATED FOLATE FOR RBCFOL 13.8 NG/ML; RBC FOLATE 835.2 NG/ML (280-791)
== END ==
DX: D64.9 Anemia, unspecified (principal); F03.90 Unspecified dementia, unspecified severity, without behavioral disturbance, psychotic disturbance, mood disturbance, and anxiety

== ENCOUNTER → 2018-07-10 | Outpatient (REF) | DX: R05 Cough (principal); R06.2 Wheezing ==

== ENCOUNTER → 2018-07-16 | Outpatient (REF) ==
[2018-07-16 13:21] LABS: HEMATOCRIT 37.1 % (42.0-52.0); HEMOGLOBIN 11.4 g/dl (13.5-17.5); MEAN CORPUSCULAR HEMOGLOBIN 23.8 pg (27.0-33.0); MEAN CORPUSCULAR HGB CONC 30.7 g/dl (32.0-36.5); MEAN CORPUSCULAR VOLUME 77.6 fl (80.0-96.0); PLATELET COUNT, AUTOMATED 337 10^3/uL (150-450); RED BLOOD COUNT 4.78 10^6/uL (4.30-6.10); RED CELL DISTRIBUTION WIDTH 19.5 % (11.5-14.5); WHITE BLOOD COUNT 19.2 10^3/uL (4.0-10.0)
[2018-07-16 13:50] LABS: ANION GAP 13 MEQ/L (8-16); BLOOD UREA NITROGEN 36 MG/DL (7-18); CARBON DIOXIDE LEVEL 30 MEQ/L (21-32); CHLORIDE LEVEL 96 MEQ/L (98-107); CREATININE FOR GFR 1.55 MG/DL (0.70-1.30); GLOMERULAR FILTRATION RATE 46.6 (>42); GLUCOSE, FASTING 118 MG/DL (70-100); POTASSIUM SERUM 4.1 MEQ/L (3.5-5.1); SODIUM LEVEL 139 MEQ/L (136-145)
[2018-07-16 14:02] LABS: ERYTHROCYTE SEDIMENTATION RATE 5 mm/hr (0-20)
== END ==
DX: S99.922A Unspecified injury of left foot, initial encounter (principal); Y92.89 Other specified places as the place of occurrence of the external cause; Y93.89 Activity, other specified; X58.XXXA Exposure to other specified factors, initial encounter; Y99.8 Other external cause status

== ENCOUNTER 2018-07-18 11:34 | Inpatient (IN) | payer MEDICARE, MEDICAID, OTHER ==
[2018-07-18] MEDS: DILUENT IV (12:15)
[2018-07-18] MEDS: NS IV (12:15)
[2018-07-18 12:23] LABS: BASO % 0.1 % (0.0-1.0); HEMATOCRIT 34.4 % (42.0-52.0); HEMOGLOBIN 10.7 g/dl (13.5-17.5); IMMATURE GRANULOCYTE % 1.4 % (0-3.0); MEAN CORPUSCULAR HEMOGLOBIN 23.8 pg (27.0-33.0); MEAN CORPUSCULAR HGB CONC 31.1 g/dl (32.0-36.5); MEAN CORPUSCULAR VOLUME 76.4 fl (80.0-96.0); MONO # 1.2 10^3/uL (0.0-0.8); MONO % 6.1 % (0.0-5.0); NEUTROPHILS # 18.1 10^3/uL (1.8-7.7); NEUTROPHILS % 91.4 % (36.0-66.0); PLATELET COUNT, AUTOMATED 257 10^3/uL (150-450); RED CELL DISTRIBUTION WIDTH 19.5 % (11.5-14.5); WHITE BLOOD COUNT 19.8 10^3/uL (4.0-10.0)
[2018-07-18 12:40] LABS: INR 1.43; PROTHROMBIN TIME 17.7 SECONDS (12.1-14.4)
[2018-07-18 12:41] LABS: PARTIAL THROMBOPLASTIN TIME 31.9 SECONDS (25.4-37.6)
[2018-07-18 12:51] LABS: ALBUMIN 2.8 GM/DL (3.2-5.2); ALKALINE PHOSPHATASE 103 U/L (45-117); ALT/SGPT 30 U/L (12-78); AMYLASE 46 U/L (25-115); ANION GAP 9 MEQ/L (8-16); AST/SGOT 15 U/L (7-37); BILIRUBIN,DIRECT 0.1 MG/DL (0.0-0.2); BILIRUBIN,TOTAL 0.5 MG/DL (0.2-1.0); C REACTIVE PROTEIN QUANTITATIV 8.08 MG/DL (0.00-0.30); CALCIUM LEVEL 8.8 MG/DL (8.8-10.2); CARBON DIOXIDE LEVEL 32 MEQ/L (21-32); CHLORIDE LEVEL 96 MEQ/L (98-107); CPK CREATINE PHOSPHOKINASE 65 U/L (39-308); CREATININE FOR GFR 1.58 MG/DL (0.70-1.30); GLOMERULAR FILTRATION RATE 45.6 (>42); GLUCOSE, FASTING 330 MG/DL (70-100); POTASSIUM SERUM 4.7 MEQ/L (3.5-5.1); SODIUM LEVEL 137 MEQ/L (136-145); TOTAL PROTEIN 6.8 GM/DL (6.4-8.2); TROPONIN I 0.04 NG/ML (< 0.10)
[2018-07-18 12:53] LABS: BLOOD UREA NITROGEN 37 MG/DL (7-18); CK-MB VALUE MASS 1.7 NG/ML (<3.6); MB/CK RELATIVE INDEX 2.61 (< OR =4)
[2018-07-18 12:55] LABS: LACTIC ACID SEPSIS PROTOCOL 3.3 MMOL/L (0.4-2.0)
[2018-07-18 13:02] LABS: LYMPH # 0.2 10^3/uL (1.5-4.5); POSITIVE DIFF POS FLAG
[2018-07-18] MEDS: MEROPENEM INJ 1 GM in APPROPRIATE DILUENT 1 EA IV ×2 (13:35→22:53)
[2018-07-18 13:36] LABS: APPEARANCE, URINE CLEAR (CLEAR); BACTERIA, URINE AUTO NEGATIVE (NEGATIVE); BILIRUBIN, URINE AUTO NEGATIVE (NEGATIVE); BLOOD, URINE BLOOD NEGATIVE (NEGATIVE); COLOR, URINE STRAW (YELLOW); GLUCOSE, URINE (UA) AUTO 1+ mg/dL (NEGATIVE); KETONE, URINE AUTO NEGATIVE (NEGATIVE); LEUKOCYTE ESTERASE, URINE AUTO NEGATIVE (NEGATIVE); NITRITE, URINE AUTO NEGATIVE (NEGATIVE); PROTEIN, URINE AUTO NEGATIVE (NEGATIVE); RBC, URINE AUTO 1 /HPF (0-3); SPECIFIC GRAVITY URINE AUTO 1.008 (1.002-1.035); SQUAMOUS EPITHELIAL CELL UR AU 0 /HPF (0-6); UROBILINOGEN, URINE AUTO 0.2 mg/dL (0.0-2.0); WBC, URINE AUTO 0 /HPF (0-3)
[2018-07-18 13:38] LABS: DIFF SLIDE NUMBER 243
[2018-07-18 13:39] LABS: ERYTHROCYTE SEDIMENTATION RATE 15 mm/hr (0-20)
[2018-07-18 13:48] LABS: CENTRAL VEN BASE EXCESS 5.3; CENTRAL VEN O2 SATURATION 95.1 %; CENTRAL VEN PARTL PRESSURE CO2 49.8 mmHg; CENTRAL VEN PARTL PRESSURE O2 79.7 mmHg; CENTRAL VEN STANDARD HCO3 29.2 MEQ/L; CENTRAL VEN TOTAL CO2 32.4 MEQ/L; CENTRAL VENOUS HCO3 30.9 MEQ/L
[2018-07-18] MEDS: IPRATROPIUM 0.5MG/ALBUTEROL 2.5MG INH SOL UD 3ML (DUONEB)(J7620) NEB (14:35)
[2018-07-18] MEDS: VANCOMYCIN HCL 1,000 MG, VIAL MATE ADAPTER 1 EACH in D5W 250 ML IV (14:48)
[2018-07-18] MEDS ORDERED: BISACODYL 10 MG SUPP PR (16:30)
[2018-07-18] MEDS ORDERED: SODIUM CHLORIDE 0.9% 1000 ML IV ×3 (16:30)
[2018-07-18] MEDS ORDERED: GLUCAGON FOR INJ 1 MG VIAL (J1610) SC (16:45)
[2018-07-18] MEDS ORDERED: DEXTROSE 50% 50 ML SYRINGE IV (16:45)
[2018-07-18] MEDS ORDERED: GLUCOSE 4 GM CHEW TABLET PO (16:45)
[2018-07-18] MEDS ORDERED: MOM 30ML SUSPENSION UDC PO (17:00)
[2018-07-18] MEDS: NS 1,000 ML IV (17:23)
[2018-07-18] MEDS: HumaLOG INSULIN (NovoLOG) PER UNIT SC ×2 (17:30→21:00)
[2018-07-18 17:44] LABS: ABG BASE EXCESS 3.2 (-2.0-2.0); ABG HCO3 27.1 MEQ/L (22.0-26.0); ABG PARTIAL PRESSURE CO2 38.5 mmHg (35.0-45.0); ABG PARTIAL PRESSURE O2 74.2 mmHg (75.0-100.0); ABG STANDARD HCO3 27.3 MEQ/L (22.0-26.0); ABG TOTAL CO2 28.3 MEQ/L (23.0-31.0); ABG pH (ARTERIAL) 7.465 UNITS (7.350-7.450)
[2018-07-18] MEDS: ALBUTEROL SULFATE 2.5 MG/0.5 ML INH NEB SOLN INH ×2 (18:35→22:40)
[2018-07-18 18:44] LABS: BEDSIDE GLUCOSE 273 MG/DL (83-110)
[2018-07-18] MEDS: RIVAROXABAN 20 MG TAB (XARELTO) PO (19:40)
[2018-07-18] MEDS: ASPIRIN 81 MG ENTERIC TAB PO (19:40)
[2018-07-18] MEDS: predniSONE 20 MG TAB PO (19:42)
[2018-07-18] MEDS: IPRATROPIUM 0.5MG/ALBUTEROL 2.5MG INH SOL UD 3ML (DUONEB)(J7620) INH (20:00)
[2018-07-18] MEDS: VANCOMYCIN HCL 1,000 MG, VIAL MATE ADAPTER 1 EACH in D5W/0.2% SODIUM CHLORIDE 250 ML IV (21:00)
[2018-07-18] MEDS: SYMBICORT 160/4.5MCG INHALER 6GM INH (21:03)
[2018-07-18] MEDS: GABAPENTIN 100 MG CAP PO (22:51)
[2018-07-18] MEDS: FERROUS SULFATE 325MG TAB PO (22:51)
[2018-07-18] MEDS: ATORVASTATIN 20 MG TAB PO (22:51)
[2018-07-18] MEDS: PERCOCET 5MG/325MG TAB PO (22:52)
[2018-07-18] MEDS: OMEPRAZOLE 20 MG CAP PO (22:52)
[2018-07-18] MEDS: SENOKOT S TAB PO (22:53)
[2018-07-18] MEDS: SERTRALINE HCL 50 MG TAB PO (22:53)
[2018-07-18] MEDS: risperiDONE 1 MG TAB PO (22:53)
[2018-07-18 23:08] LABS: BEDSIDE GLUCOSE 134 MG/DL (83-110)
[2018-07-19] MEDS: IPRATROPIUM 0.5MG/ALBUTEROL 2.5MG INH SOL UD 3ML (DUONEB)(J7620) INH ×4 (02:00→20:47)
[2018-07-19] MEDS: MEROPENEM INJ 1 GM in APPROPRIATE DILUENT 1 EA IV ×3 (05:11→22:00)
[2018-07-19 05:39] LABS: HEMATOCRIT 30.7 % (42.0-52.0); HEMOGLOBIN 9.4 g/dl (13.5-17.5); MEAN CORPUSCULAR HEMOGLOBIN 23.7 pg (27.0-33.0); MEAN CORPUSCULAR HGB CONC 30.6 g/dl (32.0-36.5); MEAN CORPUSCULAR VOLUME 77.3 fl (80.0-96.0); PLATELET COUNT, AUTOMATED 216 10^3/uL (150-450); RED BLOOD COUNT 3.97 10^6/uL (4.30-6.10); WHITE BLOOD COUNT 14.9 10^3/uL (4.0-10.0)
[2018-07-19 05:57] LABS: ANION GAP 8 MEQ/L (8-16); BLOOD UREA NITROGEN 30 MG/DL (7-18); CALCIUM LEVEL 8.1 MG/DL (8.8-10.2); CARBON DIOXIDE LEVEL 29 MEQ/L (21-32); CHLORIDE LEVEL 105 MEQ/L (98-107); CREATININE FOR GFR 1.02 MG/DL (0.70-1.30); GLOMERULAR FILTRATION RATE > 60.0 (>42); GLUCOSE, FASTING 183 MG/DL (70-100); POTASSIUM SERUM 4.2 MEQ/L (3.5-5.1); SODIUM LEVEL 142 MEQ/L (136-145)
[2018-07-19] MEDS: NS 1,000 ML IV (06:52)
[2018-07-19 07:49] LABS: LACTIC ACID SEPSIS PROTOCOL 0.8 MMOL/L (0.4-2.0)
[2018-07-19] MEDS: SYMBICORT 160/4.5MCG INHALER 6GM INH ×2 (07:53→21:00)
[2018-07-19] MEDS: VANCOMYCIN HCL 1,000 MG, VIAL MATE ADAPTER 1 EACH in D5W/0.2% SODIUM CHLORIDE 250 ML IV ×2 (08:17→20:36)
[2018-07-19] MEDS: HumaLOG INSULIN (NovoLOG) PER UNIT SC ×4 (08:18→20:53)
[2018-07-19] MEDS: diltiaZEM **CD** 180 MG CAP PO (08:20)
[2018-07-19] MEDS: ASPIRIN 81 MG ENTERIC TAB PO (08:24)
[2018-07-19] MEDS: GABAPENTIN 100 MG CAP PO ×3 (08:24→20:34)
[2018-07-19] MEDS: PERCOCET 5MG/325MG TAB PO ×2 (08:25→20:35)
[2018-07-19] MEDS: TAMSULOSIN 0.4 MG CAP PO (08:25)
[2018-07-19] MEDS: SENOKOT S TAB PO ×2 (08:25→20:35)
[2018-07-19] MEDS: predniSONE 20 MG TAB PO (08:25)
[2018-07-19] MEDS: SERTRALINE HCL 50 MG TAB PO ×2 (08:25→20:35)
[2018-07-19] MEDS: risperiDONE 1 MG TAB PO ×2 (08:25→20:35)
[2018-07-19] MEDS: TORSEMIDE 20 MG TAB PO (10:04)
[2018-07-19 11:43] LABS: BEDSIDE GLUCOSE 248 MG/DL (83-110)
[2018-07-19 16:10] LABS: BEDSIDE GLUCOSE 239 MG/DL (83-110)
[2018-07-19] MEDS: RIVAROXABAN 20 MG TAB (XARELTO) PO (17:45)
[2018-07-19] MEDS: ATORVASTATIN 20 MG TAB PO (20:33)
[2018-07-19] MEDS: OMEPRAZOLE 20 MG CAP PO (20:35)
[2018-07-19 20:51] LABS: BEDSIDE GLUCOSE 261 MG/DL (83-110)
[2018-07-20] MEDS: IPRATROPIUM 0.5MG/ALBUTEROL 2.5MG INH SOL UD 3ML (DUONEB)(J7620) INH ×4 (01:02→19:14)
[2018-07-20] MEDS: MEROPENEM INJ 1 GM in APPROPRIATE DILUENT 1 EA IV ×3 (05:11→22:21)
[2018-07-20 05:20] LABS: HEMATOCRIT 31.7 % (42.0-52.0); HEMOGLOBIN 9.5 g/dl (13.5-17.5); MEAN CORPUSCULAR HEMOGLOBIN 23.2 pg (27.0-33.0); MEAN CORPUSCULAR VOLUME 77.5 fl (80.0-96.0); PLATELET COUNT, AUTOMATED 228 10^3/uL (150-450); RED BLOOD COUNT 4.09 10^6/uL (4.30-6.10); RED CELL DISTRIBUTION WIDTH 19.3 % (11.5-14.5); WHITE BLOOD COUNT 14.8 10^3/uL (4.0-10.0)
[2018-07-20 05:35] LABS: ANION GAP 5 MEQ/L (8-16); BLOOD UREA NITROGEN 28 MG/DL (7-18); CARBON DIOXIDE LEVEL 33 MEQ/L (21-32); CHLORIDE LEVEL 102 MEQ/L (98-107); CREATININE FOR GFR 1.02 MG/DL (0.70-1.30); GLOMERULAR FILTRATION RATE > 60.0 (>42); GLUCOSE, FASTING 133 MG/DL (70-100); POTASSIUM SERUM 3.7 MEQ/L (3.5-5.1); SODIUM LEVEL 140 MEQ/L (136-145)
[2018-07-20] MEDS: SYMBICORT 160/4.5MCG INHALER 6GM INH ×2 (07:07→21:52)
[2018-07-20] MEDS: VANCOMYCIN HCL 1,000 MG, VIAL MATE ADAPTER 1 EACH in D5W/0.2% SODIUM CHLORIDE 250 ML IV ×2 (08:12→20:38)
[2018-07-20] MEDS: SENOKOT S TAB PO ×2 (08:13→20:09)
[2018-07-20] MEDS: HumaLOG INSULIN (NovoLOG) PER UNIT SC ×4 (08:13→21:24)
[2018-07-20] MEDS: LEVEMIR (INSULIN DETEMIR) 1 UNITS/0.01ML SC (08:13)
[2018-07-20] MEDS: predniSONE 20 MG TAB PO (08:13)
[2018-07-20] MEDS: diltiaZEM **CD** 180 MG CAP PO (08:15)
[2018-07-20] MEDS: ASPIRIN 81 MG ENTERIC TAB PO (08:15)
[2018-07-20] MEDS: TAMSULOSIN 0.4 MG CAP PO (08:15)
[2018-07-20] MEDS: SERTRALINE HCL 50 MG TAB PO ×2 (08:15→20:09)
[2018-07-20] MEDS: TORSEMIDE 20 MG TAB PO (08:15)
[2018-07-20] MEDS: PERCOCET 5MG/325MG TAB PO ×2 (08:16→20:09)
[2018-07-20] MEDS: risperiDONE 1 MG TAB PO ×2 (08:16→20:09)
[2018-07-20] MEDS: GABAPENTIN 100 MG CAP PO ×3 (08:16→20:09)
[2018-07-20 08:54] LABS: VANCOMYCIN LEVEL TROUGH 18.5 UG/ML (10.0-20.0)
[2018-07-20] MEDS: guaiFENesin ER 600 MG TAB PO ×2 (09:08→20:09)
[2018-07-20 11:44] LABS: BEDSIDE GLUCOSE 260 MG/DL (83-110)
[2018-07-20 16:34] LABS: BEDSIDE GLUCOSE 386 MG/DL (83-110)
[2018-07-20] MEDS: RIVAROXABAN 20 MG TAB (XARELTO) PO (17:29)
[2018-07-20] MEDS: OMEPRAZOLE 20 MG CAP PO (20:09)
[2018-07-20] MEDS: ATORVASTATIN 20 MG TAB PO (20:10)
[2018-07-20 21:12] LABS: BEDSIDE GLUCOSE 308 MG/DL (83-110)
[2018-07-21] MEDS: IPRATROPIUM 0.5MG/ALBUTEROL 2.5MG INH SOL UD 3ML (DUONEB)(J7620) INH ×5 (03:44→20:00)
[2018-07-21] MEDS: MEROPENEM INJ 1 GM in APPROPRIATE DILUENT 1 EA IV (05:04)
[2018-07-21 05:12] LABS: HEMATOCRIT 30.5 % (42.0-52.0); HEMOGLOBIN 9.3 g/dl (13.5-17.5); MEAN CORPUSCULAR HEMOGLOBIN 23.3 pg (27.0-33.0); MEAN CORPUSCULAR HGB CONC 30.5 g/dl (32.0-36.5); MEAN CORPUSCULAR VOLUME 76.4 fl (80.0-96.0); PLATELET COUNT, AUTOMATED 219 10^3/uL (150-450); RED BLOOD COUNT 3.99 10^6/uL (4.30-6.10); RED CELL DISTRIBUTION WIDTH 19.2 % (11.5-14.5); WHITE BLOOD COUNT 13.7 10^3/uL (4.0-10.0)
[2018-07-21 05:28] LABS: ANION GAP 6 MEQ/L (8-16); BLOOD UREA NITROGEN 25 MG/DL (7-18); CALCIUM LEVEL 7.9 MG/DL (8.8-10.2); CARBON DIOXIDE LEVEL 33 MEQ/L (21-32); CHLORIDE LEVEL 104 MEQ/L (98-107); CREATININE FOR GFR 0.91 MG/DL (0.70-1.30); GLOMERULAR FILTRATION RATE > 60.0 (>42); GLUCOSE, FASTING 124 MG/DL (70-100); SODIUM LEVEL 143 MEQ/L (136-145)
[2018-07-21] MEDS: ASPIRIN 81 MG ENTERIC TAB PO (08:55)
[2018-07-21] MEDS: SENOKOT S TAB PO ×2 (08:56→20:00)
[2018-07-21] MEDS: PERCOCET 5MG/325MG TAB PO ×2 (08:56→19:59)
[2018-07-21] MEDS: diltiaZEM **CD** 180 MG CAP PO (08:57)
[2018-07-21] MEDS: predniSONE 20 MG TAB PO (08:57)
[2018-07-21] MEDS: risperiDONE 1 MG TAB PO ×2 (08:57→19:59)
[2018-07-21] MEDS: TORSEMIDE 20 MG TAB PO (08:58)
[2018-07-21] MEDS: TAMSULOSIN 0.4 MG CAP PO (08:58)
[2018-07-21] MEDS: GABAPENTIN 100 MG CAP PO ×3 (08:58→20:00)
[2018-07-21] MEDS: LEVEMIR (INSULIN DETEMIR) 1 UNITS/0.01ML SC (08:58)
[2018-07-21] MEDS: SERTRALINE HCL 50 MG TAB PO ×2 (08:58→20:00)
[2018-07-21] MEDS: guaiFENesin ER 600 MG TAB PO ×2 (08:58→20:00)
[2018-07-21] MEDS: LevoFLOXacin 750 MG TABLET PO (08:59)
[2018-07-21] MEDS: HumaLOG INSULIN (NovoLOG) PER UNIT SC ×4 (08:59→20:38)
[2018-07-21] MEDS: VANCOMYCIN HCL 1,000 MG, VIAL MATE ADAPTER 1 EACH in D5W/0.2% SODIUM CHLORIDE 250 ML IV ×2 (08:59→20:00)
[2018-07-21] MEDS: SYMBICORT 160/4.5MCG INHALER 6GM INH ×2 (09:00→21:27)
[2018-07-21] MEDS: ALBUTEROL SULFATE 2.5 MG/0.5 ML INH NEB SOLN INH ×2 (10:56→16:24)
[2018-07-21 12:23] LABS: BEDSIDE GLUCOSE 135 MG/DL (83-110)
[2018-07-21 15:34] LABS: TROPONIN I 0.05 NG/ML (< 0.10)
[2018-07-21 17:25] LABS: BEDSIDE GLUCOSE 294 MG/DL (83-110)
[2018-07-21] MEDS: RIVAROXABAN 20 MG TAB (XARELTO) PO (17:56)
[2018-07-21] MEDS: FERROUS SULFATE 325MG TAB PO (20:00)
[2018-07-21] MEDS: ATORVASTATIN 20 MG TAB PO (20:00)
[2018-07-21] MEDS: OMEPRAZOLE 20 MG CAP PO (20:00)
[2018-07-21 20:38] LABS: BEDSIDE GLUCOSE 354 MG/DL (83-110)
[2018-07-22 00:56] LABS: POTASSIUM SERUM 4.3 MEQ/L (3.5-5.1)
[2018-07-22] MEDS: IPRATROPIUM 0.5MG/ALBUTEROL 2.5MG INH SOL UD 3ML (DUONEB)(J7620) INH ×4 (01:51→20:38)
[2018-07-22] MEDS: ALBUTEROL SULFATE 2.5 MG/0.5 ML INH NEB SOLN INH ×2 (02:23→17:25)
[2018-07-22] MEDS: ACETAMINOPHEN TAB 650MG DOSE (2X325MG) PO (03:14)
[2018-07-22 03:55] LABS: HEMATOCRIT 32.7 % (42.0-52.0); HEMOGLOBIN 9.9 g/dl (13.5-17.5); MEAN CORPUSCULAR HEMOGLOBIN 23.6 pg (27.0-33.0); MEAN CORPUSCULAR HGB CONC 30.3 g/dl (32.0-36.5); MEAN CORPUSCULAR VOLUME 77.9 fl (80.0-96.0); PLATELET COUNT, AUTOMATED 224 10^3/uL (150-450); WHITE BLOOD COUNT 15.2 10^3/uL (4.0-10.0)
[2018-07-22] MEDS: NITROGLYCERIN 0.4 MG SUBL TABLET SL (03:56)
[2018-07-22 04:21] LABS: ANION GAP 5 MEQ/L (8-16); BLOOD UREA NITROGEN 26 MG/DL (7-18); CALCIUM LEVEL 7.9 MG/DL (8.8-10.2); CARBON DIOXIDE LEVEL 34 MEQ/L (21-32); CHLORIDE LEVEL 101 MEQ/L (98-107); CK-MB VALUE MASS 1.1 NG/ML (<3.6); CPK CREATINE PHOSPHOKINASE 25 U/L (39-308); CREATININE FOR GFR 0.96 MG/DL (0.70-1.30); GLOMERULAR FILTRATION RATE > 60.0 (>42); GLUCOSE, FASTING 128 MG/DL (70-100); MAGNESIUM LEVEL 2.3 MG/DL (1.8-2.4); POTASSIUM SERUM 4.2 MEQ/L (3.5-5.1); SODIUM LEVEL 140 MEQ/L (136-145); TROPONIN I 0.04 NG/ML (< 0.10)
[2018-07-22] MEDS: LevoFLOXacin 750 MG TABLET PO (05:25)
[2018-07-22] MEDS: SYMBICORT 160/4.5MCG INHALER 6GM INH ×2 (07:51→20:38)
[2018-07-22] MEDS: diltiaZEM **CD** 180 MG CAP PO (08:22)
[2018-07-22] MEDS: SENOKOT S TAB PO ×2 (08:23→20:20)
[2018-07-22] MEDS: ASPIRIN 81 MG ENTERIC TAB PO (08:23)
[2018-07-22] MEDS: guaiFENesin ER 600 MG TAB PO ×2 (08:23→20:19)
[2018-07-22] MEDS: GABAPENTIN 100 MG CAP PO ×3 (08:23→20:19)
[2018-07-22] MEDS: TAMSULOSIN 0.4 MG CAP PO (08:23)
[2018-07-22] MEDS: predniSONE 10 MG TAB PO (08:23)
[2018-07-22] MEDS: PERCOCET 5MG/325MG TAB PO ×2 (08:23→20:19)
[2018-07-22] MEDS: SERTRALINE HCL 50 MG TAB PO ×2 (08:23→20:19)
[2018-07-22] MEDS: TORSEMIDE 20 MG TAB PO (08:24)
[2018-07-22] MEDS: risperiDONE 1 MG TAB PO ×2 (08:24→20:20)
[2018-07-22] MEDS: LEVEMIR (INSULIN DETEMIR) 1 UNITS/0.01ML SC (08:27)
[2018-07-22] MEDS: VANCOMYCIN HCL 1,000 MG, VIAL MATE ADAPTER 1 EACH in D5W/0.2% SODIUM CHLORIDE 250 ML IV (08:27)
[2018-07-22] MEDS: HumaLOG INSULIN (NovoLOG) PER UNIT SC ×4 (08:27→20:51)
[2018-07-22 08:53] LABS: VANCOMYCIN LEVEL TROUGH 21.4 UG/ML (10.0-20.0)
[2018-07-22 12:00] LABS: BEDSIDE GLUCOSE 152 MG/DL (83-110)
[2018-07-22 16:49] LABS: BEDSIDE GLUCOSE 214 MG/DL (83-110)
[2018-07-22] MEDS: RIVAROXABAN 20 MG TAB (XARELTO) PO (17:04)
[2018-07-22] MEDS ORDERED: METOPROLOL TART 12.5 MG PER 1/2 TAB As Ordered (18:58)
[2018-07-22] MEDS: METOPROLOL TART 12.5 MG PER 1/2 TAB PO (19:02)
[2018-07-22] MEDS: METOPROLOL 5 MG/5 ML VIAL IV (19:07)
[2018-07-22] MEDS: ATORVASTATIN 20 MG TAB PO (20:19)
[2018-07-22] MEDS: OMEPRAZOLE 20 MG CAP PO (20:19)
[2018-07-22 20:49] LABS: BEDSIDE GLUCOSE 264 MG/DL (83-110)
[2018-07-22] MEDS: LORazepam 0.5 MG TAB PO (23:39)
[2018-07-23] MEDS: IPRATROPIUM 0.5MG/ALBUTEROL 2.5MG INH SOL UD 3ML (DUONEB)(J7620) INH ×4 (03:07→21:00)
[2018-07-23] MEDS: VANCOMYCIN HCL 1,000 MG, VIAL MATE ADAPTER 1 EACH in D5W/0.2% SODIUM CHLORIDE 250 ML IV ×2 (03:10→20:52)
[2018-07-23] MEDS: MOXIFLOXACIN 400 MG TAB PO (05:24)
[2018-07-23 06:16] LABS: ANION GAP 8 MEQ/L (8-16); BLOOD UREA NITROGEN 30 MG/DL (7-18); CALCIUM LEVEL 8.3 MG/DL (8.8-10.2); CARBON DIOXIDE LEVEL 34 MEQ/L (21-32); CHLORIDE LEVEL 99 MEQ/L (98-107); CREATININE FOR GFR 0.99 MG/DL (0.70-1.30); GLOMERULAR FILTRATION RATE > 60.0 (>42); GLUCOSE, FASTING 164 MG/DL (70-100); HEMATOCRIT 31.9 % (42.0-52.0); HEMOGLOBIN 9.9 g/dl (13.5-17.5); MEAN CORPUSCULAR HEMOGLOBIN 23.5 pg (27.0-33.0); MEAN CORPUSCULAR VOLUME 75.8 fl (80.0-96.0); PLATELET COUNT, AUTOMATED 219 10^3/uL (150-450); POTASSIUM SERUM 3.9 MEQ/L (3.5-5.1); RED BLOOD COUNT 4.21 10^6/uL (4.30-6.10); RED CELL DISTRIBUTION WIDTH 19.3 % (11.5-14.5); SODIUM LEVEL 141 MEQ/L (136-145); WHITE BLOOD COUNT 15.5 10^3/uL (4.0-10.0)
[2018-07-23] MEDS: LORazepam 2 MG/ML VIAL (J2060) IV (06:38)
[2018-07-23] MEDS: METOPROLOL TART 12.5 MG PER 1/2 TAB PO ×2 (08:43→09:19)
[2018-07-23] MEDS: SERTRALINE HCL 50 MG TAB PO ×2 (08:43→20:51)
[2018-07-23] MEDS: GABAPENTIN 100 MG CAP PO ×3 (08:44→20:52)
[2018-07-23] MEDS: guaiFENesin ER 600 MG TAB PO ×2 (08:44→20:51)
[2018-07-23] MEDS: TORSEMIDE 20 MG TAB PO (08:44)
[2018-07-23] MEDS: predniSONE 10 MG TAB PO (08:44)
[2018-07-23] MEDS: SENOKOT S TAB PO ×2 (08:44→20:52)
[2018-07-23] MEDS: diltiaZEM **CD** 180 MG CAP PO (08:45)
[2018-07-23] MEDS: TAMSULOSIN 0.4 MG CAP PO (08:45)
[2018-07-23] MEDS: risperiDONE 1 MG TAB PO ×2 (08:46→20:51)
[2018-07-23] MEDS: PERCOCET 5MG/325MG TAB PO ×2 (08:46→20:52)
[2018-07-23] MEDS: ASPIRIN 81 MG ENTERIC TAB PO (08:46)
[2018-07-23] MEDS: SYMBICORT 160/4.5MCG INHALER 6GM INH ×2 (09:00→21:00)
[2018-07-23] MEDS: LEVEMIR (INSULIN DETEMIR) 1 UNITS/0.01ML SC (09:18)
[2018-07-23] MEDS: HumaLOG INSULIN (NovoLOG) PER UNIT SC ×4 (09:18→20:50)
[2018-07-23 12:12] LABS: BEDSIDE GLUCOSE 127 MG/DL (83-110)
[2018-07-23] MEDS: NS 1,000 ML IV (13:10)
[2018-07-23 13:25] LABS: INR 1.36; PROTHROMBIN TIME 16.9 SECONDS (12.1-14.4)
[2018-07-23 13:38] LABS: AMMONIA 27 uMOL/L (<32)
[2018-07-23 13:58] LABS: ALBUMIN 2.4 GM/DL (3.2-5.2); ALBUMIN/GLOBULIN RATIO 0.75 (1.00-1.93); ALKALINE PHOSPHATASE 105 U/L (45-117); ALT/SGPT 42 U/L (12-78); AST/SGOT 18 U/L (7-37); BILIRUBIN,DIRECT 0.2 MG/DL (0.0-0.2); BILIRUBIN,TOTAL 0.5 MG/DL (0.2-1.0); TOTAL PROTEIN 5.6 GM/DL (6.4-8.2)
[2018-07-23 14:47] LABS: C REACTIVE PROTEIN QUANTITATIV 0.74 MG/DL (0.00-0.30); CK-MB VALUE MASS 1.3 NG/ML (<3.6); CPK CREATINE PHOSPHOKINASE 28 U/L (39-308); MB/CK RELATIVE INDEX 4.64 (< OR =4); TROPONIN I 0.05 NG/ML (< 0.10)
[2018-07-23 15:31] LABS: BEDSIDE GLUCOSE 162 MG/DL (83-110)
[2018-07-23 17:59] LABS: BEDSIDE GLUCOSE 228 MG/DL (83-110)
[2018-07-23] MEDS: RIVAROXABAN 20 MG TAB (XARELTO) PO (18:15)
[2018-07-23 19:41] LABS: CK-MB VALUE MASS 1.5 NG/ML (<3.6); CPK CREATINE PHOSPHOKINASE 27 U/L (39-308); MB/CK RELATIVE INDEX 5.55 (< OR =4); TROPONIN I 0.03 NG/ML (< 0.10)
[2018-07-23 20:36] LABS: BEDSIDE GLUCOSE 251 MG/DL (83-110)
[2018-07-23] MEDS: METOPROLOL TART 25 MG TABLET PO (20:51)
[2018-07-23] MEDS: ATORVASTATIN 20 MG TAB PO (20:51)
[2018-07-23] MEDS: OMEPRAZOLE 20 MG CAP PO (20:52)
[2018-07-23] MEDS: FERROUS SULFATE 325MG TAB PO (20:52)
[2018-07-23] MEDS ORDERED: METOPROLOL TART 25 MG TABLET PO (21:00)
[2018-07-24] MEDS: IPRATROPIUM 0.5MG/ALBUTEROL 2.5MG INH SOL UD 3ML (DUONEB)(J7620) INH ×4 (02:58→20:24)
[2018-07-24] MEDS: MOXIFLOXACIN 400 MG TAB PO (05:41)
[2018-07-24] MEDS: HumaLOG INSULIN (NovoLOG) PER UNIT SC ×4 (08:53→20:13)
[2018-07-24] MEDS: LEVEMIR (INSULIN DETEMIR) 1 UNITS/0.01ML SC (08:54)
[2018-07-24] MEDS: GABAPENTIN 100 MG CAP PO ×3 (08:55→20:13)
[2018-07-24] MEDS: guaiFENesin ER 600 MG TAB PO ×2 (08:55→20:13)
[2018-07-24] MEDS: predniSONE 10 MG TAB PO (08:56)
[2018-07-24] MEDS: TAMSULOSIN 0.4 MG CAP PO (08:56)
[2018-07-24] MEDS: risperiDONE 1 MG TAB PO ×2 (08:57→20:14)
[2018-07-24] MEDS: SERTRALINE HCL 50 MG TAB PO ×2 (08:57→20:13)
[2018-07-24] MEDS: SENOKOT S TAB PO ×2 (08:57→20:13)
[2018-07-24] MEDS: ASPIRIN 81 MG ENTERIC TAB PO (08:57)
[2018-07-24] MEDS: METOPROLOL TART 25 MG TABLET PO ×2 (08:57→20:17)
[2018-07-24] MEDS: PERCOCET 5MG/325MG TAB PO ×2 (08:59→20:14)
[2018-07-24 09:07] LABS: BEDSIDE GLUCOSE 117 MG/DL (83-110)
[2018-07-24] MEDS: SYMBICORT 160/4.5MCG INHALER 6GM INH ×2 (09:18→21:00)
[2018-07-24 10:25] LABS: HEMATOCRIT 36.7 % (42.0-52.0); HEMOGLOBIN 11.2 g/dl (13.5-17.5); MEAN CORPUSCULAR HEMOGLOBIN 23.8 pg (27.0-33.0); MEAN CORPUSCULAR HGB CONC 30.5 g/dl (32.0-36.5); MEAN CORPUSCULAR VOLUME 77.9 fl (80.0-96.0); PLATELET COUNT, AUTOMATED 223 10^3/uL (150-450); RED BLOOD COUNT 4.71 10^6/uL (4.30-6.10); RED CELL DISTRIBUTION WIDTH 19.2 % (11.5-14.5); WHITE BLOOD COUNT 16.7 10^3/uL (4.0-10.0)
[2018-07-24 10:35] LABS: ANION GAP 9 MEQ/L (8-16); BLOOD UREA NITROGEN 27 MG/DL (7-18); CARBON DIOXIDE LEVEL 33 MEQ/L (21-32); CHLORIDE LEVEL 102 MEQ/L (98-107); CREATININE FOR GFR 0.98 MG/DL (0.70-1.30); GLOMERULAR FILTRATION RATE > 60.0 (>42); GLUCOSE, FASTING 98 MG/DL (70-100); POTASSIUM SERUM 3.6 MEQ/L (3.5-5.1); SODIUM LEVEL 144 MEQ/L (136-145)
[2018-07-24 11:57] LABS: BEDSIDE GLUCOSE 107 MG/DL (83-110)
[2018-07-24 12:07] LABS: ERYTHROCYTE SEDIMENTATION RATE 6 mm/hr (0-20)
[2018-07-24 12:15] LABS: C REACTIVE PROTEIN QUANTITATIV 0.54 MG/DL (0.00-0.30)
[2018-07-24] MEDS: SLF 3 ML SYR IV ×3 (14:00→22:00)
[2018-07-24] MEDS: VANCOMYCIN HCL 1,000 MG, VIAL MATE ADAPTER 1 EACH in D5W/0.2% SODIUM CHLORIDE 250 ML IV (15:43)
[2018-07-24 17:05] LABS: BEDSIDE GLUCOSE 337 MG/DL (83-110)
[2018-07-24] MEDS: RIVAROXABAN 20 MG TAB (XARELTO) PO (17:19)
[2018-07-24 20:08] LABS: BEDSIDE GLUCOSE 374 MG/DL (83-110)
[2018-07-24] MEDS: ATORVASTATIN 20 MG TAB PO (20:13)
[2018-07-24] MEDS: OMEPRAZOLE 20 MG CAP PO (20:13)
[2018-07-25] MEDS: IPRATROPIUM 0.5MG/ALBUTEROL 2.5MG INH SOL UD 3ML (DUONEB)(J7620) INH ×4 (01:22→20:39)
[2018-07-25] MEDS: SLF 3 ML SYR IV ×3 (03:51→18:23)
[2018-07-25] MEDS: MOXIFLOXACIN 400 MG TAB PO (05:18)
[2018-07-25] MEDS: HumaLOG INSULIN (NovoLOG) PER UNIT SC ×4 (07:21→21:54)
[2018-07-25] MEDS: SYMBICORT 160/4.5MCG INHALER 6GM INH ×2 (07:55→20:39)
[2018-07-25 08:35] LABS: HEMATOCRIT 33.7 % (42.0-52.0); HEMOGLOBIN 10.4 g/dl (13.5-17.5); MEAN CORPUSCULAR HEMOGLOBIN 23.6 pg (27.0-33.0); MEAN CORPUSCULAR HGB CONC 30.9 g/dl (32.0-36.5); MEAN CORPUSCULAR VOLUME 76.4 fl (80.0-96.0); PLATELET COUNT, AUTOMATED 241 10^3/uL (150-450); RED BLOOD COUNT 4.41 10^6/uL (4.30-6.10); RED CELL DISTRIBUTION WIDTH 19.5 % (11.5-14.5); WHITE BLOOD COUNT 16.1 10^3/uL (4.0-10.0)
[2018-07-25] MEDS: guaiFENesin ER 600 MG TAB PO ×2 (08:48→21:37)
[2018-07-25] MEDS: TAMSULOSIN 0.4 MG CAP PO (08:48)
[2018-07-25] MEDS: SERTRALINE HCL 50 MG TAB PO ×2 (08:48→21:37)
[2018-07-25] MEDS: VANCOMYCIN HCL 1,000 MG, VIAL MATE ADAPTER 1 EACH in D5W/0.2% SODIUM CHLORIDE 250 ML IV (08:48)
[2018-07-25] MEDS: PERCOCET 5MG/325MG TAB PO ×2 (08:49→21:38)
[2018-07-25] MEDS: ASPIRIN 81 MG ENTERIC TAB PO (08:49)
[2018-07-25] MEDS: GABAPENTIN 100 MG CAP PO ×3 (08:49→21:39)
[2018-07-25] MEDS: METOPROLOL TART 25 MG TABLET PO ×2 (08:49→21:49)
[2018-07-25] MEDS: predniSONE 20 MG TAB PO (08:50)
[2018-07-25] MEDS: POTASSIUM CHLORIDE 10 MEQ SR TABLET PO (08:50)
[2018-07-25] MEDS: risperiDONE 1 MG TAB PO ×2 (08:51→21:37)
[2018-07-25 08:52] LABS: ANION GAP 6 MEQ/L (8-16); BLOOD UREA NITROGEN 25 MG/DL (7-18); C REACTIVE PROTEIN QUANTITATIV 0.69 MG/DL (0.00-0.30); CALCIUM LEVEL 8.2 MG/DL (8.8-10.2); CARBON DIOXIDE LEVEL 33 MEQ/L (21-32); CHLORIDE LEVEL 102 MEQ/L (98-107); CREATININE FOR GFR 0.99 MG/DL (0.70-1.30); GLOMERULAR FILTRATION RATE > 60.0 (>42); GLUCOSE, FASTING 167 MG/DL (70-100); POTASSIUM SERUM 3.8 MEQ/L (3.5-5.1); SODIUM LEVEL 141 MEQ/L (136-145); VANCOMYCIN LEVEL TROUGH 14.2 UG/ML (10.0-20.0)
[2018-07-25] MEDS: SENOKOT S TAB PO ×2 (08:52→21:39)
[2018-07-25] MEDS: LEVEMIR (INSULIN DETEMIR) 1 UNITS/0.01ML SC (08:52)
[2018-07-25 09:21] LABS: ERYTHROCYTE SEDIMENTATION RATE 7 mm/hr (0-20)
[2018-07-25 12:40] LABS: BEDSIDE GLUCOSE 176 MG/DL (83-110)
[2018-07-25] MEDS: BUPIVACAINE HCL 0.5% 30 ML VIAL As Ordered (17:22)
[2018-07-25] MEDS: LIDOCAINE 1% SDV INJ 30 ML VIAL As Ordered (17:22)
[2018-07-25] MEDS ORDERED: PHENYLephrine HCL 500 MCG/5 ML (100MCG/ML) SYRINGE (J2370) As Ordered (17:25)
[2018-07-25] MEDS ORDERED: PROPOFOL 200 MG/20 ML VIAL As Ordered (17:25)
[2018-07-25] MEDS ORDERED: LIDOCAINE 2% INJ 100 MG/5 ML SDV (FOR ANES.) As Ordered (17:25)
[2018-07-25] MEDS: RIVAROXABAN 20 MG TAB (XARELTO) PO (17:25)
[2018-07-25] MEDS: LR 1,000 ML IV (17:42)
[2018-07-25 17:49] LABS: BEDSIDE GLUCOSE 136 MG/DL (83-110)
[2018-07-25] MEDS ORDERED: ONDANSETRON 4MG/2ML VIAL (J2405) IV (18:00)
[2018-07-25] MEDS ORDERED: NORCO, ANEXSIA 5/325MG TABLET (HYDROcodone/ACETAMINOPHEN) PO (18:00)
[2018-07-25] MEDS ORDERED: fentaNYL 100 MCG/2 ML INJECTION (J3010) IV (18:00)
[2018-07-25] MEDS: FERROUS SULFATE 325MG TAB PO (21:37)
[2018-07-25] MEDS: ATORVASTATIN 20 MG TAB PO (21:37)
[2018-07-25] MEDS: OMEPRAZOLE 20 MG CAP PO (21:39)
[2018-07-25 22:23] LABS: BEDSIDE GLUCOSE 161 MG/DL (83-110)
[2018-07-26] MEDS: IPRATROPIUM 0.5MG/ALBUTEROL 2.5MG INH SOL UD 3ML (DUONEB)(J7620) INH ×4 (01:09→20:43)
[2018-07-26] MEDS: VANCOMYCIN HCL 1,000 MG, VIAL MATE ADAPTER 1 EACH in D5W/0.2% SODIUM CHLORIDE 250 ML IV ×2 (03:20→21:30)
[2018-07-26] MEDS: MOXIFLOXACIN 400 MG TAB PO (05:19)
[2018-07-26] MEDS: SLF 3 ML SYR IV ×3 (05:19→21:38)
[2018-07-26 06:14] LABS: HEMATOCRIT 34.2 % (42.0-52.0); HEMOGLOBIN 10.4 g/dl (13.5-17.5); MEAN CORPUSCULAR HEMOGLOBIN 23.7 pg (27.0-33.0); MEAN CORPUSCULAR HGB CONC 30.4 g/dl (32.0-36.5); MEAN CORPUSCULAR VOLUME 77.9 fl (80.0-96.0); PLATELET COUNT, AUTOMATED 207 10^3/uL (150-450); RED BLOOD COUNT 4.39 10^6/uL (4.30-6.10); RED CELL DISTRIBUTION WIDTH 19.6 % (11.5-14.5); WHITE BLOOD COUNT 11.3 10^3/uL (4.0-10.0)
[2018-07-26 06:33] LABS: ANION GAP 7 MEQ/L (8-16); BLOOD UREA NITROGEN 23 MG/DL (7-18); C REACTIVE PROTEIN QUANTITATIV 0.98 MG/DL (0.00-0.30); CALCIUM LEVEL 7.8 MG/DL (8.8-10.2); CARBON DIOXIDE LEVEL 31 MEQ/L (21-32); CHLORIDE LEVEL 106 MEQ/L (98-107); CREATININE FOR GFR 0.85 MG/DL (0.70-1.30); GLOMERULAR FILTRATION RATE > 60.0 (>42); GLUCOSE, FASTING 128 MG/DL (70-100); SODIUM LEVEL 144 MEQ/L (136-145)
[2018-07-26 06:35] LABS: ERYTHROCYTE SEDIMENTATION RATE 14 mm/hr (0-20)
[2018-07-26] MEDS: SENOKOT S TAB PO ×2 (08:43→21:32)
[2018-07-26] MEDS: HumaLOG INSULIN (NovoLOG) PER UNIT SC ×4 (08:43→22:15)
[2018-07-26] MEDS: risperiDONE 1 MG TAB PO ×2 (08:43→21:32)
[2018-07-26] MEDS: LEVEMIR (INSULIN DETEMIR) 1 UNITS/0.01ML SC (08:43)
[2018-07-26] MEDS: ASPIRIN 81 MG ENTERIC TAB PO (08:44)
[2018-07-26] MEDS: GABAPENTIN 100 MG CAP PO ×3 (08:44→21:34)
[2018-07-26] MEDS: guaiFENesin ER 600 MG TAB PO ×2 (08:44→21:34)
[2018-07-26] MEDS: SERTRALINE HCL 50 MG TAB PO ×2 (08:44→21:32)
[2018-07-26] MEDS: PERCOCET 5MG/325MG TAB PO ×2 (08:44→21:34)
[2018-07-26] MEDS: predniSONE 20 MG TAB PO (08:45)
[2018-07-26] MEDS: TAMSULOSIN 0.4 MG CAP PO (08:45)
[2018-07-26] MEDS: METOPROLOL TART 25 MG TABLET PO ×3 (08:52→21:37)
[2018-07-26] MEDS ORDERED: DOCUSATE SODIUM 100 MG CAP PO (09:00)
[2018-07-26] MEDS: SYMBICORT 160/4.5MCG INHALER 6GM INH ×2 (12:04→20:43)
[2018-07-26 12:18] LABS: BEDSIDE GLUCOSE 137 MG/DL (83-110)
[2018-07-26] MEDS: MIRALAX *UNIT DOSE* 17GM PACKET PO (12:52)
[2018-07-26] MEDS ORDERED: PILL CRUSHER/CUTTER 1 EACH XX (13:00)
[2018-07-26] MEDS: ACETAMINOPHEN TAB 650MG DOSE (2X325MG) PO (14:08)
[2018-07-26 17:20] LABS: BEDSIDE GLUCOSE 183 MG/DL (83-110)
[2018-07-26] MEDS: RIVAROXABAN 20 MG TAB (XARELTO) PO (17:49)
[2018-07-26] MEDS: ATORVASTATIN 20 MG TAB PO (21:32)
[2018-07-26] MEDS: OMEPRAZOLE 20 MG CAP PO (21:37)
[2018-07-26 22:23] LABS: BEDSIDE GLUCOSE 161 MG/DL (83-110)
[2018-07-27] MEDS: IPRATROPIUM 0.5MG/ALBUTEROL 2.5MG INH SOL UD 3ML (DUONEB)(J7620) INH ×4 (02:05→20:00)
[2018-07-27] MEDS: MOXIFLOXACIN 400 MG TAB PO (05:23)
[2018-07-27] MEDS: SLF 3 ML SYR IV ×3 (05:25→21:53)
[2018-07-27 05:46] LABS: HEMATOCRIT 34.8 % (42.0-52.0); HEMOGLOBIN 10.6 g/dl (13.5-17.5); MEAN CORPUSCULAR HEMOGLOBIN 23.6 pg (27.0-33.0); MEAN CORPUSCULAR HGB CONC 30.5 g/dl (32.0-36.5); MEAN CORPUSCULAR VOLUME 77.5 fl (80.0-96.0); PLATELET COUNT, AUTOMATED 207 10^3/uL (150-450); RED BLOOD COUNT 4.49 10^6/uL (4.30-6.10); RED CELL DISTRIBUTION WIDTH 19.9 % (11.5-14.5); WHITE BLOOD COUNT 13.5 10^3/uL (4.0-10.0)
[2018-07-27 06:00] LABS: ANION GAP 8 MEQ/L (8-16); BLOOD UREA NITROGEN 23 MG/DL (7-18); CALCIUM LEVEL 8.1 MG/DL (8.8-10.2); CARBON DIOXIDE LEVEL 28 MEQ/L (21-32); CHLORIDE LEVEL 108 MEQ/L (98-107); CREATININE FOR GFR 0.77 MG/DL (0.70-1.30); GLOMERULAR FILTRATION RATE > 60.0 (>42); GLUCOSE, FASTING 94 MG/DL (70-100); SODIUM LEVEL 144 MEQ/L (136-145)
[2018-07-27 06:17] LABS: ERYTHROCYTE SEDIMENTATION RATE 10 mm/hr (0-20)
[2018-07-27] MEDS: HumaLOG INSULIN (NovoLOG) PER UNIT SC ×4 (07:30→21:00)
[2018-07-27] MEDS: SYMBICORT 160/4.5MCG INHALER 6GM INH ×2 (08:09→20:28)
[2018-07-27] MEDS: MIRALAX *UNIT DOSE* 17GM PACKET PO (09:15)
[2018-07-27] MEDS: LEVEMIR (INSULIN DETEMIR) 1 UNITS/0.01ML SC (09:15)
[2018-07-27] MEDS: SENOKOT S TAB PO ×2 (09:16→21:51)
[2018-07-27] MEDS: GABAPENTIN 100 MG CAP PO ×3 (09:17→22:01)
[2018-07-27] MEDS: guaiFENesin ER 600 MG TAB PO ×2 (09:17→21:51)
[2018-07-27] MEDS: METOPROLOL TART 25 MG TABLET PO ×2 (09:17→21:52)
[2018-07-27] MEDS: PERCOCET 5MG/325MG TAB PO ×2 (09:17→21:51)
[2018-07-27] MEDS: risperiDONE 1 MG TAB PO ×2 (09:17→21:52)
[2018-07-27] MEDS: ASPIRIN 81 MG ENTERIC TAB PO (09:17)
[2018-07-27] MEDS: SERTRALINE HCL 50 MG TAB PO ×2 (09:17→21:51)
[2018-07-27] MEDS: TAMSULOSIN 0.4 MG CAP PO (09:17)
[2018-07-27] MEDS: predniSONE 20 MG TAB PO (09:49)
[2018-07-27] MEDS: NS 500 ML IV (09:49)
[2018-07-27 12:40] LABS: BEDSIDE GLUCOSE 205 MG/DL (83-110)
[2018-07-27] MEDS: VANCOMYCIN HCL 1,000 MG, VIAL MATE ADAPTER 1 EACH in D5W/0.2% SODIUM CHLORIDE 250 ML IV (14:21)
[2018-07-27 17:18] LABS: BEDSIDE GLUCOSE 136 MG/DL (83-110)
[2018-07-27] MEDS: RIVAROXABAN 20 MG TAB (XARELTO) PO (17:40)
[2018-07-27] MEDS: ATORVASTATIN 20 MG TAB PO (21:51)
[2018-07-27] MEDS: OMEPRAZOLE 20 MG CAP PO (21:52)
[2018-07-27 22:51] LABS: BEDSIDE GLUCOSE 165 MG/DL (83-110)
[2018-07-28] MEDS: IPRATROPIUM 0.5MG/ALBUTEROL 2.5MG INH SOL UD 3ML (DUONEB)(J7620) INH ×4 (01:16→20:04)
[2018-07-28] MEDS: ACETAMINOPHEN TAB 650MG DOSE (2X325MG) PO (02:01)
[2018-07-28] MEDS: MOXIFLOXACIN 400 MG TAB PO (05:55)
[2018-07-28] MEDS: SLF 3 ML SYR IV ×3 (05:55→21:45)
[2018-07-28 06:14] LABS: HEMATOCRIT 33.8 % (42.0-52.0); HEMOGLOBIN 10.2 g/dl (13.5-17.5); MEAN CORPUSCULAR HEMOGLOBIN 23.4 pg (27.0-33.0); MEAN CORPUSCULAR HGB CONC 30.2 g/dl (32.0-36.5); MEAN CORPUSCULAR VOLUME 77.5 fl (80.0-96.0); PLATELET COUNT, AUTOMATED 182 10^3/uL (150-450); RED BLOOD COUNT 4.36 10^6/uL (4.30-6.10); RED CELL DISTRIBUTION WIDTH 19.8 % (11.5-14.5); WHITE BLOOD COUNT 11.6 10^3/uL (4.0-10.0)
[2018-07-28 06:27] LABS: ANION GAP 4 MEQ/L (8-16); BLOOD UREA NITROGEN 17 MG/DL (7-18); C REACTIVE PROTEIN QUANTITATIV 1.91 MG/DL (0.00-0.30); CALCIUM LEVEL 7.9 MG/DL (8.8-10.2); CARBON DIOXIDE LEVEL 31 MEQ/L (21-32); CHLORIDE LEVEL 108 MEQ/L (98-107); CREATININE FOR GFR 0.71 MG/DL (0.70-1.30); GLOMERULAR FILTRATION RATE > 60.0 (>42); GLUCOSE, FASTING 84 MG/DL (70-100); POTASSIUM SERUM 4.1 MEQ/L (3.5-5.1); SODIUM LEVEL 143 MEQ/L (136-145)
[2018-07-28 07:30] LABS: ERYTHROCYTE SEDIMENTATION RATE 12 mm/hr (0-20)
[2018-07-28] MEDS: HumaLOG INSULIN (NovoLOG) PER UNIT SC ×4 (07:30→21:00)
[2018-07-28] MEDS: SYMBICORT 160/4.5MCG INHALER 6GM INH ×2 (08:36→20:04)
[2018-07-28] MEDS: LEVEMIR (INSULIN DETEMIR) 1 UNITS/0.01ML SC (09:02)
[2018-07-28] MEDS: TAMSULOSIN 0.4 MG CAP PO (09:02)
[2018-07-28] MEDS: MIRALAX *UNIT DOSE* 17GM PACKET PO (09:02)
[2018-07-28] MEDS: predniSONE 20 MG TAB PO (09:03)
[2018-07-28] MEDS: GABAPENTIN 100 MG CAP PO ×3 (09:03→20:54)
[2018-07-28] MEDS: guaiFENesin ER 600 MG TAB PO ×2 (09:03→20:54)
[2018-07-28] MEDS: SERTRALINE HCL 50 MG TAB PO ×2 (09:03→20:55)
[2018-07-28] MEDS: METOPROLOL TART 25 MG TABLET PO ×2 (09:04→20:49)
[2018-07-28] MEDS: SENOKOT S TAB PO ×2 (09:04→20:53)
[2018-07-28] MEDS: risperiDONE 1 MG TAB PO ×2 (09:05→20:55)
[2018-07-28] MEDS: ASPIRIN 81 MG ENTERIC TAB PO (09:05)
[2018-07-28] MEDS: PERCOCET 5MG/325MG TAB PO ×2 (09:05→20:53)
[2018-07-28] MEDS: VANCOMYCIN HCL 1,000 MG, VIAL MATE ADAPTER 1 EACH in D5W/0.2% SODIUM CHLORIDE 250 ML IV (09:06)
[2018-07-28] MEDS: ALBUTEROL SULFATE 2.5 MG/0.5 ML INH NEB SOLN INH (11:06)
[2018-07-28 11:40] LABS: BEDSIDE GLUCOSE 154 MG/DL (83-110)
[2018-07-28 16:53] LABS: BEDSIDE GLUCOSE 178 MG/DL (83-110)
[2018-07-28] MEDS: RIVAROXABAN 20 MG TAB (XARELTO) PO (17:31)
[2018-07-28 20:25] LABS: BEDSIDE GLUCOSE 135 MG/DL (83-110)
[2018-07-28] MEDS: OMEPRAZOLE 20 MG CAP PO (20:52)
[2018-07-28] MEDS: FERROUS SULFATE 325MG TAB PO (20:54)
[2018-07-28] MEDS: ATORVASTATIN 20 MG TAB PO (21:00)
[2018-07-28] MEDS: METOPROLOL 5 MG/5 ML VIAL IV ×3 (21:45→23:20)
[2018-07-28] MEDS: DIGOXIN INJ 0.5 MG/2 ML AMP (J1160) IV (22:45)
[2018-07-29] MEDS: IPRATROPIUM 0.5MG/ALBUTEROL 2.5MG INH SOL UD 3ML (DUONEB)(J7620) INH ×2 (02:00→07:12)
[2018-07-29] MEDS: VANCOMYCIN HCL 1,000 MG, VIAL MATE ADAPTER 1 EACH in D5W/0.2% SODIUM CHLORIDE 250 ML IV (02:17)
[2018-07-29] MEDS: SLF 3 ML SYR IV (05:17)
[2018-07-29] MEDS: MOXIFLOXACIN 400 MG TAB PO (05:17)
[2018-07-29 05:51] LABS: HEMATOCRIT 32.8 % (42.0-52.0); MEAN CORPUSCULAR HGB CONC 30.5 g/dl (32.0-36.5); MEAN CORPUSCULAR VOLUME 78.7 fl (80.0-96.0); PLATELET COUNT, AUTOMATED 157 10^3/uL (150-450); RED BLOOD COUNT 4.17 10^6/uL (4.30-6.10); RED CELL DISTRIBUTION WIDTH 20.3 % (11.5-14.5); WHITE BLOOD COUNT 13.1 10^3/uL (4.0-10.0)
[2018-07-29 05:58] LABS: ANION GAP 5 MEQ/L (8-16); BLOOD UREA NITROGEN 19 MG/DL (7-18); C REACTIVE PROTEIN QUANTITATIV 1.43 MG/DL (0.00-0.30); CALCIUM LEVEL 7.8 MG/DL (8.8-10.2); CARBON DIOXIDE LEVEL 30 MEQ/L (21-32); CHLORIDE LEVEL 109 MEQ/L (98-107); GLOMERULAR FILTRATION RATE > 60.0 (>42); GLUCOSE, FASTING 101 MG/DL (70-100); POTASSIUM SERUM 3.9 MEQ/L (3.5-5.1); SODIUM LEVEL 144 MEQ/L (136-145)
[2018-07-29 06:11] LABS: ERYTHROCYTE SEDIMENTATION RATE 14 mm/hr (0-20)
[2018-07-29] MEDS: SYMBICORT 160/4.5MCG INHALER 6GM INH (07:12)
[2018-07-29] MEDS: LEVEMIR (INSULIN DETEMIR) 1 UNITS/0.01ML SC (09:50)
[2018-07-29] MEDS: HumaLOG INSULIN (NovoLOG) PER UNIT SC (09:51)
[2018-07-29] MEDS: SERTRALINE HCL 50 MG TAB PO (09:51)
[2018-07-29] MEDS: GABAPENTIN 100 MG CAP PO (09:51)
[2018-07-29] MEDS: risperiDONE 1 MG TAB PO (09:51)
[2018-07-29] MEDS: TAMSULOSIN 0.4 MG CAP PO (09:51)
[2018-07-29] MEDS: SENOKOT S TAB PO (09:51)
[2018-07-29] MEDS: PERCOCET 5MG/325MG TAB PO (09:52)
[2018-07-29] MEDS: ASPIRIN 81 MG ENTERIC TAB PO (09:53)
[2018-07-29] MEDS: METOPROLOL TART 25 MG TABLET PO (09:53)
[2018-07-29] MEDS: MIRALAX *UNIT DOSE* 17GM PACKET PO (09:53)
[2018-07-29] MEDS: guaiFENesin ER 600 MG TAB PO (09:53)
== END 2018-07-29 11:14 | DRG 853 ==
LOC: M ED 11:34 → M ED INP 16:37 → M PCU 22:09
PROC: 0Y6Q0Z3 Detachment at Left 1st Toe, Low, Open Approach (ICD-10-PCS; principal; 2018-07-25 08:14)
DX: A41.9 Sepsis, unspecified organism (principal); J18.9 Pneumonia, unspecified organism; G93.41 Metabolic encephalopathy; I50.32 Chronic diastolic (congestive) heart failure; I45.2 Bifascicular block; M86.672 Other chronic osteomyelitis, left ankle and foot; N17.9 Acute kidney failure, unspecified; I25.10 Atherosclerotic heart disease of native coronary artery without angina pectoris; I48.2 Chronic atrial fibrillation; Z66 Do not resuscitate; R65.20 Severe sepsis without septic shock; G47.33 Obstructive sleep apnea (adult) (pediatric); J44.9 Chronic obstructive pulmonary disease, unspecified; I11.0 Hypertensive heart disease with heart failure; B95.62 Methicillin resistant Staphylococcus aureus infection as the cause of diseases classified elsewhere; E78.5 Hyperlipidemia, unspecified; E10.42 Type 1 diabetes mellitus with diabetic polyneuropathy; D64.9 Anemia, unspecified; F41.9 Anxiety disorder, unspecified; K59.00 Constipation, unspecified; K21.9 Gastro-esophageal reflux disease without esophagitis; F03.90 Unspecified dementia, unspecified severity, without behavioral disturbance, psychotic disturbance, mood disturbance, and anxiety; Z79.82 Long term (current) use of aspirin; Z79.84 Long term (current) use of oral hypoglycemic drugs; Z79.899 Other long term (current) drug therapy; Z91.19 Patient's noncompliance with other medical treatment and regimen; Z99.81 Dependence on supplemental oxygen; Z79.01 Long term (current) use of anticoagulants; Z95.1 Presence of aortocoronary bypass graft; Z98.41 Cataract extraction status, right eye; Z98.42 Cataract extraction status, left eye; Z85.820 Personal history of malignant melanoma of skin; Z88.8 Allergy status to other drugs, medicaments and biological substances

== ENCOUNTER → 2018-07-18 | Outpatient (REF) ==
[2018-07-18 10:27] LABS: HEMATOCRIT 34.3 % (42.0-52.0); HEMOGLOBIN 10.4 g/dl (13.5-17.5); MEAN CORPUSCULAR HEMOGLOBIN 23.5 pg (27.0-33.0); MEAN CORPUSCULAR HGB CONC 30.3 g/dl (32.0-36.5); MEAN CORPUSCULAR VOLUME 77.6 fl (80.0-96.0); PLATELET COUNT, AUTOMATED 267 10^3/uL (150-450); RED BLOOD COUNT 4.42 10^6/uL (4.30-6.10); RED CELL DISTRIBUTION WIDTH 19.5 % (11.5-14.5); WHITE BLOOD COUNT 20.7 10^3/uL (4.0-10.0)
[2018-07-18 11:23] LABS: ANION GAP 10 MEQ/L (8-16); BLOOD UREA NITROGEN 34 MG/DL (7-18); CALCIUM LEVEL 8.8 MG/DL (8.8-10.2); CARBON DIOXIDE LEVEL 31 MEQ/L (21-32); CHLORIDE LEVEL 98 MEQ/L (98-107); GLOMERULAR FILTRATION RATE 57.1 (>42); GLUCOSE, FASTING 124 MG/DL (70-100); NT-PRO BNP 1130 PG/ML (<450); POTASSIUM SERUM 4.2 MEQ/L (3.5-5.1); SODIUM LEVEL 139 MEQ/L (136-145)
== END ==
DX: I50.9 Heart failure, unspecified (principal)

== ENCOUNTER → 2018-08-08 | Outpatient (REF) ==
[2018-08-08 14:25] LABS: ANION GAP 8 MEQ/L (8-16); BLOOD UREA NITROGEN 24 MG/DL (7-18); CALCIUM LEVEL 8.8 MG/DL (8.8-10.2); CARBON DIOXIDE LEVEL 36 MEQ/L (21-32); CHLORIDE LEVEL 99 MEQ/L (98-107); CREATININE FOR GFR 0.84 MG/DL (0.70-1.30); GLOMERULAR FILTRATION RATE > 60.0 (>42); GLUCOSE, FASTING 103 MG/DL (70-100); POTASSIUM SERUM 4.2 MEQ/L (3.5-5.1); SODIUM LEVEL 143 MEQ/L (136-145)
== END ==
DX: R60.9 Edema, unspecified (principal)

== ENCOUNTER → 2018-08-15 | Outpatient (REF) | payer MEDICARE ==
[2018-08-15 12:30] LABS: BASO % 0.3 % (0.0-1.0); EOS # 0.1 10^3/uL (0.0-0.50); EOS % 0.9 % (0.0-3.0); HEMATOCRIT 30.9 % (42.0-52.0); HEMOGLOBIN 9.4 g/dl (13.5-17.5); IMMATURE GRANULOCYTE % 1.4 % (0-3.0); LYMPH # 0.4 10^3/uL (1.5-4.5); LYMPH % 3.2 % (24.0-44.0); MEAN CORPUSCULAR HEMOGLOBIN 24.2 pg (27.0-33.0); MEAN CORPUSCULAR HGB CONC 30.4 g/dl (32.0-36.5); MEAN CORPUSCULAR VOLUME 79.4 fl (80.0-96.0); MONO # 1.6 10^3/uL (0.0-0.8); NEUTROPHILS # 11.2 10^3/uL (1.8-7.7); NEUTROPHILS % 82.2 % (36.0-66.0); PLATELET COUNT, AUTOMATED 212 10^3/uL (150-450); RED BLOOD COUNT 3.89 10^6/uL (4.30-6.10); RED CELL DISTRIBUTION WIDTH 20.3 % (11.5-14.5); WHITE BLOOD COUNT 13.6 10^3/uL (4.0-10.0)
[2018-08-15 13:43] LABS: ALBUMIN 2.5 GM/DL (3.2-5.2); ALBUMIN/GLOBULIN RATIO 0.81 (1.00-1.93); ALKALINE PHOSPHATASE 119 U/L (45-117); ALT/SGPT 29 U/L (12-78); ANION GAP 9 MEQ/L (8-16); AST/SGOT 25 U/L (7-37); BILIRUBIN,TOTAL 0.5 MG/DL (0.2-1.0); BLOOD UREA NITROGEN 27 MG/DL (7-18); CALCIUM LEVEL 8.1 MG/DL (8.8-10.2); CARBON DIOXIDE LEVEL 35 MEQ/L (21-32); CHLORIDE LEVEL 97 MEQ/L (98-107); CREATININE FOR GFR 1.04 MG/DL (0.70-1.30); GLOMERULAR FILTRATION RATE > 60.0 (>42); GLUCOSE, FASTING 130 MG/DL (70-100); POTASSIUM SERUM 4.1 MEQ/L (3.5-5.1); SODIUM LEVEL 141 MEQ/L (136-145); TOTAL PROTEIN 5.6 GM/DL (6.4-8.2)
== END ==
DX: R50.9 Fever, unspecified (principal); R41.82 Altered mental status, unspecified; R05 Cough
CPT/HCPCS: 80053